=== PATIENT | female | born 1965 | race Caucasian/White ===

== ENCOUNTER → 2016-07-29 | Outpatient (REF) | payer MEDICARE, OTHER ==
[~2016-07-29] MED LIST: ALBU17IN INH; CALC600T68 PO; CETI10CH PO; CYCL10TA PO; DICY10SO PO; DILT240C77 PO; EPIP0.3I2 IJ; GENV1TAB PO; HYDR-4274 PO; HYDR25OIN TOP; MONT10TA2 PO; OXYB5TA PO; PANT40TA2 PO; PHEN-223 PO; SUCR1SUS PO; TOPI50TA4 PO; VALA1TAB PO; VITA100072 PO; [UNRECOGNIZED DRUG - CODE] PO
[2016-07-29 15:56] LABS: CALCIUM OXALATE CRYSTALS LARGE
[2016-07-29 16:29] LABS: ALBUMIN 3.7 GM/DL (3.2-5.2); ALBUMIN/GLOBULIN RATIO 1.16 (1.00-1.93); ALKALINE PHOSPHATASE 135 U/L (45-117); ALT/SGPT 18 U/L (12-78); ANION GAP 8 MEQ/L (8-16); AST/SGOT 10 U/L (15-37); BILIRUBIN,TOTAL 0.2 MG/DL (0.2-1.0); BLOOD UREA NITROGEN 14 MG/DL (7-18); CALCIUM LEVEL 8.5 MG/DL (8.5-10.1); CARBON DIOXIDE LEVEL 22 MEQ/L (21-32); CHLORIDE LEVEL 107 MEQ/L (98-107); CHOLESTEROL LEVEL 240 MG/DL (<200); CREATININE FOR GFR 0.66 MG/DL (0.55-1.02); GLOMERULAR FILTRATION RATE > 60.0 (>51); GLUCOSE, FASTING 81 MG/DL (70-105); POTASSIUM SERUM 4.1 MEQ/L (3.5-5.1); SODIUM LEVEL 137 MEQ/L (136-145); TOTAL PROTEIN 6.9 GM/DL (6.4-8.2); TRIGLYCERIDES LEVEL 114 MG/DL (<150)
[2016-08-05 14:15] LABS: %CD3+CD4+CD8+ 0.9 % (Not Estab.); %CD3+CD4+CD8- 35.5 % (Not Estab.); ABS CD3+CD4+CD8+ 14 /uL (Not Estab.); ABS CD3+CD4+CD8- 533 /uL (Not Estab.); ABS CD3+CD4-CD8+ 690 /uL (Not Estab.); ABS CD3+CD4-CD8- 30 /uL (Not Estab.); CD4/CD8 NYSDOH RATIO 0.77 (Not Estab.); Eosinophils 1 % (.); HCT 45.2 % (34.0-46.6); HGB 14.6 g/dL (11.1-15.9); Monocytes 7 % (.); Neutrophils 61 % (.)
== END ==
LOC: M SFHCPLAZ 11:58
PROVIDERS: ATTEND Internal Medicine Infectious Disease
DX: B20 Human immunodeficiency virus [HIV] disease (principal); E66.9 Obesity, unspecified; Z79.899 Other long term (current) drug therapy
CPT/HCPCS: 36415; 80053; 80061; 81001; 82306; 86360; 86480; 86780; 87491; 87536; 87591; G0463

== ENCOUNTER → 2016-08-05 | Day surgery (SDC) | payer OTHER ==
[~2016-08-05] VITALS: Ht 154.9 cm; Wt 86.2 kg
[~2016-08-05] MED LIST changes: +LIDOCAINE W/EPINEPHRINE 1% 20ML VIAL As Ordered ONE; +LR 1,000 ML IV SCH; +METHYLENE BLUE 0.5% (5MG/ML) 10 ML AMP (PROVAYBLUE)(Q9968 PER 1MG) As Ordered ONE; +MIDAZOLAM INJ 2 MG/2 ML VIAL (J2250) As Ordered ONE; +ONDANSETRON 4MG/2ML VIAL (J2405) As Ordered ONE; +ONDANSETRON 4MG/2ML VIAL (J2405) IV PRN; +OXYMETAZOLINE NASAL SPRAY (AFRIN) As Ordered ONE; +PROPOFOL 200 MG/20 ML VIAL As Ordered ONE; +PROPOFOL 500 MG/50 ML VIAL As Ordered ONE; +REMIFENTANIL 1MG 3ML VIAL As Ordered ONE; +ROCURONIUM BROMIDE 50 MG/5 ML VIAL As Ordered ONE; +SUGAMMADEX SODIUM 500 MG/5 ML VIAL (BRIDION) As Ordered ONE; +dexameTHASONE 4 MG/ML 1ML VIAL (J1100) IV ONE; +fentaNYL 100 MCG/2 ML INJECTION (J3010) As Ordered ONE; +fentaNYL 100 MCG/2 ML INJECTION (J3010) IV PRN
[2016-08-05] MEDS: NORCO, ANEXSIA 5/325MG TABLET (HYDROcodone/ACETAMINOPHEN) PO PRN ×2 (10:40→11:00)
[2016-08-05 11:50] VITALS: BP 126/70
--- NOTE | 2016-08-17 10:01 | RO ---
DATE OF PROCEDURE: 08/05/2016 PREPROCEDURE DIAGNOSIS: Vocal cord polyposis. POSTPROCEDURE DIAGNOSIS: Vocal cord polyposis. PROCEDURE: direct suspension microlaryngoscopy with CO2 laser ablation of the right vocal cord polyposis. SURGEON: Dr. Michael No DIESEL TECHNOLOGY INSTRUCTOR: ANESTHESIA: General. CLINICAL PREAMBLE: This 50-year-old woman presented to the office with history of chronic dysphonia. Physical examination revealed erythematous vocal cords with polypoid degeneration. Biopsy confirmed presence of polypoid degeneration. Management options including surgery have been discussed. Patient understood and consented to the procedure. DESCRIPTION OF OPERATION: Patient was identified in preoperative holding and brought to the operating room in stable condition. In supine position on the operating room table, the patient received general anesthesia followed by attempt to perform mask ventilation. Due to body habitus, there was redundant upper airway mucosa, the jet ventilation proved to be difficult. Decision was made to convert to orotracheal intubation using the laser safe endotracheal tube. This was successfully performed. Patient was then prepped and draped in the usual fashion for the procedure. Bimanual palpation of the oral cavity, oral pharynx and posterior pharyngeal was negative for palpable nodule. The Dedo-Pilling laryngoscope was introduced and suspended on the Shaffer stand for good visualization of the vocal cords. Polypoid degeneration was more prominent on the right side. Decision was made to perform polypectomy on the right vocal cord. Using the Omni CO2 laser set at 6 continuous lyon, the polypoid mucosa was ablated from the right vocal cord. Care was ensured that no injury occurred to the anterior commissure. At this time, a swab was obtained for fungal culture per request of the infectious disease specialist. At the end of the procedure, sponge and instrument counts were correct. No complications were encountered. Estimated blood loss was less than 1 mL. General anesthesia was reversed and the patient was extubated and brought to the recovery room in stable condition. MELISSA
== END | disposition home or self-care (01) ==
LOC: M SDC 06:58
PROVIDERS: ATTEND Otolaryngology
DX: R49.0 Dysphonia (principal); J38.1 Polyp of vocal cord and larynx; B20 Human immunodeficiency virus [HIV] disease; G47.30 Sleep apnea, unspecified; Z88.1 Allergy status to other antibiotic agents; Z79.899 Other long term (current) drug therapy; F17.210 Nicotine dependence, cigarettes, uncomplicated; J45.909 Unspecified asthma, uncomplicated
CPT/HCPCS: 31541; 87102; J1100; J2250; J2405; J3010; Q9968

== ENCOUNTER → 2016-08-19 | Outpatient (REF) | payer MEDICARE, OTHER ==
[~2016-08-19] MED LIST changes: +DEXI60CA PO; -LIDOCAINE W/EPINEPHRINE 1% 20ML VIAL As Ordered ONE; -LR 1,000 ML IV SCH; -METHYLENE BLUE 0.5% (5MG/ML) 10 ML AMP (PROVAYBLUE)(Q9968 PER 1MG) As Ordered ONE; -MIDAZOLAM INJ 2 MG/2 ML VIAL (J2250) As Ordered ONE; -ONDANSETRON 4MG/2ML VIAL (J2405) As Ordered ONE; -ONDANSETRON 4MG/2ML VIAL (J2405) IV PRN; -OXYMETAZOLINE NASAL SPRAY (AFRIN) As Ordered ONE; -PROPOFOL 200 MG/20 ML VIAL As Ordered ONE; -PROPOFOL 500 MG/50 ML VIAL As Ordered ONE; +RANI150T PO; -REMIFENTANIL 1MG 3ML VIAL As Ordered ONE; -ROCURONIUM BROMIDE 50 MG/5 ML VIAL As Ordered ONE; -SUGAMMADEX SODIUM 500 MG/5 ML VIAL (BRIDION) As Ordered ONE; -dexameTHASONE 4 MG/ML 1ML VIAL (J1100) IV ONE; -fentaNYL 100 MCG/2 ML INJECTION (J3010) As Ordered ONE; -fentaNYL 100 MCG/2 ML INJECTION (J3010) IV PRN
== END ==
LOC: M SFHCPLAZ 11:21
PROVIDERS: ATTEND Internal Medicine Infectious Disease
DX: B20 Human immunodeficiency virus [HIV] disease (principal)
CPT/HCPCS: 36415; 87536; G0463

== ENCOUNTER → 2016-09-09 | Outpatient (CLI) | payer MEDICARE, MEDICAID ==
--- NOTE | 2016-09-09 12:19 | REPMRS ---
Patient History The patient states she had a clinical breast exam in 09/2016. Family history of prostate cancer in father at age 50 or over. Reductions of both breasts, January 2014. Digital Woman Screen Mammo: September 09, 2016 - Exam #: [id number] Bilateral CC and MLO view(s) were taken. Technologist: Radha Sorto, Technologist Prior study comparison: March 01, 2013, digital woman screen mammo performed at [facility] to [facility]. February 04, 2010, bilateral bilat screen digital mammo performed at [facility] to [facility]. FINDINGS: There are scattered fibroglandular densities. There has been no change in the appearance of the mammogram from the prior studies. There is a mild amount of residual fibroglandular tissue which is fairly symmetric. There is no interval development of dominant mass, architectural distortion, or clustered microcalcification suggestive of malignancy. ASSESSMENT: BI-RADS/ACR category 1 mammogram. Negative. Recommendation Routine screening mammogram in 1 year (for women over age 40). This mammogram was interpreted with the aid of an FDA-approved computer-aided dectection system. Electronically Signed By: Douglas Palacios MD 09/09/16 [id number]
--- NOTE | 2016-09-11 08:54 | DEXA ---
AP SPINE L1 - L4 0.915 -2.3 -2.6 LT FEMUR TOTAL 0.939 -0.5 -0.6 RT FEMUR TOTAL 0.916 -0.7 -0.8 TOTAL BODY TOTAL OTHER DUAL FEMUR FRAX* ASSESSMENT Risk factors: Possible premature menopause, current tobacco user. 10 year probability of fracture Major osteoporotic fracture 4.2 % Hip fracture 0.5 % COMMENTS: Normal bone densitometry of the left hip. There is low bone density of the spine. There is low bone density of the right hip. The density of the left hip has decreased 9.4% since 05/27/2012. The density of the right hip has decreased 8.9% since 05/27/2012. The decreased density of the left hip does represent a significant change. The decreased density of the right hip does represent a significant change. FOLLOW-UP: Recommendation for the next bone density exam: 2 years. MELISSA
== END ==
LOC: M WHC 10:26
PROVIDERS: ATTEND Nurse Practitioner Family
DX: Z12.31 Encounter for screening mammogram for malignant neoplasm of breast (principal); M85.80 Other specified disorders of bone density and structure, unspecified site; Z78.0 Asymptomatic menopausal state; Z98.890 Other specified postprocedural states
CPT/HCPCS: 77080; G0202

== ENCOUNTER → 2016-09-09 | Outpatient (REF) | payer MEDICARE, MEDICAID | LOC: M SFHCWAGY 11:05 | PROVIDERS: ATTEND Nurse Practitioner Family | DX: Z12.31 Encounter for screening mammogram for malignant neoplasm of breast (principal); Z12.72 Encounter for screening for malignant neoplasm of vagina; R87.622 Low grade squamous intraepithelial lesion on cytologic smear of vagina (LGSIL); M85.80 Other specified disorders of bone density and structure, unspecified site; Z78.0 Asymptomatic menopausal state | CPT/HCPCS: 77080; 87624; G0101; G0123; G0202 ==

== ENCOUNTER → 2016-09-18 | Outpatient (CLI) | payer MEDICARE, MEDICAID ==
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
== END ==
LOC: M PAIN 13:20
PROVIDERS: ATTEND Nurse Practitioner Family
DX: G89.29 Other chronic pain (principal); M53.3 Sacrococcygeal disorders, not elsewhere classified; M43.07 Spondylolysis, lumbosacral region; B20 Human immunodeficiency virus [HIV] disease; J45.909 Unspecified asthma, uncomplicated; I10 Essential (primary) hypertension; F32.9 Major depressive disorder, single episode, unspecified; M85.88 Other specified disorders of bone density and structure, other site; F17.200 Nicotine dependence, unspecified, uncomplicated; Z88.8 Allergy status to other drugs, medicaments and biological substances; Z79.899 Other long term (current) drug therapy

== ENCOUNTER → 2016-09-19 | Outpatient (REF) | payer MEDICARE, MEDICAID | LOC: M SFHCWAGY 14:38 | PROVIDERS: ATTEND Family Medicine | DX: R87.619 Unspecified abnormal cytological findings in specimens from cervix uteri (principal) ==

== ENCOUNTER → 2016-09-29 | Outpatient (CLI) | payer MEDICARE, MEDICAID ==
[~2016-09-29] VITALS: Ht 154.9 cm; Wt 88.4 kg
[~2016-09-29] MED LIST changes: +LIDOCAINE 2% INJ 100 MG/5 ML SDV (FOR ANES.) As Ordered ONE; +NS 1,000 ML IV SCH; +PROPOFOL 200 MG/20 ML VIAL As Ordered ONE
--- NOTE | 2016-09-29 13:50 | ROOR ---
Patient Name: Cinda Turner Procedure Date: 09/29/2016 1:21 PM Date of : 1965 Age: 50 Room: [facility] Gender: Female Note Status: Finalized Procedure: Upper GI endoscopy Indications: Functional Dyspepsia, history of yeast esophagitis Providers: Christiano COOPER MD Referring MD: Karen Marina MD, Zayra YU MD. Requesting Provider: Medicines: Monitored Anesthesia Care Complications: No immediate complications. Procedure: Pre-Anesthesia Assessment: - The heart rate, respiratory rate, oxygen saturations, blood pressure, adequacy of pulmonary ventilation, and response to care were monitored throughout the procedure. The Endoscope was introduced through the mouth, and advanced to the jejunum. The upper GI endoscopy was accomplished without difficulty. The patient tolerated the procedure well. Findings: The examined esophagus was normal. Biopsies were taken with a cold forceps for histology. The examined esophagus was normal. This was biopsied with a cold forceps for Fungal culture and ID. Evidence of a Rehana-en-Y gastrojejunostomy was found. The gastrojejunal anastomosis was characterized by healthy appearing mucosa. The exam of the stomach was otherwise normal. The examined jejunum was normal. Impression: - Normal esophagus. Biopsied for Histology. - Normal esophagus. Biopsied for Fungal culture and ID. - Normal stomach remnant with Rehana-en-Y gastrojejunostomy with gastrojejunal anastomosis widely patent and characterized by healthy appearing mucosa. - Normal examined jejunum. Recommendation: - Telephone endoscopist for pathology results after studies are complete. - Telephone endoscopist for pathology results in 2 weeks. Christiano Cooper MD Christiano COOPER MD 09/29/2016 1:50:06 PM This report has been signed electronically. Number of Addenda: 0 Note Initiated On: 09/29/2016 1:21 PM Estimated Blood Loss: Estimated blood loss: none.
[2016-09-29 13:55] VITALS: BP 136/89
== END | disposition home or self-care (01) ==
LOC: M OPP 11:53
PROVIDERS: ATTEND Internal Medicine Gastroenterology
DX: K30 Functional dyspepsia (principal); Z98.0 Intestinal bypass and anastomosis status; I10 Essential (primary) hypertension; E78.5 Hyperlipidemia, unspecified; B20 Human immunodeficiency virus [HIV] disease; M19.90 Unspecified osteoarthritis, unspecified site; Z78.0 Asymptomatic menopausal state; J45.909 Unspecified asthma, uncomplicated; G47.8 Other sleep disorders; G47.30 Sleep apnea, unspecified; R06.83 Snoring; Z87.19 Personal history of other diseases of the digestive system; Z98.84 Bariatric surgery status; F17.210 Nicotine dependence, cigarettes, uncomplicated; Z88.8 Allergy status to other drugs, medicaments and biological substances; Z88.1 Allergy status to other antibiotic agents; Z79.899 Other long term (current) drug therapy

== ENCOUNTER → 2016-10-16 | Outpatient (CLI) | payer MEDICARE, MEDICAID ==
[~2016-10-16] MED LIST changes: -LIDOCAINE 2% INJ 100 MG/5 ML SDV (FOR ANES.) As Ordered ONE; -NS 1,000 ML IV SCH; -PROPOFOL 200 MG/20 ML VIAL As Ordered ONE
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
== END ==
LOC: M PAIN 14:00
PROVIDERS: ATTEND Anesthesiology
DX: G89.29 Other chronic pain (principal); M46.1 Sacroiliitis, not elsewhere classified; B20 Human immunodeficiency virus [HIV] disease; K21.9 Gastro-esophageal reflux disease without esophagitis; K92.1 Melena; J45.909 Unspecified asthma, uncomplicated; I10 Essential (primary) hypertension; E78.00 Pure hypercholesterolemia, unspecified; G47.36 Sleep related hypoventilation in conditions classified elsewhere; F32.9 Major depressive disorder, single episode, unspecified; M85.80 Other specified disorders of bone density and structure, unspecified site; E66.9 Obesity, unspecified; Z68.38 Body mass index [BMI] 38.0-38.9, adult; F17.210 Nicotine dependence, cigarettes, uncomplicated; Z88.8 Allergy status to other drugs, medicaments and biological substances; Z79.899 Other long term (current) drug therapy; Z86.32 Personal history of gestational diabetes

== ENCOUNTER → 2016-10-24 | Outpatient (CLI) | payer MEDICARE, MEDICAID ==
[~2016-10-24] MED LIST changes: +BUPIVACAINE HCL 0.25% 30 ML VIAL As Ordered ONE; +ISOVUE-M 300 61% 15ML VIAL (Q9967) As Ordered ONE; +LIDOCAINE 1% SDV INJ 30 ML VIAL As Ordered ONE; +TRIAMCINOLONE ACETONIDE SUSP 40 MG/ML VIAL (J3301) As Ordered ONE; +diazePAM 5 MG TAB As Ordered ONE; +oxyCODONE 5MG TAB As Ordered ONE
--- NOTE | 2016-10-24 18:44 | REP ---
Partial SI joint series: Six views. History: Injection procedure for pain. 18 seconds of fluoroscopy time is reported. Findings: A sequence of six fluoroscopically obtained last image hold spot radiographs of the SI joints bilaterally document various needle positions and contrast injections associated with bilateral SI joint injection procedure. Signed by Eduar Ace MD 10/24/2016 07:00 P
--- NOTE | 2016-10-30 23:56 | ECWPNPC ---
PATIENT NAME: DEVAN EDWARDS : 1965 GENDER: FEMALE VISIT DATE: 10/24/2016 DISCHARGE DATE: 10/24/16 1620 VISIT LOCKED DATE TIME: PHYSICIAN: MARITA FOLEY RESOURCE: MARITA FOLEY REASON FOR APPOINTMENT 1. BILATERAL SIJ HISTORY OF PRESENT ILLNESS HISTORY OF PRESENT ILLNESS: PAIN THE PATIENT DESCRIBES THE PAIN... FALL RISK SCREENING: SCREENING :NO FALLS IN THE PAST YEAR CURRENT MEDICATIONS TAKING EPIPEN 0.3 MG/0.3ML DEVICE DIRECTED INJECTION ONCE DAILY NEEDED, NOTES: NEVER TAKING ANUSOL-HC 2.5 % CREAM 1 APPLICATION TO AFFECTED AREA RECTAL TWICE A DAY, NOTES: NONE RECENT TAKING VALTREX 1 GM TABLET 2 TABLET ORALLY BID FOR 2 DAYS PRN, NOTES: NONE RECENT TAKING DILT-XR 240 MG CAPSULE EXTENDED RELEASE 24 HOUR TAKE ONE CAPSULE BY MOUTH ONCE DAILY , NOTES: 10/24/16599 TAKING CYCLOBENZAPRINE HCL 10 MG TABLET 1 TABLET NEEDED ORALLY THREE TIMES A DAY, NOTES: 10/24/16599 TAKING HYDROXYZINE HCL 50 MG TABLET 1 TABLET NEEDED ORALLY 2 TABS AT BEDTIME, NOTES: 10/23/162199 TAKING ZANTAC 150 MAXIMUM STRENGTH 150 MG TABLET 1 TABLET AT BEDTIME ORALLY ONCE A DAY, NOTES: 10/23/161899 TAKING VENTOLIN HFA 108 (90 BASE) MCG/ACT AEROSOL SOLUTION 2 PUFFS MARY ALICE INHALATION EVERY 4 HRS NEEDED, NOTES: 2 DAYS AGO TAKING TOPAMAX 50 MG TABLET 1 TABLET ORALLY TWICE A DAY, NOTES: 10/24/16599 TAKING VITAMIN B-12 1000 MCG TABLET 1 TABLET ORALLY ONCE A DAY, NOTES: 10/24/16599 TAKING MONTELUKAST SODIUM 10 MG TABLET 1 TABLET IN THE EVENING ORALLY ONCE A DAY, NOTES: 10/23/161899 TAKING CALCIUM 600 + D 600-400 MG-UNIT TABLET 1 TABLET ORALLY TWICE A DAY, NOTES: 10/24/16599 TAKING PREZISTA 800 MG TABLET TAKE ONE TABLET BY MOUTH EVERY DAY WITH FOOD ORALLY ONCE A DAY, NOTES: 10/23/161899 TAKING GENVOYA [phone] MG TABLET TAKE ONE TABLET BY MOUTH EVERY DAY DIRECTED ORALLY DAILY, NOTES: 10/23/161899 TAKING VITAMIN D 1000 UNIT TABLET 1 TABLET ORALLY ONCE A DAY, NOTES: 10/24/16599 TAKING PODOFILOX 0.5 % SOLUTION 1 DROP TO AFFECTED AREA TO WARTS EXTERNALLY TWICE A DAY FOR 3 DAYS THEN OFF FOR 4 DAYS, NOTES: NONE RECENT TAKING ESTRADIOL 0.5 MG TABLET 1 TABLET ORALLY ONCE A DAY, NOTES: 10/24/16599 TAKING PHENTERMINE HCL 30 MG CAPSULE 1 CAPSULE ORALLY ONCE A DAY/MDD#1, NOTES: 10/24/16599 TAKING HYDROCODONE-ACETAMINOPHEN 7.5-325 MG TABLET 1 TABLET NEEDED ORALLY EVERY 6 HRS/MMD4, NOTES: 10/24/16599 NOT-TAKING LORATADINE 10 MG CAPSULE 1 CAPSULE ORALLY ONCE A DAY NOT-TAKING PANTOPRAZOLE SODIUM 40 MG TABLET DELAYED RELEASE 1 TABLET ORALLY ONCE A DAY MEDICATION LIST REVIEWED AND RECONCILED WITH THE PATIENT PAST MEDICAL HISTORY AIDS/HIV ASTHMA HYPERTENSION/ ECHOCARDIOGRAM SHOWED LVH TENDONITIS SANGITA WRIST ENVIRONMENTAL ALLERGIES HX OF GESTATIONAL DIABETES PURE 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 TORRES 08/17 IRRITABLE BOWEL SYNDROME GENOTYPE 08/2011 K103 MUTATION TROFILE DUAL MIXED TROPISM POSTMENOPAUSE OSTEOPENIA BMD 2012 DR KHOURY SYMPTOMATIC STATES ASSOCIATED WITH ARTIFICIAL MENOPAUSE SYMPTOMATIC STATES ASSOCIATED WITH ARTIFICIAL MENOPAUSE EXTERNAL HEMORRHOIDS GASTRIC BYPASS STATUS FOR OBESITY SEASONAL AND PERENNIAL ALLERGIC RHINITIS OSTEOPENIA ALLERGIES BIAXIN: RASH: ALLERGY NORVASC: EDEMA: ALLERGY LISINOPRIL: FACIAL SWELLING: ALLERGY ESTRADIOL: REDDNESS AT SITE OF PATCH: SIDE EFFECTS SURGICAL HISTORY PARTIAL HYSTERECTOMY 2004 TUBAL LIGATION 1989 GASTRIC BYPASS 1994 BENIGN POLYP REMOVAL FROM THROAT 2008 TENDONITIS SURGERY X2 (WRIST) RT 07/2008, LT 12/2008 BUNIONECTOMY 2ND TOE ON RIGHT FOOT STRAIGHTENED LAP CHOLECYSTECTOMY ([place]) 02/13/2012 LAP RELEASE OF BOWEL OBSTRUCTION (BOWEL SEWN INTO LUZ [facility]IA INCISION) ([facility]) 02/15/2012 ABDOMINAL SURGERY 06/23 BREAST REDUCTION COMPLICATED BY MSSA ABSCESS ON THE RIGHT SIDE REQUIRING INCISION AND DRAINAGE 01/2014 COLONOSCOPY 4 MM TUBULAR ADENOMA REPEAT IN [address] GAN 10/2015 BIOPSY THROAT 08-05-16 COLPOSCOPY 09/19/16 HOSPITALIZATION/MAJOR DIAGNOSTIC PROCEDURE RELATED TO SURGERY REVIEW OF SYSTEMS REVIEWED BY: PROVIDER: . CONSTITUTIONAL: ANY CHANGE IN YOUR MEDICAL CONDITION? NO . CHILLS NO . FEVER NO . INFECTION: DO YOU HAVE NEW INFECTIONS? NO . DO YOU HAVE HISTORY OF MRSA? NO . MUSCULOSKELETAL: ANY NEW PATTERNS OF PAIN OR NUMBNESS? NO . GASTROENTEROLOGY: ANY NEW CHANGE IN BOWEL CONTROL? NO . GENITOURINARY: ANY NEW CHANGE IN BLADDER CONTROL? NO . IS THERE A CHANCE YOU COULD BE ? NO . HEMATOLOGY/LYMPH: DO YOU TAKE ANY BLOOD THINNERS? (FOR EXAMPLE- COUMADIN, PLAVIX, AGGRENOX, PLATEL, PRADAXA, OR XARELTO) NO . WHEN WAS YOUR LAST DOSE? DATE: TIME: . NEUROLOGY: HAVE YOU FALLEN IN THE PAST 6 MONTHS? NO . ANY NEW EXTREMITY NUMBNESS OR WEAKNESS? NO . CARDIOLOGY: DO YOU HAVE A PACEMAKER OR DEFIBRILLATOR? NO . RESPIRATORY: HAVE YOU BEEN SICK IN THE PAST WEEK? NO . FEVER NO . FLU LIKE SYMPTOMS? NO . COUGH NO . INTEGUMENTARY: DO YOU HAVE ANY RASHES OR OPEN SORES? NO . ALLERGIC/IMMUNO: ARE YOU ALLERGIC TO SHELLFISH OR IV DYE? NO . ANY NEW ALLERGIES? NO . PSYCHIATRIC: DO YOU HAVE THOUGHTS OF HURTING YOURSELF OR SOMEONE ELSE? NO . ARE YOU ABUSED, NEGLECTED, OR IN AN UNSAFE ENVIRONMENT? NO . ENDOCRINOLOGY: ARE YOU DIABETIC? NO . OTHER: DO YOU NEED ANY PRESCRIPTIONS? NO . IF YES, PLEASE LIST: ____ . ANY NEW PROBLEMS WITH YOUR MEDICATIONS? NO . WHEN DID YOU LAST EAT? 10/23/161999 . WHEN DID YOU LAST DRINK? 10/24/16 0930 . WHAT DID YOU LAST DRINK? WATER . NAME OF PERSON DRIVING YOU HOME? MOM--BOOKER . DO YOU HAVE ANY OTHER QUESTIONS OR CONCERNS NO . VITAL SIGNS WT 201.8 LBS, HT 61 IN, BMI 38.13 INDEX, BP 138/88 MM HG, HR 91 /MIN, RR 18 /MIN, TEMP 97.7 F, OXYGEN SAT % 98%, NA INITIALS TL 1153, REVIEWED BY: AD. ASSESSMENTS SACROILIITIS, NOT ELSEWHERE CLASSIFIED - M46.1 (PRIMARY) PROCEDURES PN SI PRE PROCEDURE DIAGNOSIS SACROILIITIS, SACROILIAC JOINT DYSFUNCTION POST PROCEDURE DIAGNOSIS SACROILIITIS, SACROILIAC JOINT DYSFUNCTION PROCEDURE BILATERAL SACROILIAC JOINT BLOCK SURGEON DR. MARITA FOLEY DIRECTOR OF MATH NONE ANESTHESIA LOCAL PRE PROCEDURE NOTE PATIENT WITH HISTORY OF CHRONIC LOW BACK PAIN. I EVALUATED THE PATIENT AND REVIEWED THE CHART. I WENT OVER THE RISKS, ALTERNATIVES, AND BENEFITS ASSOCIATED WITH THIS PROCEDURE. THE PATIENT WOULD LIKE TO PROCEED AND GAVE CONSENT TO PERFORM THE PROCEDURE. THE PATIENT DENIES UNEXPLAINABLE WEIGHT LOSS, FEVER, CHILLS, OR NEW CHANGES IN URINARY OR BOWEL CONTROL DESCRIPTION OF PROCEDURE THE PATIENT WAS BROUGHT TO THE PROCEDURE ROOM AND PLACED IN THE PRONE POSITION. THE LUMBOSACRAL AREA WAS CLEANED WITH CHLORAPREP SOLUTION AND DRAPED ASEPTICALLY. THE PROCEDURE WAS DONE UNDER STERILE CONDITIONS. I CHECKED LATERALITY AND THE LEVEL WHERE THE PROCEDURE WAS GOING TO BE PERFORMED WITH THE PATIENT AND THE SUPPORTING STAFF AT THE MOMENT OF THE TIME OUT IN THE PROCEDURE ROOM. UNDER FLUOROSCOPIC GUIDANCE, TARGET POINT WAS SELECTED AT THE LOWER BORDER OF THE RIGHT AND LEFT SACROILIAC JOINT. TARGET POINT WAS SELECTED AFTER MEDIAL ROTATION AND TILT OF THE MAGNIFIER OF THE C-ARM. LIDOCAINE WAS USED TO NUMB THE SKIN AND SUBCUTANEOUS TISSUE BELOW IT. A SPINAL NEEDLE, 22-GAUGE, WAS ADVANCED UNDER FLUOROSCOPIC GUIDANCE AND FOLLOWING PATIENT FEEDBACK UNTIL THE TARGET AREA WAS TOUCHED. THE POSITION OF THE NEEDLE WAS VERIFIED WITH AP AND LATERAL VIEWS. AFTER PROPER POSITION OF THE NEEDLE WAS ACHIEVED, ISOVUE M DYE 30%, 0.25 ML, WAS INJECTED SHOWING SPREAD OF THE DYE. THEN, A SOLUTION OF 20 MG OF KENALOG WAS INJECTED IN RIGHT JOINT WITH 3 ML OF BUPIVACAINE 0.125%. THERE WAS NO EVIDENCE OF BLOOD, PARESTHESIA OR CEREBROSPINAL FLUID DURING THE PROCEDURE. THE PATIENT WAS SENT TO THE RECOVERY ROOM. THE PATIENT WAS MOVING THE EXTREMITIES AND DOING WELL. THERE WAS NO COMPLICATION DURING THE PROCEDURE. FLUOROSCOPY TIME WAS 18 SECONDS POST PROCEDURE NOTE THE PATIENT WILL BE SEEN IN A FOLLOW UP IN THE NEXT FEW WEEKS. INSTRUCTIONS WERE GIVEN, QUESTIONS WERE ANSWERED, AND THE PATIENT EXPRESSED UNDERSTANDING AND AGREED WITH THE PLAN. I, HAILEE ESPINO, DOCUMENTED THE ABOVE INFORMATION ACTING A SCRIBE FOR DR. FOLEY. I HAVE REVIEWED THE ABOVE DOCUMENT, WRITTEN BY HAILEE ARAGON AND I VERIFY THAT IT IS ACCURATE DIAGNOSTIC IMAGING [facility] FLUORO GUIDANCE (PAIN)[id number] PROCEDURE CODES 68143 INJECT SACROILIAC JOINT 6045F RADXPS IN END [id number] PXD DISPOSITION & COMMUNICATION FOLLOW UP 3 WEEKS ELECTRONICALLY SIGNED BY MARITA FOLEY MD ON 10/30/2016 AT 11:09 AM EDT DISCLAIMER : THIS IS A VISIT SUMMARY EXTRACTED FROM THE [employer] CHART. IT IS NOT A COPY OF THE [employer] PROGRESS NOTE. MELISSA
== END ==
LOC: M PAIN 11:40
PROVIDERS: ATTEND Anesthesiology
DX: G89.29 Other chronic pain (principal); M46.1 Sacroiliitis, not elsewhere classified; M53.88 Other specified dorsopathies, sacral and sacrococcygeal region; B20 Human immunodeficiency virus [HIV] disease; J45.909 Unspecified asthma, uncomplicated; I10 Essential (primary) hypertension; E78.00 Pure hypercholesterolemia, unspecified; M85.80 Other specified disorders of bone density and structure, unspecified site; K21.9 Gastro-esophageal reflux disease without esophagitis; Z79.899 Other long term (current) drug therapy; Z86.32 Personal history of gestational diabetes
CPT/HCPCS: G0260; J3301; Q9967

== ENCOUNTER → 2016-11-07 | Outpatient (CLI) | payer MEDICARE, MEDICAID ==
[~2016-11-07] MED LIST changes: -BUPIVACAINE HCL 0.25% 30 ML VIAL As Ordered ONE; -DEXI60CA PO; +DEXI60CA2 PO; +ESTR1TAB PO; +HORMONE PO; -HYDR-4274 PO; +HYDR50TA70 PO; -ISOVUE-M 300 61% 15ML VIAL (Q9967) As Ordered ONE; -LIDOCAINE 1% SDV INJ 30 ML VIAL As Ordered ONE; -OXYB5TA PO; +OXYB5TAB10 PO; -PHEN-223 PO; +PHEN30CA2 PO; +PREZ600T3 PO; +PREZ800T2 PO; -TOPI50TA4 PO; +TOPI50TA9 PO; -TRIAMCINOLONE ACETONIDE SUSP 40 MG/ML VIAL (J3301) As Ordered ONE; -VALA1TAB PO; +VALA1TAB2 PO; -[UNRECOGNIZED DRUG - CODE] PO; -diazePAM 5 MG TAB As Ordered ONE; -oxyCODONE 5MG TAB As Ordered ONE
--- NOTE | 2016-11-22 00:43 | ECWPNPC ---
PATIENT NAME: DEVAN EDWARDS : 1965 GENDER: FEMALE VISIT DATE: 11/07/2016 DISCHARGE DATE: 11/07/16 1218 VISIT LOCKED DATE TIME: PHYSICIAN: UMESH LONGO RESOURCE: UMESH LONGO REASON FOR APPOINTMENT 1. POST PROCEDURE HISTORY OF PRESENT ILLNESS HISTORY OF PRESENT ILLNESS: HERE FOR POST PROCEDURE F/U.HAD BILATERAL SIJ ON 10-24-16.REPORTS NO IMPROVEMENT POST PROCEDURE.RATING PAIN VAS 6/10.PAIN IS LOCATED ACROSS LOW BACK WITH INTERMITTENT RIGHT LEG PAIN.PAIN IS AGGREVATED WITH HOUSEWORK IE:SWEEPING AND MOPPING. PAIN THE PATIENT DESCRIBES THE PAIN... FALL RISK SCREENING: SCREENING :NO FALLS IN THE PAST YEAR CURRENT MEDICATIONS TAKING EPIPEN 0.3 MG/0.3ML DEVICE DIRECTED INJECTION ONCE DAILY NEEDED TAKING ANUSOL-HC 2.5 % CREAM 1 APPLICATION TO AFFECTED AREA RECTAL TWICE A DAY TAKING VALTREX 1 GM TABLET 2 TABLET ORALLY BID FOR 2 DAYS PRN TAKING DILT-XR 240 MG CAPSULE EXTENDED RELEASE 24 HOUR TAKE ONE CAPSULE BY MOUTH ONCE DAILY TAKING CYCLOBENZAPRINE HCL 10 MG TABLET 1 TABLET NEEDED ORALLY THREE TIMES A DAY TAKING ZANTAC 150 MAXIMUM STRENGTH 150 MG TABLET 1 TABLET AT BEDTIME ORALLY ONCE A DAY TAKING VENTOLIN HFA 108 (90 BASE) MCG/ACT AEROSOL SOLUTION 2 PUFFS MARY ALICE INHALATION EVERY 4 HRS NEEDED TAKING TOPAMAX 50 MG TABLET 1 TABLET ORALLY TWICE A DAY TAKING VITAMIN B-12 1000 MCG TABLET 1 TABLET ORALLY ONCE A DAY TAKING VITAMIN D 1000 UNIT TABLET 1 TABLET ORALLY ONCE A DAY TAKING ESTRADIOL 0.5 MG TABLET 1 TABLET ORALLY ONCE A DAY TAKING MONTELUKAST SODIUM 10 MG TABLET 1 TABLET IN THE EVENING ORALLY ONCE A DAY TAKING HYDROCODONE-ACETAMINOPHEN 7.5-325 MG TABLET 1 TABLET NEEDED ORALLY EVERY 6 HRS/MMD4 TAKING RANITIDINE HCL 300 MG TABLET 1 TABLET AT BEDTIME ORALLY BEFORE BEDTIME TAKING CALCIUM 600 + D 600-400 MG-UNIT TABLET 1 TABLET ORALLY TWICE A DAY TAKING PREZISTA 800 MG TABLET TAKE ONE TABLET BY MOUTH EVERY DAY WITH FOOD ORALLY ONCE A DAY TAKING GENVOYA 107-111-348-10 MG TABLET TAKE ONE TABLET BY MOUTH EVERY DAY DIRECTED ORALLY DAILY TAKING HYDROXYZINE HCL 50 MG TABLET 1 TABLET NEEDED ORALLY 2 TABS AT BEDTIME TAKING DEXILANT 60 MG CAPSULE DELAYED RELEASE 1 CAPSULE ORALLY ONCE A DAY NOT-TAKING PHENTERMINE HCL 30 MG CAPSULE 1 CAPSULE ORALLY ONCE A DAY/MDD#1 NOT-TAKING CETIRIZINE HCL 10 MG TABLET 1 TABLET ORALLY ONCE A DAY NOT-TAKING PANTOPRAZOLE SODIUM 40 MG TABLET DELAYED RELEASE 1 TABLET ORALLY ONCE A DAY NOT-TAKING PODOFILOX 0.5 % SOLUTION 1 DROP TO AFFECTED AREA TO WARTS EXTERNALLY TWICE A DAY FOR 3 DAYS THEN OFF FOR 4 DAYS, NOTES: NONE RECENT NOT-TAKING LORATADINE 10 MG CAPSULE 1 CAPSULE ORALLY ONCE A DAY MEDICATION LIST REVIEWED AND RECONCILED WITH THE PATIENT PAST MEDICAL HISTORY AIDS/HIV ASTHMA HYPERTENSION/ ECHOCARDIOGRAM SHOWED LVH TENDONITIS SANGITA WRIST ENVIRONMENTAL ALLERGIES HX OF GESTATIONAL DIABETES PURE 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 TORRES 08/17 IRRITABLE BOWEL SYNDROME GENOTYPE 08/2011 K103 MUTATION TROFILE DUAL MIXED TROPISM POSTMENOPAUSE OSTEOPENIA BMD [address] KHOURY SYMPTOMATIC STATES ASSOCIATED WITH ARTIFICIAL MENOPAUSE SYMPTOMATIC STATES ASSOCIATED WITH ARTIFICIAL MENOPAUSE EXTERNAL HEMORRHOIDS GASTRIC BYPASS STATUS FOR OBESITY SEASONAL AND PERENNIAL ALLERGIC RHINITIS OSTEOPENIA ALLERGIES BIAXIN: RASH: ALLERGY NORVASC: EDEMA: ALLERGY LISINOPRIL: FACIAL SWELLING: ALLERGY ESTRADIOL: REREDDNESS AT SITE OF PATCH: SIDE EFFECTS SURGICAL HISTORY PARTIAL HYSTERECTOMY 2004 TUBAL LIGATION 1989 GASTRIC BYPASS 1994 BENIGN POLYP REMOVAL FROM THROAT 2009 TENDONITIS SURGERY X2 (WRIST) RT 07/2008, LT 12/2008 BUNIONECTOMY 2ND TOE ON RIGHT FOOT STRAIGHTENED LAP CHOLECYSTECTOMY ([place]) 02/13/2012 LAP RELEASE OF BOWEL OBSTRUCTION (BOWEL SEWN INTO LUZ MARIA INCISION) ([facility]) 02/15/2012 ABDOMINAL SURGERY 06/23 BREAST REDUCTION COMPLICATED BY MSSA ABSCESS ON THE RIGHT SIDE REQUIRING INCISION AND DRAINAGE 01/2014 COLONOSCOPY 4 MM TUBULAR ADENOMA REPEAT IN [address] GAN 10/2015 BIOPSY THROAT 08-05-16 COLPOSCOPY 09/19/16 HOSPITALIZATION/MAJOR DIAGNOSTIC PROCEDURE RELATED TO SURGERY REVIEW OF SYSTEMS REVIEWED BY: PROVIDER: UMESH GORDILLO . CONSTITUTIONAL: ANY CHANGE IN YOUR MEDICAL CONDITION? NO . CHILLS NO . FEVER NO . INFECTION: DO YOU HAVE NEW INFECTIONS? NO . DO YOU HAVE HISTORY OF MRSA? NO . MUSCULOSKELETAL: ANY NEW PATTERNS OF PAIN OR NUMBNESS? NO . GASTROENTEROLOGY: ANY NEW CHANGE IN BOWEL CONTROL? NO . GENITOURINARY: ANY NEW CHANGE IN BLADDER CONTROL? NO . IS THERE A CHANCE YOU COULD BE ? NO . HEMATOLOGY/LYMPH: DO YOU TAKE ANY BLOOD THINNERS? (FOR EXAMPLE- COUMADIN, PLAVIX, AGGRENOX, PLATEL, PRADAXA, OR XARELTO) NO . WHEN WAS YOUR LAST DOSE? DATE: TIME: . NEUROLOGY: HAVE YOU FALLEN IN THE PAST 6 MONTHS? NO . ANY NEW EXTREMITY NUMBNESS OR WEAKNESS? NO . CARDIOLOGY: DO YOU HAVE A PACEMAKER OR DEFIBRILLATOR? NO . RESPIRATORY: HAVE YOU BEEN SICK IN THE PAST WEEK? NO . FEVER NO . FLU LIKE SYMPTOMS? NO . COUGH NO . INTEGUMENTARY: DO YOU HAVE ANY RASHES OR OPEN SORES? NO . ALLERGIC/IMMUNO: ARE YOU ALLERGIC TO SHELLFISH OR IV DYE? NO . ANY NEW ALLERGIES? NO . PSYCHIATRIC: DO YOU HAVE THOUGHTS OF HURTING YOURSELF OR SOMEONE ELSE? NO . ARE YOU ABUSED, NEGLECTED, OR IN AN UNSAFE ENVIRONMENT? NO . ENDOCRINOLOGY: ARE YOU DIABETIC? NO . OTHER: DO YOU NEED ANY PRESCRIPTIONS? NO . IF YES, PLEASE LIST: ____ . ANY NEW PROBLEMS WITH YOUR MEDICATIONS? NO . WHEN DID YOU LAST EAT? ____ . WHEN DID YOU LAST DRINK? ____ . WHAT DID YOU LAST DRINK? ____ . NAME OF PERSON DRIVING YOU HOME? ____ . DO YOU HAVE ANY OTHER QUESTIONS OR CONCERNS NO . VITAL SIGNS WT 203 LBS, HT 61 IN, BMI 38.35 INDEX, BP 139/93 MM HG, HR 87 /MIN, RR 18 /MIN, TEMP 98.3 F, OXYGEN SAT % 95%, SAFE IN ENV? (Y/N) Y, NA INITIALS AW 1134, REVIEWED BY: EM. EXAMINATION GENERAL EXAMINATION: GENERAL APPEARANCE:APPEARS OLDER THAN STATED AGE, OBESE, UNCOMFORTABLE. PSYCHAFFECT NORMAL. LUNGS:LUNG MCADAMS ARE CLEAR TO AUSCULTATION BILATERALLY. GOOD MOVEMENT OF AIR. HEART:S1, S2 IN A REGULAR RATE AND RHYTHM. NO SIGNIFICANT MURMURS, RUBS OR GALLOPS NOTED. ABDOMEN:SOFT, NON-TENDER, NO ORGANOMEGALY, BOWEL SOUNDS ARE NORMAL, OBESE. DIAGNOSTIC DATA-MRI L/S [id number]-REVIEWED. LUMBAR SPINE/LOWER BACK: INSPECTION:NORMAL CURVATURE OF SPINE. PALPATION:VERTEBRAL SPINE TENDERNESS, VERTEBRAL SPINE TENDERNESS, SI JOINT TENDERNESS R>L. MOTOR SYSTEM:5/5 BLE. SENSORY EXAM:NORMAL. REFLEXES:DIMINISHED BILATERALLY. GAIT:ANTALGIC. 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 MATERIAL WAS PRINTED, REVIEWED AND GIVEN TO PT. PROCEDURE CODES FA211 ESTABILISHED PATIENT [facility] FACILITY CHARGE G8730 PAIN ASSESS POS TOOL F/U PLAN DOC G8427 DOC MEDS VERIFIED W/PT OR RE DISPOSITION & COMMUNICATION FOLLOW UP 2WK POST (REASON: L4/5-L5/S1-INTRALAMINAL LESI) ELECTRONICALLY SIGNED BY RAND HIGGINS ON 11/21/2016 AT 01:40 PM EDT DISCLAIMER : THIS IS A VISIT SUMMARY EXTRACTED FROM THE [employer] CHART. IT IS NOT A COPY OF THE [employer] PROGRESS NOTE. MELISSA
== END ==
LOC: M PAIN 10:40
PROVIDERS: ATTEND Nurse Practitioner Family
DX: G89.29 Other chronic pain (principal); M43.07 Spondylolysis, lumbosacral region; M51.26 Other intervertebral disc displacement, lumbar region; M54.16 Radiculopathy, lumbar region; B20 Human immunodeficiency virus [HIV] disease; J45.909 Unspecified asthma, uncomplicated; I10 Essential (primary) hypertension; E78.00 Pure hypercholesterolemia, unspecified; F32.9 Major depressive disorder, single episode, unspecified; M85.80 Other specified disorders of bone density and structure, unspecified site; Z88.8 Allergy status to other drugs, medicaments and biological substances; Z79.899 Other long term (current) drug therapy; Z86.32 Personal history of gestational diabetes

== ENCOUNTER → 2016-11-26 | Outpatient (CLI) | payer MEDICARE, MEDICAID ==
[~2016-11-26] MED LIST changes: +ISOVUE-M 300 61% 15ML VIAL (Q9967) As Ordered ONE; +LIDOCAINE 1% SDV INJ 30 ML VIAL As Ordered ONE; +diazePAM 5 MG TAB As Ordered ONE; +methylPREDNISolone SUSP 40 MG/ML (DEPO-medrol) VIAL (J1030) As Ordered ONE; +oxyCODONE 5MG TAB As Ordered ONE
--- NOTE | 2016-11-26 11:52 | REP ---
Partial lumbar spine series: Three views . History: Injection procedure for pain. 12th seconds of fluoroscopy time is reported. Findings: A sequence of three fluoroscopically obtained last image hold procedural spot radiographs of the lumbar spine document needle position and contrast injection associated with injection procedure. Signed by Eduar Ace MD 11/26/2016 11:43 A
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
== END ==
LOC: M PAIN 08:40
PROVIDERS: ATTEND Anesthesiology
DX: G89.29 Other chronic pain (principal); M51.17 Intervertebral disc disorders with radiculopathy, lumbosacral region; B20 Human immunodeficiency virus [HIV] disease; J30.89 Other allergic rhinitis; I10 Essential (primary) hypertension; K21.9 Gastro-esophageal reflux disease without esophagitis; E66.9 Obesity, unspecified; Z68.45 Body mass index [BMI] 70 or greater, adult; F32.9 Major depressive disorder, single episode, unspecified; M85.80 Other specified disorders of bone density and structure, unspecified site; F17.210 Nicotine dependence, cigarettes, uncomplicated; Z88.8 Allergy status to other drugs, medicaments and biological substances; Z79.899 Other long term (current) drug therapy
CPT/HCPCS: 62323; J1030; Q9967

== ENCOUNTER 2016-12-17 11:35 | Day surgery (SDC) | payer MEDICARE, MEDICAID ==
[~2016-12-17] VITALS: Ht 154.9 cm; Wt 88.0 kg
[~2016-12-17 11:35] MED LIST changes: -ESTR1TAB PO; -ISOVUE-M 300 61% 15ML VIAL (Q9967) As Ordered ONE; -LIDOCAINE 1% SDV INJ 30 ML VIAL As Ordered ONE; -diazePAM 5 MG TAB As Ordered ONE; -methylPREDNISolone SUSP 40 MG/ML (DEPO-medrol) VIAL (J1030) As Ordered ONE; -oxyCODONE 5MG TAB As Ordered ONE
[2016-12-17] MEDS ORDERED: LIDOCAINE 1% MDV 20ML VIAL SQ PRN (11:45)
[2016-12-17] MEDS ORDERED: dexameTHASONE 4 MG/ML 1ML VIAL (J1100) IV ONE (11:45)
[2016-12-17] MEDS ORDERED: LR 1,000 ML IV ONE (11:45)
[2016-12-17] MEDS ORDERED: ESTR1TAB PO (12:12)
[2016-12-17] MEDS ORDERED: LIDOCAINE W/EPINEPHRINE 1% 20ML VIAL As Ordered ONE (14:09)
[2016-12-17] MEDS ORDERED: OXYMETAZOLINE NASAL SPRAY (AFRIN) As Ordered ONE (14:09)
[2016-12-17] MEDS ORDERED: LIDOCAINE 2% INJ 100 MG/5 ML SDV (FOR ANES.) As Ordered ONE (14:22)
[2016-12-17] MEDS ORDERED: dexameTHASONE 4 MG/ML 1ML VIAL (J1100) As Ordered ONE (14:22)
[2016-12-17] MEDS ORDERED: MIDAZOLAM INJ 2 MG/2 ML VIAL (J2250) As Ordered ONE (14:22)
[2016-12-17] MEDS ORDERED: ONDANSETRON 4MG/2ML VIAL (J2405) As Ordered ONE (14:22)
[2016-12-17] MEDS ORDERED: fentaNYL 250 MCG/5 ML INJECTION (J3010) As Ordered ONE (14:22)
[2016-12-17] MEDS ORDERED: ROCURONIUM BROMIDE 50 MG/5 ML VIAL/SYRINGE As Ordered ONE (14:22)
[2016-12-17] MEDS ORDERED: PROPOFOL 200 MG/20 ML VIAL As Ordered ONE (14:22)
[2016-12-17] MEDS ORDERED: SUCCINYLCHOLINE 100 MG/5 ML SYRINGE (J0330) As Ordered ONE (14:22)
[2016-12-17] MEDS ORDERED: METOCLOPRAMIDE INJ 10MG/2ML VIAL (J2765) IV PRN (15:30)
[2016-12-17] MEDS ORDERED: LR 1,000 ML IV SCH ×2 (15:30)
[2016-12-17] MEDS ORDERED: ONDANSETRON 4MG/2ML VIAL (J2405) IV PRN (15:30)
[2016-12-17] MEDS ORDERED: fentaNYL 100 MCG/2 ML INJECTION (J3010) IV PRN (15:30)
[2016-12-17 16:25] VITALS: BP 135/76
--- NOTE | 2017-01-08 08:44 | RO ---
DATE OF PROCEDURE: 12/17/2016 PREPROCEDURE DIAGNOSES: Dysphonia and vocal cord polyp. POSTPROCEDURE DIAGNOSES: Dysphonia and vocal cord polyp. PROCEDURE: Direct suspension microlaryngoscopy with CO2 laser ablation of the left vocal cord polyp. SURGEON: Michael No MD ASSISTANT STORE DIRECTOR: ANESTHESIA: General. CLINICAL PREAMBLE: This 59-year-old woman is noted to have vocal cord polyposis. Management options, including the CO2 laser ablation of the vocal cord polyp have been discussed. She has had right vocal cord polyp resected with good results. The patient understood and consented to the procedure. DESCRIPTION OF PROCEDURE: Patient was identified in preholding and brought to the operating room in stable condition. In the supine position on the operating room table, the patient received general anesthesia followed by orotracheal intubation without incident. The patient was prepped and draped in the usual fashion for the procedure. The head and neck region, down to the clavicular area was draped using wet towel. All personnel in the operating room wore the CO2 laser protective eyeglasses. Appropriate precautions were taken in regard to the availability of the fluid. The Dedo-Piling laryngoscope was introduced and the glottis was successfully visualized. No mucosal lesion was noted in the oral cavity, oropharynx, subglottis and the hypopharynx. Left vocal cord polyposis was noted. The subglottis was then protected using Cottonoid pledgets soaked in Afrin solution to protect the endotracheal cuff of the CO2 laser safe endotracheal tube. At this time, using the Omni laser with a flexible wire system set at 6 lyon continuous mode, the ablation of the left vocal cord polyp was carried out. No complications were encountered. At the end of the case, estimated blood loss was less than 1 mL. General anesthesia was reversed, and patient was awakened and taken to recovery room in stable condition. MELISSA
== END 2016-12-17 16:35 | disposition home or self-care (01) ==
LOC: M SDC 11:35
PROVIDERS: ATTEND Otolaryngology
DX: J38.1 Polyp of vocal cord and larynx (principal); I10 Essential (primary) hypertension; B20 Human immunodeficiency virus [HIV] disease; G47.30 Sleep apnea, unspecified; F17.210 Nicotine dependence, cigarettes, uncomplicated; Z88.8 Allergy status to other drugs, medicaments and biological substances; Z79.899 Other long term (current) drug therapy; J45.909 Unspecified asthma, uncomplicated
CPT/HCPCS: 31572; J0330; J1100; J2250; J2405; J3010

== ENCOUNTER → 2016-12-23 | Outpatient (CLI) | payer MEDICARE, MEDICAID ==
[~2016-12-23] MED LIST changes: +ESTR1TAB PO
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
== END ==
LOC: M PAIN 10:00
PROVIDERS: ATTEND Nurse Practitioner Family
DX: G89.29 Other chronic pain (principal); M43.07 Spondylolysis, lumbosacral region; M51.26 Other intervertebral disc displacement, lumbar region; M54.16 Radiculopathy, lumbar region; B20 Human immunodeficiency virus [HIV] disease; J45.909 Unspecified asthma, uncomplicated; I10 Essential (primary) hypertension; F17.210 Nicotine dependence, cigarettes, uncomplicated; Z88.8 Allergy status to other drugs, medicaments and biological substances; Z79.899 Other long term (current) drug therapy

== ENCOUNTER → 2017-01-22 | Outpatient (CLI) | payer MEDICARE, MEDICAID ==
[~2017-01-22] MED LIST changes: +ISOVUE-M 300 61% 15ML VIAL (Q9967) As Ordered ONE; +LIDOCAINE 1% SDV INJ 30 ML VIAL As Ordered ONE; +diazePAM 5 MG TAB As Ordered ONE; +methylPREDNISolone SUSP 40 MG/ML (DEPO-medrol) VIAL (J1030) As Ordered ONE; +oxyCODONE 5MG TAB As Ordered ONE
--- NOTE | 2017-01-22 15:02 | REP ---
Partial lumbar spine series: Three views . History: Injection procedure for pain. Nine seconds of fluoroscopy time is reported. Findings: A sequence of three fluoroscopically obtained last image hold procedural spot radiographs of the lumbar spine document needle position and contrast injection associated with injection procedure. Signed by Eduar Ace MD 01/22/2017 02:53 P
--- NOTE | 2017-01-23 00:31 | ECWPNPC ---
PATIENT NAME: DEVAN EDWARDS : 1965 GENDER: FEMALE VISIT DATE: 01/22/2017 DISCHARGE DATE: 01/22/17 1505 VISIT LOCKED DATE TIME: PHYSICIAN: MARITA FOLEY RESOURCE: MARITA FOLEY REASON FOR APPOINTMENT 1. L4/5 TRANSFORAMINAL HISTORY OF PRESENT ILLNESS HISTORY OF PRESENT ILLNESS: PAIN THE PATIENT DESCRIBES THE PAIN... FALL RISK SCREENING: SCREENING :NO FALLS IN THE PAST YEAR CURRENT MEDICATIONS TAKING EPIPEN 0.3 MG/0.3ML DEVICE DIRECTED INJECTION ONCE DAILY NEEDED, NOTES: NEVER TAKING ANUSOL-HC 2.5 % CREAM 1 APPLICATION TO AFFECTED AREA RECTAL TWICE A DAY, NOTES: NONE LATELY TAKING VITAMIN B-12 1000 MCG TABLET 1 TABLET ORALLY ONCE A DAY, NOTES: 01/22/17699 TAKING VITAMIN D 1000 UNIT TABLET 1 TABLET ORALLY ONCE A DAY TAKING 2500 UNITS, NOTES: 01/22/17699 TAKING ESTRADIOL 0.5 MG TABLET 1 TABLET ORALLY ONCE A DAY, NOTES: 01/22/17699 TAKING RANITIDINE HCL 300 MG TABLET 1 TABLET AT BEDTIME ORALLY BEFORE BEDTIME, NOTES: 01/21/172099 TAKING CALCIUM 600 + D 600-400 MG-UNIT TABLET 1 TABLET ORALLY TWICE A DAY, NOTES: 01/22/17699 TAKING VALTREX 1 GM TABLET 2 TABLET ORALLY BID FOR 2 DAYS PRN, NOTES: NONE LATELY TAKING MONTELUKAST SODIUM 10 MG TABLET 1 TABLET IN THE EVENING ORALLY ONCE A DAY, NOTES: 01/21/172099 TAKING TOPAMAX 50 MG TABLET 1 TABLET ORALLY TWICE A DAY, NOTES: 01/22/17699 TAKING CYCLOBENZAPRINE HCL 10 MG TABLET 1 TABLET NEEDED ORALLY THREE TIMES A DAY, NOTES: 01/22/17699 TAKING DILT-XR 240 MG CAPSULE EXTENDED RELEASE 24 HOUR TAKE ONE CAPSULE BY MOUTH ONCE DAILY ORALLY DAILY, NOTES: 01/22/17699 TAKING HYDROXYZINE HCL 50 MG TABLET 1 TABLET NEEDED ORALLY 2 TABS AT BEDTIME, NOTES: 01/21/172099 TAKING HYDROCODONE-ACETAMINOPHEN 7.5-325 MG TABLET 1 TABLET NEEDED ORALLY EVERY 6 HRS/MMD4, NOTES: 01/21/172099 TAKING DEXILANT 60 MG CAPSULE DELAYED RELEASE 1 CAPSULE ORALLY ONCE A DAY, NOTES: 9/14/17 0700 TAKING GENVOYA 184-822-350-10 MG TABLET TAKE ONE TABLET BY MOUTH EVERY DAY DIRECTED ORALLY DAILY, NOTES: 01/21/172099 TAKING PREZISTA 800 MG TABLET TAKE ONE TABLET BY MOUTH EVERY DAY WITH FOOD ORALLY ONCE A DAY, NOTES: 01/21/172099 TAKING VENTOLIN HFA 108 (90 BASE) MCG/ACT AEROSOL SOLUTION 2 PUFFS MARY ALICE INHALATION EVERY 4 HRS NEEDED, NOTES: 01/20/17 TAKING AMITRIPTYLINE HCL 10 MG TABLET 1 TABLET ORALLY ONCE A DAY, NOTES: 01/21/172099 NOT-TAKING VALACYCLOVIR HCL 1 GM TABLET 2 TABLET ORALLY BID PRN OUTBREAK FOR 2 DAYS NOT-TAKING ZANTAC 150 MAXIMUM STRENGTH 150 MG TABLET 1 TABLET AT BEDTIME ORALLY ONCE A DAY, NOTES: 7- NOT-TAKING PHENTERMINE HCL 30 MG CAPSULE 1 CAPSULE ORALLY ONCE A DAY/MDD#1 NOT-TAKING CETIRIZINE HCL 10 MG TABLET 1 TABLET ORALLY ONCE A DAY NOT-TAKING PANTOPRAZOLE SODIUM 40 MG TABLET DELAYED RELEASE 1 TABLET ORALLY ONCE A DAY NOT-TAKING PODOFILOX 0.5 % SOLUTION 1 DROP TO AFFECTED AREA TO WARTS EXTERNALLY TWICE A DAY FOR 3 DAYS THEN OFF FOR 4 DAYS, NOTES: NONE RECENT NOT-TAKING LORATADINE 10 MG CAPSULE 1 CAPSULE ORALLY ONCE A DAY MEDICATION LIST REVIEWED AND RECONCILED WITH THE PATIENT PAST MEDICAL HISTORY AIDS/HIV ASTHMA HYPERTENSION/ ECHOCARDIOGRAM SHOWED LVH TENDONITIS SANGITA WRIST ENVIRONMENTAL ALLERGIES HX OF GESTATIONAL DIABETES PURE 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 TORRES 08/17 IRRITABLE BOWEL SYNDROME GENOTYPE 08/2011 K103 MUTATION TROFILE DUAL MIXED TROPISM POSTMENOPAUSE OSTEOPENIA BMD 2012 DR KHOURY SYMPTOMATIC STATES ASSOCIATED WITH ARTIFICIAL MENOPAUSE SYMPTOMATIC STATES ASSOCIATED WITH ARTIFICIAL MENOPAUSE EXTERNAL HEMORRHOIDS GASTRIC BYPASS STATUS FOR OBESITY SEASONAL AND PERENNIAL ALLERGIC RHINITIS OSTEOPENIA ALLERGIES BIAXIN: RASH: ALLERGY NORVASC: EDEMA: ALLERGY LISINOPRIL: FACIAL SWELLING: ALLERGY ESTRADIOL: REREDDNESS AT SITE OF PATCH: SIDE EFFECTS SURGICAL HISTORY PARTIAL HYSTERECTOMY 2004 TUBAL LIGATION 1989 GASTRIC BYPASS 1994 BENIGN POLYP REMOVAL FROM THROAT 2009 TENDONITIS SURGERY X2 (WRIST) RT 07/2008, LT 12/2008 BUNIONECTOMY 2ND TOE ON RIGHT FOOT STRAIGHTENED LAP CHOLECYSTECTOMY ([place]) 02/13/2012 LAP RELEASE OF BOWEL OBSTRUCTION (BOWEL SEWN INTO LUZ MARIA INCISION) ([facility]) 02/15/2012 ABDOMINAL SURGERY 06/23 BREAST REDUCTION COMPLICATED BY MSSA ABSCESS ON THE RIGHT SIDE REQUIRING INCISION AND DRAINAGE 01/2014 COLONOSCOPY 4 MM TUBULAR ADENOMA REPEAT IN [address] GAN 10/2015 BIOPSY THROAT 08-05-16 COLPOSCOPY 09/19/16 POLYPS REMOVED BY LASER FROM VOCAL CORDS 12/2016 HOSPITALIZATION/MAJOR DIAGNOSTIC PROCEDURE RELATED TO SURGERY REVIEW OF SYSTEMS REVIEWED BY: PROVIDER: . CONSTITUTIONAL: ANY CHANGE IN YOUR MEDICAL CONDITION? NO . CHILLS NO . FEVER NO . INFECTION: DO YOU HAVE NEW INFECTIONS? NO . DO YOU HAVE HISTORY OF MRSA? NO . MUSCULOSKELETAL: ANY NEW PATTERNS OF PAIN OR NUMBNESS? NO . GASTROENTEROLOGY: ANY NEW CHANGE IN BOWEL CONTROL? NO . GENITOURINARY: ANY NEW CHANGE IN BLADDER CONTROL? NO . IS THERE A CHANCE YOU COULD BE ? NO . HEMATOLOGY/LYMPH: DO YOU TAKE ANY BLOOD THINNERS? (FOR EXAMPLE- COUMADIN, PLAVIX, AGGRENOX, PLATEL, PRADAXA, OR XARELTO) NO . WHEN WAS YOUR LAST DOSE? DATE: TIME: . NEUROLOGY: HAVE YOU FALLEN IN THE PAST 6 MONTHS? NO . ANY NEW EXTREMITY NUMBNESS OR WEAKNESS? NO . CARDIOLOGY: DO YOU HAVE A PACEMAKER OR DEFIBRILLATOR? NO . RESPIRATORY: HAVE YOU BEEN SICK IN THE PAST WEEK? NO . FEVER NO . FLU LIKE SYMPTOMS? NO . COUGH NO . INTEGUMENTARY: DO YOU HAVE ANY RASHES OR OPEN SORES? NO . ALLERGIC/IMMUNO: ARE YOU ALLERGIC TO SHELLFISH OR IV DYE? NO . ANY NEW ALLERGIES? NO . PSYCHIATRIC: DO YOU HAVE THOUGHTS OF HURTING YOURSELF OR SOMEONE ELSE? NO . ARE YOU ABUSED, NEGLECTED, OR IN AN UNSAFE ENVIRONMENT? NO . ENDOCRINOLOGY: ARE YOU DIABETIC? NO . OTHER: DO YOU NEED ANY PRESCRIPTIONS? NO . IF YES, PLEASE LIST: ____ . ANY NEW PROBLEMS WITH YOUR MEDICATIONS? NO . WHEN DID YOU LAST EAT? 01/21/17 1800 . WHEN DID YOU LAST DRINK? 01/22/17 1030 . WHAT DID YOU LAST DRINK? WATER . NAME OF PERSON DRIVING YOU HOME? BOOKER CABRERAACK-MOTHER . DO YOU HAVE ANY OTHER QUESTIONS OR CONCERNS NO . VITAL SIGNS WT 192 LBS, HT 61 IN, BMI 36.27 INDEX, BP 112/81 MM HG, HR 76 /MIN, RR 18 /MIN, TEMP 98.5 F, OXYGEN SAT % 96%, NA INITIALS SC 13:32. ASSESSMENTS INTERVERTEBRAL DISC DISORDER WITH RADICULOPATHY OF LUMBOSACRAL REGION - M51.17 (PRIMARY) PROCEDURES PRE PROCEDURE DIAGNOSIS LUMBOSACRAL DISC DISORDER WITH RADICULOPATHY POST PROCEDURE DIAGNOSIS LUMBOSACRAL DISC DISORDER WITH RADICULOPATHY PROCEDURE LUMBAR EPIDURAL STEROID INJECTION UNDER FLUOROSCOPIC GUIDANCE SURGEON DR. MARITA FOLEY ADULT DAYCARE COORDINATOR NONE ANESTHESIA LOCAL PRE PROCEDURE NOTE THE PATIENT HAS A HISTORY OF CHRONIC LOW BACK PAIN. I EVALUATE THE PATIENT AND REVIEWED THE CHART. I WENT OVER THE RISKS, ALTERNATIVES, AND BENEFITS ASSOCIATED WITH THIS PROCEDURE. THE PATIENT WOULD LIKE TO PROCEED AND GIVE CONSENT TO PERFORMED THE PROCEDURE. THE PATIENT DENIES UNEXPLAINABLE WEIGHT LOSS, FEVER, CHILLS, OR NEW CHANGES IN URINARY OR BOWEL CONTROL. DESCRIPTION OF PROCEDURE THE PATIENT WAS BROUGHT TO THE PROCEDURE ROOM AND PLACED IN THE PRONE POSITION. THE LUMBOSACRAL AREA WAS CLEANED WITH BETADINE SOLUTION AND DRAPED ASEPTICALLY. THE PROCEDURE WAS DONE UNDER STERILE CONDITIONS. I CHECKED LATERALITY AND THE LEVEL WHERE THE PROCEDURE WAS GOING TO BE PERFORMED WITH THE PATIENT AND THE SUPPORTING STAFF AT THE MOMENT OF THE TIME OUT IN THE PROCEDURE ROOM. UNDER FLUOROSCOPIC GUIDANCE, THE TARGET POINT WAS SELECTED AT THE INTERLAMINAR LEVEL OF L5-S1. LIDOCAINE WAS USED TO NUMB THE SKIN AND THE SUBCUTANEOUS TISSUE BELOW IT. EPIDURAL TUOHY NEEDLE, 17-GAUGE, WAS ADVANCED UNDER FLUOROSCOPIC GUIDANCE AND FOLLOWING PATIENT FEEDBACK UNTIL THE EPIDURAL SPACE WAS REACHED, 7 CM DEEP INTO THE SKIN BY THE LOSS OF RESISTANCE TECHNIQUE. ISOVUE M DYE 30%, 0.25 ML, WAS INJECTED SHOWING ADEQUATE SPREAD OF THE DYE. THEN, A SOLUTION OF 3 ML OF NORMAL SALINE WITH DEPO-MEDROL 60 MG WAS INJECTED SLOWLY FOLLOWING PATIENT FEEDBACK. THERE WAS NO EVIDENCE OF BLOOD, PARESTHESIA OR CEREBROSPINAL FLUID DURING THE PROCEDURE. THE PATIENT WAS SENT TO THE RECOVERY ROOM. THE PATIENT WAS MOVING THE EXTREMITIES AND DOING WELL. THERE WAS NO COMPLICATION DURING THE PROCEDURE. FLUOROSCOPY TIME WAS 9 SECONDS. POST PROCEDURE NOTE THE PATIENT WILL BE SEEN IN A FOLLOW UP IN THE NEXT FEW WEEKS. INSTRUCTIONS WERE GIVEN, QUESTIONS WERE ANSWERED, AND THE PATIENT EXPRESSED UNDERSTANDING AND AGREES WITH THE PLAN. I, HAILEE ESPINO, DOCUMENTED THE ABOVE INFORMATION ACTING A SCRIBE FOR DR. FOLEY. I HAVE REVIEWED THE ABOVE DOCUMENT, WRITTEN BY HAILEE ARAGON AND I VERIFY THAT IT IS ACCURATE PROCEDURE CODES 68152 LUMBAR/SACRAL W/ IMAGING 6045F RADXPS IN END [id number] PXD DISPOSITION & COMMUNICATION FOLLOW UP 3 WEEKS ELECTRONICALLY SIGNED BY MARITA FOLEY MD ON 01/22/2017 AT 03:39 PM EDT DISCLAIMER : THIS IS A VISIT SUMMARY EXTRACTED FROM THE [employer] CHART. IT IS NOT A COPY OF THE [employer] PROGRESS NOTE. MTDD
== END ==
LOC: M PAIN 13:00
PROVIDERS: ATTEND Anesthesiology
DX: G89.29 Other chronic pain (principal); M51.17 Intervertebral disc disorders with radiculopathy, lumbosacral region; B20 Human immunodeficiency virus [HIV] disease; K21.9 Gastro-esophageal reflux disease without esophagitis; K92.1 Melena; E66.9 Obesity, unspecified; J30.89 Other allergic rhinitis; M85.80 Other specified disorders of bone density and structure, unspecified site; Z88.8 Allergy status to other drugs, medicaments and biological substances; Z79.891 Long term (current) use of opiate analgesic; Z79.899 Other long term (current) drug therapy
CPT/HCPCS: 62323; J1030; Q9967

== ENCOUNTER → 2017-02-02 | Outpatient (REF) | payer MEDICARE, MEDICAID ==
[~2017-02-02] MED LIST changes: -ISOVUE-M 300 61% 15ML VIAL (Q9967) As Ordered ONE; -LIDOCAINE 1% SDV INJ 30 ML VIAL As Ordered ONE; -diazePAM 5 MG TAB As Ordered ONE; -methylPREDNISolone SUSP 40 MG/ML (DEPO-medrol) VIAL (J1030) As Ordered ONE; -oxyCODONE 5MG TAB As Ordered ONE
[2017-02-02 16:37] LABS: ALBUMIN 3.5 GM/DL (3.2-5.2); ALBUMIN/GLOBULIN RATIO 1.17 (1.00-1.93); ALKALINE PHOSPHATASE 112 U/L (45-117); ALT/SGPT 20 U/L (12-78); ANION GAP 10 MEQ/L (8-16); AST/SGOT 10 U/L (15-37); BILIRUBIN,TOTAL 0.3 MG/DL (0.2-1.0); BLOOD UREA NITROGEN 12 MG/DL (7-18); CALCIUM LEVEL 8.2 MG/DL (8.5-10.1); CARBON DIOXIDE LEVEL 22 MEQ/L (21-32); CHLORIDE LEVEL 109 MEQ/L (98-107); CREATININE FOR GFR 0.62 MG/DL (0.55-1.02); GLOMERULAR FILTRATION RATE > 60.0 (>51); GLUCOSE, FASTING 92 MG/DL (70-105); SODIUM LEVEL 141 MEQ/L (136-145); TOTAL PROTEIN 6.5 GM/DL (6.4-8.2)
[2017-02-06 00:08] LABS: Eosinophils 1 % (.); HCT 42.7 % (34.0-46.6); HGB 13.9 g/dL (11.1-15.9); Monocytes 5 % (.); Neutrophils 75 % (.); WBC 6.7 x10E3/uL (3.4-10.8)
== END ==
LOC: M SFHCPLAZ 12:49
PROVIDERS: ATTEND Internal Medicine Infectious Disease
DX: B20 Human immunodeficiency virus [HIV] disease (principal); Z23 Encounter for immunization
CPT/HCPCS: 36415; 80053; 86360; 87536; 90686; G0008; G0463

== ENCOUNTER → 2017-02-05 | Outpatient (CLI) | payer MEDICARE, MEDICAID ==
--- NOTE | 2017-02-06 00:51 | ECWPNPC ---
PATIENT NAME: DEVAN EDWARDS : 1965 GENDER: FEMALE VISIT DATE: 02/05/2017 DISCHARGE DATE: 02/05/17 1040 VISIT LOCKED DATE TIME: PHYSICIAN: UMESH LONGO RESOURCE: UMESH LONGO REASON FOR APPOINTMENT 1. POST PROCEDURE HISTORY OF PRESENT ILLNESS HISTORY OF PRESENT ILLNESS: HERE FOR POST PROCEDURE F/U.HAD LESI ON 01-22-17.REPORTS SIGNIFICANT IMPROVEMENT POST PROCEDURE.STATES RIGHT LEG SYMPTOMS HAVE BEEN SIGNIFICANTLY IMPROVED SINCE LESI AND THIS CONTINUES TO BE BETTER TODAY.RATING PAIN VAS 1/10.PAIN IS LOCATED ACROSS LOW BACK WITH INTERMITTENT RIGHT LEG PAIN.PAIN IS AGGREVATED WITH HOUSEWORK IE:SWEEPING AND MOPPING. PAIN THE PATIENT DESCRIBES THE PAIN... THE PATIENT DESCRIBES THE PAIN... THE PATIENT DESCRIBES THE PAIN... FALL RISK SCREENING: SCREENING :NO FALLS IN THE PAST YEAR CURRENT MEDICATIONS TAKING HYDROCODONE-ACETAMINOPHEN 7.5-325 MG TABLET 1 TABLET NEEDED ORALLY EVERY 6 HRS/MMD4 TAKING CALCIUM 600 + D 600-400 MG-UNIT TABLET 1 TABLET ORALLY TWICE A DAY TAKING PREZISTA 800 MG TABLET TAKE ONE TABLET BY MOUTH EVERY DAY WITH FOOD ORALLY ONCE A DAY TAKING GENVOYA [id number] MG TABLET TAKE ONE TABLET BY MOUTH EVERY DAY DIRECTED ORALLY DAILY TAKING PANTOPRAZOLE SODIUM 40 MG TABLET DELAYED RELEASE 1 TABLET ORALLY ONCE A DAY TAKING RANITIDINE HCL 300 MG TABLET 1 TABLET AT BEDTIME ORALLY BEFORE BEDTIME TAKING EPIPEN 0.3 MG/0.3ML DEVICE DIRECTED INJECTION ONCE DAILY NEEDED, NOTES: NEVER TAKING ANUSOL-HC 2.5 % CREAM 1 APPLICATION TO AFFECTED AREA RECTAL TWICE A DAY, NOTES: NONE LATELY TAKING VITAMIN B-12 1000 MCG TABLET 1 TABLET ORALLY ONCE A DAY, NOTES: 01/22/17699 TAKING VITAMIN D 1000 UNIT TABLET 1 TABLET ORALLY ONCE A DAY TAKING 2500 UNITS, NOTES: 01/22/17699 TAKING ESTRADIOL 0.5 MG TABLET 1 TABLET ORALLY ONCE A DAY, NOTES: 01/22/17699 TAKING VALTREX 1 GM TABLET 2 TABLET ORALLY BID FOR 2 DAYS PRN, NOTES: NONE LATELY TAKING TOPAMAX 50 MG TABLET 1 TABLET ORALLY TWICE A DAY, NOTES: 01/22/17699 TAKING CYCLOBENZAPRINE HCL 10 MG TABLET 1 TABLET NEEDED ORALLY THREE TIMES A DAY, NOTES: 01/22/17699 TAKING DILT-XR 240 MG CAPSULE EXTENDED RELEASE 24 HOUR TAKE ONE CAPSULE BY MOUTH ONCE DAILY ORALLY DAILY, NOTES: 01/22/17699 TAKING HYDROXYZINE HCL 50 MG TABLET 1 TABLET NEEDED ORALLY 2 TABS AT BEDTIME, NOTES: 01/21/172099 TAKING DEXILANT 60 MG CAPSULE DELAYED RELEASE 1 CAPSULE ORALLY ONCE A DAY, NOTES: 01/22/17699 TAKING VENTOLIN HFA 108 (90 BASE) MCG/ACT AEROSOL SOLUTION 2 PUFFS MARY ALICE INHALATION EVERY 4 HRS NEEDED, NOTES: 01/20/17 TAKING AMITRIPTYLINE HCL 10 MG TABLET 1 TABLET ORALLY ONCE A DAY, NOTES: 01/21/172099 TAKING MONTELUKAST SODIUM 10 MG TABLET 1 TABLET IN THE EVENING ORALLY ONCE A DAY TAKING PHENTERMINE HCL 37.5 MG TABLET 1 TABLET ORALLY ONCE A DAY TAKING SUCRALFATE 1 GM TABLET 1 TABLET ON AN EMPTY STOMACH ORALLY TWICE A DAY NOT-TAKING VALACYCLOVIR HCL 1 GM TABLET 2 TABLET ORALLY BID PRN OUTBREAK FOR 2 DAYS NOT-TAKING ZANTAC 150 MAXIMUM STRENGTH 150 MG TABLET 1 TABLET AT BEDTIME ORALLY ONCE A DAY, NOTES: 7- NOT-TAKING PHENTERMINE HCL 30 MG CAPSULE 1 CAPSULE ORALLY ONCE A DAY/MDD#1 NOT-TAKING PODOFILOX 0.5 % SOLUTION 1 DROP TO AFFECTED AREA TO WARTS EXTERNALLY TWICE A DAY FOR 3 DAYS THEN OFF FOR 4 DAYS, NOTES: NONE RECENT NOT-TAKING LORATADINE 10 MG CAPSULE 1 CAPSULE ORALLY ONCE A DAY DISCONTINUED CETIRIZINE HCL 10 MG TABLET 1 TABLET ORALLY ONCE A DAY MEDICATION LIST REVIEWED AND RECONCILED WITH THE PATIENT PAST MEDICAL HISTORY AIDS/HIV ASTHMA HYPERTENSION/ ECHOCARDIOGRAM SHOWED LVH TENDONITIS SANGITA WRIST ENVIRONMENTAL ALLERGIES HX OF GESTATIONAL DIABETES PURE 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 TORRES 08/17 IRRITABLE BOWEL SYNDROME GENOTYPE 08/2011 K103 MUTATION TROFILE DUAL MIXED TROPISM POSTMENOPAUSE OSTEOPENIA BMD 2012 DR KHOURY SYMPTOMATIC STATES ASSOCIATED WITH ARTIFICIAL MENOPAUSE SYMPTOMATIC STATES ASSOCIATED WITH ARTIFICIAL MENOPAUSE EXTERNAL HEMORRHOIDS GASTRIC BYPASS STATUS FOR OBESITY SEASONAL AND PERENNIAL ALLERGIC RHINITIS OSTEOPENIA ALLERGIES BIAXIN: RASH: ALLERGY NORVASC: EDEMA: ALLERGY LISINOPRIL: FACIAL SWELLING: ALLERGY ESTRADIOL: REREDDNESS AT SITE OF PATCH: SIDE EFFECTS SOCIAL HISTORY GENERAL: TOBACCO USE ARE YOU A:CURRENT SMOKER ARE YOU INTERESTED IN QUITTING?THINKING ABOUT QUITTING COUNSELED THE PATIENT ON SMOKING CESSATION, EDUCATION [id number]/28/2017 HOW MANY CIGARETTES A DAY DO YOU SMOKE?11-20 HOW SOON AFTER YOU WAKE UP DO YOU SMOKE YOUR FIRST CIGARETTE?WITHIN 5 MIN HOW OFTEN DO YOU SMOKE CIGARETTES?EVERY DAY PATIENT COUNSELED ON THE DANGERS OF TOBACCO USE AND URGED TO QUIT:02/05/2017 SMOKING CESSATION INFORMATION GIVEN11/26/2016 BMI CARE GOAL FOLLOW-UP ABOVE NORMAL BMI FOLLOW-UPDIETARY MANAGEMENT EDUCATION, GUIDANCE, AND COUNSELING ALCOHOL SCREENING POINTS: 1, INTERPRETATION: NEGATIVE. RECREATIONAL DRUG USE DENIES. CAFFEINE 1 CUP COFFE DAILY. SEXUAL HX HAD SEX IN THE LAST 12 MONTHS (VAGINAL, ORAL, OR ANAL)?: NO, HAVE YOU EVER HAD AN STD?: NO, LMP:: HYSTER. HIV / HEP-C SCREENING HIV TEST OFFERED TO PATIENT:YES DATE OFFERED:07/29/2016 TEST ACCEPTED: PREV TESTED HEP-C TEST OFFERED TO PATIENT:YES DATE OFFERED:07/29/2016 TEST ACCEPTED: PREV TESTED OCCUPATION: DISABLED. DIET: NO HX EATING DISORDERS. EXERCISE: NO REGULAR EXERCISE. MARITAL STATUS: . OTHERS AT HOME: LIVES ALONE. PETS: 1 CAT. HARRIET, TOY POODLE SHALONDAZMO. ADVENTIST [id number] NONE LANGUAGE LANGUAGES SPOKEN:GAMBIAN LEARNING BARRIERS / SPECIAL NEEDS CHANGE FROM LAST VISIT?NO BARRIERS TO LEARNING?NO HEARING IMPAIRED?NO VISION IMPAIRED?YES :CORRECTIVE LENSES COGNITIVELY IMPAIRED?NO READINESS TO LEARN?YES LEARNING PREFERENCES?NO LEARNING CAPABILITIES PRESENT?YES EMOTIONAL BARRIERS?NO SPECIAL DEVICES?NO COATING TECHNICIAN NEEDED?NO MISCELLANEOUS: LAST DENTAL APPT 2016, LAST EYE APPT 2013, COLONOSCOPY-[address] GAN,), ([place]) AND DR. YU. FEMALE 6 MONTH RISK ASSESSMENT FOR STD DESCRIBE YOUR SEXUAL PARTNERS:MALE MONOGAMOUS?YES HIV POSITIVE?YES EVER INJECT DRUGS?NO VAGINAL SEX?NO ANAL SEX?NO ORAL SEX?NO ARE YOU TAKING ANY STEPS TO PREVENT ?YES METHODS (CHECK ALL THAT APPLY):MALE CONDOMS WHAT STEPS HAVE YOU TAKEN TO PROTECT YOURSELF FROM STDS, INCLUDING HIV? (CHECK ALL THAT APPLY):MUTUAL MONOGAMY, MALE CONDOMS HAVE YOU OR ANY OF YOUR SEXUAL PARTNERS EVER HAD AN STD? IF YES PLEASE LIST:NO IS THERE ANYTHING ELSE WE SHOULD TALK ABOUT CONCERNING YOUR SEXUAL HISTORY OR PRACTICE?NO PAIN CLINIC PFS, CLERGY, PUBLIC HEALTH REFERRALS PFS REFERRAL NEEDED?NO CLERGY REFERRAL NEEDED?NO PUBLIC HEALTH REFERRAL NEEDED?NO HAS THE PATIENT BEEN EDUCATED REGARDING HIS/HER PLAN OF CARE?YES HAS THE PATIENT BEEN EDUCATED REGARDING PAIN, THE RISK FOR PAIN, THE IMPORTANCE OF EFFECTIVE PAIN MANAGEMENT, AND THE PAIN ASSESSMENT PROCESS?YES ADVANCE DIRECTIVES HEALTH CARE PROXY?NO WOULD YOU LIKE MORE INFORMATION?NO DO YOU HAVE A DNR?NO WOULD YOU LIKE MORE INFORMATION?NO LIVING WILL?NO WOULD YOU LIKE MORE INFORMATION?NO POWER OF SENIOR PROCESS ANALYST?NO WOULD YOU LIKE MORE INFORMATION?NO DOMESTIC VIOLENCE DENIES SEXUAL, PHYSICAL ABUSE. REPORTS VERBAL ABUSE WITH FORMER PARTNER, NO COUNSELING. 03/01/13 HITS=N/A, NO PARTNER. REVIEW OF SYSTEMS REVIEWED BY: PROVIDER: UMESH GORDILLO . CONSTITUTIONAL: ANY CHANGE IN YOUR MEDICAL CONDITION? NO . CHILLS NO . FEVER NO . INFECTION: DO YOU HAVE NEW INFECTIONS? NO . DO YOU HAVE HISTORY OF MRSA? NO . MUSCULOSKELETAL: ANY NEW PATTERNS OF PAIN OR NUMBNESS? NO . GASTROENTEROLOGY: ANY NEW CHANGE IN BOWEL CONTROL? NO . GENITOURINARY: ANY NEW CHANGE IN BLADDER CONTROL? NO . IS THERE A CHANCE YOU COULD BE ? NO . HEMATOLOGY/LYMPH: DO YOU TAKE ANY BLOOD THINNERS? (FOR EXAMPLE- COUMADIN, PLAVIX, AGGRENOX, PLATEL, PRADAXA, OR XARELTO) NO . WHEN WAS YOUR LAST DOSE? DATE: TIME: . NEUROLOGY: HAVE YOU FALLEN IN THE PAST 6 MONTHS? NO . ANY NEW EXTREMITY NUMBNESS OR WEAKNESS? NO . CARDIOLOGY: DO YOU HAVE A PACEMAKER OR DEFIBRILLATOR? NO . RESPIRATORY: HAVE YOU BEEN SICK IN THE PAST WEEK? NO . FEVER NO . FLU LIKE SYMPTOMS? NO . COUGH NO . INTEGUMENTARY: DO YOU HAVE ANY RASHES OR OPEN SORES? NO . ALLERGIC/IMMUNO: ARE YOU ALLERGIC TO SHELLFISH OR IV DYE? NO . ANY NEW ALLERGIES? NO . PSYCHIATRIC: DO YOU HAVE THOUGHTS OF HURTING YOURSELF OR SOMEONE ELSE? NO . ARE YOU ABUSED, NEGLECTED, OR IN AN UNSAFE ENVIRONMENT? NO . ENDOCRINOLOGY: ARE YOU DIABETIC? NO . OTHER: DO YOU NEED ANY PRESCRIPTIONS? NO . IF YES, PLEASE LIST: ____ . ANY NEW PROBLEMS WITH YOUR MEDICATIONS? NO . WHEN DID YOU LAST EAT? ____ . WHEN DID YOU LAST DRINK? ____ . WHAT DID YOU LAST DRINK? ____ . NAME OF PERSON DRIVING YOU HOME? ____ . DO YOU HAVE ANY OTHER QUESTIONS OR CONCERNS NO . VITAL SIGNS WT 205.4 LBS, HT 61 IN, BMI 38.81 INDEX, BP 144/83 MM HG, HR 98 /MIN, RR 18 /MIN, TEMP 97.4 F, OXYGEN SAT % 98, NA INITIALS MP 0958. EXAMINATION GENERAL EXAMINATION: GENERAL APPEARANCE:APPEARS OLDER THAN STATED AGE, OBESE, COMFORTABLE. PSYCHAFFECT NORMAL. LUNGS:LUNG MCADAMS ARE CLEAR TO AUSCULTATION BILATERALLY. GOOD MOVEMENT OF AIR. HEART:S1, S2 IN A REGULAR RATE AND RHYTHM. NO SIGNIFICANT MURMURS, RUBS OR GALLOPS NOTED. DIAGNOSTIC DATA-MRI L/S [id number]-REVIEWED. LUMBAR SPINE/LOWER BACK: INSPECTION:NORMAL CURVATURE OF SPINE. PALPATION:NO VERTEBRAL SPINE TENDERNESS. MOTOR SYSTEM:5/5 BLE. SENSORY EXAM:NORMAL. ASSESSMENTS LUMBOSACRAL SPONDYLOLYSIS - M43.07 (PRIMARY) DISC DISPLACEMENT, LUMBAR - M51.26 LUMBAR RADICULOPATHY - M54.16 TREATMENT LUMBOSACRAL SPONDYLOLYSIS NOTES: PATIENT WAS ADVISED TO START A WALKING PROGRAM TO STRENGTHEN LUMBAR PARASPINAL MUSCLES AND IMPROVE MOBILITY. THEY WERE ADVISED THAT THIS WILL IMPROVE WEIGHT LOSS AND ALSO DEPRESSION/FIBROMYALGIA SYMPTOMS. ADVISED TO WALK 10 MINUTES EVERY OTHER DAY ON A FLAT SURFACE. EMPHASIZED THE IMPORTANCE OF DOING THIS CONSISTANTLY AND NOT SPORATICALLY TO AVOID INJURY. STRONG ADVISED NOT TO DO MORE THAN 10 MINUTES EVERY OTHER DSY FOR THE FIRST 4 WEEKS. PROCEDURE CODES G8730 PAIN ASSESS POS TOOL F/U PLAN DOC G8427 DOC MEDS VERIFIED W/PT OR RE DISPOSITION & COMMUNICATION FOLLOW UP 2 MONTHS ELECTRONICALLY SIGNED BY RAND HIGGINS ON 02/05/2017 AT 01:39 PM EDT DISCLAIMER : THIS IS A VISIT SUMMARY EXTRACTED FROM THE [employer] CHART. IT IS NOT A COPY OF THE [employer] PROGRESS NOTE. MELISSA
== END ==
LOC: M PAIN 09:30
PROVIDERS: ATTEND Nurse Practitioner Family
DX: G89.29 Other chronic pain (principal); M43.07 Spondylolysis, lumbosacral region; M51.26 Other intervertebral disc displacement, lumbar region; M54.16 Radiculopathy, lumbar region; B20 Human immunodeficiency virus [HIV] disease; K21.9 Gastro-esophageal reflux disease without esophagitis; J30.89 Other allergic rhinitis; M85.80 Other specified disorders of bone density and structure, unspecified site; F17.210 Nicotine dependence, cigarettes, uncomplicated; Z88.8 Allergy status to other drugs, medicaments and biological substances; Z79.899 Other long term (current) drug therapy

== ENCOUNTER → 2017-04-10 | Outpatient (CLI) | payer MEDICARE, MEDICAID ==
--- NOTE | 2017-05-01 02:00 | ECWPNPC ---
PATIENT NAME: DEVAN EDWARDS : 1965 GENDER: FEMALE VISIT DATE: 04/10/2017 DISCHARGE DATE: 04/10/17 1208 VISIT LOCKED DATE TIME: PHYSICIAN: UMESH LONGO RESOURCE: UMESH LONGO REASON FOR APPOINTMENT 1. 2 MONTHS HISTORY OF PRESENT ILLNESS HISTORY OF PRESENT ILLNESS: HERE FOR F/U OF CHRONIC LOW BACK PAIN AND RIGHT LEG RADIDCULAR SYMPTOMS.WAS DOING WELL AFTER LESI UNTIL 4 WEEKS AGO.RATES PAIN VAS 9/10.DESCRIBES PAIN CONSTANT THROBBING AND SORE. PAIN THE PATIENT DESCRIBES THE PAIN... THE PATIENT DESCRIBES THE PAIN... THE PATIENT DESCRIBES THE PAIN... THE PATIENT DESCRIBES THE PAIN... FALL RISK SCREENING: SCREENING :NO FALLS IN THE PAST YEAR CURRENT MEDICATIONS TAKING CALCIUM 600 + D 600-400 MG-UNIT TABLET 1 TABLET ORALLY TWICE A DAY TAKING PREZISTA 800 MG TABLET TAKE ONE TABLET BY MOUTH EVERY DAY WITH FOOD ORALLY ONCE A DAY TAKING GENVOYA [id number] MG TABLET TAKE ONE TABLET BY MOUTH EVERY DAY DIRECTED ORALLY DAILY TAKING RANITIDINE HCL 300 MG TABLET 1 TABLET AT BEDTIME ORALLY BEFORE BEDTIME TAKING EPIPEN 0.3 MG/0.3ML DEVICE DIRECTED INJECTION ONCE DAILY NEEDED, NOTES: NEVER TAKING ANUSOL-HC 2.5 % CREAM 1 APPLICATION TO AFFECTED AREA RECTAL TWICE A DAY, NOTES: NONE LATELY TAKING VITAMIN B-12 1000 MCG TABLET 1 TABLET ORALLY ONCE A DAY, NOTES: 01/22/17699 TAKING VITAMIN D 1000 UNIT TABLET 1 TABLET ORALLY ONCE A DAY TAKING 2500 UNITS, NOTES: 01/22/17699 TAKING ESTRADIOL 0.5 MG TABLET 1 TABLET ORALLY ONCE A DAY, NOTES: 01/22/17699 TAKING VALTREX 1 GM TABLET 2 TABLET ORALLY BID FOR 2 DAYS PRN, NOTES: NONE LATELY TAKING DILT-XR 240 MG CAPSULE EXTENDED RELEASE 24 HOUR TAKE ONE CAPSULE BY MOUTH ONCE DAILY ORALLY DAILY, NOTES: 01/22/17699 TAKING HYDROXYZINE HCL 50 MG TABLET 1 TABLET NEEDED ORALLY 2 TABS AT BEDTIME, NOTES: 01/21/172099 TAKING DEXILANT 60 MG CAPSULE DELAYED RELEASE 1 CAPSULE ORALLY ONCE A DAY, NOTES: 01/22/17699 TAKING AMITRIPTYLINE HCL 10 MG TABLET 2 TABLET ORALLY NIGHTLY, NOTES: 9/13/17 2100 TAKING MONTELUKAST SODIUM 10 MG TABLET 1 TABLET IN THE EVENING ORALLY ONCE A DAY TAKING VENTOLIN HFA 108 (90 BASE) MCG/ACT AEROSOL SOLUTION 2 PUFFS MARY ALICE INHALATION EVERY 4 HRS NEEDED, NOTES: 01/20/17 TAKING CYCLOBENZAPRINE HCL 10 MG TABLET 1 TABLET NEEDED ORALLY THREE TIMES A DAY TAKING TOPAMAX 50 MG TABLET 1 TABLET ORALLY TWICE A DAY TAKING HYDROCODONE-ACETAMINOPHEN 7.5-325 MG TABLET 1 TABLET NEEDED ORALLY EVERY 6 HRS/MMD4 NOT-TAKING PANTOPRAZOLE SODIUM 40 MG TABLET DELAYED RELEASE 1 TABLET ORALLY ONCE A DAY NOT-TAKING PHENTERMINE HCL 37.5 MG TABLET 1 TABLET ORALLY ONCE A DAY NOT-TAKING SUCRALFATE 1 GM TABLET 1 TABLET ON AN EMPTY STOMACH ORALLY TWICE A DAY NOT-TAKING PHENTERMINE HCL 30 MG CAPSULE 1 CAPSULE ORALLY ONCE A DAY/MDD#1 NOT-TAKING VALACYCLOVIR HCL 1 GM TABLET 2 TABLET ORALLY BID PRN OUTBREAK FOR 2 DAYS NOT-TAKING ZANTAC 150 MAXIMUM STRENGTH 150 MG TABLET 1 TABLET AT BEDTIME ORALLY ONCE A DAY, NOTES: 7- NOT-TAKING PODOFILOX 0.5 % SOLUTION 1 DROP TO AFFECTED AREA TO WARTS EXTERNALLY TWICE A DAY FOR 3 DAYS THEN OFF FOR 4 DAYS, NOTES: NONE RECENT NOT-TAKING LORATADINE 10 MG CAPSULE 1 CAPSULE ORALLY ONCE A DAY MEDICATION LIST REVIEWED AND RECONCILED WITH THE PATIENT PAST MEDICAL HISTORY AIDS/HIV ASTHMA HYPERTENSION/ ECHOCARDIOGRAM SHOWED LVH TENDONITIS SANGITA WRIST ENVIRONMENTAL ALLERGIES HX OF GESTATIONAL DIABETES PURE 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 TORRES 08/17 IRRITABLE BOWEL SYNDROME GENOTYPE 08/2011 K103 MUTATION TROFILE DUAL MIXED TROPISM POSTMENOPAUSE OSTEOPENIA BMD 2012 DR KHOURY SYMPTOMATIC STATES ASSOCIATED WITH ARTIFICIAL MENOPAUSE SYMPTOMATIC STATES ASSOCIATED WITH ARTIFICIAL MENOPAUSE EXTERNAL HEMORRHOIDS GASTRIC BYPASS STATUS FOR OBESITY SEASONAL AND PERENNIAL ALLERGIC RHINITIS OSTEOPENIA ALLERGIES BIAXIN: RASH: ALLERGY NORVASC: EDEMA: ALLERGY LISINOPRIL: FACIAL SWELLING: ALLERGY ESTRADIOL: REREDDNESS AT SITE OF PATCH: SIDE EFFECTS SURGICAL HISTORY PARTIAL HYSTERECTOMY 2004 TUBAL LIGATION 1989 GASTRIC BYPASS 1994 BENIGN POLYP REMOVAL FROM THROAT 2009 TENDONITIS SURGERY X2 (WRIST) RT 07/2008, LT 12/2008 BUNIONECTOMY 2ND TOE ON RIGHT FOOT STRAIGHTENED LAP CHOLECYSTECTOMY ([place]) 02/13/2012 LAP RELEASE OF BOWEL OBSTRUCTION (BOWEL SEWN INTO LUZ MARIA INCISION) ([facility]) 02/15/2012 ABDOMINAL SURGERY 06/23 BREAST REDUCTION COMPLICATED BY MSSA ABSCESS ON THE RIGHT SIDE REQUIRING INCISION AND DRAINAGE 01/2014 COLONOSCOPY 4 MM TUBULAR ADENOMA REPEAT IN [address] GAN 10/2015 BIOPSY THROAT 08-05-16 COLPOSCOPY 09/19/16 POLYPS REMOVED BY LASER FROM VOCAL CORDS 12/2016 SOCIAL HISTORY GENERAL: TOBACCO USE ARE YOU A:CURRENT SMOKER ARE YOU INTERESTED IN QUITTING?THINKING ABOUT QUITTING COUNSELED THE PATIENT ON SMOKING CESSATION, EDUCATION [id number]/01/2017 HOW MANY CIGARETTES A DAY DO YOU SMOKE?11-20 HOW SOON AFTER YOU WAKE UP DO YOU SMOKE YOUR FIRST CIGARETTE?WITHIN 5 MIN HOW OFTEN DO YOU SMOKE CIGARETTES?EVERY DAY PATIENT COUNSELED ON THE DANGERS OF TOBACCO USE AND URGED TO QUIT:04/10/2017 SMOKING CESSATION INFORMATION GIVEN11/26/2016 BMI CARE GOAL FOLLOW-UP ABOVE NORMAL BMI FOLLOW-UPDIETARY MANAGEMENT EDUCATION, GUIDANCE, AND COUNSELING ALCOHOL SCREENING POINTS: 1, INTERPRETATION: NEGATIVE. RECREATIONAL DRUG USE DENIES. CAFFEINE 1 CUP COFFE DAILY. SEXUAL HX HAD SEX IN THE LAST 12 MONTHS (VAGINAL, ORAL, OR ANAL)?: NO, HAVE YOU EVER HAD AN STD?: NO, LMP:: HYSTER. HIV / HEP-C SCREENING HIV TEST OFFERED TO PATIENT:YES DATE OFFERED:07/29/2016 TEST ACCEPTED: PREV TESTED HEP-C TEST OFFERED TO PATIENT:YES DATE OFFERED:07/29/2016 TEST ACCEPTED: PREV TESTED OCCUPATION: DISABLED. DIET: NO HX EATING DISORDERS. EXERCISE: NO REGULAR EXERCISE. MARITAL STATUS: . OTHERS AT HOME: LIVES ALONE. PETS: 1 CAT. HARRIET, TOY POODLE GIZMO. ORTHODOXY [id number] NONE LANGUAGE LANGUAGES SPOKEN:CHILEAN LEARNING BARRIERS / SPECIAL NEEDS CHANGE FROM LAST VISIT?NO BARRIERS TO LEARNING?NO HEARING IMPAIRED?NO VISION IMPAIRED?YES :CORRECTIVE LENSES COGNITIVELY IMPAIRED?NO READINESS TO LEARN?YES LEARNING PREFERENCES?NO LEARNING CAPABILITIES PRESENT?YES EMOTIONAL BARRIERS?NO SPECIAL DEVICES?NO DRY CELL BATTERY ASSEMBLER NEEDED?NO MISCELLANEOUS: LAST DENTAL APPT 2016, LAST EYE APPT 2013, COLONOSCOPY-[address] GAN,), ([place]) AND DR. YU. FEMALE 6 MONTH RISK ASSESSMENT FOR STD DESCRIBE YOUR SEXUAL PARTNERS:MALE MONOGAMOUS?YES HIV POSITIVE?YES EVER INJECT DRUGS?NO VAGINAL SEX?NO ANAL SEX?NO ORAL SEX?NO ARE YOU TAKING ANY STEPS TO PREVENT ?YES METHODS (CHECK ALL THAT APPLY):MALE CONDOMS WHAT STEPS HAVE YOU TAKEN TO PROTECT YOURSELF FROM STDS, INCLUDING HIV? (CHECK ALL THAT APPLY):MUTUAL MONOGAMY, MALE CONDOMS HAVE YOU OR ANY OF YOUR SEXUAL PARTNERS EVER HAD AN STD? IF YES PLEASE LIST:NO IS THERE ANYTHING ELSE WE SHOULD TALK ABOUT CONCERNING YOUR SEXUAL HISTORY OR PRACTICE?NO PAIN CLINIC PFS, CLERGY, PUBLIC HEALTH REFERRALS PFS REFERRAL NEEDED?NO CLERGY REFERRAL NEEDED?NO PUBLIC HEALTH REFERRAL NEEDED?NO HAS THE PATIENT BEEN EDUCATED REGARDING HIS/HER PLAN OF CARE?YES HAS THE PATIENT BEEN EDUCATED REGARDING PAIN, THE RISK FOR PAIN, THE IMPORTANCE OF EFFECTIVE PAIN MANAGEMENT, AND THE PAIN ASSESSMENT PROCESS?YES ADVANCE DIRECTIVES HEALTH CARE PROXY?NO WOULD YOU LIKE MORE INFORMATION?NO DO YOU HAVE A DNR?NO WOULD YOU LIKE MORE INFORMATION?NO LIVING WILL?NO WOULD YOU LIKE MORE INFORMATION?NO POWER OF OUTBOARD TECHNICIAN?NO WOULD YOU LIKE MORE INFORMATION?NO DOMESTIC VIOLENCE DENIES SEXUAL, PHYSICAL ABUSE. REPORTS VERBAL ABUSE WITH FORMER PARTNER, NO COUNSELING. 03/01/13 HITS=N/A, NO PARTNER. HOSPITALIZATION/MAJOR DIAGNOSTIC PROCEDURE RELATED TO SURGERY REVIEW OF SYSTEMS REVIEWED BY: PROVIDER: UMESH GORDILLO . CONSTITUTIONAL: ANY CHANGE IN YOUR MEDICAL CONDITION? NO . CHILLS NO . FEVER NO . INFECTION: DO YOU HAVE NEW INFECTIONS? NO . DO YOU HAVE HISTORY OF MRSA? NO . MUSCULOSKELETAL: ANY NEW PATTERNS OF PAIN OR NUMBNESS? NO . GASTROENTEROLOGY: ANY NEW CHANGE IN BOWEL CONTROL? NO . GENITOURINARY: ANY NEW CHANGE IN BLADDER CONTROL? NO . IS THERE A CHANCE YOU COULD BE ? NO . HEMATOLOGY/LYMPH: DO YOU TAKE ANY BLOOD THINNERS? (FOR EXAMPLE- COUMADIN, PLAVIX, AGGRENOX, PLATEL, PRADAXA, OR XARELTO) NO . WHEN WAS YOUR LAST DOSE? DATE: TIME: . NEUROLOGY: HAVE YOU FALLEN IN THE PAST 6 MONTHS? NO . ANY NEW EXTREMITY NUMBNESS OR WEAKNESS? NO . CARDIOLOGY: DO YOU HAVE A PACEMAKER OR DEFIBRILLATOR? NO . RESPIRATORY: HAVE YOU BEEN SICK IN THE PAST WEEK? NO . FEVER NO . FLU LIKE SYMPTOMS? NO . COUGH NO . INTEGUMENTARY: DO YOU HAVE ANY RASHES OR OPEN SORES? NO . ALLERGIC/IMMUNO: ARE YOU ALLERGIC TO SHELLFISH OR IV DYE? NO . ANY NEW ALLERGIES? NO . PSYCHIATRIC: DO YOU HAVE THOUGHTS OF HURTING YOURSELF OR SOMEONE ELSE? NO . ARE YOU ABUSED, NEGLECTED, OR IN AN UNSAFE ENVIRONMENT? NO . ENDOCRINOLOGY: ARE YOU DIABETIC? NO . OTHER: DO YOU NEED ANY PRESCRIPTIONS? NO . IF YES, PLEASE LIST: ____ . ANY NEW PROBLEMS WITH YOUR MEDICATIONS? NO . WHEN DID YOU LAST EAT? ____ . WHEN DID YOU LAST DRINK? ____ . WHAT DID YOU LAST DRINK? ____ . NAME OF PERSON DRIVING YOU HOME? ____ . DO YOU HAVE ANY OTHER QUESTIONS OR CONCERNS NO . VITAL SIGNS WT 190.6 LBS, HT 61 IN, BMI 36.01 INDEX, BP 137/90 MM HG, HR 79 /MIN, RR 18 /MIN, TEMP 98.1 F, OXYGEN SAT % 99%, NA INITIALS SC 10:53, REVIEWED BY: NAYELI. EXAMINATION GENERAL EXAMINATION: GENERAL APPEARANCE:APPEARS OLDER THAN STATED AGE, OBESE, COMFORTABLE. PSYCHAFFECT NORMAL. LUNGS:LUNG MCADAMS ARE CLEAR TO AUSCULTATION BILATERALLY. GOOD MOVEMENT OF AIR. HEART:S1, S2 IN A REGULAR RATE AND RHYTHM. NO SIGNIFICANT MURMURS, RUBS OR GALLOPS NOTED. DIAGNOSTIC DATA-MRI L/S [id number]-REVIEWED. LUMBAR SPINE/LOWER BACK: INSPECTION:NORMAL CURVATURE OF SPINE. PALPATION:POSITIVE FOR VERTEBRAL SPINE TENDERNESS.POSITIVE FOR PARASPINAL TENDERNESS R>L. MOTOR SYSTEM:5/5 BLE. SENSORY EXAM:NORMAL. ASSESSMENTS LUMBOSACRAL SPONDYLOLYSIS - M43.07 (PRIMARY) DISC DISPLACEMENT, LUMBAR - M51.26 LUMBAR RADICULOPATHY - M54.16 TREATMENT LUMBOSACRAL SPONDYLOLYSIS NOTES: L4/5 INTRALAMINAR LESI. PROCEDURE CODES FA211 ESTABILISHED PATIENT [facility] FACILITY CHARGE G8730 PAIN ASSESS POS TOOL F/U PLAN DOC G8427 DOC MEDS VERIFIED W/PT OR RE DISPOSITION & COMMUNICATION FOLLOW UP 2WK POST (REASON: L4/5 INTRALAMINAR LESI) ELECTRONICALLY SIGNED BY RAND HIGGINS ON 04/30/2017 AT 04:21 PM EST DISCLAIMER : THIS IS A VISIT SUMMARY EXTRACTED FROM THE [employer] CHART. IT IS NOT A COPY OF THE [employer] PROGRESS NOTE. MTDD
== END ==
LOC: M PAIN 10:45
PROVIDERS: ATTEND Nurse Practitioner Family
DX: M43.07 Spondylolysis, lumbosacral region (principal); M51.26 Other intervertebral disc displacement, lumbar region; M54.16 Radiculopathy, lumbar region; G89.29 Other chronic pain; F17.210 Nicotine dependence, cigarettes, uncomplicated; Z79.891 Long term (current) use of opiate analgesic; Z79.899 Other long term (current) drug therapy; Z21 Asymptomatic human immunodeficiency virus [HIV] infection status; Z88.8 Allergy status to other drugs, medicaments and biological substances

== ENCOUNTER → 2017-05-12 | Outpatient (CLI) | payer MEDICARE, MEDICAID ==
[~2017-05-12] MED LIST changes: -ALBU17IN INH; -CALC600T68 PO; -CETI10CH PO; -CYCL10TA PO; -DEXI60CA2 PO; -DICY10SO PO; -DILT240C77 PO; -EPIP0.3I2 IJ; -ESTR1TAB PO; -GENV1TAB PO; -HORMONE PO; -HYDR25OIN TOP; -HYDR50TA70 PO; +ISOVUE-M 300 61% 15ML VIAL (Q9967) As Ordered; +LIDOCAINE 1% SDV INJ 30 ML VIAL As Ordered; -MONT10TA2 PO; -OXYB5TAB10 PO; -PANT40TA2 PO; -PHEN30CA2 PO; -PREZ600T3 PO; -PREZ800T2 PO; -RANI150T PO; -SUCR1SUS PO; -TOPI50TA9 PO; -VALA1TAB2 PO; -VITA100072 PO; +diazePAM 5 MG TAB As Ordered; +methylPREDNISolone SUSP 40 MG/ML (DEPO-medrol) VIAL (J1030) As Ordered; +oxyCODONE 5MG TAB As Ordered
== END ==
LOC: M PAIN 10:45
DX: G89.29 Other chronic pain (principal); M51.16 Intervertebral disc disorders with radiculopathy, lumbar region; M51.17 Intervertebral disc disorders with radiculopathy, lumbosacral region; B20 Human immunodeficiency virus [HIV] disease; J45.909 Unspecified asthma, uncomplicated; I10 Essential (primary) hypertension; E78.00 Pure hypercholesterolemia, unspecified; R09.02 Hypoxemia; F32.9 Major depressive disorder, single episode, unspecified; F17.210 Nicotine dependence, cigarettes, uncomplicated; Z88.1 Allergy status to other antibiotic agents; Z88.8 Allergy status to other drugs, medicaments and biological substances; Z79.899 Other long term (current) drug therapy; Z86.32 Personal history of gestational diabetes
CPT/HCPCS: J1030

== ENCOUNTER → 2017-05-21 | Outpatient (REF) | payer MEDICARE, MEDICAID ==
[2017-05-21 16:04] LABS: ALBUMIN 3.8 GM/DL (3.2-5.2); ALBUMIN/GLOBULIN RATIO 1.31 (1.00-1.93); ALKALINE PHOSPHATASE 143 U/L (45-117); ALT/SGPT 20 U/L (12-78); ANION GAP 8 MEQ/L (8-16); AST/SGOT 11 U/L (7-37); BILIRUBIN,TOTAL 0.3 MG/DL (0.2-1.0); BLOOD UREA NITROGEN 13 MG/DL (7-18); CALCIUM LEVEL 8.6 MG/DL (8.5-10.1); CARBON DIOXIDE LEVEL 27 MEQ/L (21-32); CHLORIDE LEVEL 105 MEQ/L (98-107); GLOMERULAR FILTRATION RATE > 60.0 (>51); GLUCOSE, FASTING 88 MG/DL (70-105); POTASSIUM SERUM 4.5 MEQ/L (3.5-5.1); SODIUM LEVEL 140 MEQ/L (136-145); TOTAL PROTEIN 6.7 GM/DL (6.4-8.2)
[2017-05-21 16:13] LABS: FOLATE 5.5 NG/ML; VITAMIN B12 LEVEL 1459 PG/ML
[2017-05-21 17:07] LABS: CHLAMYDIA DNA AMPLIFICATION NEGATIVE (NEGATIVE); GC DNA AMPLIFICATION NEGATIVE (NEGATIVE)
[2017-05-26 00:08] LABS: % CD8 Pos Lymph 43.2 % (12.0-35.5); %CD4 Pos Lymphs 37.6 % (30.8-58.5); ABS Eosinophils 0.1 x10E3/uL (0.0-0.4); ABS Lymphs 1.2 x10E3/uL (0.7-3.1); ABS Monocytes 0.4 x10E3/uL (0.1-0.9); ABS Neutophils 4.5 x10E3/uL (1.4-7.0); Abs CD4 Helper 451 /uL (359-1519); Abs CD8 Suppres 518 /uL (109-897); CD4/CD8 Ratio 0.87 (0.92-3.72); Eosinophils 1 % (Not Estab.); HCT 41.5 % (34.0-46.6); HGB 13.4 g/dL (11.1-15.9); Immature Grans 0 % (Not Estab.); Lymphocytes 20 % (Not Estab.); MCH 29.5 pg (26.6-33.0); MCHC 32.3 g/dL (31.5-35.7); MCV 91 fL (79-97); Monocytes 7 % (Not Estab.); Neutrophils 72 % (Not Estab.); Platelets 245 x10E3/uL (150-379); QUANTIFERON GOLD TB Negative (Negative); RBC 4.54 x10E6/uL (3.77-5.28); RDW 14.7 % (12.3-15.4); TB Test (QFT) Antigen 0.04 IU/mL (.); TB Test (QFT) Mitogen 5.28 IU/mL (.); TB Test (QFT) Nil 0.04 IU/mL (.); WBC 6.2 x10E3/uL (3.4-10.8)
== END ==
LOC: M SFHCPLAZ 11:42
DX: B20 Human immunodeficiency virus [HIV] disease (principal); E53.8 Deficiency of other specified B group vitamins; M46.1 Sacroiliitis, not elsewhere classified; J30.89 Other allergic rhinitis; K21.9 Gastro-esophageal reflux disease without esophagitis; M51.37 Other intervertebral disc degeneration, lumbosacral region; E66.9 Obesity, unspecified; Z23 Encounter for immunization; Z79.899 Other long term (current) drug therapy
CPT/HCPCS: 82746

== ENCOUNTER → 2017-05-21 | Outpatient (REF) | payer MEDICARE, MEDICAID ==
[2017-05-21 14:56] LABS: HEMOGLOBIN 13.8 g/dl (12.0-16.0); MEAN CORPUSCULAR HGB CONC 32.1 g/dl (32.0-36.5); MEAN CORPUSCULAR VOLUME 93.5 fl (80.0-96.0); PLATELET COUNT, AUTOMATED 232 10^3/uL (150-450); RED CELL DISTRIBUTION WIDTH 14.6 % (11.5-14.5); WHITE BLOOD COUNT 6.2 10^3/uL (4.0-10.0)
[2017-05-21 15:05] LABS: APPEARANCE, URINE CLEAR (CLEAR); BACTERIA, URINE AUTO 1+ (NEGATIVE); BILIRUBIN, URINE AUTO NEGATIVE (NEGATIVE); BLOOD, URINE BLOOD NEGATIVE (NEGATIVE); COLOR, URINE YELLOW (YELLOW); GLUCOSE, URINE (UA) AUTO NEGATIVE (NEGATIVE); KETONE, URINE AUTO NEGATIVE (NEGATIVE); LEUKOCYTE ESTERASE, URINE AUTO NEGATIVE (NEGATIVE); NITRITE, URINE AUTO NEGATIVE (NEGATIVE); PROTEIN, URINE AUTO NEGATIVE (NEGATIVE); RBC, URINE AUTO 0 /HPF (0-3); SQUAMOUS EPITHELIAL CELL UR AU 3 /HPF (0-6); UROBILINOGEN, URINE AUTO 0.2 mg/dL (0.0-2.0); WBC, URINE AUTO 0 /HPF (0-3)
[2017-05-21 15:29] LABS: TOTAL 25(OH) VITAMIN D 28.1 NG/ML (30.0-100.0)
[2017-05-21 15:36] LABS: ALBUMIN 3.5 GM/DL (3.2-5.2); ALBUMIN/GLOBULIN RATIO 1.09 (1.00-1.93); ALKALINE PHOSPHATASE 130 U/L (45-117); ALT/SGPT 19 U/L (12-78); ANION GAP 9 MEQ/L (8-16); AST/SGOT 9 U/L (7-37); BILIRUBIN,TOTAL 0.3 MG/DL (0.2-1.0); BLOOD UREA NITROGEN 13 MG/DL (7-18); CALCIUM LEVEL 8.5 MG/DL (8.5-10.1); CARBON DIOXIDE LEVEL 26 MEQ/L (21-32); CHLORIDE LEVEL 106 MEQ/L (98-107); CHOLESTEROL LEVEL 201 MG/DL (<200); CHOLESTEROL RISK RATIO 1.914 (<5); CREATININE FOR GFR 0.56 MG/DL (0.55-1.02); GLOMERULAR FILTRATION RATE > 60.0 (>51); GLUCOSE, FASTING 86 MG/DL (70-105); HDL CHOLESTEROL 105 MG/DL (>40); LDL CHOLESTEROL 82.2 MG/DL (<100); NON-HDL-C 96 MG/DL; POTASSIUM SERUM 4.2 MEQ/L (3.5-5.1); SODIUM LEVEL 141 MEQ/L (136-145); TOTAL PROTEIN 6.7 GM/DL (6.4-8.2); TRIGLYCERIDES LEVEL 69 MG/DL (<150)
[2017-05-21 16:24] LABS: ESTIMATED AVERAGE GLUCOSE 126 MG/DL (60-110)
== END ==
LOC: M LABDRAWP 14:50
DX: E53.8 Deficiency of other specified B group vitamins (principal); M46.1 Sacroiliitis, not elsewhere classified; J30.89 Other allergic rhinitis; K21.9 Gastro-esophageal reflux disease without esophagitis; M51.37 Other intervertebral disc degeneration, lumbosacral region; E66.9 Obesity, unspecified; Z23 Encounter for immunization; Z79.899 Other long term (current) drug therapy
CPT/HCPCS: 83036

== ENCOUNTER → 2017-05-27 | Outpatient (CLI) | payer MEDICARE, MEDICAID | LOC: M PAIN 10:45 | DX: M43.07 Spondylolysis, lumbosacral region (principal); M51.26 Other intervertebral disc displacement, lumbar region; M54.16 Radiculopathy, lumbar region; F17.210 Nicotine dependence, cigarettes, uncomplicated; B20 Human immunodeficiency virus [HIV] disease; E78.00 Pure hypercholesterolemia, unspecified; M85.80 Other specified disorders of bone density and structure, unspecified site; I10 Essential (primary) hypertension; J45.909 Unspecified asthma, uncomplicated; Z79.891 Long term (current) use of opiate analgesic; Z79.899 Other long term (current) drug therapy | CPT/HCPCS: 36415 ==

== ENCOUNTER → 2017-05-27 | Outpatient (REF) | payer MEDICARE, MEDICAID ==
[2017-06-01 13:17] LABS: HIV-1 RNAby PCR <20
[2017-06-01 13:18] LABS: Genotype Assay SEE SEPARATE REPORT
== END ==
LOC: M SFHCPLAZ 10:14
DX: B20 Human immunodeficiency virus [HIV] disease (principal)
CPT/HCPCS: 36415

== ENCOUNTER → 2017-06-30 | Outpatient (CLI) | payer MEDICARE, MEDICAID ==
[~2017-06-30] MED LIST changes: +BUPIVACAINE HCL 0.25% 30 ML VIAL As Ordered; +TRIAMCINOLONE ACETONIDE SUSP 40 MG/ML VIAL (J3301) As Ordered; -methylPREDNISolone SUSP 40 MG/ML (DEPO-medrol) VIAL (J1030) As Ordered
== END ==
LOC: M PAIN 08:45
DX: G89.29 Other chronic pain (principal); M47.816 Spondylosis without myelopathy or radiculopathy, lumbar region; M47.817 Spondylosis without myelopathy or radiculopathy, lumbosacral region; B20 Human immunodeficiency virus [HIV] disease; J45.909 Unspecified asthma, uncomplicated; I10 Essential (primary) hypertension; E78.00 Pure hypercholesterolemia, unspecified; R09.02 Hypoxemia; F32.9 Major depressive disorder, single episode, unspecified; F17.210 Nicotine dependence, cigarettes, uncomplicated; Z79.899 Other long term (current) drug therapy; Z88.8 Allergy status to other drugs, medicaments and biological substances; Z86.32 Personal history of gestational diabetes; Z98.84 Bariatric surgery status
CPT/HCPCS: J3301

== ENCOUNTER → 2017-08-05 | Outpatient (CLI) | payer MEDICARE, MEDICAID | LOC: M PAIN 10:15 | DX: M43.07 Spondylolysis, lumbosacral region (principal); M51.26 Other intervertebral disc displacement, lumbar region; M54.16 Radiculopathy, lumbar region; Z21 Asymptomatic human immunodeficiency virus [HIV] infection status; J45.909 Unspecified asthma, uncomplicated; I10 Essential (primary) hypertension; E78.00 Pure hypercholesterolemia, unspecified; G47.36 Sleep related hypoventilation in conditions classified elsewhere; F32.9 Major depressive disorder, single episode, unspecified; F17.210 Nicotine dependence, cigarettes, uncomplicated; M85.80 Other specified disorders of bone density and structure, unspecified site; Z79.899 Other long term (current) drug therapy; Z88.8 Allergy status to other drugs, medicaments and biological substances; Z86.32 Personal history of gestational diabetes; Z98.84 Bariatric surgery status | CPT/HCPCS: G0463 ==

== ENCOUNTER → 2017-08-11 | Outpatient (CLI) | payer MEDICARE, MEDICAID ==
[2017-08-11 10:53] LABS: BASO % 0.6 % (0.0-1.0); EOS % 0.6 % (0.0-3.0); HEMATOCRIT 43.3 % (36.0-47.0); HEMOGLOBIN 13.6 g/dl (12.0-15.5); IMMATURE GRANULOCYTE % 0.4 % (0-3.0); LYMPH # 1.5 10^3/uL (1.5-4.5); MEAN CORPUSCULAR HEMOGLOBIN 29.2 pg (27.0-33.0); MEAN CORPUSCULAR HGB CONC 31.4 g/dl (32.0-36.5); MEAN CORPUSCULAR VOLUME 92.9 fl (80.0-96.0); MONO # 0.4 10^3/uL (0.0-0.8); MONO % 7.2 % (0.0-5.0); NEUTROPHILS # 3.5 10^3/uL (1.8-7.7); NEUTROPHILS % 64.2 % (36.0-66.0); PLATELET COUNT, AUTOMATED 214 10^3/uL (150-450); RED BLOOD COUNT 4.66 10^6/uL (4.00-5.40); RED CELL DISTRIBUTION WIDTH 14.7 % (11.5-14.5); WHITE BLOOD COUNT 5.5 10^3/uL (4.0-10.0)
[2017-08-11 11:12] LABS: ERYTHROCYTE SEDIMENTATION RATE 4 mm/hr (0-30)
[2017-08-11 11:27] LABS: ANION GAP 5 MEQ/L (8-16); BLOOD UREA NITROGEN 14 MG/DL (7-18); CALCIUM LEVEL 8.2 MG/DL (8.5-10.1); CARBON DIOXIDE LEVEL 25 MEQ/L (21-32); CHLORIDE LEVEL 112 MEQ/L (98-107); CREATININE FOR GFR 0.57 MG/DL (0.55-1.30); FREE T4 0.89 NG/DL (0.76-1.46); GLOMERULAR FILTRATION RATE > 60.0 (>51); GLUCOSE, FASTING 80 MG/DL (70-100); POTASSIUM SERUM 4.2 MEQ/L (3.5-5.1); SODIUM LEVEL 142 MEQ/L (136-145)
== END ==
LOC: M LAB 10:18
DX: B20 Human immunodeficiency virus [HIV] disease (principal); Z79.899 Other long term (current) drug therapy
CPT/HCPCS: 84443

== ENCOUNTER → 2017-09-28 | Outpatient (CLI) | payer MEDICARE, MEDICAID | LOC: M PAIN 11:00 | DX: M43.07 Spondylolysis, lumbosacral region (principal); M51.26 Other intervertebral disc displacement, lumbar region; M54.16 Radiculopathy, lumbar region; G89.29 Other chronic pain; Z21 Asymptomatic human immunodeficiency virus [HIV] infection status; J45.909 Unspecified asthma, uncomplicated; I10 Essential (primary) hypertension; E78.00 Pure hypercholesterolemia, unspecified; R09.02 Hypoxemia; M85.80 Other specified disorders of bone density and structure, unspecified site; F17.210 Nicotine dependence, cigarettes, uncomplicated; Z79.899 Other long term (current) drug therapy; Z88.8 Allergy status to other drugs, medicaments and biological substances; Z91.013 Allergy to seafood; Z86.32 Personal history of gestational diabetes; Z98.84 Bariatric surgery status | CPT/HCPCS: G0463 ==

== ENCOUNTER → 2017-12-22 | Outpatient (REF) | payer MEDICARE, MEDICAID ==
[2017-12-22 16:38] LABS: ALBUMIN 3.4 GM/DL (3.2-5.2); ALKALINE PHOSPHATASE 128 U/L (45-117); ALT/SGPT 21 U/L (12-78); ANION GAP 10 MEQ/L (8-16); AST/SGOT 12 U/L (7-37); BILIRUBIN,TOTAL 0.2 MG/DL (0.2-1.0); BLOOD UREA NITROGEN 13 MG/DL (7-18); CARBON DIOXIDE LEVEL 24 MEQ/L (21-32); CHLORIDE LEVEL 107 MEQ/L (98-107); CREATININE FOR GFR 0.66 MG/DL (0.55-1.30); GLOMERULAR FILTRATION RATE > 60.0 (>51); GLUCOSE, FASTING 101 MG/DL (70-100); POTASSIUM SERUM 3.3 MEQ/L (3.5-5.1); SODIUM LEVEL 141 MEQ/L (136-145); TOTAL PROTEIN 6.8 GM/DL (6.4-8.2)
[2017-12-26 00:07] LABS: % CD8 Pos Lymph 41.9 % (12.0-35.5); %CD4 Pos Lymphs 43.3 % (30.8-58.5); ABS Eosinophils 0.1 x10E3/uL (0.0-0.4); ABS Lymphs 1.2 x10E3/uL (0.7-3.1); ABS Monocytes 0.3 x10E3/uL (0.1-0.9); ABS Neutophils 5.4 x10E3/uL (1.4-7.0); Abs CD4 Helper 520 /uL (359-1519); Abs CD8 Suppres 503 /uL (109-897); CD4/CD8 Ratio 1.03 (0.92-3.72); Eosinophils 1 % (Not Estab.); HCT 44.7 % (34.0-46.6); HGB 13.9 g/dL (11.1-15.9); HIV-1 RNA PCR QUANT 2 LC550285 <20 copies/mL (.); Immature Grans 0 % (Not Estab.); Lymphocytes 17 % (Not Estab.); MCH 28.1 pg (26.6-33.0); MCHC 31.1 g/dL (31.5-35.7); MCV 90 fL (79-97); Monocytes 5 % (Not Estab.); Neutrophils 77 % (Not Estab.); Platelets 321 x10E3/uL (150-379); RBC 4.95 x10E6/uL (3.77-5.28); WBC 7.1 x10E3/uL (3.4-10.8)
== END ==
LOC: M SFHCPLAZ 14:20
DX: B20 Human immunodeficiency virus [HIV] disease (principal)
CPT/HCPCS: 80053

== ENCOUNTER → 2018-02-10 | Outpatient (CLI) | payer MEDICARE, MEDICAID ==
[~2018-02-10] MED LIST changes: +diphenhydrAMINE 25 MG CAP As Ordered
== END ==
LOC: M PAIN 09:30
DX: M47.816 Spondylosis without myelopathy or radiculopathy, lumbar region (principal); M47.817 Spondylosis without myelopathy or radiculopathy, lumbosacral region; J45.909 Unspecified asthma, uncomplicated; B20 Human immunodeficiency virus [HIV] disease; I10 Essential (primary) hypertension; E78.00 Pure hypercholesterolemia, unspecified; F32.9 Major depressive disorder, single episode, unspecified; K58.9 Irritable bowel syndrome, unspecified; B00.9 Herpesviral infection, unspecified; R49.0 Dysphonia; K64.4 Residual hemorrhoidal skin tags; M85.80 Other specified disorders of bone density and structure, unspecified site; Z98.84 Bariatric surgery status; G47.34 Idiopathic sleep related nonobstructive alveolar hypoventilation; F17.210 Nicotine dependence, cigarettes, uncomplicated; Z79.899 Other long term (current) drug therapy; Z88.8 Allergy status to other drugs, medicaments and biological substances; Z91.013 Allergy to seafood
CPT/HCPCS: J3301

== ENCOUNTER → 2018-03-01 | Outpatient (CLI) | payer MEDICARE, MEDICAID | LOC: M PAIN 09:45 | DX: M43.07 Spondylolysis, lumbosacral region (principal); M51.26 Other intervertebral disc displacement, lumbar region; M54.16 Radiculopathy, lumbar region; J45.909 Unspecified asthma, uncomplicated; I10 Essential (primary) hypertension; E78.00 Pure hypercholesterolemia, unspecified; F17.210 Nicotine dependence, cigarettes, uncomplicated; F32.9 Major depressive disorder, single episode, unspecified; K58.9 Irritable bowel syndrome, unspecified; M85.88 Other specified disorders of bone density and structure, other site; R49.0 Dysphonia; B20 Human immunodeficiency virus [HIV] disease; K64.4 Residual hemorrhoidal skin tags; B00.9 Herpesviral infection, unspecified; N95.1 Menopausal and female climacteric states; Z98.84 Bariatric surgery status; Z91.013 Allergy to seafood; Z88.8 Allergy status to other drugs, medicaments and biological substances; Z79.899 Other long term (current) drug therapy | CPT/HCPCS: G0463 ==

== ENCOUNTER → 2018-03-10 | Outpatient (REF) | payer MEDICARE, MEDICAID ==
[2018-03-12 14:28] LABS: HPV HYBRID CAPTURE II Negative (Negative)
== END ==
LOC: M SFHCWAGY 11:32
DX: Z01.419 Encounter for gynecological examination (general) (routine) without abnormal findings (principal); Z11.51 Encounter for screening for human papillomavirus (HPV)
CPT/HCPCS: G0123

== ENCOUNTER → 2018-03-10 | Outpatient (CLI) | payer MEDICARE, MEDICAID | LOC: M WHC 10:42 | DX: Z01.419 Encounter for gynecological examination (general) (routine) without abnormal findings (principal); Z12.31 Encounter for screening mammogram for malignant neoplasm of breast (principal); E65 Localized adiposity; Z98.890 Other specified postprocedural states; Z79.890 Hormone replacement therapy; Z12.12 Encounter for screening for malignant neoplasm of rectum | CPT/HCPCS: 77067; G0123 ==

== ENCOUNTER 2018-03-12 12:15 | Outpatient (RCR) | payer MEDICARE, MEDICAID | END 2018-04-09 | LOC: M ST 12:15 | DX: R49.0 Dysphonia (principal) | CPT/HCPCS: 92524 ==

== ENCOUNTER → 2018-05-17 | Outpatient (CLI) | payer MEDICARE, MEDICAID ==
[~2018-05-17] MED LIST changes: +ALBU17IN INH; -BUPIVACAINE HCL 0.25% 30 ML VIAL As Ordered; +BUPIVACAINE HCL 0.25% 30 ML VIAL As Ordered ONE; +CALC600T68 PO; +CETI10CH PO; +CYCL10TA PO; +DEXI60CA2 PO; +DICY10SO PO; +DILT240C77 PO; +EPIP0.3I2 IJ; +ESTR1TAB PO; +GENV1TAB PO; +HORMONE PO; +HYDR25OIN TOP; +HYDR50TA70 PO; -ISOVUE-M 300 61% 15ML VIAL (Q9967) As Ordered; +ISOVUE-M 300 61% 15ML VIAL (Q9967) As Ordered ONE; -LIDOCAINE 1% SDV INJ 30 ML VIAL As Ordered; +LIDOCAINE 1% SDV INJ 30 ML VIAL As Ordered ONE; +MONT10TA2 PO; +OXYB5TAB10 PO; +PANT40TA3 PO; +PHEN30CA2 PO; +PREZ600T3 PO; +PREZ800T2 PO; +RANI150T PO; +SUCR1SUS PO; +TOPI50TA9 PO; -TRIAMCINOLONE ACETONIDE SUSP 40 MG/ML VIAL (J3301) As Ordered; +TRIAMCINOLONE ACETONIDE SUSP 40 MG/ML VIAL (J3301) As Ordered ONE; +VALA1TAB2 PO; +VITA100072 PO; -diazePAM 5 MG TAB As Ordered; +diazePAM 5 MG TAB As Ordered ONE; -diphenhydrAMINE 25 MG CAP As Ordered; +diphenhydrAMINE 25 MG CAP As Ordered ONE; -oxyCODONE 5MG TAB As Ordered; +oxyCODONE 5MG TAB As Ordered ONE
--- NOTE | 2018-05-17 11:38 | REP ---
Partial lumbar spine series: Four views . History: Injection procedure for pain. 29 seconds of fluoroscopy time is reported. Findings: A sequence of four fluoroscopically obtained last image hold procedural spot radiographs of the lumbar spine document needle position and contrast injection associated with injection procedure. Electronically Signed by Eduar Ace MD 05/17/2018 11:30 A
--- NOTE | 2018-06-02 00:53 | ECWPNPC ---
PATIENT NAME: DEVAN EDWARDS : 1965 GENDER: FEMALE VISIT DATE: 05/17/2018 DISCHARGE DATE: 05/17/18 1146 VISIT LOCKED DATE TIME: PHYSICIAN: MARITA FOLEY MD RESOURCE: MARITA FOLEY MD REASON FOR APPOINTMENT 1. BILAT. L4/5-L5/S1 THERAPEUTIC BLOCK HISTORY OF PRESENT ILLNESS HISTORY OF PRESENT ILLNESS: PAIN THE PATIENT DESCRIBES THE PAIN... FALL RISK SCREENING: SCREENING :NO FALLS IN THE PAST YEAR CURRENT MEDICATIONS TAKING CHLORTHALIDONE 25 MG TABLET 1 TABLET ORALLY DAILY NEEDED, NOTES: NONE RECENT TAKING CALCIUM 600 + D 600-400 MG-UNIT TABLET 1 TABLET ORALLY TWICE A DAY, NOTES: 05/17 629 TAKING VITAMIN B-12 1000 MCG TABLET 1 TABLET ORALLY ONCE A DAY, NOTES: 05/17 629 TAKING VITAMIN D 1000 UNIT TABLET 1 TABLET ORALLY ONCE A DAY TAKING 2500 UNITS, NOTES: 05/17 629 TAKING VALTREX 1 GM TABLET 2 TABLET ORALLY BID FOR 2 DAYS PRN, NOTES: > 4 MONTHS TAKING EPIPEN 0.3 MG/0.3ML DEVICE DIRECTED INJECTION ONCE DAILY NEEDED, NOTES: NEVER USED TAKING CARTIA XT 120 MG CAPSULE EXTENDED RELEASE 24 HOUR 1 CAPSULE ORALLY DAILY, NOTES: 05/17 629 TAKING VENTOLIN HFA 108 (90 BASE) MCG/ACT AEROSOL SOLUTION 2 PUFFS MARY ALICE INHALATION EVERY 4 HRS NEEDED, NOTES: NONE RECENT TAKING MONTELUKAST SODIUM 10 MG TABLET 1 TABLET IN THE EVENING ORALLY ONCE A DAY, NOTES: 05/16/181999 TAKING ESTRADIOL 1 MG TABLET 1 TABLET ORALLY DAILY FOR THREE WEEKS, 1 WEEK OFF, NOTES: 05/17 629 TAKING CYCLOBENZAPRINE HCL 10 MG TABLET 1 TABLET NEEDED ORALLY THREE TIMES A DAY, NOTES: 05/17/18629 TAKING FLUCONAZOLE 150 MG TABLET 1 TABLET ORALLY WEEKLY, NOTES: 05/13 TAKING CHANTIX CONTINUING MONTH EMEKA 1 MG TABLET 1 TABLET ORALLY TWICE A DAY, NOTES: 05/17 629 TAKING NYSTATIN 322839 UNIT/GM POWDER 1 APPLICATION TO AFFECTED AREA EXTERNALLY TWICE A DAY, NOTES: NEVER USED TAKING GENVOYA [phone] MG TABLET 1 TAB ORALLY DAILY, NOTES: 05/16/171999 TAKING PREZISTA 800 MG TABLET 1 TAB ORALLY DAILY, NOTES: 05/16/171999 TAKING RANITIDINE HCL 300 MG TABLET 1 TABLET AT BEDTIME ORALLY BEFORE BEDTIME, NOTES: 05/16/171999 TAKING DEXILANT 60 MG CAPSULE DELAYED RELEASE 1 CAPSULE ORALLY ONCE A DAY, NOTES: 05/17/17 0630 TAKING AMITRIPTYLINE HCL 50 MG TABLET 1 TABLET ORALLY ONCE A DAY, NOTES: 05/16/171999 TAKING HYDROCODONE-ACETAMINOPHEN 7.5-325 MG TABLET 1 TABLET NEEDED ORALLY EVERY 6 HRS/MMD4, NOTES: 05/16/171999 NOT-TAKING ESTRADIOL 0.1 MG/GM CREAM 1/ VAGINAL TWICE AWEEK AT HS MEDICATION LIST REVIEWED AND RECONCILED WITH THE PATIENT PAST MEDICAL HISTORY AIDS/HIV 1995 INFECTED BY MALE ASTHMA HYPERTENSION/ ECHOCARDIOGRAM SHOWED LVH TENDONITIS SANGITA WRIST ENVIRONMENTAL ALLERGIES HX OF GESTATIONAL DIABETES PURE HYPERCHOLESTEREMIA 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 TORRES 08/17 IRRITABLE BOWEL SYNDROME GENOTYPE 08/2011 K103 MUTATION TROFILE DUAL MIXED TROPISM POSTMENOPAUSE OSTEOPENIA BMD 2012 DR KHOURY SYMPTOMATIC STATES ASSOCIATED WITH ARTIFICIAL MENOPAUSE EXTERNAL HEMORRHOIDS GASTRIC BYPASS STATUS FOR OBESITY SEASONAL AND PERENNIAL ALLERGIC RHINITIS OSTEOPENIA SLEEP APNEA NOT USING CPAP COULD NOT TOLERATE ALLERGIES BIAXIN: RASH: ALLERGY NORVASC: EDEMA: ALLERGY LISINOPRIL: FACIAL SWELLING: ALLERGY ESTRADIOL: REREDDNESS AT SITE OF PATCH: SIDE EFFECTS SHELLFISH: ANAPHYLAXIS: ALLERGY SURGICAL HISTORY PARTIAL HYSTERECTOMY 2004 TUBAL LIGATION 1989 GASTRIC BYPASS 1994 BENIGN POLYP REMOVAL FROM THROAT 2008 TENDONITIS SURGERY X2 (WRIST) RT 07/2008, LT 12/2008 BUNIONECTOMY 2ND TOE ON RIGHT FOOT STRAIGHTENED LAP CHOLECYSTECTOMY ([place]) 02/13/2012 LAP RELEASE OF BOWEL OBSTRUCTION (BOWEL SEWN INTO LUZ MARIA INCISION) ([facility]) 02/15/2012 ABDOMINAL SURGERY 06/23 BREAST REDUCTION COMPLICATED BY MSSA ABSCESS ON THE RIGHT SIDE REQUIRING INCISION AND DRAINAGE 01/2014 COLONOSCOPY 4 MM TUBULAR ADENOMA REPEAT IN [address] GAN 10/2015 BIOPSY THROAT 08-05-16 COLPOSCOPY 09/19/16 POLYPS REMOVED BY LASER FROM VOCAL CORDS 12/2016 FAMILY HISTORY FATHER: ALIVE 72 YRS, TRIPLE BYPASS, HTN, OBESITY, DIAGNOSED WITH DIABETES MOTHER: ALIVE 69 YRS, DIABETES, HTN, OBESITY SIBLINGS: ALIVE 49 YRS, SISTER SON(S): ALIVE 28 YRS, NO KNOWN MEDICAL PROBLEMS DAUGHTER(S): 19 YRS, MVA (2006) SOCIAL HISTORY GENERAL: TOBACCO USE ARE YOU A:FORMER SMOKER HOW LONG HAS IT BEEN SINCE YOU LAST SMOKED?1-3 MONTHS SMOKING CESSATION INFORMATION GIVEN02/10/201802/10 DECLINED BMI CARE GOAL FOLLOW-UP ABOVE NORMAL BMI FOLLOW-UPDIETARY MANAGEMENT EDUCATION, GUIDANCE, AND COUNSELING ALCOHOL SCREENING POINTS: 1, INTERPRETATION: NEGATIVE. RECREATIONAL DRUG USE DENIES. CAFFEINE 1 CUP COFFE DAILY. SEXUAL HX HAD SEX IN THE LAST 12 MONTHS (VAGINAL, ORAL, OR ANAL)?: NO, HAVE YOU EVER HAD AN STD?: NO, LMP:: HYSTER. HIV / HEP-C SCREENING HIV TEST OFFERED TO PATIENT:YES DATE OFFERED:03/10/2018 TEST ACCEPTED:NO PREV TESTED REASON:OTHER (DOCUMENT IN NOTE) BROCHURE PROVIDED TO PATIENTNO HEP-C TEST OFFERED TO PATIENT:YES DATE OFFERED:03/10/2018 TEST ACCEPTED:NO PREV TESTED REASON:OTHER (DOCUMENT IN NOTE) ORIENTAL ORTHODOX [id number] NONE LANGUAGE LANGUAGES SPOKEN:NIGERIAN EDUCATION LEVEL OF EDUCATION:HIGH SCHOOL GRADUATE LEARNING BARRIERS / SPECIAL NEEDS CHANGE FROM LAST VISIT?NO BARRIERS TO LEARNING?NO HEARING IMPAIRED?NO VISION IMPAIRED?YES :CORRECTIVE LENSES COGNITIVELY IMPAIRED?NO READINESS TO LEARN?YES LEARNING PREFERENCES?YES :DEMONSTRATION/VERBAL INSTRUCTION LEARNING CAPABILITIES PRESENT?YES EMOTIONAL BARRIERS?NO SPECIAL DEVICES?NO KRAFT DIGESTER OPERATOR NEEDED?NO DOMESTIC VIOLENCE DO YOU FEEL SAFE IN YOUR ENVIRONMENT?YES OCCUPATION: DISABLED. DIET: NO HX EATING DISORDERS. EXERCISE: NO REGULAR EXERCISE. MARITAL STATUS: . OTHERS AT HOME: LIVES ALONE. FEMALE 6 MONTH RISK ASSESSMENT FOR STD DESCRIBE YOUR SEXUAL PARTNERS:MALE MONOGAMOUS?YES HIV POSITIVE?YES EVER INJECT DRUGS?NO VAGINAL SEX?NO ANAL SEX?NO ORAL SEX?NO ARE YOU TAKING ANY STEPS TO PREVENT ?YES METHODS (CHECK ALL THAT APPLY):MALE CONDOMS WHAT STEPS HAVE YOU TAKEN TO PROTECT YOURSELF FROM STDS, INCLUDING HIV? (CHECK ALL THAT APPLY):MUTUAL MONOGAMY, MALE CONDOMS HAVE YOU OR ANY OF YOUR SEXUAL PARTNERS EVER HAD AN STD? IF YES PLEASE LIST:NO IS THERE ANYTHING ELSE WE SHOULD TALK ABOUT CONCERNING YOUR SEXUAL HISTORY OR PRACTICE?NO PAIN CLINIC PFS, CLERGY, PUBLIC HEALTH REFERRALS PFS REFERRAL NEEDED?NO CLERGY REFERRAL NEEDED?NO PUBLIC HEALTH REFERRAL NEEDED?NO WAS THE PROVIDER NOTIFIED OF ANY PERTINENT INFO? N/A HAS THE PATIENT BEEN EDUCATED REGARDING HIS/HER PLAN OF CARE?YES HAS THE PATIENT BEEN EDUCATED REGARDING PAIN, THE RISK FOR PAIN, THE IMPORTANCE OF EFFECTIVE PAIN MANAGEMENT, AND THE PAIN ASSESSMENT PROCESS?YES ADVANCE DIRECTIVE ADVANCE DIRECTIVE DISCUSSED WITH PATIENT:YES 05/17/18 PT STATES SHE DOES NOT HAVE ANY ADVANCED DIRECTIVES AND SHE DECLINES INFORMATION AT THIS TIME. ASSISTANCE WITH FORM OFFERED, BUT PT DECLINES LAS 02/10/18 1000 REVIEWED WITH PT. ADREVIEWED WITH PT 03/01/18 1013 BVREVIEWED [facility] PT 04/28/18 1100 BVREVIEWED WITH PT 05/17/18 1038 LAS. HOSPITALIZATION/MAJOR DIAGNOSTIC PROCEDURE RELATED TO SURGERY CHILD ALLERGIC REACITON TO MEDS PNEUMONIA 06/2015 REVIEW OF SYSTEMS REVIEWED BY: PROVIDER: . CONSTITUTIONAL: ANY CHANGE IN YOUR MEDICAL CONDITION? NO . CHILLS NO . FEVER NO . INFECTION: DO YOU HAVE NEW INFECTIONS? NO . DO YOU HAVE HISTORY OF MRSA? NO . MUSCULOSKELETAL: ANY NEW PATTERNS OF PAIN OR NUMBNESS? NO . GASTROENTEROLOGY: ANY NEW CHANGE IN BOWEL CONTROL? NO . GENITOURINARY: ANY NEW CHANGE IN BLADDER CONTROL? NO . IS THERE A CHANCE YOU COULD BE ? NO . HEMATOLOGY/LYMPH: DO YOU TAKE ANY BLOOD THINNERS? (FOR EXAMPLE- COUMADIN, PLAVIX, AGGRENOX, PLATEL, PRADAXA, OR XARELTO) NO . WHEN WAS YOUR LAST DOSE? DATE: TIME: . NEUROLOGY: HAVE YOU FALLEN IN THE PAST 6 MONTHS? NO . ANY NEW EXTREMITY NUMBNESS OR WEAKNESS? NO . CARDIOLOGY: DO YOU HAVE A PACEMAKER OR DEFIBRILLATOR? NO . RESPIRATORY: HAVE YOU BEEN SICK IN THE PAST WEEK? NO . FEVER NO . FLU LIKE SYMPTOMS? NO . COUGH NO . INTEGUMENTARY: DO YOU HAVE ANY RASHES OR OPEN SORES? NO . ALLERGIC/IMMUNO: ARE YOU ALLERGIC TO SHELLFISH OR IV DYE? NO . ANY NEW ALLERGIES? NO . PSYCHIATRIC: DO YOU HAVE THOUGHTS OF HURTING YOURSELF OR SOMEONE ELSE? NO . ARE YOU ABUSED, NEGLECTED, OR IN AN UNSAFE ENVIRONMENT? NO . ENDOCRINOLOGY: ARE YOU DIABETIC? NO . OTHER: DO YOU NEED ANY PRESCRIPTIONS? NO . IF YES, PLEASE LIST: ____ . ANY NEW PROBLEMS WITH YOUR MEDICATIONS? NO . WHEN DID YOU LAST EAT? ____05/16/18 . WHEN DID YOU LAST DRINK? ____05/17/18 0830 . WHAT DID YOU LAST DRINK? ____WATER . NAME OF PERSON DRIVING YOU HOME? ____BOOKER EDWARDS . DO YOU HAVE ANY OTHER QUESTIONS OR CONCERNS NO . VITAL SIGNS WT 239.6 LBS, HT 61 IN, BMI 45.27 INDEX, BP 138/82 MM HG, HR 84 /MIN, RR 18 /MIN, TEMP 97.8 F, OXYGEN SAT % 96%, NA INITIALS AW 1008. ASSESSMENTS SPONDYLOSIS OF LUMBAR REGION WITHOUT MYELOPATHY OR RADICULOPATHY - M47.816 (PRIMARY) SPONDYLOSIS OF LUMBOSACRAL REGION WITHOUT MYELOPATHY OR RADICULOPATHY - M47.817 PROCEDURES PN LUMBAR FACET BLOCK THERAPEUTIC PRE PROCEDURE DIAGNOSIS LUMBAR SPONDYLOSIS, LUMBOSACRAL SPONDYLOSIS POST PROCEDURE DIAGNOSIS LUMBAR SPONDYLOSIS, LUMBOSACRAL SPONDYLOSIS PROCEDURE BILATERAL L4-L5 AND BILATERAL L5-S1 LUMBAR FACET THERAPEUTIC BLOCK SURGEON DR. MARITA FOLEY ELECTRONIC SECURITY SPECIALIST NONE ANESTHESIA LOCAL PRE PROCEDURE NOTE THE PATIENT HAS A HISTORY OF CHRONIC LOW BACK PAIN. I EVALUATE THE PATIENT AND REVIEWED THE CHART. I WENT OVER THE RISKS, ALTERNATIVES, AND BENEFITS ASSOCIATED WITH THIS PROCEDURE. THE PATIENT WOULD LIKE TO PROCEED AND GIVE CONSENT TO PERFORMED THE PROCEDURE. THE PATIENT DENIES UNEXPLAINABLE WEIGHT LOSS, FEVER, CHILLS, OR NEW CHANGES IN URINARY OR BOWEL CONTROL DESCRIPTION OF PROCEDURE THE PATIENT WAS BROUGHT TO THE PROCEDURE ROOM AND PLACED IN THE PRONE POSITION. THE LUMBOSACRAL AREA WAS CLEANED WITH CHLORAPREP SOLUTION AND DRAPED ASEPTICALLY. THE PROCEDURE WAS DONE UNDER STERILE CONDITIONS. I CHECKED LATERALITY AND THE LEVEL WHERE THE PROCEDURE WAS GOING TO BE PERFORMED WITH THE PATIENT AND THE SUPPORTING STAFF AT THE MOMENT OF THE TIME OUT IN THE PROCEDURE ROOM. UNDER FLUOROSCOPIC GUIDANCE, THE TARGET POINT WAS SELECTED AT THE RIGHT AND LEFT L4-L5 AND RIGHT AND LEFT L5-S1 FACET JOINT. TARGET POINT WAS SELECTED AFTER LATERAL ROTATION AND TILT OF THE MAGNIFIER OF THE C-ARM. LIDOCAINE 0.5% WAS USED TO NUMB THE SKIN AND THE SUBCUTANEOUS TISSUE BELOW IT. SPINAL NEEDLES, 22-GAUGE, WERE ADVANCED UNDER FLUOROSCOPIC GUIDANCE AND FOLLOWING PATIENT FEEDBACK UNTIL THE TARGETS WERE TOUCHED. THE POSITION OF THE NEEDLES WAS VERIFIED WITH AP AND LATERAL VIEWS. AFTER PROPER POSITION OF THE NEEDLES WAS ACHIEVED, ISOVUE-M DYE 30% 0.1 ML WAS INJECTED SHOWING ADEQUATE SPREAD OF THE DYE. THEN A SOLUTION OF 1.9 ML OF BUPIVACAINE 0.125% OF KENALOG 10 MG WAS INJECTED AT EACH SITE. THERE WAS NO EVIDENCE OF BLOOD, PARESTHESIA OR CEREBROSPINAL FLUID DURING THE PROCEDURE. THE PATIENT WAS SENT TO THE RECOVERY ROOM. THE PATIENT WAS MOVING THE EXTREMITIES AND DOING WELL. THERE WAS NO COMPLICATION DURING THE PROCEDURE. FLUOROSCOPY TIME WAS 29 SECONDS POST PROCEDURE NOTE THE PATIENT WILL BE SEEN IN A FOLLOW UP IN THE NEXT FEW WEEKS. INSTRUCTIONS WERE GIVEN, QUESTIONS WERE ANSWERED, AND THE PATIENT EXPRESSED UNDERSTANDING AND AGREES WITH THE PLAN. I, LEE PELAYO, DOCUMENTED THE ABOVE INFORMATION ACTING A SCRIBE FOR DR. FOLEY. I HAVE REVIEWED THE ABOVE DOCUMENT, WRITTEN BY LEE PELAYO SCRIBE AND I VERIFY THAT IT IS ACCURATE. DIAGNOSTIC IMAGING [facility] FACET BLOCK (PAIN)[id number] PROCEDURE CODES 6045F RADXPS IN END [id number] PXD [id number] INJ PARAVERT F JNT L/S 1 LEV, MODIFIERS: 50 [id number] INJ PARAVERT F JNT L/S 2 LEV, MODIFIERS: 50 DISPOSITION & COMMUNICATION FOLLOW UP 3 WEEKS ELECTRONICALLY SIGNED BY MARITA FOLEY MD, MD ON 06/01/2018 AT 01:02 PM EST DISCLAIMER : THIS IS A VISIT SUMMARY EXTRACTED FROM THE [employer] CHART. IT IS NOT A COPY OF THE [employer] PROGRESS NOTE. MTDD
== END ==
LOC: M PAIN 10:30
PROVIDERS: ATTEND Anesthesiology
DX: G89.29 Other chronic pain (principal); M47.816 Spondylosis without myelopathy or radiculopathy, lumbar region; M47.817 Spondylosis without myelopathy or radiculopathy, lumbosacral region; Z21 Asymptomatic human immunodeficiency virus [HIV] infection status; J45.909 Unspecified asthma, uncomplicated; I10 Essential (primary) hypertension; E78.00 Pure hypercholesterolemia, unspecified; F32.9 Major depressive disorder, single episode, unspecified; M85.80 Other specified disorders of bone density and structure, unspecified site; G47.30 Sleep apnea, unspecified; E66.01 Morbid (severe) obesity due to excess calories; Z68.42 Body mass index [BMI] 45.0-49.9, adult; Z79.899 Other long term (current) drug therapy; Z88.8 Allergy status to other drugs, medicaments and biological substances; Z91.013 Allergy to seafood; Z87.891 Personal history of nicotine dependence; Z86.32 Personal history of gestational diabetes; Z98.84 Bariatric surgery status
CPT/HCPCS: 64493; 64494; J3301; Q9967

== ENCOUNTER → 2018-06-29 | Outpatient (CLI) | payer MEDICARE, MEDICAID ==
[~2018-06-29] MED LIST changes: -BUPIVACAINE HCL 0.25% 30 ML VIAL As Ordered ONE; -ISOVUE-M 300 61% 15ML VIAL (Q9967) As Ordered ONE; -LIDOCAINE 1% SDV INJ 30 ML VIAL As Ordered ONE; -TRIAMCINOLONE ACETONIDE SUSP 40 MG/ML VIAL (J3301) As Ordered ONE; -diazePAM 5 MG TAB As Ordered ONE; -diphenhydrAMINE 25 MG CAP As Ordered ONE; -oxyCODONE 5MG TAB As Ordered ONE
--- NOTE | 2018-07-12 00:35 | ECWPNPC ---
PATIENT NAME: DEVAN EDWARDS : 1965 GENDER: FEMALE VISIT DATE: 06/29/2018 DISCHARGE DATE: 06/29/18 1212 VISIT LOCKED DATE TIME: PHYSICIAN: UMESH LONGO RESOURCE: UMESH LONGO REASON FOR APPOINTMENT 1. POST PROCEDURE HISTORY OF PRESENT ILLNESS HISTORY OF PRESENT ILLNESS: HERE FOR POST PROCEDURE F/U .HAD BILATERAL L4/5-L5/S1 THERAPEUTIC FACET BLOCK ON 05-17-18.REPORTS >50% IMPROVEMENT THAT CONTINUES TODAY.CHIEF AREA OF PAIN IS LOW BACK.RATING PAIN VAS 2/10.PAIN IS LOCATED IN LOW BACK WITH RADIATION INTO RIGHT BUTTOCK. PAIN THE PATIENT DESCRIBES THE PAIN... THE PATIENT DESCRIBES THE PAIN... THE PATIENT DESCRIBES THE PAIN... THE PATIENT DESCRIBES THE PAIN... FALL RISK SCREENING: SCREENING : NO FALLS IN THE PAST YEAR. CURRENT MEDICATIONS TAKING CALCIUM 600 + D 600-400 MG-UNIT TABLET 1 TABLET ORALLY TWICE A DAY TAKING VITAMIN B-12 1000 MCG TABLET 1 TABLET ORALLY ONCE A DAY TAKING VITAMIN D 1000 UNIT TABLET 1 TABLET ORALLY ONCE A DAY TAKING 2500 UNITS TAKING VALTREX 1 GM TABLET 2 TABLET ORALLY BID FOR 2 DAYS PRN, NOTES: > 4 MONTHS TAKING EPIPEN 0.3 MG/0.3ML DEVICE DIRECTED INJECTION ONCE DAILY NEEDED, NOTES: NEVER USED TAKING CARTIA XT 120 MG CAPSULE EXTENDED RELEASE 24 HOUR 1 CAPSULE ORALLY DAILY TAKING VENTOLIN HFA 108 (90 BASE) MCG/ACT AEROSOL SOLUTION 2 PUFFS MARY ALICE INHALATION EVERY 4 HRS NEEDED TAKING MONTELUKAST SODIUM 10 MG TABLET 1 TABLET IN THE EVENING ORALLY ONCE A DAY TAKING ESTRADIOL 1 MG TABLET 1 TABLET ORALLY DAILY FOR THREE WEEKS, 1 WEEK OFF TAKING CYCLOBENZAPRINE HCL 10 MG TABLET 1 TABLET NEEDED ORALLY THREE TIMES A DAY TAKING FLUCONAZOLE 150 MG TABLET 1 TABLET ORALLY WEEKLY TAKING CHANTIX CONTINUING MONTH EMEKA 1 MG TABLET 1 TABLET ORALLY TWICE A DAY TAKING NYSTATIN [id number] UNIT/GM POWDER 1 APPLICATION TO AFFECTED AREA EXTERNALLY TWICE A DAY, NOTES: NEVER USED TAKING GENVOYA [id number] MG TABLET 1 TAB ORALLY DAILY TAKING PREZISTA 800 MG TABLET 1 TAB ORALLY DAILY TAKING RANITIDINE HCL 300 MG TABLET 1 TABLET AT BEDTIME ORALLY BEFORE BEDTIME TAKING DEXILANT 60 MG CAPSULE DELAYED RELEASE 1 CAPSULE ORALLY ONCE A DAY TAKING AMITRIPTYLINE HCL 50 MG TABLET 1 TABLET ORALLY ONCE A DAY TAKING TRAZODONE HCL 50 MG TABLET 1-2 TABLET AT BEDTIME NEEDED ORALLY ONCE A DAY TAKING HYDROCODONE-ACETAMINOPHEN 7.5-325 MG TABLET 1 TABLET NEEDED ORALLY EVERY 6 HRS/MMD4 TAKING XARELTO 10 MG TABLET 1 CAP ORALLY DAILY, NOTES: UNTIL 07/13/18 NOT-TAKING CHLORTHALIDONE 25 MG TABLET 1 TABLET ORALLY DAILY NEEDED NOT-TAKING HYDROXYZINE HCL 50 MG TABLET 1 TABLET NEEDED ORALLY 2 TABS AT BEDTIME NOT-TAKING ESTRADIOL 0.1 MG/GM CREAM 1/2 VAGINAL TWICE AWEEK AT HS PAST MEDICAL HISTORY AIDS/HIV 1995 INFECTED BY MALE ASTHMA HYPERTENSION/ ECHOCARDIOGRAM SHOWED LVH TENDONITIS SANGITA WRIST ENVIRONMENTAL ALLERGIES HX OF GESTATIONAL DIABETES PURE HYPERCHOLESTEREMIA 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 TORRES 08/17 IRRITABLE BOWEL SYNDROME GENOTYPE 08/2011 K103 MUTATION TROFILE DUAL MIXED TROPISM POSTMENOPAUSE OSTEOPENIA BMD 2012 DR KHOURY SYMPTOMATIC STATES ASSOCIATED WITH ARTIFICIAL MENOPAUSE EXTERNAL HEMORRHOIDS GASTRIC BYPASS STATUS FOR OBESITY SEASONAL AND PERENNIAL ALLERGIC RHINITIS OSTEOPENIA SLEEP APNEA NOT USING CPAP COULD NOT TOLERATE ALLERGIES BIAXIN: RASH: ALLERGY NORVASC: EDEMA: ALLERGY LISINOPRIL: FACIAL SWELLING: ALLERGY ESTRADIOL: REREDDNESS AT SITE OF PATCH: SIDE EFFECTS SHELLFISH: ANAPHYLAXIS: ALLERGY SURGICAL HISTORY PARTIAL HYSTERECTOMY 2004 TUBAL LIGATION 1989 GASTRIC BYPASS 1994 BENIGN POLYP REMOVAL FROM THROAT 2009 TENDONITIS SURGERY X2 (WRIST) RT 07/2008, LT 12/2008 BUNIONECTOMY 2ND TOE ON RIGHT FOOT STRAIGHTENED LAP CHOLECYSTECTOMY ([place]) 02/13/2012 LAP RELEASE OF BOWEL OBSTRUCTION (BOWEL SEWN INTO LUZ MARIA INCISION) ([facility]) 02/15/2012 ABDOMINAL SURGERY 06/23 BREAST REDUCTION COMPLICATED BY MSSA ABSCESS ON THE RIGHT SIDE REQUIRING INCISION AND DRAINAGE 01/2014 COLONOSCOPY 4 MM TUBULAR ADENOMA REPEAT IN [address] GAN 10/2015 BIOPSY THROAT 08-05-16 COLPOSCOPY 09/19/16 POLYPS REMOVED BY LASER FROM VOCAL CORDS 12/2016 LEFT FOOT BUNIONECTOMY 05/28/18 FAMILY HISTORY FATHER: ALIVE 72 YRS, TRIPLE BYPASS, HTN, OBESITY, DIAGNOSED WITH DIABETES MOTHER: ALIVE 69 YRS, DIABETES, HTN, OBESITY SIBLINGS: ALIVE 49 YRS, SISTER SON(S): ALIVE 28 YRS, NO KNOWN MEDICAL PROBLEMS DAUGHTER(S): 19 YRS, MVA (2006) SOCIAL HISTORY GENERAL: TOBACCO USE ARE YOU A:FORMER SMOKER HOW LONG HAS IT BEEN SINCE YOU LAST SMOKED?3-6 MONTHS SMOKING CESSATION INFORMATION GIVEN02/10/201802/10 DECLINED BMI CARE GOAL FOLLOW-UP ABOVE NORMAL BMI FOLLOW-UPDIETARY MANAGEMENT EDUCATION, GUIDANCE, AND COUNSELING ALCOHOL SCREENING POINTS: 1, INTERPRETATION: NEGATIVE. RECREATIONAL DRUG USE DENIES. CAFFEINE 1 CUP COFFE DAILY. SEXUAL HX HAD SEX IN THE LAST 12 MONTHS (VAGINAL, ORAL, OR ANAL)?: NO, HAVE YOU EVER HAD AN STD?: NO, LMP:: HYSTER. HIV / HEP-C SCREENING HIV TEST OFFERED TO PATIENT:YES DATE OFFERED:03/10/2018 TEST ACCEPTED:NO PREV TESTED HEP-C TEST OFFERED TO PATIENT:YES DATE OFFERED:03/10/2018 REASON:OTHER (DOCUMENT IN NOTE) TEST ACCEPTED:NO PREV TESTED REASON:OTHER (DOCUMENT IN NOTE) BROCHURE PROVIDED TO PATIENTNO ZOROASTRIAN [id number] NONE LANGUAGE LANGUAGES SPOKEN:MALAY EDUCATION LEVEL OF EDUCATION:HIGH SCHOOL GRADUATE LEARNING BARRIERS / SPECIAL NEEDS CHANGE FROM LAST VISIT?NO BARRIERS TO LEARNING?NO HEARING IMPAIRED?NO VISION IMPAIRED?YES COGNITIVELY IMPAIRED?NO :CORRECTIVE LENSES READINESS TO LEARN?YES LEARNING PREFERENCES?YES :DEMONSTRATION/VERBAL INSTRUCTION LEARNING CAPABILITIES PRESENT?YES EMOTIONAL BARRIERS?NO SPECIAL DEVICES?NO HOT MOLDER NEEDED?NO DOMESTIC VIOLENCE DO YOU FEEL SAFE IN YOUR ENVIRONMENT?YES OCCUPATION: DISABLED. DIET: NO HX EATING DISORDERS. EXERCISE: NO REGULAR EXERCISE. MARITAL STATUS: . OTHERS AT HOME: LIVES ALONE. FEMALE 6 MONTH RISK ASSESSMENT FOR STD DESCRIBE YOUR SEXUAL PARTNERS:MALE MONOGAMOUS?YES HIV POSITIVE?YES EVER INJECT DRUGS?NO VAGINAL SEX?NO ANAL SEX?NO ORAL SEX?NO ARE YOU TAKING ANY STEPS TO PREVENT ?YES METHODS (CHECK ALL THAT APPLY):MALE CONDOMS WHAT STEPS HAVE YOU TAKEN TO PROTECT YOURSELF FROM STDS, INCLUDING HIV? (CHECK ALL THAT APPLY):MUTUAL MONOGAMY, MALE CONDOMS HAVE YOU OR ANY OF YOUR SEXUAL PARTNERS EVER HAD AN STD? IF YES PLEASE LIST:NO IS THERE ANYTHING ELSE WE SHOULD TALK ABOUT CONCERNING YOUR SEXUAL HISTORY OR PRACTICE?NO PAIN CLINIC PFS, CLERGY, PUBLIC HEALTH REFERRALS PFS REFERRAL NEEDED?NO CLERGY REFERRAL NEEDED?NO PUBLIC HEALTH REFERRAL NEEDED?NO WAS THE PROVIDER NOTIFIED OF ANY PERTINENT INFO? N/A HAS THE PATIENT BEEN EDUCATED REGARDING HIS/HER PLAN OF CARE?YES HAS THE PATIENT BEEN EDUCATED REGARDING PAIN, THE RISK FOR PAIN, THE IMPORTANCE OF EFFECTIVE PAIN MANAGEMENT, AND THE PAIN ASSESSMENT PROCESS?YES 02/10/18 1000 REVIEWED WITH PT. ADREVIEWED WITH PT 03/01/18 1013 BVREVIEWED [facility] PT 04/28/18 1100 BVREVIEWED WITH PT 05/17/18 1038 LAS. HOSPITALIZATION/MAJOR DIAGNOSTIC PROCEDURE RELATED TO SURGERY CHILD ALLERGIC REACITON TO MEDS PNEUMONIA 06/2015 REVIEW OF SYSTEMS REVIEWED BY: PROVIDER: UMESH GORDILLO . CONSTITUTIONAL: ANY CHANGE IN YOUR MEDICAL CONDITION? NO . CHILLS NO . FEVER NO . INFECTION: DO YOU HAVE NEW INFECTIONS? NO . DO YOU HAVE HISTORY OF MRSA? NO . MUSCULOSKELETAL: ANY NEW PATTERNS OF PAIN OR NUMBNESS? NO . GASTROENTEROLOGY: ANY NEW CHANGE IN BOWEL CONTROL? NO . GENITOURINARY: ANY NEW CHANGE IN BLADDER CONTROL? YES, PT C/O FREQUENCY X 1 MONTH . IS THERE A CHANCE YOU COULD BE ? NO . HEMATOLOGY/LYMPH: DO YOU TAKE ANY BLOOD THINNERS? (FOR EXAMPLE- COUMADIN, PLAVIX, AGGRENOX, PLATEL, PRADAXA, OR XARELTO) YES, XARELTO UNTIL 07/13/18 S/P BUNIONECTOMY . WHEN WAS YOUR LAST DOSE? DATE: TIME: . NEUROLOGY: HAVE YOU FALLEN IN THE PAST 12 MONTHS? NO . ANY NEW EXTREMITY NUMBNESS OR WEAKNESS? NO . CARDIOLOGY: DO YOU HAVE A PACEMAKER OR DEFIBRILLATOR? NO . RESPIRATORY: HAVE YOU BEEN SICK IN THE PAST WEEK? NO . FEVER NO . FLU LIKE SYMPTOMS? NO . COUGH NO . INTEGUMENTARY: DO YOU HAVE ANY RASHES OR OPEN SORES? NO . ALLERGIC/IMMUNO: ARE YOU ALLERGIC TO IV DYE? NO . ANY NEW ALLERGIES? NO . PSYCHIATRIC: DO YOU HAVE THOUGHTS OF HURTING YOURSELF OR SOMEONE ELSE? NO . ARE YOU ABUSED, NEGLECTED, OR IN AN UNSAFE ENVIRONMENT? NO . ENDOCRINOLOGY: ARE YOU DIABETIC? NO . OTHER: DO YOU NEED ANY PRESCRIPTIONS? NO . IF YES, PLEASE LIST: ____ . ANY NEW PROBLEMS WITH YOUR MEDICATIONS? NO . WHEN DID YOU LAST EAT? ____ . WHEN DID YOU LAST DRINK? ____ . WHAT DID YOU LAST DRINK? ____ . NAME OF PERSON DRIVING YOU HOME? ____ . DO YOU HAVE ANY OTHER QUESTIONS OR CONCERNS NO . VITAL SIGNS WT 249 LBS, HT 61 IN, BMI 47.04 INDEX, BP 155/87 MM HG, HR 80 /MIN, RR 16 /MIN, TEMP 97.9 F, OXYGEN SAT % 95, REVIEWED BY: NAYELI. EXAMINATION GENERAL EXAMINATION: GENERAL APPEARANCE:AWAKE,ALERT ,PLEAASANT . PSYCHAFFECT NORMAL . LUNGS:LUNG MCADAMS ARE CLEAR TO AUSCULTATION BILATERALLY. GOOD MOVEMENT OF AIR . HEART:S1, S2 IN A REGULAR RATE AND RHYTHM. NO SIGNIFICANT MURMURS, RUBS OR GALLOPS NOTED . ASSESSMENTS LUMBOSACRAL SPONDYLOLYSIS - M43.07 (PRIMARY) DISC DISPLACEMENT, LUMBAR - M51.26 LUMBAR RADICULOPATHY - M54.16 TREATMENT LUMBOSACRAL SPONDYLOLYSIS NOTES: PATIENT WAS ADVISED TO START A WALKING PROGRAM TO STRENGTHEN LUMBAR PARASPINAL MUSCLES AND IMPROVE MOBILITY. THEY WERE ADVISED THAT THIS WILL IMPROVE WEIGHT LOSS AND ALSO DEPRESSION/FIBROMYALGIA SYMPTOMS. ADVISED TO WALK 10 MINUTES EVERY OTHER DAY ON A FLAT SURFACE. EMPHASIZED THE IMPORTANCE OF DOING THIS CONSISTANTLY AND NOT SPORATICALLY TO AVOID INJURY. STRONG ADVISED NOT TO DO MORE THAN 10 MINUTES EVERY OTHER DAY FOR THE FIRST 4 WEEKS. PROCEDURE CODES FA211 ESTABILISHED PATIENT [facility] CHARGE DISPOSITION & COMMUNICATION FOLLOW UP 3 MONTHS ELECTRONICALLY SIGNED BY RAND HINOJOSA ON 07/11/2018 AT 04:21 PM EST DISCLAIMER : THIS IS A VISIT SUMMARY EXTRACTED FROM THE [employer] CHART. IT IS NOT A COPY OF THE [employer] PROGRESS NOTE. MELISSA
== END ==
LOC: M PAIN 11:15
PROVIDERS: ATTEND Nurse Practitioner Family
DX: M43.07 Spondylolysis, lumbosacral region (principal); M51.26 Other intervertebral disc displacement, lumbar region; M54.16 Radiculopathy, lumbar region; B20 Human immunodeficiency virus [HIV] disease; J45.909 Unspecified asthma, uncomplicated; I10 Essential (primary) hypertension; E78.00 Pure hypercholesterolemia, unspecified; K58.9 Irritable bowel syndrome, unspecified; M85.80 Other specified disorders of bone density and structure, unspecified site; K64.4 Residual hemorrhoidal skin tags; Z98.84 Bariatric surgery status; G47.30 Sleep apnea, unspecified; B00.9 Herpesviral infection, unspecified; R49.0 Dysphonia; Z90.49 Acquired absence of other specified parts of digestive tract; Z87.891 Personal history of nicotine dependence; Z91.013 Allergy to seafood; Z88.8 Allergy status to other drugs, medicaments and biological substances; Z79.891 Long term (current) use of opiate analgesic; Z79.899 Other long term (current) drug therapy

== ENCOUNTER → 2018-08-02 | Outpatient (REF) | payer MEDICARE, MEDICAID ==
[~2018-08-02] MED LIST changes: +CALC1TAB8 PO; -CALC600T68 PO; +DILT1CAP6 PO; -DILT240C77 PO; +VITA100018 PO; -VITA100072 PO
[2018-08-02 15:04] LABS: APPEARANCE, URINE CLEAR (CLEAR); BACTERIA, URINE AUTO NEGATIVE (NEGATIVE); BILIRUBIN, URINE AUTO NEGATIVE (NEGATIVE); BLOOD, URINE BLOOD NEGATIVE (NEGATIVE); COLOR, URINE YELLOW (YELLOW); GLUCOSE, URINE (UA) AUTO NEGATIVE (NEGATIVE); KETONE, URINE AUTO NEGATIVE (NEGATIVE); LEUKOCYTE ESTERASE, URINE AUTO NEGATIVE (NEGATIVE); NITRITE, URINE AUTO NEGATIVE (NEGATIVE); PROTEIN, URINE AUTO NEGATIVE (NEGATIVE); RBC, URINE AUTO 1 /HPF (0-3); SPECIFIC GRAVITY URINE AUTO 1.009 (1.002-1.035); SQUAMOUS EPITHELIAL CELL UR AU 3 /HPF (0-6); UROBILINOGEN, URINE AUTO 0.2 mg/dL (0.0-2.0); WBC, URINE AUTO 0 /HPF (0-3)
[2018-08-02 15:21] LABS: HEMOGLOBIN A1c 6.3 %
[2018-08-02 15:29] LABS: ALBUMIN 3.1 GM/DL (3.2-5.2); ALT/SGPT 18 U/L (12-78); BILIRUBIN,TOTAL 0.2 MG/DL (0.2-1.0); BLOOD UREA NITROGEN 10 MG/DL (7-18); CALCIUM LEVEL 8.5 MG/DL (8.5-10.1); CARBON DIOXIDE LEVEL 28 MEQ/L (21-32); CHLORIDE LEVEL 106 MEQ/L (98-107); CHOLESTEROL LEVEL 216 MG/DL (<200); CREATININE FOR GFR 0.51 MG/DL (0.55-1.30); GLOMERULAR FILTRATION RATE > 60.0 (>51); GLUCOSE, FASTING 85 MG/DL (70-100); HDL CHOLESTEROL 90 MG/DL (>40); LDL CHOLESTEROL 110 MG/DL (<100); NON-HDL-C 126 MG/DL; POTASSIUM SERUM 4.4 MEQ/L (3.5-5.1); SODIUM LEVEL 139 MEQ/L (136-145); TOTAL PROTEIN 6.2 GM/DL (6.4-8.2); TRIGLYCERIDES LEVEL 81 MG/DL (<150)
[2018-08-05 00:10] LABS: %CD4 Pos Lymphs 40.8 % (30.8-58.5); ABS Lymphs 1.1 x10E3/uL (0.7-3.1); ABS Monocytes 0.3 x10E3/uL (0.1-0.9); ABS Neutophils 4.4 x10E3/uL (1.4-7.0); Abs CD4 Helper 449 /uL (359-1519); Abs CD8 Suppres 484 /uL (109-897); CD4/CD8 Ratio 0.93 (0.92-3.72); Eosinophils 0 % (Not Estab.); HCT 39.7 % (34.0-46.6); HGB 12.8 g/dL (11.1-15.9); HIV-1 RNA PCR QUANT 2 LC550285 <20 copies/mL (.); Immature Grans 0 % (Not Estab.); Lymphocytes 19 % (Not Estab.); MCHC 32.2 g/dL (31.5-35.7); MCV 87 fL (79-97); Monocytes 6 % (Not Estab.); Neutrophils 75 % (Not Estab.); Platelets 275 x10E3/uL (150-379); RBC 4.57 x10E6/uL (3.77-5.28); RDW 15.7 % (12.3-15.4); WBC 5.9 x10E3/uL (3.4-10.8)
== END ==
LOC: M SFHCPLAZ 11:28
PROVIDERS: ATTEND Internal Medicine Infectious Disease
DX: B20 Human immunodeficiency virus [HIV] disease (principal); E66.9 Obesity, unspecified
CPT/HCPCS: 36415; 80053; 80061; 81001; 83036; 86360; 86480; 87536; G0463

== ENCOUNTER → 2018-10-12 | Outpatient (CLI) | payer MEDICARE, MEDICAID ==
--- NOTE | 2018-10-28 02:22 | ECWPNPC ---
PATIENT NAME: DEVAN EDWARDS : 1965 GENDER: FEMALE VISIT DATE: 10/12/2018 DISCHARGE DATE: 10/12/18 1138 VISIT LOCKED DATE TIME: PHYSICIAN: UMESH LONGO RESOURCE: UMESH LONGO REASON FOR APPOINTMENT 1. LOW BACK HISTORY OF PRESENT ILLNESS HISTORY OF PRESENT ILLNESS: HERE FOR F/U OF CHRONIC LOW BACK PAIN.HAS HAD A SEVERE INCREASE IN LEFT LOW BACK PAIN.HAS BEEN LIMPING ALOT SHE IS LIMPING AFTER COMPLICATIONS OF LEFT FOOT SURGERY OVER THE PAST 3 MONTHS.RATING PAIN VAS 10/10. PAIN THE PATIENT DESCRIBES THE PAIN... FALL RISK SCREENING: SCREENING :NO FALLS REPORTED IN THE LAST YEAR CURRENT MEDICATIONS TAKING CELECOXIB 200 MG CAPSULE 1 CAPSULE WITH FOOD ORALLY ONCE A DAY TAKING CALCIUM 600 + D 600-400 MG-UNIT TABLET 1 TABLET ORALLY TWICE A DAY TAKING VITAMIN B-12 1000 MCG TABLET 1 TABLET ORALLY ONCE A DAY TAKING VALTREX 1 GM TABLET 2 TABLET ORALLY BID FOR 2 DAYS PRN, NOTES: > 4 MONTHS TAKING MONTELUKAST SODIUM 10 MG TABLET 1 TABLET IN THE EVENING ORALLY ONCE A DAY TAKING ESTRADIOL 1 MG TABLET 1 TABLET ORALLY DAILY FOR THREE WEEKS, 1 WEEK OFF TAKING CYCLOBENZAPRINE HCL 10 MG TABLET 1 TABLET NEEDED ORALLY THREE TIMES A DAY TAKING NYSTATIN [id number] UNIT/GM POWDER 1 APPLICATION TO AFFECTED AREA EXTERNALLY TWICE A DAY, NOTES: NEVER USED TAKING EPIPEN 0.3 MG/0.3ML DEVICE DIRECTED INJECTION ONCE DAILY NEEDED, NOTES: NEVER USED TAKING VENTOLIN HFA 108 (90 BASE) MCG/ACT AEROSOL SOLUTION 2 PUFFS MARY ALICE INHALATION EVERY 4 HRS NEEDED TAKING GENVOYA [phone] MG TABLET TAKE ONE TABLET BY MOUTH EVERY DAY DIRECTED ORALLY DAILY TAKING PREZISTA 800 MG TABLET TAKE ONE TABLET BY MOUTH EVERY DAY WITH FOOD ORALLY ONCE A DAY TAKING DEXILANT 30 MG CAPSULE DELAYED RELEASE 1 CAPSULE ORALLY ONCE A DAY TAKING XYZAL 5 MG TABLET 1 TABLET IN THE EVENING ORALLY ONCE A DAY TAKING CARTIA XT 120 MG CAPSULE EXTENDED RELEASE 24 HOUR 1 CAPSULE ORALLY DAILY TAKING TRAZODONE HCL 50 MG TABLET 1-2 TABLET AT BEDTIME NEEDED ORALLY ONCE A DAY TAKING FLUCONAZOLE 150 MG TABLET 1 TABLET ORALLY WEEKLY TAKING CHANTIX CONTINUING MONTH EMEKA 1 MG TABLET 1 TABLET ORALLY TWICE A DAY TAKING HYDROCODONE-ACETAMINOPHEN 7.5-325 MG TABLET 1 TABLET NEEDED ORALLY EVERY 6 HRS/MMD4 TAKING METFORMIN HCL 500 MG TABLET 1 TABLET WITH A MEAL ORALLY ONCE A DAY NOT-TAKING PREDNISONE 20 MG TABLET 1 TABLET ORALLY ONCE A DAY NOT-TAKING VITAMIN D 1000 UNIT TABLET 1 TABLET ORALLY ONCE A DAY TAKING 2500 UNITS NOT-TAKING AMITRIPTYLINE HCL 50 MG TABLET 1 TABLET ORALLY ONCE A DAY MEDICATION LIST REVIEWED AND RECONCILED WITH THE PATIENT PAST MEDICAL HISTORY AIDS/HIV 1995 INFECTED BY MALE ASTHMA HYPERTENSION/ ECHOCARDIOGRAM SHOWED LVH TENDONITIS SANGITA WRIST ENVIRONMENTAL ALLERGIES HX OF GESTATIONAL DIABETES PURE HYPERCHOLESTEREMIA 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 TORRES 08/17 IRRITABLE BOWEL SYNDROME GENOTYPE 08/2011 K103 MUTATION TROFILE DUAL MIXED TROPISM POSTMENOPAUSE OSTEOPENIA BMD 2012 DR KHOURY SYMPTOMATIC STATES ASSOCIATED WITH ARTIFICIAL MENOPAUSE EXTERNAL HEMORRHOIDS GASTRIC BYPASS STATUS FOR OBESITY SEASONAL AND PERENNIAL ALLERGIC RHINITIS OSTEOPENIA SLEEP APNEA NOT USING CPAP COULD NOT TOLERATE DIABETES ALLERGIES BIAXIN: RASH - ALLERGY NORVASC: EDEMA - ALLERGY LISINOPRIL: FACIAL SWELLING - ALLERGY ESTRADIOL: REREDDNESS AT SITE OF PATCH - SIDE EFFECTS SHELLFISH: ANAPHYLAXIS - ALLERGY SURGICAL HISTORY PARTIAL HYSTERECTOMY 2004 TUBAL LIGATION 1989 GASTRIC BYPASS 1994 BENIGN POLYP REMOVAL FROM THROAT 2008 TENDONITIS SURGERY X2 (WRIST) RT 07/2008, LT 12/2008 BUNIONECTOMY 2ND TOE ON RIGHT FOOT STRAIGHTENED LAP CHOLECYSTECTOMY ([place]) 02/13/2012 LAP RELEASE OF BOWEL OBSTRUCTION (BOWEL SEWN INTO LUZ MARIA INCISION) ([facility]) 02/15/2012 ABDOMINAL SURGERY 06/23 BREAST REDUCTION COMPLICATED BY MSSA ABSCESS ON THE RIGHT SIDE REQUIRING INCISION AND DRAINAGE 01/2014 COLONOSCOPY 4 MM TUBULAR ADENOMA REPEAT IN [address] GAN 10/2015 BIOPSY THROAT 08-05-16 COLPOSCOPY 09/19/16 POLYPS REMOVED BY LASER FROM VOCAL CORDS 12/2016 LEFT FOOT BUNIONECTOMY 05/28/18 FAMILY HISTORY FATHER: ALIVE 72 YRS, TRIPLE BYPASS, HTN, OBESITY, DIAGNOSED WITH DIABETES MOTHER: ALIVE 69 YRS, DIABETES, HTN, OBESITY SIBLINGS: ALIVE 49 YRS, SISTER SON(S): ALIVE 28 YRS, NO KNOWN MEDICAL PROBLEMS DAUGHTER(S): 19 YRS, MVA (2006) SOCIAL HISTORY GENERAL: TOBACCO USE ARE YOU A:FORMER SMOKER HOW LONG HAS IT BEEN SINCE YOU LAST SMOKED?3-6 MONTHS SMOKING CESSATION INFORMATION GIVEN02/10/201802/10 DECLINED HIV / HEP-C SCREENING HIV TEST OFFERED TO PATIENT:YES DATE OFFERED:03/10/2018 TEST ACCEPTED:NO PREV TESTED HEP-C TEST OFFERED TO PATIENT:YES DATE OFFERED:03/10/2018 REASON:OTHER (DOCUMENT IN NOTE) TEST ACCEPTED:NO PREV TESTED REASON:OTHER (DOCUMENT IN NOTE) BROCHURE PROVIDED TO PATIENTNO OTHERS AT HOME: LIVES ALONE. EDUCATION LEVEL OF EDUCATION:HIGH SCHOOL GRADUATE DIET: NO HX EATING DISORDERS. LANGUAGE LANGUAGES SPOKEN:SAMMARINESE DOMESTIC VIOLENCE DO YOU FEEL SAFE IN YOUR ENVIRONMENT?YES BMI CARE GOAL FOLLOW-UP ABOVE NORMAL BMI FOLLOW-UPDIETARY MANAGEMENT EDUCATION, GUIDANCE, AND COUNSELING RECREATIONAL DRUG USE DENIES. EXERCISE: NO REGULAR EXERCISE. LEARNING BARRIERS / SPECIAL NEEDS CHANGE FROM LAST VISIT?NO BARRIERS TO LEARNING?NO HEARING IMPAIRED?NO VISION IMPAIRED?YES COGNITIVELY IMPAIRED?NO :CORRECTIVE LENSES READINESS TO LEARN?YES LEARNING PREFERENCES?YES :DEMONSTRATION/VERBAL INSTRUCTION LEARNING CAPABILITIES PRESENT?YES EMOTIONAL BARRIERS?NO SPECIAL DEVICES?NO ACCESS DIRECTOR NEEDED?NO PAIN CLINIC PFS, CLERGY, PUBLIC HEALTH REFERRALS PFS REFERRAL NEEDED?NO CLERGY REFERRAL NEEDED?NO PUBLIC HEALTH REFERRAL NEEDED?NO WAS THE PROVIDER NOTIFIED OF ANY PERTINENT INFO? N/A HAS THE PATIENT BEEN EDUCATED REGARDING HIS/HER PLAN OF CARE?YES HAS THE PATIENT BEEN EDUCATED REGARDING PAIN, THE RISK FOR PAIN, THE IMPORTANCE OF EFFECTIVE PAIN MANAGEMENT, AND THE PAIN ASSESSMENT PROCESS?YES LATEX QUESTIONNAIRE LATEX ALLERGY : HAVE YOU EVER DEVELOPED ANY TYPE OF REACTION AFTER HANDLING LATEX PRODUCTS SUCH RUBBER GLOVES, CONDOMS, DIAPHRAGMS, BALLOONS, SOCKS, OR UNDERWEAR?NO LATEX ALLERGY : HAVE YOU EVER DEVELOPED ANY TYPE OF REACTION DURING OR AFTER DENTAL APPOINTMENT, VAGINAL/RECTAL EXAMINATION, SURGICAL PROCEDURE, OR ANY OTHER EXPOSURE?NO DATE ASKED : 08/02/2018 LATEX RISK : HAVE YOU EVER HAD ANY DIFFICULTY BREATHING OR HIVES AFTER EATING OR HANDLING ANY FRUITS, OR VEGETABLES; SUCH KIWI, BANANAS, STONE FRUITS, OR CHESTNUTSNO LATEX RISK : DO YOU HAVE A PREVIOUS PERSONAL HISTORY OF MORE THAN NINE SURGERIES, SPINA BIFIDA, OR REPEATED CATHERTIZATIONS? NO LATEX RISK : ARE YOU FREQUENTLY EXPOSED TO LATEX PRODUCTS IN YOUR OCCUPATION?NO CAFFEINE 1 CUP COFFE DAILY. RESTORATIONISM [id number] NONE MARITAL STATUS: . FEMALE 6 MONTH RISK ASSESSMENT FOR STD DESCRIBE YOUR SEXUAL PARTNERS:MALE MONOGAMOUS?YES HIV POSITIVE?YES EVER INJECT DRUGS?NO VAGINAL SEX?NO ANAL SEX?NO ORAL SEX?NO ARE YOU TAKING ANY STEPS TO PREVENT ?YES METHODS (CHECK ALL THAT APPLY):MALE CONDOMS WHAT STEPS HAVE YOU TAKEN TO PROTECT YOURSELF FROM STDS, INCLUDING HIV? (CHECK ALL THAT APPLY):MUTUAL MONOGAMY, MALE CONDOMS HAVE YOU OR ANY OF YOUR SEXUAL PARTNERS EVER HAD AN STD? IF YES PLEASE LIST:NO IS THERE ANYTHING ELSE WE SHOULD TALK ABOUT CONCERNING YOUR SEXUAL HISTORY OR PRACTICE?NO ALCOHOL SCREENING POINTS: 1, INTERPRETATION: NEGATIVE. OCCUPATION: DISABLED. SEXUAL HX HAD SEX IN THE LAST 12 MONTHS (VAGINAL, ORAL, OR ANAL)?: NO, HAVE YOU EVER HAD AN STD?: NO, LMP:: HYSTER. 02/10/18 1000 REVIEWED WITH PT. ADREVIEWED WITH PT 03/01/18 1013 BVREVIEWED WTIH PT 04/28/18 1100 BVREVIEWED WITH PT 05/17/18 1038 LAS. HOSPITALIZATION/MAJOR DIAGNOSTIC PROCEDURE RELATED TO SURGERY CHILD ALLERGIC REACITON TO MEDS PNEUMONIA 06/2015 REVIEW OF SYSTEMS REVIEWED BY: PROVIDER: UMESH GORDILLO . CONSTITUTIONAL: ANY CHANGE IN YOUR MEDICAL CONDITION? NO . CHILLS NO . FEVER NO . INFECTION: DO YOU HAVE NEW INFECTIONS? NO . DO YOU HAVE HISTORY OF MRSA? NO . MUSCULOSKELETAL: ANY NEW PATTERNS OF PAIN OR NUMBNESS? NO . GASTROENTEROLOGY: ANY NEW CHANGE IN BOWEL CONTROL? NO . GENITOURINARY: ANY NEW CHANGE IN BLADDER CONTROL? NO . IS THERE A CHANCE YOU COULD BE ? NO . HEMATOLOGY/LYMPH: DO YOU TAKE ANY BLOOD THINNERS? (FOR EXAMPLE- COUMADIN, PLAVIX, AGGRENOX, PLATEL, PRADAXA, OR XARELTO) NO . WHEN WAS YOUR LAST DOSE? DATE: TIME: . NEUROLOGY: HAVE YOU FALLEN IN THE PAST 12 MONTHS? NO . ANY NEW EXTREMITY NUMBNESS OR WEAKNESS? NO . CARDIOLOGY: DO YOU HAVE A PACEMAKER OR DEFIBRILLATOR? NO . RESPIRATORY: HAVE YOU BEEN SICK IN THE PAST WEEK? NO . FEVER NO . FLU LIKE SYMPTOMS? NO . COUGH NO . INTEGUMENTARY: DO YOU HAVE ANY RASHES OR OPEN SORES? NO . ALLERGIC/IMMUNO: ARE YOU ALLERGIC TO IV DYE? NO . ANY NEW ALLERGIES? NO . PSYCHIATRIC: DO YOU HAVE THOUGHTS OF HURTING YOURSELF OR SOMEONE ELSE? NO . ARE YOU ABUSED, NEGLECTED, OR IN AN UNSAFE ENVIRONMENT? NO . ENDOCRINOLOGY: ARE YOU DIABETIC? NO . OTHER: DO YOU NEED ANY PRESCRIPTIONS? NO . IF YES, PLEASE LIST: ____ . ANY NEW PROBLEMS WITH YOUR MEDICATIONS? NO . WHEN DID YOU LAST EAT? ____ . WHEN DID YOU LAST DRINK? ____ . WHAT DID YOU LAST DRINK? ____ . NAME OF PERSON DRIVING YOU HOME? ____ . DO YOU HAVE ANY OTHER QUESTIONS OR CONCERNS NO . VITAL SIGNS WT 249 LBS, HT 61 IN, BMI 47.04 INDEX, BP 140/71 MM HG, HR 88 /MIN, RR 20 /MIN, TEMP 98.2 F, OXYGEN SAT % 94%, SAFE IN ENV? (Y/N) YES, NA INITIALS SC 10:47, REVIEWED BY: KG. EXAMINATION GENERAL EXAMINATION: GENERAL APPEARANCE: ALERT,NO DISTRESS . PSYCH AFFECT NORMAL . LUNGS: LUNG SOUNDS ARE CLEAR . HEART: HEART RATE REGULAR . MUSCULOSKELETAL: MST 5/5 BILAT. LOWER EXTREMITIES . LUMBAR SACRAL SPINE TENDERNESS LEFT SIJ . DIAGNOSTIC TESTS REVIEWEDMRI L/S SPINE 2017. ASSESSMENTS SACROILIAC JOINT PAIN - M53.3 (PRIMARY) TREATMENT SACROILIAC JOINT PAIN STOP CYCLOBENZAPRINE HCL TABLET, 10 MG, 1 TABLET NEEDED, ORALLY, THREE TIMES A DAY START TIZANIDINE HCL TABLET, 4 MG, 1 TABLET NEEDED, ORALLY, Q8H PRN, 30 DAY(S), 45, REFILLS 1 NOTES: LEFT SIJ. PROCEDURE CODES FA211 ESTABILISHED PATIENT [facility] CHARGE DISPOSITION & COMMUNICATION FOLLOW UP POST (REASON: LEFT SIJ) ELECTRONICALLY SIGNED BY RAND HINOJOSA ON 10/26/2018 AT 12:57 PM EDT DISCLAIMER : THIS IS A VISIT SUMMARY EXTRACTED FROM THE [employer] CHART. IT IS NOT A COPY OF THE [employer] PROGRESS NOTE. MELISSA
== END ==
LOC: M PAIN 10:45
PROVIDERS: ATTEND Nurse Practitioner Family
DX: M53.3 Sacrococcygeal disorders, not elsewhere classified (principal); G89.29 Other chronic pain; E11.9 Type 2 diabetes mellitus without complications; G47.30 Sleep apnea, unspecified; Z79.84 Long term (current) use of oral hypoglycemic drugs; Z79.891 Long term (current) use of opiate analgesic; Z79.899 Other long term (current) drug therapy; Z98.84 Bariatric surgery status; Z87.891 Personal history of nicotine dependence; Z88.8 Allergy status to other drugs, medicaments and biological substances; Z91.013 Allergy to seafood

== ENCOUNTER → 2019-01-05 | Outpatient (CLI) | payer MEDICARE, MEDICAID ==
[~2019-01-05] MED LIST changes: +BUPIVACAINE HCL 0.25% 30 ML VIAL As Ordered ONE; +ISOVUE-M 200 41% 20ML VIAL (Q9966) As Ordered ONE; +LIDOCAINE 1% SDV INJ 30 ML VIAL As Ordered ONE; +SUCR1ORA PO; -SUCR1SUS PO; +TRIAMCINOLONE ACETONIDE SUSP 40 MG/ML VIAL (J3301) As Ordered ONE; -VALA1TAB2 PO; +VALA1TAB64 PO; +diazePAM 5 MG TAB As Ordered ONE; +oxyCODONE 5MG TAB As Ordered ONE
--- NOTE | 2019-01-05 12:40 | REP ---
SI JOINT: Four views bilateral. HISTORY: Bilateral SI joint injection. Procedure for pain. 13 seconds of fluoroscopy time is reported. FINDINGS: A sequence of four last image hold fluoroscopically obtained spot radiographs of the SI joints document various needle positions and contrast injections. Electronically Signed by Eduar Ace MD 01/05/2019 04:40 P
--- NOTE | 2019-01-13 02:23 | ECWPNPC ---
PATIENT NAME: DEVAN EDWARDS : 1965 GENDER: FEMALE VISIT DATE: 01/05/2019 DISCHARGE DATE: 01/05/19 1021 VISIT LOCKED DATE TIME: PHYSICIAN: MARITA FOLEY MD RESOURCE: MARITA FOLEY MD REASON FOR APPOINTMENT 1. BILATERAL SIJ HISTORY OF PRESENT ILLNESS HISTORY OF PRESENT ILLNESS: PAIN THE PATIENT DESCRIBES THE PAIN... FALL RISK SCREENING: SCREENING :NO FALLS REPORTED IN THE LAST YEAR CURRENT MEDICATIONS TAKING CALCIUM 600 + D 600-400 MG-UNIT TABLET 1 TABLET ORALLY TWICE A DAY TAKING VITAMIN B-12 1000 MCG TABLET 1 TABLET ORALLY ONCE A DAY TAKING VALTREX 1 GM TABLET 2 TABLET ORALLY BID FOR 2 DAYS PRN, NOTES: > 4 MONTHS TAKING MONTELUKAST SODIUM 10 MG TABLET 1 TABLET IN THE EVENING ORALLY ONCE A DAY TAKING ESTRADIOL 1 MG TABLET 1 TABLET ORALLY DAILY FOR THREE WEEKS, 1 WEEK OFF TAKING NYSTATIN [id number] UNIT/GM POWDER 1 APPLICATION TO AFFECTED AREA EXTERNALLY TWICE A DAY, NOTES: NEVER USED TAKING EPIPEN 0.3 MG/0.3ML DEVICE DIRECTED INJECTION ONCE DAILY NEEDED, NOTES: NEVER USED TAKING VENTOLIN HFA 108 (90 BASE) MCG/ACT AEROSOL SOLUTION 2 PUFFS MARY ALICE INHALATION EVERY 4 HRS NEEDED TAKING CARTIA XT 120 MG CAPSULE EXTENDED RELEASE 24 HOUR 1 CAPSULE ORALLY DAILY TAKING TRAZODONE HCL 50 MG TABLET 1-2 TABLET ORALLY BEFORE BEDTIME TAKING FLUCONAZOLE 150 MG TABLET 1 TABLET ORALLY WEEKLY TAKING PREZISTA 800 MG TABLET TAKE ONE TABLET BY MOUTH EVERY DAY WITH FOOD ORALLY ONCE A DAY, NOTES: 01/04/19@193 TAKING GENVOYA [phone] MG TABLET TAKE ONE TABLET BY MOUTH EVERY DAY DIRECTED ORALLY DAILY, NOTES: 01/04/19@193 TAKING TIZANIDINE HCL 4 MG TABLET 1 TABLET NEEDED ORALLY Q8H PRN TAKING PREDNISONE 20 MG TABLET 2 TABLETS ORALLY DAILY, NOTES: NONE RECENTLY TAKING ALBUTEROL SULFATE (2.5 MG/3ML) 0.083% NEBULIZATION SOLUTION 3 ML NEEDED INHALATION EVERY 8 HRS TAKING XYZAL 5 MG TABLET 1 TABLET IN THE EVENING ORALLY ONCE A DAY TAKING TESSALON PERLES 100 MG CAPSULE 1 CAPSULE NEEDED ORALLY THREE TIMES A DAY TAKING BUDESONIDE-FORMOTEROL FUMARATE 160-4.5 MCG/ACT AEROSOL 2 PUFFS INHALATION TWICE A DAY TAKING CHANTIX CONTINUING MONTH EMEKA 1 MG TABLET 1 TABLET ORALLY TWICE A DAY TAKING HYDROCODONE-ACETAMINOPHEN 7.5-325 MG TABLET 1 TABLET NEEDED ORALLY EVERY 6 HRS/MMD4, NOTES: 01/04/19@1930 DISCONTINUED CELECOXIB 200 MG CAPSULE 1 CAPSULE WITH FOOD ORALLY ONCE A DAY DISCONTINUED CEFDINIR 300 MG CAPSULE 1 TAB ORALLY BID DISCONTINUED PREDNISONE 10 MG TABLET 4 TABS FOR 4 DAYS 3 TABS FOR 4D , 2 TAB FOR 4 DA THEN 1 TAB FOR 4 DAYS ORALLY ONCE A DAY MEDICATION LIST REVIEWED AND RECONCILED WITH THE PATIENT PAST MEDICAL HISTORY AIDS/HIV 1995 INFECTED BY MALE ASTHMA HYPERTENSION/ ECHOCARDIOGRAM SHOWED LVH TENDONITIS SANGITA WRIST ENVIRONMENTAL ALLERGIES HX OF GESTATIONAL DIABETES PURE HYPERCHOLESTEREMIA 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 TORRES 08/17 IRRITABLE BOWEL SYNDROME GENOTYPE 08/2011 K103 MUTATION TROFILE DUAL MIXED TROPISM POSTMENOPAUSE OSTEOPENIA BMD 2012 DR KHOURY SYMPTOMATIC STATES ASSOCIATED WITH ARTIFICIAL MENOPAUSE EXTERNAL HEMORRHOIDS GASTRIC BYPASS STATUS FOR OBESITY SEASONAL AND PERENNIAL ALLERGIC RHINITIS OSTEOPENIA SLEEP APNEA NOT USING CPAP COULD NOT TOLERATE DIABETES ALLERGIES BIAXIN: RASH - ALLERGY NORVASC: EDEMA - ALLERGY LISINOPRIL: FACIAL SWELLING - ALLERGY ESTRADIOL: REREDDNESS AT SITE OF PATCH - SIDE EFFECTS SHELLFISH: ANAPHYLAXIS - ALLERGY SURGICAL HISTORY PARTIAL HYSTERECTOMY 2004 TUBAL LIGATION 1989 GASTRIC BYPASS 1994 BENIGN POLYP REMOVAL FROM THROAT 2009 TENDONITIS SURGERY X2 (WRIST) RT 07/2008, LT 12/2008 BUNIONECTOMY 2ND TOE ON RIGHT FOOT STRAIGHTENED LAP CHOLECYSTECTOMY ([place]) 02/13/2012 LAP RELEASE OF BOWEL OBSTRUCTION (BOWEL SEWN INTO LUZ [facility]IA INCISION) ([facility]) 02/15/2012 ABDOMINAL SURGERY 06/23 BREAST REDUCTION COMPLICATED BY MSSA ABSCESS ON THE RIGHT SIDE REQUIRING INCISION AND DRAINAGE 01/2014 COLONOSCOPY 4 MM TUBULAR ADENOMA REPEAT IN [address] GAN 10/2015 BIOPSY THROAT 08-05-16 COLPOSCOPY 09/19/16 POLYPS REMOVED BY LASER FROM VOCAL CORDS 12/2016 LEFT FOOT BUNIONECTOMY 05/28/18 FAMILY HISTORY FATHER: ALIVE 72 YRS, TRIPLE BYPASS, HTN, OBESITY, DIAGNOSED WITH DIABETES MOTHER: ALIVE 69 YRS, DIABETES, HTN, OBESITY SIBLINGS: ALIVE 49 YRS, SISTER SON(S): ALIVE 28 YRS, NO KNOWN MEDICAL PROBLEMS DAUGHTER(S): 19 YRS, MVA (2006) SOCIAL HISTORY GENERAL: TOBACCO USE ARE YOU A:FORMER SMOKER HOW LONG HAS IT BEEN SINCE YOU LAST SMOKED?3-6 MONTHS SMOKING CESSATION INFORMATION GIVEN02/10/201802/10 DECLINED HIV / HEP-C SCREENING HIV TEST OFFERED TO PATIENT:YES DATE OFFERED:03/10/2018 TEST ACCEPTED:NO PREV TESTED HEP-C TEST OFFERED TO PATIENT:YES DATE OFFERED:03/10/2018 REASON:OTHER (DOCUMENT IN NOTE) TEST ACCEPTED:NO PREV TESTED REASON:OTHER (DOCUMENT IN NOTE) BROCHURE PROVIDED TO PATIENTNO OTHERS AT HOME: LIVES ALONE. EDUCATION LEVEL OF EDUCATION:HIGH SCHOOL GRADUATE DIET: NO HX EATING DISORDERS. LANGUAGE LANGUAGES SPOKEN:AUSTRIAN DOMESTIC VIOLENCE DO YOU FEEL SAFE IN YOUR ENVIRONMENT?YES BMI CARE GOAL FOLLOW-UP ABOVE NORMAL BMI FOLLOW-UPDIETARY MANAGEMENT EDUCATION, GUIDANCE, AND COUNSELING RECREATIONAL DRUG USE DENIES. EXERCISE: NO REGULAR EXERCISE. LEARNING BARRIERS / SPECIAL NEEDS CHANGE FROM LAST VISIT?NO BARRIERS TO LEARNING?NO HEARING IMPAIRED?NO VISION IMPAIRED?YES COGNITIVELY IMPAIRED?NO :CORRECTIVE LENSES READINESS TO LEARN?YES LEARNING PREFERENCES?YES :DEMONSTRATION/VERBAL INSTRUCTION LEARNING CAPABILITIES PRESENT?YES EMOTIONAL BARRIERS?NO SPECIAL DEVICES?NO TIP INSERTER NEEDED?NO PAIN CLINIC PFS, CLERGY, PUBLIC HEALTH REFERRALS PFS REFERRAL NEEDED?NO CLERGY REFERRAL NEEDED?NO PUBLIC HEALTH REFERRAL NEEDED?NO WAS THE PROVIDER NOTIFIED OF ANY PERTINENT INFO? N/A HAS THE PATIENT BEEN EDUCATED REGARDING HIS/HER PLAN OF CARE?YES HAS THE PATIENT BEEN EDUCATED REGARDING PAIN, THE RISK FOR PAIN, THE IMPORTANCE OF EFFECTIVE PAIN MANAGEMENT, AND THE PAIN ASSESSMENT PROCESS?YES LATEX QUESTIONNAIRE LATEX ALLERGY : HAVE YOU EVER DEVELOPED ANY TYPE OF REACTION AFTER HANDLING LATEX PRODUCTS SUCH RUBBER GLOVES, CONDOMS, DIAPHRAGMS, BALLOONS, SOCKS, OR UNDERWEAR?NO LATEX ALLERGY : HAVE YOU EVER DEVELOPED ANY TYPE OF REACTION DURING OR AFTER DENTAL APPOINTMENT, VAGINAL/RECTAL EXAMINATION, SURGICAL PROCEDURE, OR ANY OTHER EXPOSURE?NO LATEX RISK : HAVE YOU EVER HAD ANY DIFFICULTY BREATHING OR HIVES AFTER EATING OR HANDLING ANY FRUITS, OR VEGETABLES; SUCH KIWI, BANANAS, STONE FRUITS, OR CHESTNUTSYES - PLEASE INDICATE : KIWI, BANANAS, STONE FRUITS, CHESTNUTS LATEX RISK : DO YOU HAVE A PREVIOUS PERSONAL HISTORY OF MORE THAN NINE SURGERIES, SPINA BIFIDA, OR REPEATED CATHERIZATIONS? YES - PLEASE INDICATE : > 9 SURGERIES LATEX RISK : ARE YOU FREQUENTLY EXPOSED TO LATEX PRODUCTS IN YOUR OCCUPATION?NO DATE ASKED : 08/02/2018 CAFFEINE 1 CUP COFFE DAILY. ADVANCE DIRECTIVE ADVANCE DIRECTIVE DISCUSSED WITH PATIENT:YES 05/17/18 PT STATES SHE DOES NOT HAVE ANY ADVANCED DIRECTIVES AND SHE DECLINES INFORMATION AT THIS TIME. ASSISTANCE WITH FORM OFFERED, BUT PT DECLINES LAS01/05/19 PT. DECLINES INFORMATION AT THIS TIME CHEONDOISM [id number] NONE MARITAL STATUS: . FEMALE 6 MONTH RISK ASSESSMENT FOR STD DESCRIBE YOUR SEXUAL PARTNERS:MALE MONOGAMOUS?YES HIV POSITIVE?YES EVER INJECT DRUGS?NO VAGINAL SEX?NO ANAL SEX?NO ORAL SEX?NO ARE YOU TAKING ANY STEPS TO PREVENT ?YES METHODS (CHECK ALL THAT APPLY):MALE CONDOMS WHAT STEPS HAVE YOU TAKEN TO PROTECT YOURSELF FROM STDS, INCLUDING HIV? (CHECK ALL THAT APPLY):MUTUAL MONOGAMY, MALE CONDOMS HAVE YOU OR ANY OF YOUR SEXUAL PARTNERS EVER HAD AN STD? IF YES PLEASE LIST:NO IS THERE ANYTHING ELSE WE SHOULD TALK ABOUT CONCERNING YOUR SEXUAL HISTORY OR PRACTICE?NO ALCOHOL SCREENING POINTS: 1, INTERPRETATION: NEGATIVE. OCCUPATION: DISABLED. SEXUAL HX HAD SEX IN THE LAST 12 MONTHS (VAGINAL, ORAL, OR ANAL)?: NO, HAVE YOU EVER HAD AN STD?: NO, LMP:: HYSTER. 02/10/18 1000 REVIEWED WITH PT. ADREVIEWED WITH PT 03/01/18 1013 BVREVIEWED WTIH PT 04/28/18 1100 BVREVIEWED WITH PT 05/17/18 1038 LAS. HOSPITALIZATION/MAJOR DIAGNOSTIC PROCEDURE RELATED TO SURGERY CHILD ALLERGIC REACITON TO MEDS PNEUMONIA 06/2015 REVIEW OF SYSTEMS REVIEWED BY: PROVIDER: . CONSTITUTIONAL: ANY CHANGE IN YOUR MEDICAL CONDITION? NO . CHILLS NO . FEVER NO . INFECTION: DO YOU HAVE NEW INFECTIONS? NO . DO YOU HAVE HISTORY OF MRSA? NO . MUSCULOSKELETAL: ANY NEW PATTERNS OF PAIN OR NUMBNESS? NO . GASTROENTEROLOGY: ANY NEW CHANGE IN BOWEL CONTROL? NO . GENITOURINARY: ANY NEW CHANGE IN BLADDER CONTROL? YES . IS THERE A CHANCE YOU COULD BE ? NO . HEMATOLOGY/LYMPH: DO YOU TAKE ANY BLOOD THINNERS? (FOR EXAMPLE- COUMADIN, PLAVIX, AGGRENOX, PLATEL, PRADAXA, OR XARELTO) NO . WHEN WAS YOUR LAST DOSE? DATE: TIME: . NEUROLOGY: HAVE YOU FALLEN IN THE PAST 12 MONTHS? NO . ANY NEW EXTREMITY NUMBNESS OR WEAKNESS? NO . CARDIOLOGY: DO YOU HAVE A PACEMAKER OR DEFIBRILLATOR? NO . RESPIRATORY: HAVE YOU BEEN SICK IN THE PAST WEEK? NO . FEVER NO . FLU LIKE SYMPTOMS? NO . COUGH NO . INTEGUMENTARY: DO YOU HAVE ANY RASHES OR OPEN SORES? NO . ALLERGIC/IMMUNO: ARE YOU ALLERGIC TO IV DYE? NO . ANY NEW ALLERGIES? NO . PSYCHIATRIC: DO YOU HAVE THOUGHTS OF HURTING YOURSELF OR SOMEONE ELSE? NO . ARE YOU ABUSED, NEGLECTED, OR IN AN UNSAFE ENVIRONMENT? NO . ENDOCRINOLOGY: ARE YOU DIABETIC? NO . OTHER: DO YOU NEED ANY PRESCRIPTIONS? NO . IF YES, PLEASE LIST: ____ . ANY NEW PROBLEMS WITH YOUR MEDICATIONS? NO . WHEN DID YOU LAST EAT? ____01/04/19 . WHEN DID YOU LAST DRINK? ____529 . WHAT DID YOU LAST DRINK? ____WATER . NAME OF PERSON DRIVING YOU HOME? ____MOTHER . DO YOU HAVE ANY OTHER QUESTIONS OR CONCERNS NO . VITAL SIGNS WT 245 LBS, HT 61 IN, BMI 46.29 INDEX, BP 128/64 MM HG, HR 94 /MIN, RR 18 /MIN, TEMP 98.2 F, OXYGEN SAT % 98, SAFE IN ENV? (Y/N) YES, REVIEWED BY: PAULINA. ASSESSMENTS SACROILIITIS, NOT ELSEWHERE CLASSIFIED - M46.1 (PRIMARY) PROCEDURES PN SI PRE PROCEDURE DIAGNOSIS SACROILIITIS, SACROILIAC JOINT DYSFUNCTION POST PROCEDURE DIAGNOSIS SACROILIITIS, SACROILIAC JOINT DYSFUNCTION PROCEDURE BILATERAL SACROILIAC JOINT BLOCK SURGEON DR. MARITA FOLEY CON[facility] PROFESSIONAL NONE ANESTHESIA LOCAL PRE PROCEDURE NOTE PATIENT WITH HISTORY OF CHRONIC LOW BACK PAIN. I EVALUATED THE PATIENT AND REVIEWED THE CHART. I WENT OVER THE RISKS, ALTERNATIVES, AND BENEFITS ASSOCIATED WITH THIS PROCEDURE. THE PATIENT WOULD LIKE TO PROCEED AND GAVE CONSENT TO PERFORM THE PROCEDURE. THE PATIENT DENIES UNEXPLAINABLE WEIGHT LOSS, FEVER, CHILLS, OR NEW CHANGES IN URINARY OR BOWEL CONTROL DESCRIPTION OF PROCEDURE THE PATIENT WAS BROUGHT TO THE PROCEDURE ROOM AND PLACED IN THE PRONE POSITION. THE LUMBOSACRAL AREA WAS CLEANED WITH CHLORAPREP SOLUTION AND DRAPED ASEPTICALLY. THE PROCEDURE WAS DONE UNDER STERILE CONDITIONS. I CHECKED LATERALITY AND THE LEVEL WHERE THE PROCEDURE WAS GOING TO BE PERFORMED WITH THE PATIENT AND THE SUPPORTING STAFF AT THE MOMENT OF THE TIME OUT IN THE PROCEDURE ROOM. UNDER FLUOROSCOPIC GUIDANCE, TARGET POINT WAS SELECTED AT THE LOWER BORDER OF THE RIGHT AND LEFT SACROILIAC JOINT. TARGET POINT WAS SELECTED AFTER MEDIAL ROTATION AND TILT OF THE MAGNIFIER OF THE C-ARM. LIDOCAINE WAS USED TO NUMB THE SKIN AND SUBCUTANEOUS TISSUE BELOW IT. A SPINAL NEEDLE, 22-GAUGE, WAS ADVANCED UNDER FLUOROSCOPIC GUIDANCE AND FOLLOWING PATIENT FEEDBACK UNTIL THE TARGET AREA WAS TOUCHED. THE POSITION OF THE NEEDLE WAS VERIFIED WITH AP AND LATERAL VIEWS. AFTER PROPER POSITION OF THE NEEDLE WAS ACHIEVED, ISOVUE M DYE 30%, 0.25 ML, WAS INJECTED SHOWING SPREAD OF THE DYE. THEN, A SOLUTION OF 30 MG OF KENALOG WAS INJECTED IN RIGHT JOINT WITH 3 ML OF BUPIVACAINE 0.125%. THERE WAS NO EVIDENCE OF BLOOD, PARESTHESIA OR CEREBROSPINAL FLUID DURING THE PROCEDURE. THE PATIENT WAS SENT TO THE RECOVERY ROOM. THE PATIENT WAS MOVING THE EXTREMITIES AND DOING WELL. THERE WAS NO COMPLICATION DURING THE PROCEDURE. FLUOROSCOPY TIME WAS 13 SECONDS POST PROCEDURE NOTE THE PATIENT WILL BE SEEN IN A FOLLOW UP IN THE NEXT FEW WEEKS. INSTRUCTIONS WERE GIVEN, QUESTIONS WERE ANSWERED, AND THE PATIENT EXPRESSED UNDERSTANDING AND AGREED WITH THE PLAN. I, ASHLEY SANDERS, DOCUMENTED THE ABOVE INFORMATION ACTING A SCRIBE FOR DR. FOLEY. I HAVE REVIEWED THE ABOVE DOCUMENT, WRITTEN BY ASHLEY ARAGON AND I VERIFY THAT IT IS ACCURATE. [facility] FLUORO GUIDANCE (PAIN)[id number] PROCEDURE CODES 20539 INJECT SACROILIAC JOINT, MODIFIERS: [id number] RADXPS IN END [id number] DISPOSITION & COMMUNICATION FOLLOW UP 3 WEEKS ELECTRONICALLY SIGNED BY MARITA FOLEY MD, MD ON 01/12/2019 AT 04:18 PM EDT DISCLAIMER : THIS IS A VISIT SUMMARY EXTRACTED FROM THE [facility] CHART. IT IS NOT A COPY OF THE [facility] PROGRESS NOTE. MISTID
== END ==
LOC: M PAIN 08:45
PROVIDERS: ATTEND Anesthesiology
DX: M46.1 Sacroiliitis, not elsewhere classified (principal); M54.5 Low back pain; I10 Essential (primary) hypertension; E11.9 Type 2 diabetes mellitus without complications; Z79.891 Long term (current) use of opiate analgesic; Z79.899 Other long term (current) drug therapy; Z98.84 Bariatric surgery status; Z87.891 Personal history of nicotine dependence; Z88.8 Allergy status to other drugs, medicaments and biological substances; Z91.013 Allergy to seafood
CPT/HCPCS: G0260; J3301; Q9966

== ENCOUNTER → 2019-01-24 | Outpatient (CLI) | payer MEDICARE, MEDICAID ==
[~2019-01-24] MED LIST changes: -BUPIVACAINE HCL 0.25% 30 ML VIAL As Ordered ONE; -ISOVUE-M 200 41% 20ML VIAL (Q9966) As Ordered ONE; -LIDOCAINE 1% SDV INJ 30 ML VIAL As Ordered ONE; -SUCR1ORA PO; +SUCR1SUS PO; -TRIAMCINOLONE ACETONIDE SUSP 40 MG/ML VIAL (J3301) As Ordered ONE; +VALA1TAB2 PO; -VALA1TAB64 PO; -diazePAM 5 MG TAB As Ordered ONE; -oxyCODONE 5MG TAB As Ordered ONE
--- NOTE | 2019-01-26 01:47 | ECWPNPC ---
PATIENT NAME: DEVAN EDWARDS : 1965 GENDER: FEMALE VISIT DATE: 01/24/2019 DISCHARGE DATE: 01/24/19911 VISIT LOCKED DATE TIME: PHYSICIAN: UMESH LONGO RESOURCE: UMESH LONGO REASON FOR APPOINTMENT 1. POST LEFT SIJ HISTORY OF PRESENT ILLNESS HISTORY OF PRESENT ILLNESS: HERE FOR POST PROCEDURE F/U .HAD BILATERAL SIJ ON 12-27-18.REPORTS 100% IMPROVEMENT THAT CONTINUES TODAY.CHIEF AREA OF PAIN IS LOW BACK.RATING PAIN VAS O/10.PAIN IS LOCATED IN LOW BACK WITH RADIATION INTO RIGHT BUTTOCK.USING TIZANIDINE 4MG DAILY IN AM THAT WAS STARTED A FEW MONTHS AGO WHICH IS HELPFUL. PAIN THE PATIENT DESCRIBES THE PAIN... THE PATIENT DESCRIBES THE PAIN... THE PATIENT DESCRIBES THE PAIN... THE PATIENT DESCRIBES THE PAIN... THE PATIENT DESCRIBES THE PAIN... FALL RISK SCREENING: SCREENING :NO FALLS REPORTED IN THE LAST YEAR CURRENT MEDICATIONS TAKING CALCIUM 600 + D 600-400 MG-UNIT TABLET 1 TABLET ORALLY TWICE A DAY TAKING VITAMIN B-12 1000 MCG TABLET 1 TABLET ORALLY ONCE A DAY TAKING VALTREX 1 GM TABLET 2 TABLET ORALLY BID FOR 2 DAYS PRN, NOTES: > 4 MONTHS TAKING MONTELUKAST SODIUM 10 MG TABLET 1 TABLET IN THE EVENING ORALLY ONCE A DAY TAKING ESTRADIOL 1 MG TABLET 1 TABLET ORALLY DAILY FOR THREE WEEKS, 1 WEEK OFF TAKING NYSTATIN [id number] UNIT/GM POWDER 1 APPLICATION TO AFFECTED AREA EXTERNALLY TWICE A DAY, NOTES: NEVER USED TAKING EPIPEN 0.3 MG/0.3ML DEVICE DIRECTED INJECTION ONCE DAILY NEEDED, NOTES: NEVER USED TAKING FLUCONAZOLE 150 MG TABLET 1 TABLET ORALLY WEEKLY TAKING TIZANIDINE HCL 4 MG TABLET 1 TABLET NEEDED ORALLY Q8H PRN TAKING ALBUTEROL SULFATE (2.5 MG/3ML) 0.083% NEBULIZATION SOLUTION 3 ML NEEDED INHALATION EVERY 8 HRS TAKING XYZAL 5 MG TABLET 1 TABLET IN THE EVENING ORALLY ONCE A DAY TAKING BUDESONIDE-FORMOTEROL FUMARATE 160-4.5 MCG/ACT AEROSOL 2 PUFFS INHALATION TWICE A DAY TAKING CHANTIX CONTINUING MONTH EMEKA 1 MG TABLET 1 TABLET ORALLY TWICE A DAY TAKING HYDROCODONE-ACETAMINOPHEN 7.5-325 MG TABLET 1 TABLET NEEDED ORALLY EVERY 6 HRS/MMD4, NOTES: 01/04/19@1930 TAKING TRAZODONE HCL 50 MG TABLET 1-2 TABLET AT BEDTIME NEEDED ORALLY ONCE A DAY TAKING CARTIA XT 180 MG CAPSULE EXTENDED RELEASE 24 HOUR 1 CAPSULE ORALLY DAILY TAKING PREZISTA 800 MG TABLET TAKE ONE TABLET BY MOUTH EVERY DAY WITH FOOD ORALLY ONCE A DAY TAKING GENVOYA [phone] MG TABLET TAKE ONE TABLET BY MOUTH EVERY DAY DIRECTED ORALLY DAILY TAKING VENTOLIN HFA 108 (90 BASE) MCG/ACT AEROSOL SOLUTION 2 PUFFS MARY ALICE INHALATION EVERY 4 HRS NEEDED NOT-TAKING PREDNISONE 20 MG TABLET 2 TABLETS ORALLY DAILY, NOTES: NONE RECENTLY NOT-TAKING TESSALON PERLES 100 MG CAPSULE 1 CAPSULE NEEDED ORALLY THREE TIMES A DAY MEDICATION LIST REVIEWED AND RECONCILED WITH THE PATIENT PAST MEDICAL HISTORY AIDS/HIV 1995 INFECTED BY MALE ASTHMA HYPERTENSION/ ECHOCARDIOGRAM SHOWED LVH TENDONITIS SANGITA WRIST ENVIRONMENTAL ALLERGIES HX OF GESTATIONAL DIABETES PURE HYPERCHOLESTEREMIA 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 TORRES 08/17 IRRITABLE BOWEL SYNDROME GENOTYPE 08/2011 K103 MUTATION TROFILE DUAL MIXED TROPISM POSTMENOPAUSE OSTEOPENIA BMD 2012 DR KHOURY SYMPTOMATIC STATES ASSOCIATED WITH ARTIFICIAL MENOPAUSE EXTERNAL HEMORRHOIDS GASTRIC BYPASS STATUS FOR OBESITY SEASONAL AND PERENNIAL ALLERGIC RHINITIS OSTEOPENIA SLEEP APNEA NOT USING CPAP COULD NOT TOLERATE DIABETES ALLERGIES BIAXIN: RASH - ALLERGY NORVASC: EDEMA - ALLERGY LISINOPRIL: FACIAL SWELLING - ALLERGY ESTRADIOL: REREDDNESS AT SITE OF PATCH - SIDE EFFECTS SHELLFISH: ANAPHYLAXIS - ALLERGY SURGICAL HISTORY PARTIAL HYSTERECTOMY 2004 TUBAL LIGATION 1989 GASTRIC BYPASS 1994 BENIGN POLYP REMOVAL FROM THROAT 2008 TENDONITIS SURGERY X2 (WRIST) RT 07/2008, LT 12/2008 BUNIONECTOMY 2ND TOE ON RIGHT FOOT STRAIGHTENED LAP CHOLECYSTECTOMY (IROQUOIS) 02/13/2012 LAP RELEASE OF BOWEL OBSTRUCTION (BOWEL SEWN INTO LUZ MARIA INCISION) ([facility]) 02/15/2012 ABDOMINAL SURGERY 06/23 BREAST REDUCTION COMPLICATED BY MSSA ABSCESS ON THE RIGHT SIDE REQUIRING INCISION AND DRAINAGE 01/2014 COLONOSCOPY 4 MM TUBULAR ADENOMA REPEAT IN [address] GAN 10/2015 BIOPSY THROAT 08-05-16 COLPOSCOPY 09/19/16 POLYPS REMOVED BY LASER FROM VOCAL CORDS 12/2016 LEFT FOOT BUNIONECTOMY 05/28/18 FAMILY HISTORY FATHER: ALIVE 72 YRS, TRIPLE BYPASS, HTN, OBESITY, DIAGNOSED WITH DIABETES MOTHER: ALIVE 69 YRS, DIABETES, HTN, OBESITY SIBLINGS: ALIVE 49 YRS, SISTER SON(S): ALIVE 28 YRS, NO KNOWN MEDICAL PROBLEMS DAUGHTER(S): 19 YRS, MVA (2006) SOCIAL HISTORY GENERAL: TOBACCO USE ARE YOU A:FORMER SMOKER HOW LONG HAS IT BEEN SINCE YOU LAST SMOKED?3-6 MONTHS SMOKING CESSATION INFORMATION GIVEN02/10/201802/10 DECLINED HIV / HEP-C SCREENING HIV TEST OFFERED TO PATIENT:YES DATE OFFERED:03/10/2018 TEST ACCEPTED:NO PREV TESTED HEP-C TEST OFFERED TO PATIENT:YES DATE OFFERED:03/10/2018 REASON:OTHER (DOCUMENT IN NOTE) TEST ACCEPTED:NO PREV TESTED REASON:OTHER (DOCUMENT IN NOTE) BROCHURE PROVIDED TO PATIENTNO OTHERS AT HOME: LIVES ALONE. EDUCATION LEVEL OF EDUCATION:HIGH SCHOOL GRADUATE DIET: NO HX EATING DISORDERS. LANGUAGE LANGUAGES SPOKEN:OCCITAN DOMESTIC VIOLENCE DO YOU FEEL SAFE IN YOUR ENVIRONMENT?YES BMI CARE GOAL FOLLOW-UP ABOVE NORMAL BMI FOLLOW-UPDIETARY MANAGEMENT EDUCATION, GUIDANCE, AND COUNSELING RECREATIONAL DRUG USE DENIES. EXERCISE: NO REGULAR EXERCISE. LEARNING BARRIERS / SPECIAL NEEDS CHANGE FROM LAST VISIT?NO BARRIERS TO LEARNING?NO HEARING IMPAIRED?NO VISION IMPAIRED?YES COGNITIVELY IMPAIRED?NO :CORRECTIVE LENSES READINESS TO LEARN?YES LEARNING PREFERENCES?YES :DEMONSTRATION/VERBAL INSTRUCTION LEARNING CAPABILITIES PRESENT?YES EMOTIONAL BARRIERS?NO SPECIAL DEVICES?NO GOLF CLUB MAKER NEEDED?NO PAIN CLINIC PFS, CLERGY, PUBLIC HEALTH REFERRALS PFS REFERRAL NEEDED?NO CLERGY REFERRAL NEEDED?NO PUBLIC HEALTH REFERRAL NEEDED?NO WAS THE PROVIDER NOTIFIED OF ANY PERTINENT INFO? N/A HAS THE PATIENT BEEN EDUCATED REGARDING HIS/HER PLAN OF CARE?YES HAS THE PATIENT BEEN EDUCATED REGARDING PAIN, THE RISK FOR PAIN, THE IMPORTANCE OF EFFECTIVE PAIN MANAGEMENT, AND THE PAIN ASSESSMENT PROCESS?YES LATEX QUESTIONNAIRE LATEX ALLERGY : HAVE YOU EVER DEVELOPED ANY TYPE OF REACTION AFTER HANDLING LATEX PRODUCTS SUCH RUBBER GLOVES, CONDOMS, DIAPHRAGMS, BALLOONS, SOCKS, OR UNDERWEAR?NO LATEX ALLERGY : HAVE YOU EVER DEVELOPED ANY TYPE OF REACTION DURING OR AFTER DENTAL APPOINTMENT, VAGINAL/RECTAL EXAMINATION, SURGICAL PROCEDURE, OR ANY OTHER EXPOSURE?NO DATE ASKED : 08/02/2018 LATEX RISK : HAVE YOU EVER HAD ANY DIFFICULTY BREATHING OR HIVES AFTER EATING OR HANDLING ANY FRUITS, OR VEGETABLES; SUCH KIWI, BANANAS, STONE FRUITS, OR CHESTNUTSYES - PLEASE INDICATE : KIWI, BANANAS, STONE FRUITS, CHESTNUTS LATEX RISK : DO YOU HAVE A PREVIOUS PERSONAL HISTORY OF MORE THAN NINE SURGERIES, SPINA BIFIDA, OR REPEATED CATHERIZATIONS? YES - PLEASE INDICATE : > 9 SURGERIES LATEX RISK : ARE YOU FREQUENTLY EXPOSED TO LATEX PRODUCTS IN YOUR OCCUPATION?NO CAFFEINE 1 CUP COFFE DAILY. ADVANCE DIRECTIVE ADVANCE DIRECTIVE DISCUSSED WITH PATIENT:YES 05/17/18 PT STATES SHE DOES NOT HAVE ANY ADVANCED DIRECTIVES AND SHE DECLINES INFORMATION AT THIS TIME. ASSISTANCE WITH FORM OFFERED, BUT PT DECLINES LAS01/05/19 PT. DECLINES INFORMATION AT THIS TIME SYNAGOGUE [id number] NONE MARITAL STATUS: . FEMALE 6 MONTH RISK ASSESSMENT FOR STD DESCRIBE YOUR SEXUAL PARTNERS:MALE MONOGAMOUS?YES HIV POSITIVE?YES EVER INJECT DRUGS?NO VAGINAL SEX?NO ANAL SEX?NO ORAL SEX?NO ARE YOU TAKING ANY STEPS TO PREVENT ?YES METHODS (CHECK ALL THAT APPLY):MALE CONDOMS WHAT STEPS HAVE YOU TAKEN TO PROTECT YOURSELF FROM STDS, INCLUDING HIV? (CHECK ALL THAT APPLY):MUTUAL MONOGAMY, MALE CONDOMS HAVE YOU OR ANY OF YOUR SEXUAL PARTNERS EVER HAD AN STD? IF YES PLEASE LIST:NO IS THERE ANYTHING ELSE WE SHOULD TALK ABOUT CONCERNING YOUR SEXUAL HISTORY OR PRACTICE?NO ALCOHOL SCREENING POINTS: 1, INTERPRETATION: NEGATIVE. OCCUPATION: DISABLED. SEXUAL HX HAD SEX IN THE LAST 12 MONTHS (VAGINAL, ORAL, OR ANAL)?: NO, HAVE YOU EVER HAD AN STD?: NO, LMP:: HYSTER. 02/10/18 1000 REVIEWED WITH PT. ADREVIEWED WITH PT 03/01/18 1013 BVREVIEWED WTIH PT 04/28/18 1100 BVREVIEWED WITH PT 05/17/18 1038 LAS. HOSPITALIZATION/MAJOR DIAGNOSTIC PROCEDURE RELATED TO SURGERY CHILD ALLERGIC REACITON TO MEDS PNEUMONIA 06/2015 REVIEW OF SYSTEMS REVIEWED BY: PROVIDER: UMESH GORDILLO . CONSTITUTIONAL: ANY CHANGE IN YOUR MEDICAL CONDITION? NO . CHILLS NO . FEVER NO . INFECTION: DO YOU HAVE NEW INFECTIONS? NO . DO YOU HAVE HISTORY OF MRSA? NO . MUSCULOSKELETAL: ANY NEW PATTERNS OF PAIN OR NUMBNESS? NO . GASTROENTEROLOGY: ANY NEW CHANGE IN BOWEL CONTROL? NO . GENITOURINARY: ANY NEW CHANGE IN BLADDER CONTROL? YES . IS THERE A CHANCE YOU COULD BE ? NO . HEMATOLOGY/LYMPH: DO YOU TAKE ANY BLOOD THINNERS? (FOR EXAMPLE- COUMADIN, PLAVIX, AGGRENOX, PLATEL, PRADAXA, OR XARELTO) NO . WHEN WAS YOUR LAST DOSE? DATE: TIME: . NEUROLOGY: HAVE YOU FALLEN IN THE PAST 12 MONTHS? NO . ANY NEW EXTREMITY NUMBNESS OR WEAKNESS? NO . CARDIOLOGY: DO YOU HAVE A PACEMAKER OR DEFIBRILLATOR? NO . RESPIRATORY: HAVE YOU BEEN SICK IN THE PAST WEEK? NO . FEVER NO . FLU LIKE SYMPTOMS? NO . COUGH NO . INTEGUMENTARY: DO YOU HAVE ANY RASHES OR OPEN SORES? NO . ALLERGIC/IMMUNO: ARE YOU ALLERGIC TO IV DYE? NO . ANY NEW ALLERGIES? NO . PSYCHIATRIC: DO YOU HAVE THOUGHTS OF HURTING YOURSELF OR SOMEONE ELSE? NO . ARE YOU ABUSED, NEGLECTED, OR IN AN UNSAFE ENVIRONMENT? NO . ENDOCRINOLOGY: ARE YOU DIABETIC? NO . OTHER: DO YOU NEED ANY PRESCRIPTIONS? NO . IF YES, PLEASE LIST: ____ . ANY NEW PROBLEMS WITH YOUR MEDICATIONS? NO . WHEN DID YOU LAST EAT? ____ . WHEN DID YOU LAST DRINK? ____ . WHAT DID YOU LAST DRINK? ____ . NAME OF PERSON DRIVING YOU HOME? ____ . DO YOU HAVE ANY OTHER QUESTIONS OR CONCERNS NO . VITAL SIGNS WT 246.2 LBS, HT 61 IN, BMI 46.51 INDEX, BP 127/78 MM HG, HR 61 /MIN, RR 18 /MIN, TEMP 97.3 F, OXYGEN SAT % 94%, NA INITIALS AW 0848. EXAMINATION GENERAL EXAMINATION: GENERALAWAKE,ALERT ,PLEAASANT . PSYCHAFFECT NORMAL . LUNGS:LUNG MCADAMS ARE CLEAR TO AUSCULTATION BILATERALLY. GOOD MOVEMENT OF AIR . HEART:S1, S2 IN A REGULAR RATE AND RHYTHM. NO SIGNIFICANT MURMURS, RUBS OR GALLOPS NOTED . ASSESSMENTS SACROILIITIS, NOT ELSEWHERE CLASSIFIED - M46.1 (PRIMARY) TREATMENT SACROILIITIS, NOT ELSEWHERE CLASSIFIED CONTINUE TIZANIDINE HCL TABLET, 4 MG, 1 TABLET NEEDED, ORALLY, Q8H PRN PROCEDURE CODES FA211 ESTABILISHED PATIENT [facility] CHARGE DISPOSITION & COMMUNICATION FOLLOW UP 2 MONTHS ELECTRONICALLY SIGNED BY RAND HINOJOSA ON 01/24/2019 AT 09:11 AM EDT DISCLAIMER : THIS IS A VISIT SUMMARY EXTRACTED FROM THE [employer] CHART. IT IS NOT A COPY OF THE [employer] PROGRESS NOTE. MTDD
== END ==
LOC: M PAIN 08:45
PROVIDERS: ATTEND Nurse Practitioner Family
DX: M46.1 Sacroiliitis, not elsewhere classified (principal); J45.909 Unspecified asthma, uncomplicated; I10 Essential (primary) hypertension; E78.00 Pure hypercholesterolemia, unspecified; Z86.59 Personal history of other mental and behavioral disorders; Z98.84 Bariatric surgery status; M85.88 Other specified disorders of bone density and structure, other site; G47.30 Sleep apnea, unspecified; Z86.19 Personal history of other infectious and parasitic diseases; Z87.891 Personal history of nicotine dependence; Z88.1 Allergy status to other antibiotic agents; Z88.8 Allergy status to other drugs, medicaments and biological substances; Z91.013 Allergy to seafood; E66.01 Morbid (severe) obesity due to excess calories; Z68.42 Body mass index [BMI] 45.0-49.9, adult; Z79.899 Other long term (current) drug therapy

== ENCOUNTER → 2019-02-03 | Outpatient (REF) | payer MEDICARE, MEDICAID ==
[2019-02-03 13:52] LABS: ALBUMIN 3.5 GM/DL (3.2-5.2); ALT/SGPT 20 U/L (12-78); BILIRUBIN,TOTAL 0.5 MG/DL (0.2-1.0); BLOOD UREA NITROGEN 12 MG/DL (7-18); CALCIUM LEVEL 8.7 MG/DL (8.5-10.1); CARBON DIOXIDE LEVEL 27 MEQ/L (21-32); CHLORIDE LEVEL 104 MEQ/L (98-107); CREATININE FOR GFR 0.63 MG/DL (0.55-1.30); GLOMERULAR FILTRATION RATE > 60.0 (>51); GLUCOSE, FASTING 96 MG/DL (70-100); SODIUM LEVEL 139 MEQ/L (136-145); TOTAL PROTEIN 6.3 GM/DL (6.4-8.2)
[2019-02-03 14:18] LABS: APPEARANCE, URINE HAZY (CLEAR); BACTERIA, URINE AUTO NEGATIVE (NEGATIVE); BILIRUBIN, URINE AUTO NEGATIVE (NEGATIVE); BLOOD, URINE BLOOD NEGATIVE (NEGATIVE); COLOR, URINE YELLOW (YELLOW); GLUCOSE, URINE (UA) AUTO NEGATIVE (NEGATIVE); KETONE, URINE AUTO NEGATIVE (NEGATIVE); LEUKOCYTE ESTERASE, URINE AUTO NEGATIVE (NEGATIVE); MUCUS, URINE SMALL (NEGATIVE); NITRITE, URINE AUTO NEGATIVE (NEGATIVE); PROTEIN, URINE AUTO NEGATIVE (NEGATIVE); RBC, URINE AUTO 3 /HPF (0-3); SPECIFIC GRAVITY URINE AUTO 1.015 (1.002-1.035); SQUAMOUS EPITHELIAL CELL UR AU 3 /HPF (0-6); WBC, URINE AUTO 1 /HPF (0-3)
[2019-02-03 15:01] LABS: CREATININE, URINE 93.8 MG/DL; MALB URINE SIEMENS 6.2 MG/L; MAU/CREAT RATIO 6.6 MCG/MG (0.0-30.0)
[2019-02-07 14:07] LABS: % CD8 Pos Lymph 40.8 % (12.0-35.5); ABS Lymphs 0.8 x10E3/uL (0.7-3.1); ABS Monocytes 0.4 x10E3/uL (0.1-0.9); Abs CD4 Helper 328 /uL (359-1519); Abs CD8 Suppres 326 /uL (109-897); Eosinophils 0 % (Not Estab.); HCT 39.6 % (34.0-46.6); HGB 12.5 g/dL (11.1-15.9); HIV-1 RNA PCR QUANT 2 LC550285 <20 copies/mL (.); Immature Grans 0 % (Not Estab.); Lymphocytes 11 % (Not Estab.); MCH 25.8 pg (26.6-33.0); MCHC 31.6 g/dL (31.5-35.7); MCV 82 fL (79-97); Monocytes 5 % (Not Estab.); Neutrophils 84 % (Not Estab.); Platelets 276 x10E3/uL (150-450); RBC 4.85 x10E6/uL (3.77-5.28); RDW 16.9 % (12.3-15.4); WBC 7.2 x10E3/uL (3.4-10.8)
== END ==
LOC: M SFHCPLAZ 11:11
PROVIDERS: ATTEND Internal Medicine Infectious Disease
DX: B20 Human immunodeficiency virus [HIV] disease (principal); E74.39 Other disorders of intestinal carbohydrate absorption
CPT/HCPCS: 36415; 80053; 81001; 81002; 82043; 86360; 87536; 90682; G0008; G0463

== ENCOUNTER → 2019-04-21 | Outpatient (CLI) | payer MEDICARE, MEDICAID ==
[~2019-04-21] MED LIST changes: -VALA1TAB2 PO; +VALA1TAB64 PO
--- NOTE | 2019-05-06 02:46 | ECWPNPC ---
PATIENT NAME: DEVAN EDWARDS : 1965 GENDER: FEMALE VISIT DATE: 04/21/2019 DISCHARGE DATE: 04/21/19 1230 VISIT LOCKED DATE TIME: PHYSICIAN: UMESH LONGO RESOURCE: UMESH LONGO REASON FOR APPOINTMENT 1. MEDICARE AB-LOW BACK HISTORY OF PRESENT ILLNESS HISTORY OF PRESENT ILLNESS: HERE FOR F/U OF CHRONIC LBP.HAD LEFT BUNIONECTOMY Feb THEN HAD COMPLICATIONS OF PULMONARY EMBOLI AND DVT ONE MONTH LATTER.HAS COUMADIN 3.5 MG DAILY.HAS BEEN HAVING AN INCREASE IN LBP SINCE LIMPING.HAD TO STOP TIZANIDINE DUE TO COUMADIN THERAPY.DISCUSSED MEDICATION AND TREATMENT OPTIONS. PAIN THE PATIENT DESCRIBES THE PAIN... FALL RISK SCREENING: SCREENING :NO FALLS REPORTED IN THE LAST YEAR CURRENT MEDICATIONS TAKING GENVOYA [phone] MG TABLET 1 TAB ORALLY DAILY TAKING PREZISTA 800 MG TABLET TAKE ONE TABLET BY MOUTH EVERY DAY WITH FOOD ORALLY ONCE A DAY TAKING VITAMIN B-12 1000 MCG TABLET 1 TABLET ORALLY ONCE A DAY TAKING MONTELUKAST SODIUM 10 MG TABLET 1 TABLET IN THE EVENING ORALLY ONCE A DAY TAKING FLUCONAZOLE 150 MG TABLET 1 TABLET ORALLY WEEKLY TAKING CALCIUM 600 + D 600-400 MG-UNIT TABLET 1 TABLET ORALLY TWICE A DAY TAKING VALTREX 1 GM TABLET 2 TABLET ORALLY BID FOR 2 DAYS PRN TAKING EPIPEN 0.3 MG/0.3ML DEVICE DIRECTED INJECTION ONCE DAILY NEEDED TAKING BUDESONIDE-FORMOTEROL FUMARATE 160-4.5 MCG/ACT AEROSOL 2 PUFFS INHALATION TWICE A DAY TAKING VENTOLIN HFA 108 (90 BASE) MCG/ACT AEROSOL SOLUTION 2 PUFFS MARY ALICE INHALATION EVERY 4 HRS NEEDED TAKING ONE TOUCH DELICA 33 GAUGE 1 LANCET SUBCUTANEOUSLY DAILY TAKING ONE TOUCH ULTRA TEST STRIPS 1 STRIP DAILY TAKING XYZAL 5 MG TABLET 1 TABLET IN THE EVENING ORALLY ONCE A DAY TAKING OXYBUTYNIN CHLORIDE 5 MG TABLET 1 TABLET ORALLY BEFORE BEDTIME TAKING HYDROCODONE-ACETAMINOPHEN 7.5-325 MG TABLET 1 TABLET NEEDED ORALLY EVERY 6 HRS/MMD4 TAKING TRAZODONE HCL 100 MG TABLET 2 TABLETS ORALLY BEFORE BEDTIME MDD 2 TAKING SPIRIVA RESPIMAT 2.5 MCG/ACT AEROSOL SOLUTION 2 PUFFS INHALATION ONCE A DAY TAKING DILTIAZEM HCL ER 120 MG CAPSULE EXTENDED RELEASE 24 HOUR 1 CAPSULE ORALLY ONCE A DAY TAKING DEXILANT 30 MG CAPSULE DELAYED RELEASE 1 CAPSULE ORALLY ONCE A DAY TAKING WARFARIN SODIUM 2.5 MG TABLET 1 TABLET ORALLY ONCE A DAY, NOTES: TOTAL 3.5 MG TAKING WARFARIN SODIUM 1 MG TABLET 1 TABLET ORALLY ONCE A DAY, NOTES: TOTAL 3.5 MG NOT-TAKING TIZANIDINE HCL 4 MG TABLET 1 TABLET NEEDED ORALLY BID NOT-TAKING ESTRADIOL 1 MG TABLET 1 TABLET ORALLY DAILY FOR THREE WEEKS, 1 WEEK OFF NOT-TAKING NYSTATIN [id number] UNIT/GM POWDER 1 APPLICATION TO AFFECTED AREA EXTERNALLY TWICE A DAY NOT-TAKING ALBUTEROL SULFATE (2.5 MG/3ML) 0.083% NEBULIZATION SOLUTION 3 ML NEEDED INHALATION EVERY 8 HRS NOT-TAKING CELECOXIB 200 MG CAPSULE 1 CAPSULE WITH FOOD ORALLY ONCE A DAY NOT-TAKING CHANTIX CONTINUING MONTH EMEKA 1 MG TABLET 1 TABLET ORALLY TWICE A DAY MEDICATION LIST REVIEWED AND RECONCILED WITH THE PATIENT PAST MEDICAL HISTORY AIDS/HIV 1995 INFECTED BY MALE HETEROSEXUAL ON COMBIVIR/ VIRAMUNE FOR 12 YEARS 10/[id number] VL 26K STARTED TRUVADA/ REYATAZ/ NORVIR 07/18/2008 [id number] K103 MUTATION CD4 87 FROM [id number] VL NOT DETECTED, 07/24/2011 VL 51, 370 GENOSURE K103/ Y181 RESISTANT TO VIRAMUNE/ EFAVIRENZ/ RILPIVIRINE SWITCHED TO PREZISTA / GENVOYA ASTHMA HYPERTENSION/ ECHOCARDIOGRAM SHOWED LVH TENDONITIS SANGITA WRIST ENVIRONMENTAL ALLERGIES HX OF GESTATIONAL DIABETES PURE HYPERCHOLESTEREMIA 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 TORRES 08/17 IRRITABLE BOWEL SYNDROME GENOTYPE 08/2011 K103 MUTATION TROFILE DUAL MIXED TROPISM POSTMENOPAUSE OSTEOPENIA BMD 2012 DR KHOURY SYMPTOMATIC STATES ASSOCIATED WITH ARTIFICIAL MENOPAUSE EXTERNAL HEMORRHOIDS GASTRIC BYPASS STATUS FOR OBESITY SEASONAL AND PERENNIAL ALLERGIC RHINITIS OSTEOPENIA SLEEP APNEA NOT USING CPAP COULD NOT TOLERATE DIABETES DVT LEFT LEG & PE - BILATERAL ALLERGIES BIAXIN: RASH - ALLERGY NORVASC: EDEMA - ALLERGY LISINOPRIL: FACIAL SWELLING - ALLERGY ESTRADIOL: REREDDNESS AT SITE OF PATCH - SIDE EFFECTS SHELLFISH: ANAPHYLAXIS - ALLERGY SURGICAL HISTORY PARTIAL HYSTERECTOMY 2004 TUBAL LIGATION 1989 GASTRIC BYPASS 1994 BENIGN POLYP REMOVAL FROM THROAT 2009 TENDONITIS SURGERY X2 (WRIST) RT 07/2008, LT 12/2008 BUNIONECTOMY 2ND TOE ON RIGHT FOOT STRAIGHTENED LAP CHOLECYSTECTOMY (BESSEMER) 02/13/2012 LAP RELEASE OF BOWEL OBSTRUCTION (BOWEL SEWN INTO LUZ MARIA INCISION) ([facility]) 02/15/2012 ABDOMINAL SURGERY 06/23 BREAST REDUCTION COMPLICATED BY MSSA ABSCESS ON THE RIGHT SIDE REQUIRING INCISION AND DRAINAGE 01/2014 COLONOSCOPY 4 MM TUBULAR ADENOMA REPEAT IN [address] GAN 10/2015 BIOPSY THROAT 08-05-16 COLPOSCOPY 09/19/16 POLYPS REMOVED BY LASER FROM VOCAL CORDS 12/2016 LEFT FOOT BUNIONECTOMY 05/28/18 LEFT FOOT BUNIONECTOMY 02/15/19 FAMILY HISTORY FATHER: ALIVE 72 YRS, TRIPLE BYPASS, HTN, OBESITY, DIAGNOSED WITH DIABETES MOTHER: ALIVE 69 YRS, DIABETES, HTN, OBESITY SIBLINGS: ALIVE 49 YRS, SISTER SON(S): ALIVE 28 YRS, NO KNOWN MEDICAL PROBLEMS DAUGHTER(S): 19 YRS, MVA (2006) SOCIAL HISTORY GENERAL: TOBACCO USE ARE YOU A:FORMER SMOKER HOW LONG HAS IT BEEN SINCE YOU LAST SMOKED?3-6 MONTHS SMOKING CESSATION INFORMATION GIVEN02/10/201802/10 DECLINED HIV / HEP-C SCREENING HIV TEST OFFERED TO PATIENT:YES DATE OFFERED:03/10/2018 TEST ACCEPTED:NO PREV TESTED HEP-C TEST OFFERED TO PATIENT:YES DATE OFFERED:03/10/2018 REASON:OTHER (DOCUMENT IN NOTE) TEST ACCEPTED:NO PREV TESTED REASON:OTHER (DOCUMENT IN NOTE) BROCHURE PROVIDED TO PATIENTNO OTHERS AT HOME: LIVES ALONE. EDUCATION LEVEL OF EDUCATION:HIGH SCHOOL GRADUATE DIET: NO HX EATING DISORDERS. LANGUAGE LANGUAGES SPOKEN:GEORGIAN DOMESTIC VIOLENCE DO YOU FEEL SAFE IN YOUR ENVIRONMENT?YES BMI CARE GOAL FOLLOW-UP ABOVE NORMAL BMI FOLLOW-UPDIETARY MANAGEMENT EDUCATION, GUIDANCE, AND COUNSELING RECREATIONAL DRUG USE DENIES. EXERCISE: NO REGULAR EXERCISE. LEARNING BARRIERS / SPECIAL NEEDS CHANGE FROM LAST VISIT?NO BARRIERS TO LEARNING?NO HEARING IMPAIRED?NO VISION IMPAIRED?YES COGNITIVELY IMPAIRED?NO :CORRECTIVE LENSES READINESS TO LEARN?YES LEARNING PREFERENCES?YES :DEMONSTRATION/VERBAL INSTRUCTION LEARNING CAPABILITIES PRESENT?YES EMOTIONAL BARRIERS?NO SPECIAL DEVICES?NO INTEGRITY MANAGER NEEDED?NO PAIN CLINIC PFS, CLERGY, PUBLIC HEALTH REFERRALS PFS REFERRAL NEEDED?NO CLERGY REFERRAL NEEDED?NO PUBLIC HEALTH REFERRAL NEEDED?NO WAS THE PROVIDER NOTIFIED OF ANY PERTINENT INFO? N/A HAS THE PATIENT BEEN EDUCATED REGARDING HIS/HER PLAN OF CARE?YES HAS THE PATIENT BEEN EDUCATED REGARDING PAIN, THE RISK FOR PAIN, THE IMPORTANCE OF EFFECTIVE PAIN MANAGEMENT, AND THE PAIN ASSESSMENT PROCESS?YES LATEX QUESTIONNAIRE LATEX ALLERGY : HAVE YOU EVER DEVELOPED ANY TYPE OF REACTION AFTER HANDLING LATEX PRODUCTS SUCH RUBBER GLOVES, CONDOMS, DIAPHRAGMS, BALLOONS, SOCKS, OR UNDERWEAR?NO LATEX ALLERGY : HAVE YOU EVER DEVELOPED ANY TYPE OF REACTION DURING OR AFTER DENTAL APPOINTMENT, VAGINAL/RECTAL EXAMINATION, SURGICAL PROCEDURE, OR ANY OTHER EXPOSURE?NO LATEX RISK : HAVE YOU EVER HAD ANY DIFFICULTY BREATHING OR HIVES AFTER EATING OR HANDLING ANY FRUITS, OR VEGETABLES; SUCH KIWI, BANANAS, STONE FRUITS, OR CHESTNUTSYES - PLEASE INDICATE : KIWI, BANANAS, STONE FRUITS, CHESTNUTS LATEX RISK : DO YOU HAVE A PREVIOUS PERSONAL HISTORY OF MORE THAN NINE SURGERIES, SPINA BIFIDA, OR REPEATED CATHERIZATIONS? YES - PLEASE INDICATE : > 9 SURGERIES LATEX RISK : ARE YOU FREQUENTLY EXPOSED TO LATEX PRODUCTS IN YOUR OCCUPATION?NO DATE ASKED : 08/02/2018 CAFFEINE 1 CUP COFFE DAILY. ADVANCE DIRECTIVE ADVANCE DIRECTIVE DISCUSSED WITH PATIENT:YES 04/21/19 PT STATES SHE DOES NOT HAVE ANY ADVANCED DIRECTIVES AND SHE DECLINES INFORMATION AT THIS TIME. ASSISTANCE WITH FORM OFFERED, BUT PT DECLINES. JS SIKH [id number] NONE MARITAL STATUS: . FEMALE 6 MONTH RISK ASSESSMENT FOR STD DESCRIBE YOUR SEXUAL PARTNERS:MALE MONOGAMOUS?YES HIV POSITIVE?YES EVER INJECT DRUGS?NO VAGINAL SEX?NO ANAL SEX?NO ORAL SEX?NO ARE YOU TAKING ANY STEPS TO PREVENT ?YES METHODS (CHECK ALL THAT APPLY):MALE CONDOMS WHAT STEPS HAVE YOU TAKEN TO PROTECT YOURSELF FROM STDS, INCLUDING HIV? (CHECK ALL THAT APPLY):MUTUAL MONOGAMY, MALE CONDOMS HAVE YOU OR ANY OF YOUR SEXUAL PARTNERS EVER HAD AN STD? IF YES PLEASE LIST:NO IS THERE ANYTHING ELSE WE SHOULD TALK ABOUT CONCERNING YOUR SEXUAL HISTORY OR PRACTICE?NO ALCOHOL SCREENING POINTS: 1, INTERPRETATION: NEGATIVE. OCCUPATION: DISABLED. SEXUAL HX HAD SEX IN THE LAST 12 MONTHS (VAGINAL, ORAL, OR ANAL)?: NO, HAVE YOU EVER HAD AN STD?: NO, LMP:: HYSTER. 02/10/18 1000 REVIEWED WITH PT. ADREVIEWED WITH PT 03/01/18 1013 BVREVIEWED WTIH PT 04/28/18 1100 BVREVIEWED WITH PT 05/17/18 1038 LASREVIEWED WITH PATIENT 04/21/19 1144 JS. HOSPITALIZATION/MAJOR DIAGNOSTIC PROCEDURE RELATED TO SURGERY CHILD ALLERGIC REACITON TO MEDS PNEUMONIA 06/2015 DVT & PE 03/21/19 REVIEW OF SYSTEMS REVIEWED BY: PROVIDER: UMESH GORDILLO . CONSTITUTIONAL: ANY CHANGE IN YOUR MEDICAL CONDITION? YES, LEFT FOOT BUNIONECTOMY AND DEVELOPED PE'S AND DVT'S AFTER . CHILLS NO . FEVER NO . INFECTION: DO YOU HAVE NEW INFECTIONS? NO . DO YOU HAVE HISTORY OF MRSA? NO . MUSCULOSKELETAL: ANY NEW PATTERNS OF PAIN OR NUMBNESS? NO . GASTROENTEROLOGY: ANY NEW CHANGE IN BOWEL CONTROL? NO . GENITOURINARY: ANY NEW CHANGE IN BLADDER CONTROL? NO . IS THERE A CHANCE YOU COULD BE ? NO . HEMATOLOGY/LYMPH: DO YOU TAKE ANY BLOOD THINNERS? (FOR EXAMPLE- COUMADIN, PLAVIX, AGGRENOX, PLATEL, PRADAXA, OR XARELTO) YES, COUMADIN . WHEN WAS YOUR LAST DOSE? DATE: 04/20/19TIME: 2230 . NEUROLOGY: HAVE YOU FALLEN IN THE PAST 12 MONTHS? NO . ANY NEW EXTREMITY NUMBNESS OR WEAKNESS? NO . CARDIOLOGY: DO YOU HAVE A PACEMAKER OR DEFIBRILLATOR? NO . RESPIRATORY: HAVE YOU BEEN SICK IN THE PAST WEEK? NO . FEVER NO . FLU LIKE SYMPTOMS? NO . COUGH NO . INTEGUMENTARY: DO YOU HAVE ANY RASHES OR OPEN SORES? NO . ALLERGIC/IMMUNO: ARE YOU ALLERGIC TO IV DYE? NO . ANY NEW ALLERGIES? NO . PSYCHIATRIC: DO YOU HAVE THOUGHTS OF HURTING YOURSELF OR SOMEONE ELSE? NO . ARE YOU ABUSED, NEGLECTED, OR IN AN UNSAFE ENVIRONMENT? NO . ENDOCRINOLOGY: ARE YOU DIABETIC? NO . OTHER: DO YOU NEED ANY PRESCRIPTIONS? NO . IF YES, PLEASE LIST: ____ . ANY NEW PROBLEMS WITH YOUR MEDICATIONS? NO . WHEN DID YOU LAST EAT? ____ . WHEN DID YOU LAST DRINK? ____ . WHAT DID YOU LAST DRINK? ____ . NAME OF PERSON DRIVING YOU HOME? ____ . DO YOU HAVE ANY OTHER QUESTIONS OR CONCERNS ALLERGY SHOTS 04/14/19 . VITAL SIGNS WT 245.4 LBS, HT 61 IN, BMI 46.36 INDEX, BP 148/70 MM HG, HR 78 /MIN, RR 16 /MIN, TEMP 96.0 F, OXYGEN SAT % 94%, SAFE IN ENV? (Y/N) YES, NA INITIALS AW 1126, REVIEWED BY: SHUBHAM. EXAMINATION GENERAL EXAMINATION: GENERALAWAKE,ALERT ,PLEAASANT . PSYCHAFFECT NORMAL . LUNGS:LUNG MCADAMS ARE CLEAR TO AUSCULTATION BILATERALLY. GOOD MOVEMENT OF AIR . HEART:S1, S2 IN A REGULAR RATE AND RHYTHM. NO SIGNIFICANT MURMURS, RUBS OR GALLOPS NOTED . MUSCULOSKELETAL:MUSCLE STRENGTH TESTING 4/5 BILATERAL LOWER EXTREMITIES. FOR BILAT. SIJ TRIGGER POINTS:, ELICITED WITH PALPATION OVER LUMBAR PARAVERTEBRAL MUSCLES AND RESTRICTION OF ROM IN THIS AREA. ASSESSMENTS MYALGIA, OTHER SITE - M79.18 (PRIMARY) TREATMENT MYALGIA, OTHER SITE START TRAMADOL HCL TABLET, 50 MG, 1 TABLET NEEDED, ORALLY, Q8H PRN PAIN MDD3, 30 DAYS, 45, REFILLS 2 NOTES: ISTOP REGISTRY REVIEWED AND DEMONSTRATES COMPLLIANCE. , RISKS OF NARCOTIC/OPIOD MEDICATIONS INCLUDES BUT IS NOT LIMITED TO RISK OF DEPENDANCE/DEVELOPMENT OF ADDICTION, MOOD DISTURBANCE AND DEPRESSION, OSTEOPOROSIS, HORMONAL AND LABIDAL CHANGES, RESPIRATORY DEPRESSION AND . PATIENT IS ADVISED NOT TO DRIVE OR DRINK ALCOHOL WHILE ON THESE MEDICATIONS, [facility] NARCOTIC AGREEMENT WAS REVIEWED AND SIGNED TODAY BY THE PATIENT. SEE ATTACHED DOCUMENT FOR FULL DETAILS; SPECIFIC ISSUES WERE REVIEWED: 1) KEEP PAIN MEDS IN THEIR ORIGINAL BOTTLES AND ANY WEEKLY PLANNERS ARE TO BE BROUGHT TO THE PAIN CENTER AT EVERY VISIT. 2) THE PATIENT IS NOT TO INCREASE DOSING OR TIMING OF THEIR PAIN MEDICATION WITHOUT SPECIFIC DIRECTION OF THEIR PAIN CENTERPROVIDER (NOT ER OR OTHER PROVIDERS). 3) ALL PAIN MEDS ARE TO BE KEPT SECURED, IN A LOCKED BOX. 4) NO PAIN MEDS ARE TO BE SHARED WITH ANY OTHER PERSON FOR ANY REASON. 5) NO PAIN MEDS MAY BE TAKEN FROM ANY FRIENDS OR RELATIVES FOR ANY REASON 6) NO MEDS OR SUBSTANCES WHICH ARE NOT LEGAL ARE TO BE USED- NO MARIJUANA, NO COCAINE, AMPHETAMINES, HEROIN, OR OTHERS ARE EVER TO BE USED. 7)URINE TESTING IS DONE TO ACCOUNT FOR MEDS AND SUBSTANCES BEING TAKEN AND WILL BE DONE RANDOMLY.TPI BILAT LOW BACK. PREVENTIVE MEDICINE PAIN CLINIC TEACHING: MEDICATIONS PRINTED AND REVIEWED INFORMATION ON NEW MEDICATION, TRAMADOL, WITH PATIENT. ALSO REVIEWED NARCOTIC AGREEMENT. PATIENT VERBALIZED AN UNDERSTANDING. SEUN GILLESPIE 04/21/2019 12:28:18 PM > . PROCEDURE TEACHING PRINTED AND REVIEWED INFORMATION ON TRIGGER POINT INJECTION PROCEDURE WITH PATIENT. ALSO REVIEWED PRE-PROCEDURE INSTRUCTIONS. PATIENT VERBALIZED AN UNDERSTANDING. SEUN GILLESPIE 04/21/2019 12:27:40 PM > . PROCEDURE CODES FA211 ESTABILISHED PATIENT [facility] CHARGE DISPOSITION & COMMUNICATION FOLLOW UP POST (REASON: TPI BILAT LOW BACK) ELECTRONICALLY SIGNED BY RAND HINOJOSA ON 05/05/2019 AT 01:50 PM EST DISCLAIMER : THIS IS A VISIT SUMMARY EXTRACTED FROM THE [employer] CHART. IT IS NOT A COPY OF THE [employer] PROGRESS NOTE. MELISSA
== END ==
LOC: M PAIN 11:15
PROVIDERS: ATTEND Nurse Practitioner Family
DX: M79.18 Myalgia, other site (principal); J45.909 Unspecified asthma, uncomplicated; I10 Essential (primary) hypertension; E78.00 Pure hypercholesterolemia, unspecified; Z86.59 Personal history of other mental and behavioral disorders; Z98.84 Bariatric surgery status; G47.30 Sleep apnea, unspecified; E11.9 Type 2 diabetes mellitus without complications; Z86.718 Personal history of other venous thrombosis and embolism; Z86.711 Personal history of pulmonary embolism; Z87.891 Personal history of nicotine dependence; Z88.1 Allergy status to other antibiotic agents; Z88.8 Allergy status to other drugs, medicaments and biological substances; Z91.013 Allergy to seafood; Z79.01 Long term (current) use of anticoagulants; E66.01 Morbid (severe) obesity due to excess calories; Z68.42 Body mass index [BMI] 45.0-49.9, adult; Z79.899 Other long term (current) drug therapy

== ENCOUNTER → 2019-05-23 | Outpatient (CLI) | payer MEDICARE, MEDICAID ==
[~2019-05-23] MED LIST changes: +BUPIVACAINE HCL 0.25% 30 ML VIAL As Ordered ONE; +SUCR1ORA PO; -SUCR1SUS PO; +TRIAMCINOLONE ACETONIDE SUSP 40 MG/ML VIAL (J3301) As Ordered ONE; +diazePAM 5 MG TAB As Ordered ONE; +oxyCODONE 5MG TAB As Ordered ONE
--- NOTE | 2019-06-03 03:11 | ECWPNPC ---
PATIENT NAME: DEVAN EDWARDS : 1965 GENDER: FEMALE VISIT DATE: 05/23/2019 DISCHARGE DATE: 05/23/191333 VISIT LOCKED DATE TIME: PHYSICIAN: MARITA FOLEY MD RESOURCE: MARITA FOLEY MD REASON FOR APPOINTMENT 1. TPI BILAT LOW BACK HISTORY OF PRESENT ILLNESS HISTORY OF PRESENT ILLNESS: PAIN THE PATIENT DESCRIBES THE PAIN... FALL RISK SCREENING: SCREENING :NO FALLS REPORTED IN THE LAST YEAR CURRENT MEDICATIONS TAKING VITAMIN B-12 1000 MCG TABLET 1 TABLET ORALLY ONCE A DAY, NOTES: 05/23/19629 TAKING MONTELUKAST SODIUM 10 MG TABLET 1 TABLET IN THE EVENING ORALLY ONCE A DAY, NOTES: 05/22/191899 TAKING FLUCONAZOLE 150 MG TABLET 1 TABLET ORALLY WEEKLY, NOTES: Thursday05/19/19 TAKING CALCIUM 600 + D 600-400 MG-UNIT TABLET 1 TABLET ORALLY TWICE A DAY, NOTES: 05/23/19629 TAKING VALTREX 1 GM TABLET 2 TABLET ORALLY BID FOR 2 DAYS PRN, NOTES: HAS NOT TAKEN LATELY TAKING EPIPEN 0.3 MG/0.3ML DEVICE DIRECTED INJECTION ONCE DAILY NEEDED, NOTES: PRN TAKING VENTOLIN HFA 108 (90 BASE) MCG/ACT AEROSOL SOLUTION 2 PUFFS MARY ALICE INHALATION EVERY 4 HRS NEEDED, NOTES: HAS NOT USED LATELY TAKING ONE TOUCH DELICA 33 GAUGE 1 LANCET SUBCUTANEOUSLY DAILY TAKING ONE TOUCH ULTRA TEST STRIPS 1 STRIP DAILY TAKING OXYBUTYNIN CHLORIDE 5 MG TABLET 1 TABLET ORALLY BEFORE BEDTIME, NOTES: 05/22/191899 TAKING TRAZODONE HCL 100 MG TABLET 2 TABLETS ORALLY BEFORE BEDTIME MDD 2, NOTES: 05/22/192129 TAKING SPIRIVA RESPIMAT 2.5 MCG/ACT AEROSOL SOLUTION 2 PUFFS INHALATION ONCE A DAY, NOTES: 05/23/19629 TAKING DILTIAZEM HCL ER 120 MG CAPSULE EXTENDED RELEASE 24 HOUR 1 CAPSULE ORALLY ONCE A DAY, NOTES: 05/23/19629 TAKING WARFARIN SODIUM 6 MG TABLET 1 TABLET ORALLY ONCE A DAY, NOTES: 05/22/192029 TAKING GENVOYA 428-000-989-10 MG TABLET 1 TAB ORALLY DAILY, NOTES: 05/22/192029 TAKING PREZISTA 800 MG TABLET TAKE ONE TABLET BY MOUTH EVERY DAY WITH FOOD ORALLY ONCE A DAY, NOTES: 05/22/192029 TAKING HYDROCODONE-ACETAMINOPHEN 7.5-325 MG TABLET 1 TABLET NEEDED ORALLY EVERY 6 HRS/MMD4, NOTES: 05/22/192029 TAKING DEXILANT 30 MG CAPSULE DELAYED RELEASE 1 CAPSULE ORALLY ONCE A DAY, NOTES: 05/23/19629 TAKING BUDESONIDE-FORMOTEROL FUMARATE 160-4.5 MCG/ACT AEROSOL 2 PUFFS INHALATION TWICE A DAY, NOTES: 05/23/19629 TAKING PERCOCET 7.5-325 MG TABLET 1 TABLET NEEDED ORALLY EVERY 6 HRS, NOTES: HAS NOT TAKEN YET MEDICATION LIST REVIEWED AND RECONCILED WITH THE PATIENT PAST MEDICAL HISTORY AIDS/HIV 1995 INFECTED BY MALE HETEROSEXUAL ON COMBIVIR/ VIRAMUNE FOR 12 YEARS 10/[id number] VL 26K STARTED TRUVADA/ REYATAZ/ NORVIR 07/18/2008 [id number] K103 MUTATION CD4 87 FROM [id number] VL NOT DETECTED, 07/24/2011 VL 51, 370 GENOSURE K103/ Y181 RESISTANT TO VIRAMUNE/ EFAVIRENZ/ RILPIVIRINE SWITCHED TO PREZISTA / GENVOYA ASTHMA HYPERTENSION/ ECHOCARDIOGRAM SHOWED LVH TENDONITIS SANGITA WRIST ENVIRONMENTAL ALLERGIES HX OF GESTATIONAL DIABETES PURE HYPERCHOLESTEREMIA 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 TORRES 08/17 IRRITABLE BOWEL SYNDROME GENOTYPE 08/2011 K103 MUTATION TROFILE DUAL MIXED TROPISM POSTMENOPAUSE OSTEOPENIA BMD 2012 DR KHOURY SYMPTOMATIC STATES ASSOCIATED WITH ARTIFICIAL MENOPAUSE EXTERNAL HEMORRHOIDS GASTRIC BYPASS STATUS FOR OBESITY SEASONAL AND PERENNIAL ALLERGIC RHINITIS OSTEOPENIA SLEEP APNEA NOT USING CPAP COULD NOT TOLERATE DIABETES HISTORY OF TOBACCO ABUSE QUIT SMOKING 03/2018 DVT LEFT LEG POSTOPERATIVE BUNION SURGERY 03/2019 AND BILATERAL PULMONARY EMBOLISM ON COUMADIN ALLERGIES BIAXIN: RASH - ALLERGY NORVASC: EDEMA - ALLERGY LISINOPRIL: FACIAL SWELLING - ALLERGY ESTRADIOL: REREDDNESS AT SITE OF PATCH - SIDE EFFECTS SHELLFISH: ANAPHYLAXIS - ALLERGY SURGICAL HISTORY PARTIAL HYSTERECTOMY 2004 TUBAL LIGATION 1989 GASTRIC BYPASS 1994 BENIGN POLYP REMOVAL FROM THROAT 2009 TENDONITIS SURGERY X2 (WRIST) RT 07/2008, LT 12/2008 BUNIONECTOMY 2ND TOE ON RIGHT FOOT STRAIGHTENED LAP CHOLECYSTECTOMY ([place]) 02/13/2012 LAP RELEASE OF BOWEL OBSTRUCTION (BOWEL SEWN INTO LUZ MARIA INCISION) ([facility]) 02/15/2012 ABDOMINAL SURGERY 06/23 BREAST REDUCTION COMPLICATED BY MSSA ABSCESS ON THE RIGHT SIDE REQUIRING INCISION AND DRAINAGE 01/2014 COLONOSCOPY 4 MM TUBULAR ADENOMA REPEAT IN [address] GAN 10/2015 BIOPSY THROAT 08-05-16 COLPOSCOPY 09/19/16 POLYPS REMOVED BY LASER FROM VOCAL CORDS 12/2016 LEFT FOOT BUNIONECTOMY 05/28/18 LEFT FOOT BUNIONECTOMY 02/15/19 FAMILY HISTORY FATHER: ALIVE 72 YRS, TRIPLE BYPASS, HTN, OBESITY, DIAGNOSED WITH DIABETES MOTHER: ALIVE 69 YRS, DIABETES, HTN, OBESITY SIBLINGS: ALIVE 49 YRS, SISTER SON(S): ALIVE 28 YRS, NO KNOWN MEDICAL PROBLEMS DAUGHTER(S): 19 YRS, MVA (2006) SOCIAL HISTORY GENERAL: TOBACCO USE ARE YOU A:FORMER SMOKER HOW LONG HAS IT BEEN SINCE YOU LAST SMOKED?3-6 MONTHS SMOKING CESSATION INFORMATION GIVEN02/10/201802/10 DECLINED HIV / HEP-C SCREENING HIV TEST OFFERED TO PATIENT:YES DATE OFFERED:03/10/2018 TEST ACCEPTED:NO PREV TESTED HEP-C TEST OFFERED TO PATIENT:YES DATE OFFERED:03/10/2018 REASON:OTHER (DOCUMENT IN NOTE) TEST ACCEPTED:NO PREV TESTED REASON:OTHER (DOCUMENT IN NOTE) BROCHURE PROVIDED TO PATIENTNO OTHERS AT HOME: LIVES ALONE. EDUCATION LEVEL OF EDUCATION:HIGH SCHOOL GRADUATE DIET: NO HX EATING DISORDERS. LANGUAGE LANGUAGES SPOKEN:YEMENI DOMESTIC VIOLENCE DO YOU FEEL SAFE IN YOUR ENVIRONMENT?YES BMI CARE GOAL FOLLOW-UP ABOVE NORMAL BMI FOLLOW-UPDIETARY MANAGEMENT EDUCATION, GUIDANCE, AND COUNSELING RECREATIONAL DRUG USE DENIES. EXERCISE: NO REGULAR EXERCISE. LEARNING BARRIERS / SPECIAL NEEDS CHANGE FROM LAST VISIT?NO BARRIERS TO LEARNING?NO HEARING IMPAIRED?NO VISION IMPAIRED?YES COGNITIVELY IMPAIRED?NO :CORRECTIVE LENSES READINESS TO LEARN?YES LEARNING PREFERENCES?YES :DEMONSTRATION/VERBAL INSTRUCTION LEARNING CAPABILITIES PRESENT?YES EMOTIONAL BARRIERS?NO SPECIAL DEVICES?NO SAMPLE SAWYER NEEDED?NO PAIN CLINIC PFS, CLERGY, PUBLIC HEALTH REFERRALS PFS REFERRAL NEEDED?NO CLERGY REFERRAL NEEDED?NO PUBLIC HEALTH REFERRAL NEEDED?NO WAS THE PROVIDER NOTIFIED OF ANY PERTINENT INFO? N/A HAS THE PATIENT BEEN EDUCATED REGARDING HIS/HER PLAN OF CARE?YES HAS THE PATIENT BEEN EDUCATED REGARDING PAIN, THE RISK FOR PAIN, THE IMPORTANCE OF EFFECTIVE PAIN MANAGEMENT, AND THE PAIN ASSESSMENT PROCESS?YES LATEX QUESTIONNAIRE LATEX ALLERGY : HAVE YOU EVER DEVELOPED ANY TYPE OF REACTION AFTER HANDLING LATEX PRODUCTS SUCH RUBBER GLOVES, CONDOMS, DIAPHRAGMS, BALLOONS, SOCKS, OR UNDERWEAR?NO LATEX ALLERGY : HAVE YOU EVER DEVELOPED ANY TYPE OF REACTION DURING OR AFTER DENTAL APPOINTMENT, VAGINAL/RECTAL EXAMINATION, SURGICAL PROCEDURE, OR ANY OTHER EXPOSURE?NO DATE ASKED : 08/02/2018 LATEX RISK : HAVE YOU EVER HAD ANY DIFFICULTY BREATHING OR HIVES AFTER EATING OR HANDLING ANY FRUITS, OR VEGETABLES; SUCH KIWI, BANANAS, STONE FRUITS, OR CHESTNUTSYES - PLEASE INDICATE : KIWI, BANANAS, STONE FRUITS, CHESTNUTS LATEX RISK : DO YOU HAVE A PREVIOUS PERSONAL HISTORY OF MORE THAN NINE SURGERIES, SPINA BIFIDA, OR REPEATED CATHERIZATIONS? YES - PLEASE INDICATE : > 9 SURGERIES LATEX RISK : ARE YOU FREQUENTLY EXPOSED TO LATEX PRODUCTS IN YOUR OCCUPATION?NO CAFFEINE 1 CUP COFFE DAILY. ADVANCE DIRECTIVE ADVANCE DIRECTIVE DISCUSSED WITH PATIENT:YES 04/21/19 PT STATES SHE DOES NOT HAVE ANY ADVANCED DIRECTIVES AND SHE DECLINES INFORMATION AT THIS TIME. ASSISTANCE WITH FORM OFFERED, BUT PT DECLINES. JS WE DISCUSSED HCP AND PT WILL ASK FOR PRINTED MATERIAL AT NEXT VISIT SIKH [id number] NONE MARITAL STATUS: . FEMALE 6 MONTH RISK ASSESSMENT FOR STD DESCRIBE YOUR SEXUAL PARTNERS:MALE MONOGAMOUS?YES HIV POSITIVE?YES EVER INJECT DRUGS?NO VAGINAL SEX?NO ANAL SEX?NO ORAL SEX?NO ARE YOU TAKING ANY STEPS TO PREVENT ?YES METHODS (CHECK ALL THAT APPLY):MALE CONDOMS WHAT STEPS HAVE YOU TAKEN TO PROTECT YOURSELF FROM STDS, INCLUDING HIV? (CHECK ALL THAT APPLY):MUTUAL MONOGAMY, MALE CONDOMS HAVE YOU OR ANY OF YOUR SEXUAL PARTNERS EVER HAD AN STD? IF YES PLEASE LIST:NO IS THERE ANYTHING ELSE WE SHOULD TALK ABOUT CONCERNING YOUR SEXUAL HISTORY OR PRACTICE?NO ALCOHOL SCREENING POINTS: 1, INTERPRETATION: NEGATIVE. OCCUPATION: DISABLED. SEXUAL HX HAD SEX IN THE LAST 12 MONTHS (VAGINAL, ORAL, OR ANAL)?: NO, HAVE YOU EVER HAD AN STD?: NO, LMP:: HYSTER. 02/10/18 1000 REVIEWED WITH PT. ADREVIEWED WITH PT 03/01/18 1013 BVREVIEWED WTIH PT 04/28/18 1100 BVREVIEWED WITH PT 05/17/18 1038 LASREVIEWED WITH PATIENT 04/21/19 1144 JSPRE ADMISSION COMPLETED 05/20/2019 KG. HOSPITALIZATION/MAJOR DIAGNOSTIC PROCEDURE RELATED TO SURGERY CHILD ALLERGIC REACITON TO MEDS PNEUMONIA 06/2015 DVT & PE 03/21/19 REVIEW OF SYSTEMS REVIEWED BY: PROVIDER: . CONSTITUTIONAL: ANY CHANGE IN YOUR MEDICAL CONDITION? NO . CHILLS NO . FEVER NO . INFECTION: DO YOU HAVE NEW INFECTIONS? NO . DO YOU HAVE HISTORY OF MRSA? NO . MUSCULOSKELETAL: ANY NEW PATTERNS OF PAIN OR NUMBNESS? NO . GASTROENTEROLOGY: ANY NEW CHANGE IN BOWEL CONTROL? NO . GENITOURINARY: ANY NEW CHANGE IN BLADDER CONTROL? NO . IS THERE A CHANCE YOU COULD BE ? NO . HEMATOLOGY/LYMPH: DO YOU TAKE ANY BLOOD THINNERS? (FOR EXAMPLE- COUMADIN, PLAVIX, AGGRENOX, PLATEL, PRADAXA, OR XARELTO) YES- COUMADIN . WHEN WAS YOUR LAST DOSE? DATE:05/22/19TIME: 2029 . NEUROLOGY: HAVE YOU FALLEN IN THE PAST 12 MONTHS? NO . ANY NEW EXTREMITY NUMBNESS OR WEAKNESS? NO . CARDIOLOGY: DO YOU HAVE A PACEMAKER OR DEFIBRILLATOR? NO . RESPIRATORY: HAVE YOU BEEN SICK IN THE PAST WEEK? NO . FEVER NO . FLU LIKE SYMPTOMS? NO . COUGH NO . INTEGUMENTARY: DO YOU HAVE ANY RASHES OR OPEN SORES? NO . ALLERGIC/IMMUNO: ARE YOU ALLERGIC TO IV DYE? NO . ANY NEW ALLERGIES? NO . PSYCHIATRIC: DO YOU HAVE THOUGHTS OF HURTING YOURSELF OR SOMEONE ELSE? NO . ARE YOU ABUSED, NEGLECTED, OR IN AN UNSAFE ENVIRONMENT? NO . ENDOCRINOLOGY: ARE YOU DIABETIC? NO . OTHER: DO YOU NEED ANY PRESCRIPTIONS? NO . IF YES, PLEASE LIST: ____ . ANY NEW PROBLEMS WITH YOUR MEDICATIONS? NO . WHEN DID YOU LAST EAT? 05/22/19 1900 . WHEN DID YOU LAST DRINK? 05/23/19 0900 . WHAT DID YOU LAST DRINK? WATER . NAME OF PERSON DRIVING YOU HOME? BOOKER- MOTHER . DO YOU HAVE ANY OTHER QUESTIONS OR CONCERNS NO . VITAL SIGNS WT 240.8 LBS, HT 61 IN, BMI 45.49 INDEX, BP 140/77 MM HG, HR 95 /MIN, RR 20 /MIN, TEMP 97.3 F, OXYGEN SAT % 95%, SAFE IN ENV? (Y/N) YES, NA INITIALS MS 11:21, REVIEWED BY: YUDY. ASSESSMENTS MYALGIA, OTHER SITE - M79.18 (PRIMARY) PROCEDURES PN TRIGGER POINT INJECTION WITH STEROIDS PRE PROCEDURE DIAGNOSIS 1. MYALGIA 2. PAIN AT BILATERAL LOW BACK AREA POST PROCEDURE DIAGNOSIS 1. MYALGIA 2. PAIN AT BILATERAL LOW BACK AREA PROCEDURE TRIGGER POINT INJECTION AT RIGHT AND LEFT LOW BACK AREA SURGEON DR. MARITA FOLEY RESEARCH LABORATORY MANAGER NONE ANESTHESIA LOCAL PRE PROCEDURE NOTE THE PATIENT HAS A HISTORY OF CHRONIC PAIN AT THE RIGHT AND LEFT LOW BACK AREA. I EVALUATED THE PATIENT AND REVIEWED THE CHART. THERE IS EVIDENCE OF BANDS OF TISSUE WITH RESTRICTION OF MOVEMENT AND PRESENCE OF TRIGGER POINT AT THE AFFECTED AREA. I WENT OVER THE RISKS, ALTERNATIVES, AND BENEFITS ASSOCIATED WITH THIS PROCEDURE. THE PATIENT WOULD LIKE TO PROCEED AND GIVES CONSENT TO PERFORM THE PROCEDURE. THE PATIENT DENIES UNEXPLAINABLE WEIGHT LOSS, FEVER, CHILLS, OR NEW CHANGES IN URINARY OR BOWEL CONTROL DESCRIPTION OF PROCEDURE THE PATIENT WAS BROUGHT TO THE PROCEDURE ROOM AND PLACED IN THE SITTING POSITION. THE AREA WAS CLEANED WITH ALCOHOL. THE PROCEDURE WAS DONE USING ASEPTIC STERILE TECHNIQUE. I CHECKED LATERALITY AND THE LEVEL WHERE THE PROCEDURE WAS GOING TO BE PERFORMED WITH THE PATIENT AND THE SUPPORTING STAFF AT THE MOMENT OF THE TIME OUT IN THE PROCEDURE ROOM. USING A 25-GAUGE NEEDLE, TRIGGER POINTS WERE INJECTED AT THE RIGHT AND LEFT LOW BACK AREA WITH A TOTAL OF 40 ML OF BUPIVACAINE 0.25% AND KENALOG 40 MG. THERE WAS NO EVIDENCE OF BLOOD, PARESTHESIA OR CEREBROSPINAL FLUID DURING THE PROCEDURE. THE PATIENT WAS SENT TO THE RECOVERY ROOM. THE PATIENT WAS MOVING THE EXTREMITIES AND DOING WELL. THERE WAS NO COMPLICATION DURING THE PROCEDURE POST PROCEDURE NOTE THE PATIENT WILL BE SEEN IN A FOLLOW UP IN THE NEXT FEW WEEKS. I AM LOOKING FOR LONG-LASTING PAIN RELIEF WITH THIS INTERVENTION. INSTRUCTIONS WERE GIVEN, QUESTIONS WERE ANSWERED, AND THE PATIENT EXPRESSED UNDERSTANDING AND AGREES WITH THE PLAN. I, KITTY BROOKS, DOCUMENTED THE ABOVE INFORMATION ACTING A SCRIBE FOR DR. FOLEY. I HAVE REVIEWED THE ABOVE DOCUMENT, WRITTEN BY MAHESH CANSECO, AND I VERIFY THAT IT IS ACCURATE PROCEDURE CODES 78933 INJECT TRIGGER POINT, 1 OR 2 DISPOSITION & COMMUNICATION FOLLOW UP 3 WEEKS ELECTRONICALLY SIGNED BY MARITA FOLEY MD, MD ON 06/02/2019 AT 10:24 AM EST DISCLAIMER : THIS IS A VISIT SUMMARY EXTRACTED FROM THE [employer] CHART. IT IS NOT A COPY OF THE [employer] PROGRESS NOTE. MELISSA
== END ==
LOC: M PAIN 11:30
PROVIDERS: ATTEND Anesthesiology
DX: M79.18 Myalgia, other site (principal); Z86.19 Personal history of other infectious and parasitic diseases; J45.909 Unspecified asthma, uncomplicated; I10 Essential (primary) hypertension; E78.00 Pure hypercholesterolemia, unspecified; Z86.59 Personal history of other mental and behavioral disorders; Z98.84 Bariatric surgery status; G47.30 Sleep apnea, unspecified; E11.9 Type 2 diabetes mellitus without complications; Z86.718 Personal history of other venous thrombosis and embolism; Z86.711 Personal history of pulmonary embolism; Z87.891 Personal history of nicotine dependence; Z88.1 Allergy status to other antibiotic agents; Z88.8 Allergy status to other drugs, medicaments and biological substances; Z91.013 Allergy to seafood; Z79.01 Long term (current) use of anticoagulants; E66.01 Morbid (severe) obesity due to excess calories; Z68.42 Body mass index [BMI] 45.0-49.9, adult; Z79.899 Other long term (current) drug therapy
CPT/HCPCS: 20552; J3301

== ENCOUNTER → 2019-06-08 | Outpatient (CLI) | payer MEDICARE, MEDICAID ==
[~2019-06-08] MED LIST changes: -BUPIVACAINE HCL 0.25% 30 ML VIAL As Ordered ONE; -TRIAMCINOLONE ACETONIDE SUSP 40 MG/ML VIAL (J3301) As Ordered ONE; -diazePAM 5 MG TAB As Ordered ONE; -oxyCODONE 5MG TAB As Ordered ONE
--- NOTE | 2019-06-09 05:21 | ECWPNPC ---
PATIENT NAME: DEVAN EDWARDS : 1965 GENDER: FEMALE VISIT DATE: 06/08/2019 DISCHARGE DATE: 06/08/19 1155 VISIT LOCKED DATE TIME: PHYSICIAN: UMESH LONGO RESOURCE: UMESH LONGO REASON FOR APPOINTMENT 1. MEDICARE AB POST TPI HISTORY OF PRESENT ILLNESS HISTORY OF PRESENT ILLNESS: HERE FOR POST PROCEDURE FOLLOW-UP. HAD TRIGGER POINT INJECTIONS, BILATERAL LOW BACK ON 05/23/2019. LOW BACK PAIN HAS SUBSIDED. RATING PAIN LEVEL 0-4/10 VAS. CHIEF AREA OF PAIN IS BILATERAL KNEES AND LEFT FOOT. FOLLOWING WITH ORTHOPEDICS AFTER BUNION SURGERY AND HARDWARE PROBLEMS. LAST SURGERY ON HER FOOT WAS THEN FEBRUARY. REPORTS NUMBNESS AND TINGLING IN HER LEFT TOE. CURRENTLY USING PERCOCET OR TRAMADOL FOR SEVERE PAIN EPISODES. DISCUSSED TRIAL OF CYMBALTA FOR GENERALIZED JOINT PAIN AND NEUROPATHY. PAIN THE PATIENT DESCRIBES THE PAIN... FALL RISK SCREENING: SCREENING :NO FALLS REPORTED IN THE LAST YEAR CURRENT MEDICATIONS TAKING VITAMIN B-12 1000 MCG TABLET 1 TABLET ORALLY ONCE A DAY TAKING MONTELUKAST SODIUM 10 MG TABLET 1 TABLET IN THE EVENING ORALLY ONCE A DAY TAKING FLUCONAZOLE 150 MG TABLET 1 TABLET ORALLY WEEKLY TAKING CALCIUM 600 + D 600-400 MG-UNIT TABLET 1 TABLET ORALLY TWICE A DAY TAKING VALTREX 1 GM TABLET 2 TABLET ORALLY BID FOR 2 DAYS PRN TAKING EPIPEN 0.3 MG/0.3ML DEVICE DIRECTED INJECTION ONCE DAILY NEEDED, NOTES: PRN TAKING VENTOLIN HFA 108 (90 BASE) MCG/ACT AEROSOL SOLUTION 2 PUFFS MARY ALICE INHALATION EVERY 4 HRS NEEDED TAKING ONE TOUCH DELICA 33 GAUGE 1 LANCET SUBCUTANEOUSLY DAILY TAKING ONE TOUCH ULTRA TEST STRIPS 1 STRIP DAILY TAKING OXYBUTYNIN CHLORIDE 5 MG TABLET 1 TABLET ORALLY BEFORE BEDTIME TAKING TRAZODONE HCL 100 MG TABLET 2 TABLETS ORALLY BEFORE BEDTIME MDD 2 TAKING SPIRIVA RESPIMAT 2.5 MCG/ACT AEROSOL SOLUTION 2 PUFFS INHALATION ONCE A DAY TAKING DILTIAZEM HCL ER 120 MG CAPSULE EXTENDED RELEASE 24 HOUR 1 CAPSULE ORALLY ONCE A DAY TAKING WARFARIN SODIUM 6 MG TABLET 1 TABLET ORALLY ONCE A DAY TAKING GENVOYA [phone] MG TABLET 1 TAB ORALLY DAILY TAKING PREZISTA 800 MG TABLET TAKE ONE TABLET BY MOUTH EVERY DAY WITH FOOD ORALLY ONCE A DAY TAKING DEXILANT 30 MG CAPSULE DELAYED RELEASE 1 CAPSULE ORALLY ONCE A DAY TAKING BUDESONIDE-FORMOTEROL FUMARATE 160-4.5 MCG/ACT AEROSOL 2 PUFFS INHALATION TWICE A DAY TAKING PERCOCET 7.5-325 MG TABLET 1 TABLET NEEDED ORALLY EVERY 6 HRS TAKING TRAMADOL HCL 50 MG TABLET 1 TABLET NEEDED ORALLY EVERY 8 HOURS NEEDED NOT-TAKING HYDROCODONE-ACETAMINOPHEN 7.5-325 MG TABLET 1 TABLET NEEDED ORALLY EVERY 6 HRS/MMD4 MEDICATION LIST REVIEWED AND RECONCILED WITH THE PATIENT PAST MEDICAL HISTORY AIDS/HIV 1995 INFECTED BY MALE HETEROSEXUAL ON COMBIVIR/ VIRAMUNE FOR 12 YEARS [id number] VL 26K STARTED TRUVADA/ REYATAZ/ NORVIR 07/18/2008 [id number] K103 MUTATION CD4 87 FROM [id number] VL NOT DETECTED, 07/24/2011 VL 51, 370 GENOSURE K103/ Y181 RESISTANT TO VIRAMUNE/ EFAVIRENZ/ RILPIVIRINE SWITCHED TO PREZISTA / GENVOYA ASTHMA HYPERTENSION/ ECHOCARDIOGRAM SHOWED LVH TENDONITIS SANGITA WRIST ENVIRONMENTAL ALLERGIES HX OF GESTATIONAL DIABETES PURE HYPERCHOLESTEREMIA 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 TORRES 08/17 IRRITABLE BOWEL SYNDROME GENOTYPE 08/2011 K103 MUTATION TROFILE DUAL MIXED TROPISM POSTMENOPAUSE OSTEOPENIA BMD 2012 DR KHOURY SYMPTOMATIC STATES ASSOCIATED WITH ARTIFICIAL MENOPAUSE EXTERNAL HEMORRHOIDS GASTRIC BYPASS STATUS FOR OBESITY SEASONAL AND PERENNIAL ALLERGIC RHINITIS OSTEOPENIA SLEEP APNEA NOT USING CPAP COULD NOT TOLERATE DIABETES HISTORY OF TOBACCO ABUSE QUIT SMOKING 03/2018 DVT LEFT LEG POSTOPERATIVE BUNION SURGERY 03/2019 AND BILATERAL PULMONARY EMBOLISM ON COUMADIN ALLERGIES BIAXIN: RASH - ALLERGY NORVASC: EDEMA - ALLERGY LISINOPRIL: FACIAL SWELLING - ALLERGY ESTRADIOL: REREDDNESS AT SITE OF PATCH - SIDE EFFECTS SURGICAL HISTORY PARTIAL HYSTERECTOMY 2004 TUBAL LIGATION 1989 GASTRIC BYPASS 1994 BENIGN POLYP REMOVAL FROM THROAT 2009 TENDONITIS SURGERY X2 (WRIST) RT 07/2008, LT 12/2008 BUNIONECTOMY 2ND TOE ON RIGHT FOOT STRAIGHTENED LAP CHOLECYSTECTOMY ([place]) 02/13/2012 LAP RELEASE OF BOWEL OBSTRUCTION (BOWEL SEWN INTO LUZ MARIA INCISION) ([facility]) 02/15/2012 ABDOMINAL SURGERY 06/23 BREAST REDUCTION COMPLICATED BY MSSA ABSCESS ON THE RIGHT SIDE REQUIRING INCISION AND DRAINAGE 01/2014 COLONOSCOPY 4 MM TUBULAR ADENOMA REPEAT IN [address] GAN 10/2015 BIOPSY THROAT 08-05-16 COLPOSCOPY 09/19/16 POLYPS REMOVED BY LASER FROM VOCAL CORDS 12/2016 LEFT FOOT BUNIONECTOMY 05/28/18 LEFT FOOT BUNIONECTOMY 02/15/19 FAMILY HISTORY FATHER: ALIVE 72 YRS, TRIPLE BYPASS, HTN, OBESITY, DIAGNOSED WITH DIABETES MOTHER: ALIVE 69 YRS, DIABETES, HTN, OBESITY SIBLINGS: ALIVE 49 YRS, SISTER SON(S): ALIVE 28 YRS, NO KNOWN MEDICAL PROBLEMS DAUGHTER(S): 19 YRS, MVA (2006) SOCIAL HISTORY GENERAL: TOBACCO USE ARE YOU A:FORMER SMOKER HOW LONG HAS IT BEEN SINCE YOU LAST SMOKED?1-5 YEARS SMOKING CESSATION INFORMATION GIVEN02/10/201802/10 DECLINED HIV / HEP-C SCREENING HIV TEST OFFERED TO PATIENT:YES DATE OFFERED:03/10/2018 TEST ACCEPTED:NO PREV TESTED HEP-C TEST OFFERED TO PATIENT:YES DATE OFFERED:03/10/2018 REASON:OTHER (DOCUMENT IN NOTE) TEST ACCEPTED:NO PREV TESTED REASON:OTHER (DOCUMENT IN NOTE) BROCHURE PROVIDED TO PATIENTNO OTHERS AT HOME: LIVES ALONE. EDUCATION LEVEL OF EDUCATION:HIGH SCHOOL GRADUATE DIET: NO HX EATING DISORDERS. LANGUAGE LANGUAGES SPOKEN:FRENCH DOMESTIC VIOLENCE DO YOU FEEL SAFE IN YOUR ENVIRONMENT?YES BMI CARE GOAL FOLLOW-UP ABOVE NORMAL BMI FOLLOW-UPDIETARY MANAGEMENT EDUCATION, GUIDANCE, AND COUNSELING RECREATIONAL DRUG USE DRUG USE?NO EXERCISE: NO REGULAR EXERCISE. LEARNING BARRIERS / SPECIAL NEEDS CHANGE FROM LAST VISIT?NO BARRIERS TO LEARNING?NO HEARING IMPAIRED?NO VISION IMPAIRED?YES COGNITIVELY IMPAIRED?NO :CORRECTIVE LENSES READINESS TO LEARN?YES LEARNING PREFERENCES?YES :DEMONSTRATION/VERBAL INSTRUCTION LEARNING CAPABILITIES PRESENT?YES EMOTIONAL BARRIERS?NO SPECIAL DEVICES?NO DIRECTOR OF ANNUAL GIVING NEEDED?NO PAIN CLINIC PFS, CLERGY, PUBLIC HEALTH REFERRALS PFS REFERRAL NEEDED?NO CLERGY REFERRAL NEEDED?NO PUBLIC HEALTH REFERRAL NEEDED?NO WAS THE PROVIDER NOTIFIED OF ANY PERTINENT INFO? N/A HAS THE PATIENT BEEN EDUCATED REGARDING HIS/HER PLAN OF CARE?YES HAS THE PATIENT BEEN EDUCATED REGARDING PAIN, THE RISK FOR PAIN, THE IMPORTANCE OF EFFECTIVE PAIN MANAGEMENT, AND THE PAIN ASSESSMENT PROCESS?YES LATEX QUESTIONNAIRE LATEX ALLERGY : HAVE YOU EVER DEVELOPED ANY TYPE OF REACTION AFTER HANDLING LATEX PRODUCTS SUCH RUBBER GLOVES, CONDOMS, DIAPHRAGMS, BALLOONS, SOCKS, OR UNDERWEAR?NO LATEX ALLERGY : HAVE YOU EVER DEVELOPED ANY TYPE OF REACTION DURING OR AFTER DENTAL APPOINTMENT, VAGINAL/RECTAL EXAMINATION, SURGICAL PROCEDURE, OR ANY OTHER EXPOSURE?NO LATEX RISK : HAVE YOU EVER HAD ANY DIFFICULTY BREATHING OR HIVES AFTER EATING OR HANDLING ANY FRUITS, OR VEGETABLES; SUCH KIWI, BANANAS, STONE FRUITS, OR CHESTNUTSYES - PLEASE INDICATE : KIWI, BANANAS, STONE FRUITS, CHESTNUTS LATEX RISK : DO YOU HAVE A PREVIOUS PERSONAL HISTORY OF MORE THAN NINE SURGERIES, SPINA BIFIDA, OR REPEATED CATHERIZATIONS? YES - PLEASE INDICATE : > 9 SURGERIES LATEX RISK : ARE YOU FREQUENTLY EXPOSED TO LATEX PRODUCTS IN YOUR OCCUPATION?NO DATE ASKED : 08/02/2018 CAFFEINE 1 CUP COFFE DAILY. ADVANCE DIRECTIVE ADVANCE DIRECTIVE DISCUSSED WITH PATIENT:YES 06/08/2019 PT STATES SHE DOES NOT HAVE ANY ADVANCED DIRECTIVES AND SHE DECLINES INFORMATION AT THIS TIME. ASSISTANCE WITH FORM OFFERED, BUT PT DECLINES. JS YARSANISM [id number] NONE MARITAL STATUS: . FEMALE 6 MONTH RISK ASSESSMENT FOR STD DESCRIBE YOUR SEXUAL PARTNERS:MALE MONOGAMOUS?YES HIV POSITIVE?YES EVER INJECT DRUGS?NO VAGINAL SEX?NO ANAL SEX?NO ORAL SEX?NO ARE YOU TAKING ANY STEPS TO PREVENT ?YES METHODS (CHECK ALL THAT APPLY):MALE CONDOMS WHAT STEPS HAVE YOU TAKEN TO PROTECT YOURSELF FROM STDS, INCLUDING HIV? (CHECK ALL THAT APPLY):MUTUAL MONOGAMY, MALE CONDOMS HAVE YOU OR ANY OF YOUR SEXUAL PARTNERS EVER HAD AN STD? IF YES PLEASE LIST:NO IS THERE ANYTHING ELSE WE SHOULD TALK ABOUT CONCERNING YOUR SEXUAL HISTORY OR PRACTICE?NO ALCOHOL SCREENING POINTS: 1, INTERPRETATION: NEGATIVE. OCCUPATION: DISABLED. SEXUAL HX HAD SEX IN THE LAST 12 MONTHS (VAGINAL, ORAL, OR ANAL)?: NO, HAVE YOU EVER HAD AN STD?: NO, LMP:: HYSTER. 02/10/18 1000 REVIEWED WITH PT. ADREVIEWED WITH PT 03/01/18 1013 BVREVIEWED WTIH PT 04/28/18 1100 BVREVIEWED WITH PT 05/17/18 1038 LASREVIEWED WITH PATIENT 04/21/19 1144 JSPRE ADMISSION COMPLETED 05/20/2019 KGREVIEWED WITH PATIENT 06/08/2019 1122 JS. HOSPITALIZATION/MAJOR DIAGNOSTIC PROCEDURE RELATED TO SURGERY CHILD ALLERGIC REACITON TO MEDS PNEUMONIA 06/2015 DVT & PE 03/21/19 REVIEW OF SYSTEMS REVIEWED BY: PROVIDER: UMESH GORDILLO . CONSTITUTIONAL: ANY CHANGE IN YOUR MEDICAL CONDITION? NO . CHILLS NO . FEVER NO . INFECTION: DO YOU HAVE NEW INFECTIONS? NO . DO YOU HAVE HISTORY OF MRSA? NO . MUSCULOSKELETAL: ANY NEW PATTERNS OF PAIN OR NUMBNESS? NO . GASTROENTEROLOGY: ANY NEW CHANGE IN BOWEL CONTROL? NO . GENITOURINARY: ANY NEW CHANGE IN BLADDER CONTROL? NO . IS THERE A CHANCE YOU COULD BE ? NO . HEMATOLOGY/LYMPH: DO YOU TAKE ANY BLOOD THINNERS? (FOR EXAMPLE- COUMADIN, PLAVIX, AGGRENOX, PLATEL, PRADAXA, OR XARELTO) YES, COUMADIN . WHEN WAS YOUR LAST DOSE? DATE: 06/07/2019TIME: 2230 . NEUROLOGY: HAVE YOU FALLEN IN THE PAST 12 MONTHS? NO . ANY NEW EXTREMITY NUMBNESS OR WEAKNESS? NO . CARDIOLOGY: DO YOU HAVE A PACEMAKER OR DEFIBRILLATOR? NO . RESPIRATORY: HAVE YOU BEEN SICK IN THE PAST WEEK? NO . FEVER NO . FLU LIKE SYMPTOMS? NO . COUGH NO . INTEGUMENTARY: DO YOU HAVE ANY RASHES OR OPEN SORES? NO . ALLERGIC/IMMUNO: ARE YOU ALLERGIC TO IV DYE? NO . ANY NEW ALLERGIES? NO . PSYCHIATRIC: DO YOU HAVE THOUGHTS OF HURTING YOURSELF OR SOMEONE ELSE? NO . ARE YOU ABUSED, NEGLECTED, OR IN AN UNSAFE ENVIRONMENT? NO . ENDOCRINOLOGY: ARE YOU DIABETIC? NO . OTHER: DO YOU NEED ANY PRESCRIPTIONS? NO . IF YES, PLEASE LIST: ____ . ANY NEW PROBLEMS WITH YOUR MEDICATIONS? NO . WHEN DID YOU LAST EAT? ____ . WHEN DID YOU LAST DRINK? ____ . WHAT DID YOU LAST DRINK? ____ . NAME OF PERSON DRIVING YOU HOME? ____ . DO YOU HAVE ANY OTHER QUESTIONS OR CONCERNS YES, ALLERGY SHOTS LAST WEEK . VITAL SIGNS WT 236.8 LBS, HT 61 IN, BMI 44.74 INDEX, BP 137/82 MM HG, HR 58 /MIN, RR 18 /MIN, TEMP 97.5 F, OXYGEN SAT % 95%, SAFE IN ENV? (Y/N) YES, REVIEWED BY: SHUBHAM. EXAMINATION GENERAL EXAMINATION: GENERALAWAKE,ALERT ,PLEAASANT . PSYCHAFFECT NORMAL . LUNGS:LUNG MCADAMS ARE CLEAR TO AUSCULTATION BILATERALLY. GOOD MOVEMENT OF AIR . HEART:S1, S2 IN A REGULAR RATE AND RHYTHM. NO SIGNIFICANT MURMURS, RUBS OR GALLOPS NOTED . ASSESSMENTS ARTHROPATHY - M12.9 (PRIMARY) MYALGIA, OTHER SITE - M79.18 NEUROPATHY - G62.9 TREATMENT ARTHROPATHY CONTINUE PERCOCET TABLET, 7.5-325 MG, 1 TABLET NEEDED, ORALLY, EVERY 6 HRS START CYMBALTA CAPSULE DELAYED RELEASE PARTICLES, 30 MG, 1 CAPSULE, ORALLY, ONCE A DAY, 30 DAY(S), 30, REFILLS 1 NOTES: INSTRUCTED TO USE TRAMADOL OR PERCOCET ONLY FOR SEVERE EPISODES OF PAIN AND NOT ON A DAILY BASIS. SHE IS AWARE OF THIS AND THIS HAS BEEN TAKING THESE MEDICATIONS. IF CYMBALTA IS HELPFUL, WE WILL BE DISCONTINUING PERCOCET AND POSSIBLY TRAMADOL., ISTOP REGISTRY REVIEWED AND DEMONSTRATES COMPLLIANCE. BRINGS IN MEDICATIONS WHICH IS APPROPRIATE FOR WHAT WAS DISPENSED. RECENT URINE TOXICOLOGY REVIEWED. NO UNAUTHORIZED MEDICATIONS. NO ILLICIT SUBSTANCES AND PRESCRIBED MEDICATIONS WERE PRESENT. PROCEDURE CODES FA211 ESTABILISHED PATIENT [facility] CHARGE DISPOSITION & COMMUNICATION FOLLOW UP 2 MONTHS (REASON: MED MGMNT) ELECTRONICALLY SIGNED BY RAND HINOJOSA ON 06/08/2019 AT 12:18 PM EST DISCLAIMER : THIS IS A VISIT SUMMARY EXTRACTED FROM THE [facility] CHART. IT IS NOT A COPY OF THE [facility] PROGRESS NOTE. MELISSA
== END ==
LOC: M PAIN 10:30
PROVIDERS: ATTEND Nurse Practitioner Family
DX: M12.9 Arthropathy, unspecified (principal); M79.18 Myalgia, other site; G62.9 Polyneuropathy, unspecified; Z86.19 Personal history of other infectious and parasitic diseases; J45.909 Unspecified asthma, uncomplicated; I10 Essential (primary) hypertension; E78.00 Pure hypercholesterolemia, unspecified; Z86.59 Personal history of other mental and behavioral disorders; Z98.84 Bariatric surgery status; G47.30 Sleep apnea, unspecified; E11.9 Type 2 diabetes mellitus without complications; Z86.718 Personal history of other venous thrombosis and embolism; Z87.891 Personal history of nicotine dependence; Z88.1 Allergy status to other antibiotic agents; Z88.8 Allergy status to other drugs, medicaments and biological substances; E66.01 Morbid (severe) obesity due to excess calories; Z68.41 Body mass index [BMI] 40.0-44.9, adult; Z79.01 Long term (current) use of anticoagulants; Z79.899 Other long term (current) drug therapy

== ENCOUNTER → 2019-09-05 | Outpatient (CLI) | payer MEDICARE, MEDICAID ==
[~2019-09-05] MED LIST changes: +CYCL-707 PO; -CYCL10TA PO; -MONT10TA2 PO; +MONT10TA4 PO; +VALA1TAB5 PO; -VALA1TAB64 PO
--- NOTE | 2019-09-08 02:55 | ECWPNPC ---
PATIENT NAME: DEVAN EDWARDS : 1965 GENDER: FEMALE VISIT DATE: 09/05/2019 DISCHARGE DATE: 09/05/19 06 VISIT LOCKED DATE TIME: PHYSICIAN: UMESH LONGO RESOURCE: UMESH LONGO REASON FOR APPOINTMENT 1. 2 MONTH HISTORY OF PRESENT ILLNESS HISTORY OF PRESENT ILLNESS: PATIENT HAS AGREED TO A TELEPHONE VISIT TODAY. THIS IS A ROUTINE FOLLOW-UP AND MEDICINE MANAGEMENT FOR CHRONIC LOW BACK PAIN AND GENERALIZED JOINT PAIN. CYMBALTA 30 MG STARTED AT LAST VISIT IS HELPFUL. NOTICING IMPROVEMENT IN JOINT PAIN OF HER HANDS. STATES SHE'S BEEN USING TRAMADOL AND PERCOCET MORE THAN USUAL SHE IS DOING HOME RENOVATION PROJECTS AND HAS HAD MORE EPISODES OF PAIN. TODAY I ADVISED HER NOT TO USE PERCOCET OR TRAMADOL ON A DAILY BASIS. WE DISCUSSED ISSUES OF TOLERANCE. RATING PAIN VAS 7/10. PAIN THE PATIENT DESCRIBES THE PAIN... FALL RISK SCREENING: SCREENING :NO FALLS REPORTED IN THE LAST YEAR CURRENT MEDICATIONS TAKING GENVOYA [phone] MG TABLET 1 TAB ORALLY DAILY TAKING PREZISTA 800 MG TABLET TAKE ONE TABLET BY MOUTH EVERY DAY WITH FOOD ORALLY ONCE A DAY TAKING DEXILANT 30 MG CAPSULE DELAYED RELEASE 1 CAPSULE ORALLY ONCE A DAY TAKING WARFARIN SODIUM 7.5 MG TABLET 1 TABLET ORALLY ONCE A DAY TAKING CYMBALTA 30 MG CAPSULE DELAYED RELEASE PARTICLES 1 CAPSULE ORALLY ONCE A DAY TAKING TRAMADOL HCL 50 MG TABLET 1 TABLET NEEDED ORALLY EVERY 8 HOURS NEEDED TAKING PERCOCET 7.5-325 MG TABLET 1 TABLET NEEDED ORALLY EVERY 6 HRS MDD4 TAKING OXYBUTYNIN CHLORIDE 5 MG TABLET 1 TABLET ORALLY BEFORE BEDTIME TAKING CETIRIZINE HCL 5 MG TABLET 1 TABLET ORALLY ONCE A DAY TAKING VITAMIN B-12 2500 MCG TABLET SUBLINGUAL 1 TABLET SUBLINGUAL ONCE A DAY TAKING MONTELUKAST SODIUM 10 MG TABLET 1 TABLET IN THE EVENING ORALLY ONCE A DAY TAKING CALCIUM 600 + D 600-400 MG-UNIT TABLET 1 TABLET ORALLY TWICE A DAY TAKING EPIPEN 0.3 MG/0.3ML DEVICE DIRECTED INJECTION ONCE DAILY NEEDED, NOTES: PRN TAKING VENTOLIN HFA 108 (90 BASE) MCG/ACT AEROSOL SOLUTION 2 PUFFS MARY ALICE INHALATION EVERY 4 HRS NEEDED TAKING TRAZODONE HCL 100 MG TABLET 2 TABLETS ORALLY BEFORE BEDTIME MDD 2 TAKING SPIRIVA RESPIMAT 2.5 MCG/ACT AEROSOL SOLUTION 2 PUFFS INHALATION ONCE A DAY TAKING FLUCONAZOLE 150 MG TABLET 1 TABLET ORALLY WEEKLY NOT-TAKING HYDROCODONE-ACETAMINOPHEN 7.5-325 MG TABLET 1 TABLET NEEDED ORALLY EVERY 6 HRS/MMD4 NOT-TAKING VALTREX 1 GM TABLET 2 TABLET ORALLY BID FOR 2 DAYS PRN NOT-TAKING ONE TOUCH DELICA 33 GAUGE 1 LANCET SUBCUTANEOUSLY DAILY NOT-TAKING ONE TOUCH ULTRA TEST STRIPS 1 STRIP DAILY NOT-TAKING DILTIAZEM HCL ER 120 MG CAPSULE EXTENDED RELEASE 24 HOUR 1 CAPSULE ORALLY ONCE A DAY NOT-TAKING BUDESONIDE-FORMOTEROL FUMARATE 160-4.5 MCG/ACT AEROSOL 2 PUFFS INHALATION TWICE A DAY NOT-TAKING PREZISTA 800 MG TABLET TAKE ONE TABLET BY MOUTH EVERY DAY WITH FOOD ORALLY ONCE A DAY NOT-TAKING GENVOYA [phone] MG TABLET TAKE ONE TABLET BY MOUTH EVERY DAY DIRECTED ORALLY DAILY MEDICATION LIST REVIEWED AND RECONCILED WITH THE PATIENT PAST MEDICAL HISTORY AIDS/HIV 1995 INFECTED BY MALE HETEROSEXUAL ON COMBIVIR/ VIRAMUNE FOR 12 YEARS 10/[id number]=31 VL 26K STARTED TRUVADA/ REYATAZ/ NORVIR 07/18/2008 [id number] K103 MUTATION CD4 87 FROM 4850-4954 VL NOT DETECTED, 07/24/2011 VL 51, 370 GENOSURE K103/ Y181 RESISTANT TO VIRAMUNE/ EFAVIRENZ/ RILPIVIRINE SWITCHED TO PREZISTA / GENVOYA ASTHMA HYPERTENSION/ ECHOCARDIOGRAM SHOWED LVH TENDONITIS SANGITA WRIST ENVIRONMENTAL ALLERGIES HX OF GESTATIONAL DIABETES PURE HYPERCHOLESTEREMIA 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 TORRES 08/17 IRRITABLE BOWEL SYNDROME GENOTYPE 08/2011 K103 MUTATION TROFILE DUAL MIXED TROPISM POSTMENOPAUSE OSTEOPENIA BMD 2012 DR KHOURY SYMPTOMATIC STATES ASSOCIATED WITH ARTIFICIAL MENOPAUSE EXTERNAL HEMORRHOIDS GASTRIC BYPASS STATUS FOR OBESITY SEASONAL AND PERENNIAL ALLERGIC RHINITIS OSTEOPENIA SLEEP APNEA NOT USING CPAP COULD NOT TOLERATE DIABETES HISTORY OF TOBACCO ABUSE QUIT SMOKING 03/2018 DVT LEFT LEG POSTOPERATIVE BUNION SURGERY 03/2019 AND BILATERAL PULMONARY EMBOLISM ON COUMADIN CHRONIC BACK PAIN ALLERGIES BIAXIN: RASH - ALLERGY NORVASC: EDEMA - ALLERGY LISINOPRIL: FACIAL SWELLING - ALLERGY ESTRADIOL: REREDDNESS AT SITE OF PATCH - SIDE EFFECTS SURGICAL HISTORY PARTIAL HYSTERECTOMY 2004 TUBAL LIGATION 1989 GASTRIC BYPASS 1994 BENIGN POLYP REMOVAL FROM THROAT 2009 TENDONITIS SURGERY X2 (WRIST) RT 07/2008, LT 12/2008 BUNIONECTOMY 2ND TOE ON RIGHT FOOT STRAIGHTENED LAP CHOLECYSTECTOMY ([place]) 02/13/2012 LAP RELEASE OF BOWEL OBSTRUCTION (BOWEL SEWN INTO LUZ [facility]IA INCISION) ([facility]) 02/15/2012 ABDOMINAL SURGERY 06/23 BREAST REDUCTION COMPLICATED BY MSSA ABSCESS ON THE RIGHT SIDE REQUIRING INCISION AND DRAINAGE 01/2014 COLONOSCOPY 4 MM TUBULAR ADENOMA REPEAT IN [address] GAN 10/2015 BIOPSY THROAT 08-05-16 COLPOSCOPY 09/19/16 POLYPS REMOVED BY LASER FROM VOCAL CORDS 12/2016 LEFT FOOT BUNIONECTOMY 05/28/18 LEFT FOOT BUNIONECTOMY 02/15/19 FAMILY HISTORY FATHER: ALIVE 72 YRS, TRIPLE BYPASS, HTN, OBESITY, DIAGNOSED WITH DIABETES MOTHER: ALIVE 69 YRS, DIABETES, HTN, OBESITY SIBLINGS: ALIVE 49 YRS, SISTER SON(S): ALIVE 28 YRS, NO KNOWN MEDICAL PROBLEMS DAUGHTER(S): 19 YRS, MVA (2006) SOCIAL HISTORY GENERAL: TOBACCO USE ARE YOU A:FORMER SMOKER HOW LONG HAS IT BEEN SINCE YOU LAST SMOKED?1-5 YEARS SMOKING CESSATION INFORMATION GIVEN02/10/201802/10 DECLINED LATEX QUESTIONNAIRE LATEX ALLERGY : HAVE YOU EVER DEVELOPED ANY TYPE OF REACTION AFTER HANDLING LATEX PRODUCTS SUCH RUBBER GLOVES, CONDOMS, DIAPHRAGMS, BALLOONS, SOCKS, OR UNDERWEAR?NO LATEX ALLERGY : HAVE YOU EVER DEVELOPED ANY TYPE OF REACTION DURING OR AFTER DENTAL APPOINTMENT, VAGINAL/RECTAL EXAMINATION, SURGICAL PROCEDURE, OR ANY OTHER EXPOSURE?NO LATEX RISK : HAVE YOU EVER HAD ANY DIFFICULTY BREATHING OR HIVES AFTER EATING OR HANDLING ANY FRUITS, OR VEGETABLES; SUCH KIWI, BANANAS, STONE FRUITS, OR CHESTNUTSYES - PLEASE INDICATE : KIWI, BANANAS, STONE FRUITS, CHESTNUTS LATEX RISK : DO YOU HAVE A PREVIOUS PERSONAL HISTORY OF MORE THAN NINE SURGERIES, SPINA BIFIDA, OR REPEATED CATHERIZATIONS? YES - PLEASE INDICATE : > 9 SURGERIES LATEX RISK : ARE YOU FREQUENTLY EXPOSED TO LATEX PRODUCTS IN YOUR OCCUPATION?NO DATE ASKED : 09/05/2019 BMI CARE GOAL FOLLOW-UP ABOVE NORMAL BMI FOLLOW-UPDIETARY MANAGEMENT EDUCATION, GUIDANCE, AND COUNSELING ALCOHOL SCREENING POINTS: 1, INTERPRETATION: NEGATIVE. RECREATIONAL DRUG USE DRUG USE?NO CAFFEINE 1 CUP COFFE DAILY. SEXUAL HX HAD SEX IN THE LAST 12 MONTHS (VAGINAL, ORAL, OR ANAL)?: NO, HAVE YOU EVER HAD AN STD?: NO, LMP:: HYSTER. HIV / HEP-C SCREENING HIV TEST OFFERED TO PATIENT:YES DATE OFFERED:03/10/2018 TEST ACCEPTED:NO PREV TESTED HEP-C TEST OFFERED TO PATIENT:YES DATE OFFERED:03/10/2018 REASON:OTHER (DOCUMENT IN NOTE) TEST ACCEPTED:NO PREV TESTED REASON:OTHER (DOCUMENT IN NOTE) BROCHURE PROVIDED TO PATIENTNO SHINTO [id number] NONE LANGUAGE LANGUAGES SPOKEN:LIBY[place] EDUCATION LEVEL OF EDUCATION:HIGH SCHOOL GRADUATE LEARNING BARRIERS / SPECIAL NEEDS CHANGE FROM LAST VISIT?NO BARRIERS TO LEARNING?NO HEARING IMPAIRED?NO VISION IMPAIRED?YES COGNITIVELY IMPAIRED?NO :CORRECTIVE LENSES READINESS TO LEARN?YES LEARNING PREFERENCES?YES :DEMONSTRATION/VERBAL INSTRUCTION LEARNING CAPABILITIES PRESENT?YES EMOTIONAL BARRIERS?NO SPECIAL DEVICES?NO DEPARTMENT HEAD NEEDED?NO DOMESTIC VIOLENCE DO YOU FEEL SAFE IN YOUR ENVIRONMENT?YES OCCUPATION: DISABLED. DIET: NO HX EATING DISORDERS. EXERCISE: NO REGULAR EXERCISE. MARITAL STATUS: . OTHERS AT HOME: LIVES ALONE. FEMALE 6 MONTH RISK ASSESSMENT FOR STD DESCRIBE YOUR SEXUAL PARTNERS:MALE MONOGAMOUS?YES HIV POSITIVE?YES EVER INJECT DRUGS?NO VAGINAL SEX?NO ANAL SEX?NO ORAL SEX?NO ARE YOU TAKING ANY STEPS TO PREVENT ?YES METHODS (CHECK ALL THAT APPLY):MALE CONDOMS WHAT STEPS HAVE YOU TAKEN TO PROTECT YOURSELF FROM STDS, INCLUDING HIV? (CHECK ALL THAT APPLY):MUTUAL MONOGAMY, MALE CONDOMS HAVE YOU OR ANY OF YOUR SEXUAL PARTNERS EVER HAD AN STD? IF YES PLEASE LIST:NO IS THERE ANYTHING ELSE WE SHOULD TALK ABOUT CONCERNING YOUR SEXUAL HISTORY OR PRACTICE?NO NEW PATIENT PAIN DIARY TODAY'S VISITNOTES 09/05/2019 PATIENT DESCRIBES PAIN :ACHING, HAVE IT ALL THE TIME, THROBBING FROM 0-10, WHAT LEVEL IS YOUR PAIN TODAY?7 PAIN CLINIC PFS, CLERGY, PUBLIC HEALTH REFERRALS PFS REFERRAL NEEDED?NO CLERGY REFERRAL NEEDED?NO PUBLIC HEALTH REFERRAL NEEDED?NO WAS THE PROVIDER NOTIFIED OF ANY PERTINENT INFO? N/A HAS THE PATIENT BEEN EDUCATED REGARDING HIS/HER PLAN OF CARE?YES HAS THE PATIENT BEEN EDUCATED REGARDING PAIN, THE RISK FOR PAIN, THE IMPORTANCE OF EFFECTIVE PAIN MANAGEMENT, AND THE PAIN ASSESSMENT PROCESS?YES ADVANCE DIRECTIVE ADVANCE DIRECTIVE DISCUSSED WITH PATIENT:YES HCP - RONALDO TERRI (SON) & BOOKER EDWARDS (MOTHER) - WILL BRING IN COPY NEXT VISIT. HOSPITALIZATION/MAJOR DIAGNOSTIC PROCEDURE RELATED TO SURGERY CHILD ALLERGIC REACITON TO MEDS PNEUMONIA 06/2015 DVT & PE 03/21/19 REVIEW OF SYSTEMS REVIEWED BY: PROVIDER: UMESH GORDILLO . CONSTITUTIONAL: ANY CHANGE IN YOUR MEDICAL CONDITION? NO . CHILLS NO . FEVER NO . INFECTION: DO YOU HAVE NEW INFECTIONS? NO . DO YOU HAVE HISTORY OF MRSA? NO . MUSCULOSKELETAL: ANY NEW PATTERNS OF PAIN OR NUMBNESS? NO . GASTROENTEROLOGY: ANY NEW CHANGE IN BOWEL CONTROL? NO . GENITOURINARY: ANY NEW CHANGE IN BLADDER CONTROL? NO . IS THERE A CHANCE YOU COULD BE ? NO . HEMATOLOGY/LYMPH: DO YOU TAKE ANY BLOOD THINNERS? (FOR EXAMPLE- COUMADIN, PLAVIX, AGGRENOX, PLATEL, PRADAXA, OR XARELTO) YES, WARFARIN . WHEN WAS YOUR LAST DOSE? DATE: 09/04/2019TIME: 1830 . NEUROLOGY: HAVE YOU FALLEN IN THE PAST 12 MONTHS? YES, STATES FALL A COUPLE OF WEEKS AGO, SLIPPED ON WET FLOOR. STATES NO MAJOR INJURIES, NO ED VISIT . ANY NEW EXTREMITY NUMBNESS OR WEAKNESS? NO . CARDIOLOGY: DO YOU HAVE A PACEMAKER OR DEFIBRILLATOR? NO . RESPIRATORY: HAVE YOU BEEN SICK IN THE PAST WEEK? NO . FEVER NO . FLU LIKE SYMPTOMS? NO . COUGH NO . INTEGUMENTARY: DO YOU HAVE ANY RASHES OR OPEN SORES? NO . ALLERGIC/IMMUNO: ARE YOU ALLERGIC TO IV DYE? NO . ANY NEW ALLERGIES? NO . PSYCHIATRIC: DO YOU HAVE THOUGHTS OF HURTING YOURSELF OR SOMEONE ELSE? NO . ARE YOU ABUSED, NEGLECTED, OR IN AN UNSAFE ENVIRONMENT? NO . ENDOCRINOLOGY: ARE YOU DIABETIC? NO . OTHER: DO YOU NEED ANY PRESCRIPTIONS? YES . IF YES, PLEASE LIST: CYMBALTA - WOULD LIKE 90 DAY SUPPLY . ANY NEW PROBLEMS WITH YOUR MEDICATIONS? NO . WHEN DID YOU LAST EAT? ____ . WHEN DID YOU LAST DRINK? ____ . WHAT DID YOU LAST DRINK? ____ . NAME OF PERSON DRIVING YOU HOME? ____ . DO YOU HAVE ANY OTHER QUESTIONS OR CONCERNS NO . ASSESSMENTS ARTHROPATHY - M12.9 (PRIMARY) TREATMENT ARTHROPATHY REFILL CYMBALTA CAPSULE DELAYED RELEASE PARTICLES, 30 MG, 1 CAPSULE, ORALLY, ONCE A DAY, 90 DAY(S), 90 CAPSULE, REFILLS 1 CONTINUE TRAMADOL HCL TABLET, 50 MG, 1 TABLET NEEDED, ORALLY, EVERY 8 HOURS NEEDED CONTINUE PERCOCET TABLET, 7.5-325 MG, 1 TABLET NEEDED, ORALLY, EVERY 6 HRS MDD4 NOTES: ISTOP REGISTRY REVIEWED AND DEMONSTRATES COMPLLIANCE. RECENT URINE TOXICOLOGY REVIEWED. NO UNAUTHORIZED MEDICATIONS. NO ILLICIT SUBSTANCES AND PRESCRIBED MEDICATIONS WERE PRESENT. TOTAL TIME SPENT DURING TELEPHONE VISIT WAS APPROXIMATELY 12 MINUTES. OTHERS NOTES: NO VITALS OBTAINED DUE TO PHONE VISIT. DISPOSITION & COMMUNICATION FOLLOW UP 3 MONTHS (REASON: MED MGMNT/LBP/ARTHROPATHY) ELECTRONICALLY SIGNED BY RAND HINOJOSA ON 09/07/2019 AT 02:47 PM EDT DISCLAIMER : THIS IS A VISIT SUMMARY EXTRACTED FROM THE [employer] CHART. IT IS NOT A COPY OF THE [employer] PROGRESS NOTE. MELISSA
== END ==
LOC: M PAIN 11:30
PROVIDERS: ATTEND Nurse Practitioner Family
DX: M12.9 Arthropathy, unspecified (principal); E11.9 Type 2 diabetes mellitus without complications; Z79.01 Long term (current) use of anticoagulants; Z79.891 Long term (current) use of opiate analgesic; Z79.899 Other long term (current) drug therapy; Z98.84 Bariatric surgery status; Z87.891 Personal history of nicotine dependence; Z88.8 Allergy status to other drugs, medicaments and biological substances

== ENCOUNTER → 2019-10-18 | Outpatient (CLI) | payer MEDICARE, MEDICAID ==
[2019-10-18 15:39] LABS: ALBUMIN 3.5 GM/DL (3.2-5.2); ALT/SGPT 29 U/L (12-78); BILIRUBIN,TOTAL 0.2 MG/DL (0.2-1.0); BLOOD UREA NITROGEN 11 MG/DL (7-18); CALCIUM LEVEL 8.7 MG/DL (8.5-10.1); CARBON DIOXIDE LEVEL 28 MEQ/L (21-32); CHLORIDE LEVEL 106 MEQ/L (98-107); CREATININE FOR GFR 0.66 MG/DL (0.55-1.30); GLOMERULAR FILTRATION RATE > 60.0 (>51); GLUCOSE, FASTING 71 MG/DL (70-100); POTASSIUM SERUM 4.1 MEQ/L (3.5-5.1); SODIUM LEVEL 140 MEQ/L (136-145); TOTAL PROTEIN 6.6 GM/DL (6.4-8.2)
[2019-10-21 11:08] LABS: % CD8 Pos Lymph 43.8 % (12.0-35.5); %CD4 Pos Lymphs 40.7 % (30.8-58.5); ABS Lymphs 1.4 x10E3/uL (0.7-3.1); ABS Monocytes 0.5 x10E3/uL (0.1-0.9); ABS Neutophils 5.8 x10E3/uL (1.4-7.0); Abs CD4 Helper 570 /uL (359-1519); Abs CD8 Suppres 613 /uL (109-897); CD4/CD8 Ratio 0.93 (0.92-3.72); Eosinophils 1 % (Not Estab.); HCT 42.7 % (34.0-46.6); HGB 12.7 g/dL (11.1-15.9); HIV-1 RNA PCR QUANT 2 LC550285 <20 copies/mL (.); Immature Grans 0 % (Not Estab.); Lymphocytes 17 % (Not Estab.); MCH 26.7 pg (26.6-33.0); MCHC 29.7 g/dL (31.5-35.7); MCV 90 fL (79-97); Monocytes 7 % (Not Estab.); Neutrophils 74 % (Not Estab.); Platelets 271 x10E3/uL (150-450); RBC 4.76 x10E6/uL (3.77-5.28); RDW 14.4 % (11.7-15.4); WBC 7.8 x10E3/uL (3.4-10.8)
== END ==
LOC: M PLALAB 13:40
PROVIDERS: ATTEND Internal Medicine Infectious Disease
DX: B20 Human immunodeficiency virus [HIV] disease (principal)
CPT/HCPCS: 36415; 80053; 86360; 87536; G0463

== ENCOUNTER → 2019-11-23 | Outpatient (CLI) | payer MEDICARE, MEDICAID ==
[~2019-11-23] MED LIST changes: +PANT40TA29 PO; -PANT40TA3 PO
--- NOTE | 2019-11-24 23:35 | ECWPNPC ---
PATIENT NAME: DEVAN EDWARDS : 1965 GENDER: FEMALE VISIT DATE: 11/23/2019 DISCHARGE DATE: 11/23/19 1410 VISIT LOCKED DATE TIME: PHYSICIAN: UMESH LONGO RESOURCE: UMESH LONGO REASON FOR APPOINTMENT 1. INCREASED PAIN HISTORY OF PRESENT ILLNESS GENERAL: BEING SEEN ON AN URGENT BASIS TODAY FOR SEVERE INCREASE IN LOW BACK PAIN OVER THE PAST MONTH. DENIES PRECIPITATING EVENT. RATING PAIN LEVEL AN 8/10 VAS. HAS RESPONDED WELL TO TRIGGER POINT INJECTIONS IN THE PAST. CAN'T BE OFF OF BLOOD THINNER TO CONSIDER OTHER INTERVENTIONAL TREATMENT. FINDS CURRENT MEDICINE SOMEWHAT EFFECTIVE AT REDUCING PAIN AND KEEPING HER FUNCTIONAL. DENIES ONSET OF BOWEL OR BLADDER CHANGES. DENIES ILLNESS, OR SUDDEN WEIGHT LOSS. DISCUSSED TREATMENT PLAN. -. FALL RISK SCREENING: SCREENING :NO FALLS REPORTED IN THE LAST YEAR PAIN SCREENING: PATIENT HAS A COMPLAINT OF ACUTE OR CHRONIC PAIN :YES LOCATION OF PAIN:LOW BACK RIGHT SIDE GREATER THAN LEFT INTENSITY OF PAIN (SCALE OF 1 TO 10):8 AVERAGE 7-9 WHAT DOES YOUR PAIN FEEL LIKE:ACHING, CONTINOUS, SHARP, STABBING, THROBBING, SORE, SHOOTING DURATION:CONTINOUS, CONSTANT, STEADY, ALL DAY, AWAKENS FROM SLEEP PAIN IS INCREASED BY: EVERYTHING PAIN IS DECREASED BY: NOTHING NURSING NOTE: -. PAIN CENTER INTAKE QUESTIONS: DO YOU HAVE A HISTORY OF MRSA? :YES WITH BREAST REDUCTION DO YOU TAKE A BLOOD THINNERS? :YES COOUMADIN DO YOU HAVE ANY BLEEDING DISORDERS? :NO ANY NEW NUMBNESS OR WEAKNESS IN YOUR LEGS OR ARMS? :NO ANY PACEMAKER,DEFIBRILLATOR, OR DORSAL COLUMN STIMULATOR? :NO DO YOU HAVE ANY RASHES OR OPEN SORES? :NO ARE YOU ALLERGIC TO IV DYE? :NO ARE YOU DIABETIC? :YES BORDERLINE ANY NEW PROBLEMS WITH YOUR MEDICATIONS? :NO HAVE YOU RECEIVED A VACCINE IN THE PAST 30 DAYS? :YES ALLERGY SHOTS DO YOU PLAN TO RECEIVE A VACCINE IN THE NEXT 21 DAYS? :YES IF SO WHAT VACCINE AND WHEN? ALLERGY SHOT DUE NEXT WEEK DO YOU NEED ANY PRESCRIPTION? :NO DO YOU TAKE ANY IMMUNOSUPPRESSIVE MEDICATIONS? :NO IS THERE A CHANCE YOU COULD BE ? :NO ARE YOU BREAST FEEDING? :NO CURRENT MEDICATIONS TAKING DEXILANT 60 MG CAPSULE DELAYED RELEASE 1 CAPSULE ORALLY ONCE A DAY TAKING OXYBUTYNIN CHLORIDE 5 MG TABLET 1 TABLET ORALLY BEFORE BEDTIME TAKING CETIRIZINE HCL 5 MG TABLET 1 TABLET ORALLY ONCE A DAY TAKING VITAMIN B-12 2500 MCG TABLET SUBLINGUAL 1 TABLET SUBLINGUAL ONCE A DAY TAKING MONTELUKAST SODIUM 10 MG TABLET 1 TABLET IN THE EVENING ORALLY ONCE A DAY TAKING CALCIUM 600 + D 600-400 MG-UNIT TABLET 1 TABLET ORALLY DAILY TAKING EPIPEN 0.3 MG/0.3ML DEVICE DIRECTED INJECTION ONCE DAILY NEEDED, NOTES: PRN TAKING VENTOLIN HFA 108 (90 BASE) MCG/ACT AEROSOL SOLUTION 2 PUFFS MARY ALICE INHALATION EVERY 4 HRS NEEDED TAKING SPIRIVA RESPIMAT 2.5 MCG/ACT AEROSOL SOLUTION 2 PUFFS INHALATION ONCE A DAY TAKING FLUCONAZOLE 150 MG TABLET 1 TABLET ORALLY WEEKLY TAKING CHANTIX CONTINUING MONTH EMEKA 1 MG TABLET 1 TABLET ORALLY TWICE A DAY TAKING VALACYCLOVIR HCL 1 GM TABLET 2 TABLET ORALLY BID PRN OUTBREAK FOR 2 DAYS TAKING WARFARIN SODIUM _ TABLET 7 MGS 1 TABLET ORALLY ONCE A DAY TAKING GENVOYA 145-454-185-10 MG TABLET 1 TAB ORALLY DAILY TAKING PREZISTA 800 MG TABLET TAKE ONE TABLET BY MOUTH EVERY DAY WITH FOOD ORALLY ONCE A DAY TAKING ONETOUCH VERIO - STRIP DIRECTED IN VITRO 1-2 TIMESDAILY TAKING TRAMADOL HCL 50 MG TABLET 1 TABLET NEEDED ORALLY EVERY 8 HOURS NEEDED TAKING PERCOCET 7.5-325 MG TABLET 1 TABLET NEEDED ORALLY EVERY 6 HRS MDD4 TAKING MAY USE ALLERGY INJECTIONS EVERY 2 WEEKS TAKING TRAZODONE HCL 100 MG TABLET 1-2 TABLET ORALLY BEFORE BEDTIME MDD 2 NOT-TAKING HYDROCODONE-ACETAMINOPHEN 7.5-325 MG TABLET 1 TABLET NEEDED ORALLY EVERY 6 HRS/MMD4 NOT-TAKING CYMBALTA 30 MG CAPSULE DELAYED RELEASE PARTICLES 1 CAPSULE ORALLY DAILY MEDICATION LIST REVIEWED AND RECONCILED WITH THE PATIENT PAST MEDICAL HISTORY AIDS/HIV 1995 INFECTED BY MALE HETEROSEXUAL ON COMBIVIR/ VIRAMUNE FOR 12 YEARS [id number] VL 26K STARTED TRUVADA/ REYATAZ/ NORVIR 07/18/2008 [id number] K103 MUTATION CD4 87 FROM [id number] VL NOT DETECTED, 07/24/2011 VL 51, 370 GENOSURE K103/ Y181 RESISTANT TO VIRAMUNE/ EFAVIRENZ/ RILPIVIRINE SWITCHED TO PREZISTA / GENVOYA ASTHMA HYPERTENSION/ ECHOCARDIOGRAM SHOWED LVH TENDONITIS SANGITA WRIST ENVIRONMENTAL ALLERGIES HX OF GESTATIONAL DIABETES PURE HYPERCHOLESTEREMIA 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 TORRES 08/17 IRRITABLE BOWEL SYNDROME GENOTYPE 08/2011 K103 MUTATION TROFILE DUAL MIXED TROPISM POSTMENOPAUSE OSTEOPENIA BMD 2012 DR KHOURY SYMPTOMATIC STATES ASSOCIATED WITH ARTIFICIAL MENOPAUSE EXTERNAL HEMORRHOIDS GASTRIC BYPASS STATUS FOR OBESITY SEASONAL AND PERENNIAL ALLERGIC RHINITIS OSTEOPENIA SLEEP APNEA NOT USING CPAP COULD NOT TOLERATE DIABETES HISTORY OF TOBACCO ABUSE QUIT SMOKING 03/2018 DVT LEFT LEG POSTOPERATIVE BUNION SURGERY 03/2019 AND BILATERAL PULMONARY EMBOLISM ON COUMADIN CHRONIC BACK PAIN ARTHRITIS AND PAIN LEFT KNEE ALLERGIES BIAXIN: RASH - ALLERGY NORVASC: EDEMA - ALLERGY LISINOPRIL: FACIAL SWELLING - ALLERGY ESTRADIOL: REREDDNESS AT SITE OF PATCH - SIDE EFFECTS SURGICAL HISTORY PARTIAL HYSTERECTOMY 2004 TUBAL LIGATION 1989 GASTRIC BYPASS 1994 BENIGN POLYP REMOVAL FROM THROAT 2008 TENDONITIS SURGERY X2 (WRIST) RT 07/2008, LT 12/2008 BUNIONECTOMY 2ND TOE ON RIGHT FOOT STRAIGHTENED LAP CHOLECYSTECTOMY (MOBILE) 02/13/2012 LAP RELEASE OF BOWEL OBSTRUCTION (BOWEL SEWN INTO LUZ MARIA INCISION) ([facility]) 02/15/2012 ABDOMINAL SURGERY 06/23 BREAST REDUCTION COMPLICATED BY MSSA ABSCESS ON THE RIGHT SIDE REQUIRING INCISION AND DRAINAGE 01/2014 COLONOSCOPY 4 MM TUBULAR ADENOMA REPEAT IN [address] GAN 10/2015 BIOPSY THROAT 08-05-16 COLPOSCOPY 09/19/16 POLYPS REMOVED BY LASER FROM VOCAL CORDS 12/2016 LEFT FOOT BUNIONECTOMY 05/28/18 LEFT FOOT BUNIONECTOMY 02/15/19 FAMILY HISTORY FATHER: ALIVE 72 YRS, TRIPLE BYPASS, HTN, OBESITY, DIAGNOSED WITH DIABETES MOTHER: ALIVE 69 YRS, DIABETES, HTN, OBESITY SIBLINGS: ALIVE 49 YRS, SISTER SON(S): ALIVE 28 YRS, NO KNOWN MEDICAL PROBLEMS DAUGHTER(S): 19 YRS, MVA (2006) SOCIAL HISTORY GENERAL: TOBACCO USE ARE YOU A:FORMER SMOKER HOW LONG HAS IT BEEN SINCE YOU LAST SMOKED?1-5 YEARS SMOKING CESSATION INFORMATION GIVEN02/10/201802/10 DECLINED LATEX QUESTIONNAIRE LATEX ALLERGY : HAVE YOU EVER DEVELOPED ANY TYPE OF REACTION AFTER HANDLING LATEX PRODUCTS SUCH RUBBER GLOVES, CONDOMS, DIAPHRAGMS, BALLOONS, SOCKS, OR UNDERWEAR?NO LATEX ALLERGY : HAVE YOU EVER DEVELOPED ANY TYPE OF REACTION DURING OR AFTER DENTAL APPOINTMENT, VAGINAL/RECTAL EXAMINATION, SURGICAL PROCEDURE, OR ANY OTHER EXPOSURE?NO LATEX RISK : HAVE YOU EVER HAD ANY DIFFICULTY BREATHING OR HIVES AFTER EATING OR HANDLING ANY FRUITS, OR VEGETABLES; SUCH KIWI, BANANAS, STONE FRUITS, OR CHESTNUTSYES - PLEASE INDICATE : KIWI, BANANAS, STONE FRUITS, CHESTNUTS LATEX RISK : DO YOU HAVE A PREVIOUS PERSONAL HISTORY OF MORE THAN NINE SURGERIES, SPINA BIFIDA, OR REPEATED CATHERIZATIONS? YES - PLEASE INDICATE : > 9 SURGERIES LATEX RISK : ARE YOU FREQUENTLY EXPOSED TO LATEX PRODUCTS IN YOUR OCCUPATION?NO DATE ASKED : 11/23/2019 BMI CARE GOAL FOLLOW-UP ABOVE NORMAL BMI FOLLOW-UPDIETARY MANAGEMENT EDUCATION, GUIDANCE, AND COUNSELING ALCOHOL SCREENING POINTS: 1, INTERPRETATION: NEGATIVE. RECREATIONAL DRUG USE DRUG USE?NO CAFFEINE 1 CUP COFFE DAILY. SEXUAL HX HAD SEX IN THE LAST 12 MONTHS (VAGINAL, ORAL, OR ANAL)?: NO, HAVE YOU EVER HAD AN STD?: NO, LMP:: HYSTER. HIV / HEP-C SCREENING HIV TEST OFFERED TO PATIENT:YES DATE OFFERED:03/10/2018 TEST ACCEPTED:NO PREV TESTED REASON:OTHER (DOCUMENT IN NOTE) BROCHURE PROVIDED TO PATIENTNO HEP-C TEST OFFERED TO PATIENT:YES DATE OFFERED:03/10/2018 TEST ACCEPTED:NO PREV TESTED REASON:OTHER (DOCUMENT IN NOTE) DRUZE [id number] NONE LANGUAGE LANGUAGES SPOKEN:POLISH EDUCATION LEVEL OF EDUCATION:HIGH SCHOOL GRADUATE LEARNING BARRIERS / SPECIAL NEEDS CHANGE FROM LAST VISIT?NO BARRIERS TO LEARNING?NO HEARING IMPAIRED?NO VISION IMPAIRED?YES :CORRECTIVE LENSES COGNITIVELY IMPAIRED?NO READINESS TO LEARN?YES LEARNING PREFERENCES?YES :DEMONSTRATION/VERBAL INSTRUCTION LEARNING CAPABILITIES PRESENT?YES EMOTIONAL BARRIERS?NO SPECIAL DEVICES?NO BEE FARMER NEEDED?NO DOMESTIC VIOLENCE DO YOU FEEL SAFE IN YOUR ENVIRONMENT?YES OCCUPATION: DISABLED. DIET: NO HX EATING DISORDERS. EXERCISE: NO REGULAR EXERCISE. MARITAL STATUS: . OTHERS AT HOME: LIVES ALONE. FEMALE 6 MONTH RISK ASSESSMENT FOR STD DESCRIBE YOUR SEXUAL PARTNERS:MALE MONOGAMOUS?YES HIV POSITIVE?YES EVER INJECT DRUGS?NO VAGINAL SEX?NO ANAL SEX?NO ORAL SEX?NO ARE YOU TAKING ANY STEPS TO PREVENT ?YES METHODS (CHECK ALL THAT APPLY):MALE CONDOMS WHAT STEPS HAVE YOU TAKEN TO PROTECT YOURSELF FROM STDS, INCLUDING HIV? (CHECK ALL THAT APPLY):MUTUAL MONOGAMY, MALE CONDOMS HAVE YOU OR ANY OF YOUR SEXUAL PARTNERS EVER HAD AN STD? IF YES PLEASE LIST:NO IS THERE ANYTHING ELSE WE SHOULD TALK ABOUT CONCERNING YOUR SEXUAL HISTORY OR PRACTICE?NO NEW PATIENT PAIN DIARY TODAY'S VISIT NOTES 09/05/2019, PATIENT DESCRIBES PAIN : ACHING, HAVE IT ALL THE TIME, THROBBING, FROM 0-10, WHAT LEVEL IS YOUR PAIN TODAY? 7. PAIN CLINIC PFS, CLERGY, PUBLIC HEALTH REFERRALS PFS REFERRAL NEEDED?NO CLERGY REFERRAL NEEDED?NO PUBLIC HEALTH REFERRAL NEEDED?NO WAS THE PROVIDER NOTIFIED OF ANY PERTINENT INFO? N/A HAS THE PATIENT BEEN EDUCATED REGARDING HIS/HER PLAN OF CARE?YES HAS THE PATIENT BEEN EDUCATED REGARDING PAIN, THE RISK FOR PAIN, THE IMPORTANCE OF EFFECTIVE PAIN MANAGEMENT, AND THE PAIN ASSESSMENT PROCESS?YES ADVANCE DIRECTIVE ADVANCE DIRECTIVE DISCUSSED WITH PATIENT:YES HCP - RONALDO MURRAY (SON) & BOOKER EDWARDS (MOTHER) - WILL BRING IN COPY NEXT VISIT. HOSPITALIZATION/MAJOR DIAGNOSTIC PROCEDURE RELATED TO SURGERY CHILD ALLERGIC REACITON TO MEDS PNEUMONIA 06/2015 DVT & PE 03/21/19 REVIEW OF SYSTEMS CONSTITUTIONAL: ANY RECENT FEVER NO . CHILLS NO . WEIGHT CHANGE OF UNKNOWN REASONS NO . GASTROENTEROLOGY: NEW UNEXPLAINABLE CHANGES IN BOWEL CONTROL NO . CONSTIPATION NO . GENITOURINARY: ANY NEW CHANGE IN BLADDER CONTROL? NO . NEUROLOGY: NEW ONSET DIZZINESS OR NEUROLOGICAL CHANGES NOT MENTIONED NO . NEW NUMBNESS OR PAIN PATTERNS NOT MENTIONED AND PERTINENT TO TODAY'S VISIT NO . CARDIOLOGY: NEW CHEST PRESSURE NO . NEW CHEST PAIN NO . RESPIRATORY: UNEXPLAINABLE COUGH NO . NEW SHORTNESS OF BREATH NO . VITAL SIGNS WT 230 LBS, HT 61 IN, BMI 43.45 INDEX, BP 138/69 MM HG, HR 68 /MIN, RR 16 /MIN, TEMP 97.8 F, OXYGEN SAT % 93%, REVIEWED BY: AD. EXAMINATION GENERAL EXAMINATION: GENERALAWAKE,ALERT ,PLEAASANT . PSYCHAFFECT NORMAL . LUNGS:LUNG MCADAMS ARE CLEAR TO AUSCULTATION BILATERALLY. GOOD MOVEMENT OF AIR . HEART:S1, S2 IN A REGULAR RATE AND RHYTHM. NO SIGNIFICANT MURMURS, RUBS OR GALLOPS NOTED . MUSCULOSKELETAL:MUSCLE STRENGTH TESTING 4/5 BILATERAL LOWER EXTREMITIES. LUMBAR:TRIGGER POINTS:, ELICITED WITH PALPATION OVER LUMBAR PARAVERTEBRAL MUSCLES AND RESTRICTION OF ROM IN THIS AREA. ASSESSMENTS MYALGIA, OTHER SITE - M79.18 (PRIMARY) CHRONIC PRESCRIPTION OPIATE USE - Z79.891 TREATMENT MYALGIA, OTHER SITE CONTINUE TRAMADOL HCL TABLET, 50 MG, 1 TABLET NEEDED, ORALLY, EVERY 8 HOURS NEEDED CONTINUE PERCOCET TABLET, 7.5-325 MG, 1 TABLET NEEDED, ORALLY, EVERY 6 HRS MDD4 NOTES: BILATERAL LUMBAR TRIGGER POINT INJECTION WITH STEROID. DISCUSSED POTENTIAL RISK FOR DECREASED IMMUNE STATUS WITH USE OF STEROID INJECTION FOR TRIGGER POINTS. SHE IS AWARE OF THE RISK AND WOULD LIKE TO PROCEED WITH USE OF STEROID MEDICATION. , ISTOP REGISTRY REVIEWED AND DEMONSTRATES COMPLLIANCE. BRINGS IN MEDICATIONS WHICH IS APPROPRIATE FOR WHAT WAS DISPENSED. RECENT URINE TOXICOLOGY REVIEWED. NO UNAUTHORIZED MEDICATIONS. NO ILLICIT SUBSTANCES AND PRESCRIBED MEDICATIONS WERE PRESENT. URINE TOX TODAY , RISKS OF NARCOTIC/OPIOD MEDICATIONS INCLUDES BUT IS NOT LIMITED TO RISK OF DEPENDANCE/DEVELOPMENT OF ADDICTION, MOOD DISTURBANCE AND DEPRESSION, OSTEOPOROSIS, HORMONAL AND LABIDAL CHANGES, RESPIRATORY DEPRESSION AND . PATIENT IS ADVISED NOT TO DRIVE OR DRINK ALCOHOL WHILE ON THESE MEDICATIONS. PROCEDURE CODES FA211 ESTABILISHED PATIENT [facility] CHARGE DISPOSITION & COMMUNICATION FOLLOW UP POST PROCEDURE (REASON: BILATERAL LUMBAR TRIGGER POINT INJECTION WITH STEROID) ELECTRONICALLY SIGNED BY RAND HINOJOSA ON 11/24/2019 AT 08:40 AM EDT DISCLAIMER : THIS IS A VISIT SUMMARY EXTRACTED FROM THE [employer] CHART. IT IS NOT A COPY OF THE [employer] PROGRESS NOTE. MELISSA
== END ==
LOC: M PAIN 13:15
PROVIDERS: ATTEND Nurse Practitioner Family
DX: M79.18 Myalgia, other site (principal); Z79.891 Long term (current) use of opiate analgesic

== ENCOUNTER → 2019-12-16 | Outpatient (POV) | payer MEDICARE, MEDICAID ==
[~2019-12-16] MED LIST changes: +BUPIVACAINE HCL 0.25% 10ML VIAL As Ordered ONE; +BUPIVACAINE HCL 0.25% 10ML VIAL ONE; +BUPIVACAINE HCL 0.25% 30ML VIAL As Ordered ONE; +BUPIVACAINE HCL 0.25% 30ML VIAL ONE; +TRIAMCINOLONE ACETONIDE SUSP 40 MG/ML VIAL (J3301) As Ordered ONE; +TRIAMCINOLONE ACETONIDE SUSP 40 MG/ML VIAL (J3301) ONE; +diazePAM 5 MG TAB As Ordered ONE; +diazePAM 5 MG TAB ONE; +oxyCODONE 5MG TAB As Ordered ONE; +oxyCODONE 5MG TAB ONE
== END ==
LOC: M PAIN 09:15
PROVIDERS: ATTEND Anesthesiology
DX: M79.18 Myalgia, other site (principal)

== ENCOUNTER 2019-12-23 12:40 | Day surgery (SDC) | payer MEDICARE, MEDICAID ==
[~2019-12-23 12:40] MED LIST changes: -BUPIVACAINE HCL 0.25% 10ML VIAL As Ordered ONE; -BUPIVACAINE HCL 0.25% 10ML VIAL ONE; -BUPIVACAINE HCL 0.25% 30ML VIAL As Ordered ONE; -BUPIVACAINE HCL 0.25% 30ML VIAL ONE; -TRIAMCINOLONE ACETONIDE SUSP 40 MG/ML VIAL (J3301) As Ordered ONE; -TRIAMCINOLONE ACETONIDE SUSP 40 MG/ML VIAL (J3301) ONE; -diazePAM 5 MG TAB As Ordered ONE; -diazePAM 5 MG TAB ONE; -oxyCODONE 5MG TAB As Ordered ONE; -oxyCODONE 5MG TAB ONE; +propofoL 200 MG/20 ML VIAL ONE
[2019-12-23] MEDS ORDERED: fentaNYL 100 MCG/2 ML INJECTION (J3010) ONE (14:54)
[2019-12-23] MEDS ORDERED: propofoL 200 MG/20 ML VIAL ONE (15:08)
--- NOTE | 2020-01-18 11:34 | ROOR ---
Patient Name: Cinda Turner Procedure Date: 12/23/2019 2:41 PM Date of : 1965 Age: 54 Room: [facility] Gender: Female Note Status: Finalized Procedure: Colonoscopy Indications: Hematochezia Providers: Christiano COOPER MD Referring MD: Karen Marina MD Requesting Provider: Medicines: Monitored Anesthesia Care Complications: No immediate complications. Procedure: Pre-Anesthesia Assessment: - The heart rate, respiratory rate, oxygen saturations, blood pressure, adequacy of pulmonary ventilation, and response to care were monitored throughout the procedure. The Colonoscope was introduced through the anus and advanced to the terminal ileum, with identification of the appendiceal orifice and IC valve. The colonoscopy was performed without difficulty. The patient tolerated the procedure well. The quality of the bowel preparation was fair. Findings: The perianal and digital rectal examinations were normal. Four sessile polyps were found in the splenic flexure and cecum. The polyps were diminutive in size. These polyps were removed with a cold snare. Resection and retrieval were complete. To prevent bleeding after the polypectomy, two hemostatic clips were successfully placed. There was no bleeding at the end of the procedure. Mild sigmoid diverticulosis and small internal hemorrhoids. The exam was otherwise without abnormality on direct and retroflexion views. Impression: - Preparation of the colon was fair. - Four diminutive polyps at the splenic flexure and in the cecum, removed with a cold snare. Resected and retrieved. Clips were placed. - Mild sigmoid diverticulosis and small internal hemorrhoids. - The examination was otherwise normal on direct and retroflexion views. Recommendation: - Repeat colonoscopy in 3 years for surveillance. - Repeat colonoscopy in 3 years because the bowel preparation was suboptimal. Christiano Cooper MD Christiano COOPER MD 12/23/2019 3:19:52 PM Number of Addenda: 0 Note Initiated On: 12/23/2019 2:41 PM Estimated Blood Loss: Estimated blood loss: none.
--- NOTE | 2020-01-18 11:34 | ROOR ---
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 Procedure: Pre-Anesthesia Assessment: - The heart rate, respiratory rate, oxygen saturations, blood pressure, adequacy of pulmonary ventilation, and response to care were monitored throughout the procedure. The Endoscope was introduced through the mouth, and advanced to the jejunum. The upper GI endoscopy was accomplished without difficulty. The patient tolerated the procedure well. Findings: The examined esophagus was normal. Evidence of a Rehana-en-Y gastrojejunostomy was found. The gastrojejunal anastomosis was characterized by healthy appearing mucosa. The exam of the stomach was otherwise normal. The examined jejunum was normal. Impression: - Normal esophagus. - Rehana-en-Y gastrojejunostomy with gastrojejunal anastomosis characterized by healthy appearing mucosa. - Normal examined jejunum. - No specimens collected. Recommendation: - Observe patient's clinical course. - Follow an antireflux regimen. Christiano Cooper MD Christiano COOPER MD 12/23/2019 2:53:37 PM Number of Addenda: 0 Note Initiated On: 12/23/2019 2:39 PM Estimated Blood Loss: Estimated blood loss: none.
[2020-02-09 15:39] LABS: ALBUMIN 3.8 GM/DL (3.2-5.2); ALT/SGPT 34 U/L (12-78); BILIRUBIN,TOTAL 0.4 MG/DL (0.2-1.0); BLOOD UREA NITROGEN 13 MG/DL (7-18); CALCIUM LEVEL 8.8 MG/DL (8.5-10.1); CARBON DIOXIDE LEVEL 28 MEQ/L (21-32); CHLORIDE LEVEL 104 MEQ/L (98-107); CREATININE FOR GFR 0.69 MG/DL (0.55-1.30); GLOMERULAR FILTRATION RATE > 60.0 (>51); GLUCOSE, FASTING 97 MG/DL (70-100); HEP C VIRUS AB INDEX SOURCE PT 0.1 INDEX (0.0-0.8); HEPATITIS B SURFACE ANTIBODY NEGATIVE (POSITIVE); HEPATITIS B SURFACE ANTIGEN NEGATIVE (NEGATIVE); SODIUM LEVEL 138 MEQ/L (136-145); TOTAL PROTEIN 7.1 GM/DL (6.4-8.2)
[2020-02-09 15:40] LABS: HIV SCREEN CENTAUR SOURCE REACTIVE (NEGATIVE)
== END 2019-12-23 15:45 | disposition home or self-care (01) ==
LOC: M SDC 12:40
PROVIDERS: ATTEND Internal Medicine Gastroenterology
DX: D12.3 Benign neoplasm of transverse colon (principal); D12.0 Benign neoplasm of cecum; K92.1 Melena; R12 Heartburn; Z98.0 Intestinal bypass and anastomosis status; R19.4 Change in bowel habit; B20 Human immunodeficiency virus [HIV] disease; Z79.01 Long term (current) use of anticoagulants; Z79.891 Long term (current) use of opiate analgesic; Z79.899 Other long term (current) drug therapy; Z88.8 Allergy status to other drugs, medicaments and biological substances; Z91.018 Allergy to other foods; Z11.59 Encounter for screening for other viral diseases
CPT/HCPCS: 43235; 45385; 80053; 86702; 86706; 86803; 87340; 87389; 88305; J3010

== ENCOUNTER → 2020-02-03 | Outpatient (CLI) | payer MEDICARE, MEDICAID ==
[~2020-02-03] MED LIST changes: -propofoL 200 MG/20 ML VIAL ONE
[2020-02-03 14:21] LABS: BASO % 0.6 % (0.0-1.0); EOS % 0.4 % (0.0-3.0); HEMATOCRIT 43.5 % (36.0-47.0); HEMOGLOBIN 13.6 g/dl (12.0-15.5); LYMPH # 1.2 10^3/uL (1.5-5.0); LYMPH % 17.3 % (24.0-44.0); MEAN CORPUSCULAR HEMOGLOBIN 27.9 pg (27.0-33.0); MEAN CORPUSCULAR HGB CONC 31.3 g/dl (32.0-36.5); MEAN CORPUSCULAR VOLUME 89.3 fl (80.0-96.0); MONO # 0.4 10^3/uL (0.0-0.8); MONO % 4.9 % (0.0-5.0); NEUTROPHILS # 5.4 10^3/uL (1.5-8.5); NEUTROPHILS % 76.5 % (36.0-66.0); PLATELET COUNT, AUTOMATED 256 10^3/uL (150-450); RED BLOOD COUNT 4.87 10^6/uL (4.00-5.40); WHITE BLOOD COUNT 7.1 10^3/uL (4.0-10.0)
--- NOTE | 2020-02-03 14:37 | REPVR ---
PROCEDURE INFORMATION: Exam: XR Complete Acute Abdomen Series Exam date and time: 02/03/2020 2:28 PM Age: 54 years old Clinical indication: Abdominal pain; Additional info: Diarrhea, unspecified TECHNIQUE: Imaging protocol: XR complete acute abdomen series, including 2 or more views of the abdomen and a single view chest. COMPARISON: CT ANGIO CHEST 01/22/2015 3:22 PM FINDINGS: Tubes, catheters and devices: Surgical clips overlie the right upper quadrant. Lungs: There is minor bibasilar atelectasis. The lungs are otherwise clear. Pleural space: Normal. No pneumothorax. Heart/Mediastinum: Normal. No cardiomegaly. Gastrointestinal tract: There is mild gaseous distention of some scattered small bowel loops, without significant air-fluid levels. Air and stool are present within large bowel. Intraperitoneal space: No free air is evident. Vasculature: The aorta is mildly tortuous. Bones/joints: Normal. No acute fracture. Soft tissues: Phleboliths overlie the pelvis. IMPRESSION: 1. No evidence for acute pulmonary disease. 2. Mild gaseous distention of some scattered small bowel loops, could reflect some component of ileus or obstruction. Electronically signed by: Dionicio Spencer On 02/03/2020 14:37:08 PM
[2020-02-03 14:56] LABS: ALBUMIN 3.4 GM/DL (3.2-5.2); ALT/SGPT 29 U/L (12-78); AMYLASE 24 U/L (25-115); BILIRUBIN,TOTAL 0.2 MG/DL (0.2-1.0); BLOOD UREA NITROGEN 15 MG/DL (7-18); CALCIUM LEVEL 8.7 MG/DL (8.5-10.1); CARBON DIOXIDE LEVEL 26 MEQ/L (21-32); CHLORIDE LEVEL 105 MEQ/L (98-107); CREATININE FOR GFR 0.78 MG/DL (0.55-1.30); FREE T4 0.96 NG/DL (0.76-1.46); GLOMERULAR FILTRATION RATE > 60.0 (>51); GLUCOSE, FASTING 192 MG/DL (70-100); LIPASE 92 U/L (73-393); POTASSIUM SERUM 4.1 MEQ/L (3.5-5.1); SODIUM LEVEL 139 MEQ/L (136-145); THYROID STIMULATING HORMONE 0.711 uIU/ML (0.358-3.740); TOTAL PROTEIN 6.4 GM/DL (6.4-8.2)
== END ==
LOC: M LAB 13:55
PROVIDERS: ATTEND Physician Assistant Medical
DX: R19.7 Diarrhea, unspecified (principal)

== ENCOUNTER → 2020-02-29 | Outpatient (REF) | payer MEDICARE, MEDICAID | LOC: M LAB REF 12:26 | PROVIDERS: ATTEND Physician Assistant Medical | DX: R19.7 Diarrhea, unspecified (principal) ==

== ENCOUNTER → 2020-03-30 | Outpatient (CLI) | payer MEDICARE, MEDICAID ==
--- NOTE | 2020-04-04 06:08 | ECWPNPC ---
PATIENT NAME: DEVAN EDWARDS : 1965 GENDER: FEMALE VISIT DATE: 03/30/2020 DISCHARGE DATE: 03/30/20 1226 VISIT LOCKED DATE TIME: PHYSICIAN: UMESH LONGO RESOURCE: UMESH LONGO REASON FOR APPOINTMENT 1. MED MANAGEMENT HISTORY OF PRESENT ILLNESS DEPRESSION SCREENING: PHQ-2 (2015 EDITION) LITTLE INTEREST OR PLEASURE IN DOING THINGS?NOT AT ALL FEELING DOWN, DEPRESSED, OR HOPELESS?NOT AT ALL TOTAL SCORE0 GENERAL: HERE FOR FOLLOW-UP AND MEDICATION MANAGEMENT OF CHRONIC LOW BACK PAIN. PAIN HAS INCREASED OVER THE PAST FEW MONTHS. SHE WOULD LIKE TO HAVE A PROCEDURE DONE. SHE IS ON COUMADIN WITH A HISTORY OF PE AND DVT 1 YEAR AGO. STATES THAT SHE THINKS THEY WILL BE DISCONTINUING THIS VERY SOON. FINDS CURRENT CHRONIC PAIN MEDICATION HELPFUL AT REDUCING PAIN AND KEEPING HER COMFORTABLE. DENIES ADVERSE SIDE EFFECTS OF MEDICATION. -. FALL RISK SCREENING: SCREENING :NO FALLS REPORTED IN THE LAST YEAR PAIN SCREENING: PATIENT HAS A COMPLAINT OF ACUTE OR CHRONIC PAIN :YES LOCATION OF PAIN:BOTH SHOULDERS, UPPER BACK, MID BACK, LOW BACK INTENSITY OF PAIN (SCALE OF 1 TO 10):7 WHAT DOES YOUR PAIN FEEL LIKE:ACHING, CONTINOUS, TENDER, SORE DURATION:CONTINOUS, CONSTANT PAIN IS INCREASED BY:ACTIVITIES, PROLONGED STANDING PAIN IS DECREASED BY:USE OF PAIN MEDICATIONS, OTHERS HEAT NURSING NOTE: -. PAIN CENTER INTAKE QUESTIONS: DO YOU HAVE A HISTORY OF MRSA? :NO DO YOU TAKE A BLOOD THINNERS? :YES COUMADIN FOR HX OF PE/DVT DO YOU HAVE ANY BLEEDING DISORDERS? :NO ANY NEW NUMBNESS OR WEAKNESS IN YOUR LEGS OR ARMS? :NO ANY PACEMAKER,DEFIBRILLATOR, OR DORSAL COLUMN STIMULATOR? :NO DO YOU HAVE ANY RASHES OR OPEN SORES? :NO ARE YOU ALLERGIC TO IV DYE? :NO ARE YOU DIABETIC? :NO ANY NEW PROBLEMS WITH YOUR MEDICATIONS? :NO HAVE YOU RECEIVED A VACCINE IN THE PAST 30 DAYS? :NO DO YOU PLAN TO RECEIVE A VACCINE IN THE NEXT 21 DAYS? :YES ALLERGY SHOTS DO YOU NEED ANY PRESCRIPTION? :NO DO YOU TAKE ANY IMMUNOSUPPRESSIVE MEDICATIONS? :NO IS THERE A CHANCE YOU COULD BE ? :NO ARE YOU BREAST FEEDING? :NO CURRENT MEDICATIONS TAKING EPIPEN 0.3 MG/0.3ML DEVICE DIRECTED INJECTION ONCE DAILY NEEDED, NOTES: PRN TAKING MAY USE ALLERGY INJECTIONS EVERY 2 WEEKS TAKING CHANTIX CONTINUING MONTH EMEKA 1 MG TABLET 1 TABLET ORALLY TWICE A DAY, NOTES: WAITING ON PRIOR AUTH TAKING TRAZODONE HCL 100 MG TABLET 2 TABLET ORALLY BEFORE BEDTIME TAKING PREZISTA 800 MG TABLET TAKE ONE TABLET BY MOUTH EVERY DAY WITH FOOD ORALLY ONCE A DAY TAKING GENVOYA [id number] MG TABLET 1 TAB ORALLY DAILY TAKING WARFARIN SODIUM _ TABLET 9 MGS 1 TABLET ORALLY ONCE A DAY TAKING VALACYCLOVIR HCL 1 GM TABLET 2 TABLET ORALLY BID PRN OUTBREAK FOR 2 DAYS TAKING SPIRIVA RESPIMAT 2.5 MCG/ACT AEROSOL SOLUTION 2 PUFFS INHALATION ONCE A DAY TAKING VENTOLIN HFA 108 (90 BASE) MCG/ACT AEROSOL SOLUTION 2 PUFFS MARY ALICE INHALATION EVERY 4 HRS NEEDED TAKING CALCIUM 600 + D 600-400 MG-UNIT TABLET 1 TABLET ORALLY DAILY TAKING MONTELUKAST SODIUM 10 MG TABLET 1 TABLET IN THE EVENING ORALLY ONCE A DAY TAKING VITAMIN B-12 2500 MCG TABLET SUBLINGUAL 1 TABLET SUBLINGUAL ONCE A DAY TAKING CETIRIZINE HCL 5 MG TABLET 1 TABLET ORALLY ONCE A DAY TAKING TRAMADOL HCL 50 MG TABLET 1 TABLET NEEDED ORALLY EVERY 8 HOURS NEEDED TAKING 1ST CHOICE LANCETS THIN - MISCELLANEOUS DX E11.8 SUBCUTANEOUSLY 1-2 TIMES QD TAKING ONETOUCH VERIO - STRIP E11.8 --DX IN VITRO 1-2 TIMESDAILY TAKING OXYBUTYNIN CHLORIDE 5 MG TABLET 1 TABLET ORALLY BEFORE BEDTIME TAKING XYZAL 5 MG TABLET 1 TABLET IN THE EVENING ORALLY ONCE A DAY TAKING DEXILANT 60 MG CAPSULE DELAYED RELEASE 1 CAPSULE ORALLY ONCE A DAY TAKING PERCOCET 7.5-325 MG TABLET 1 TABLET NEEDED ORALLY EVERY 6 HRS MDD4 TAKING DILTIAZEM HCL ER 120 MG CAPSULE EXTENDED RELEASE 12 HOUR 1 CAPSULE ORALLY ONCE A DAY NOT-TAKING HYDROCODONE-ACETAMINOPHEN 7.5-325 MG TABLET 1 TABLET NEEDED ORALLY EVERY 6 HRS/MMD4 NOT-TAKING CYMBALTA 30 MG CAPSULE DELAYED RELEASE PARTICLES 1 CAPSULE ORALLY DAILY MEDICATION LIST REVIEWED AND RECONCILED WITH THE PATIENT PAST MEDICAL HISTORY AIDS/HIV 1995 INFECTED BY MALE HETEROSEXUAL ON COMBIVIR/ VIRAMUNE FOR 12 YEARS 10/[id number]=49 VL 26K STARTED TRUVADA/ REYATAZ/ NORVIR 07/18/2008 [id number] K103 MUTATION CD4 87 FROM [id number] VL NOT DETECTED, 07/24/2011 VL 51, 370 GENOSURE K103/ Y181 RESISTANT TO VIRAMUNE/ EFAVIRENZ/ RILPIVIRINE SWITCHED TO PREZISTA / GENVOYA ASTHMA HYPERTENSION/ ECHOCARDIOGRAM SHOWED LVH TENDONITIS SANGITA WRIST ENVIRONMENTAL ALLERGIES HX OF GESTATIONAL DIABETES PURE HYPERCHOLESTEREMIA 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 TORRES 08/17 IRRITABLE BOWEL SYNDROME GENOTYPE 08/2011 K103 MUTATION TROFILE DUAL MIXED TROPISM POSTMENOPAUSE OSTEOPENIA BMD 2012 DR KHOURY SYMPTOMATIC STATES ASSOCIATED WITH ARTIFICIAL MENOPAUSE EXTERNAL HEMORRHOIDS GASTRIC BYPASS STATUS FOR OBESITY SEASONAL AND PERENNIAL ALLERGIC RHINITIS OSTEOPENIA SLEEP APNEA NOT USING CPAP COULD NOT TOLERATE DIABETES HISTORY OF TOBACCO ABUSE QUIT SMOKING 03/2018 DVT LEFT LEG POSTOPERATIVE BUNION SURGERY 03/2019 AND BILATERAL PULMONARY EMBOLISM ON COUMADIN CHRONIC BACK PAIN ARTHRITIS AND PAIN LEFT KNEE ALLERGIES BIAXIN: RASH - ALLERGY NORVASC: EDEMA - ALLERGY LISINOPRIL: FACIAL SWELLING - ALLERGY ESTRADIOL: REREDDNESS AT SITE OF PATCH - SIDE EFFECTS SURGICAL HISTORY PARTIAL HYSTERECTOMY 2004 TUBAL LIGATION 1989 GASTRIC BYPASS 1994 BENIGN POLYP REMOVAL FROM THROAT 2009 TENDONITIS SURGERY X2 (WRIST) RT 07/2008, LT 12/2008 BUNIONECTOMY 2ND TOE ON RIGHT FOOT STRAIGHTENED LAP CHOLECYSTECTOMY ([facility]) 02/13/2012 LAP RELEASE OF BOWEL OBSTRUCTION (BOWEL SEWN INTO LUZ MARIA INCISION) ([facility]) 02/15/2012 ABDOMINAL SURGERY 06/23 BREAST REDUCTION COMPLICATED BY MSSA ABSCESS ON THE RIGHT SIDE REQUIRING INCISION AND DRAINAGE 01/2014 COLONOSCOPY 4 MM TUBULAR ADENOMA REPEAT IN [address] GAN 10/2015 BIOPSY THROAT 08-05-16 COLPOSCOPY 09/19/16 POLYPS REMOVED BY LASER FROM VOCAL CORDS 12/2016 LEFT FOOT BUNIONECTOMY 05/28/18 LEFT FOOT BUNIONECTOMY 02/15/19 FAMILY HISTORY FATHER: ALIVE 72 YRS, TRIPLE BYPASS, HTN, OBESITY, DIAGNOSED WITH DIABETES MOTHER: ALIVE 69 YRS, DIABETES, HTN, OBESITY SIBLINGS: ALIVE 49 YRS, SISTER SON(S): ALIVE 28 YRS, NO KNOWN MEDICAL PROBLEMS DAUGHTER(S): 19 YRS, MVA (2006) SOCIAL HISTORY GENERAL: TOBACCO USE ARE YOU A:CURRENT SMOKER HOW MANY CIGARETTES A DAY DO YOU SMOKE?11-20 AWAITING PRIOR AUTH FOR CHANTIX SMOKING CESSATION INFORMATION GIVEN02/10/201802/10 DECLINED LATEX QUESTIONNAIRE LATEX ALLERGY : HAVE YOU EVER DEVELOPED ANY TYPE OF REACTION AFTER HANDLING LATEX PRODUCTS SUCH RUBBER GLOVES, CONDOMS, DIAPHRAGMS, BALLOONS, SOCKS, OR UNDERWEAR?NO LATEX ALLERGY : HAVE YOU EVER DEVELOPED ANY TYPE OF REACTION DURING OR AFTER DENTAL APPOINTMENT, VAGINAL/RECTAL EXAMINATION, SURGICAL PROCEDURE, OR ANY OTHER EXPOSURE?NO LATEX RISK : HAVE YOU EVER HAD ANY DIFFICULTY BREATHING OR HIVES AFTER EATING OR HANDLING ANY FRUITS, OR VEGETABLES; SUCH KIWI, BANANAS, STONE FRUITS, OR CHESTNUTSYES - PLEASE INDICATE : KIWI, BANANAS, STONE FRUITS, CHESTNUTS LATEX RISK : DO YOU HAVE A PREVIOUS PERSONAL HISTORY OF MORE THAN NINE SURGERIES, SPINA BIFIDA, OR REPEATED CATHERIZATIONS? YES - PLEASE INDICATE : > 9 SURGERIES LATEX RISK : ARE YOU FREQUENTLY EXPOSED TO LATEX PRODUCTS IN YOUR OCCUPATION?NO DATE ASKED : 03/30/2020 BMI CARE GOAL FOLLOW-UP ABOVE NORMAL BMI FOLLOW-UPDIETARY MANAGEMENT EDUCATION, GUIDANCE, AND COUNSELING ALCOHOL SCREENING POINTS: 1, INTERPRETATION: NEGATIVE. RECREATIONAL DRUG USE DRUG USE?NO CAFFEINE 1 CUP COFFE DAILY. SEXUAL HX HAD SEX IN THE LAST 12 MONTHS (VAGINAL, ORAL, OR ANAL)?: NO, HAVE YOU EVER HAD AN STD?: NO, LMP:: HYSTER. HIV / HEP-C SCREENING HIV TEST OFFERED TO PATIENT:YES DATE OFFERED:03/10/2018 TEST ACCEPTED:NO PREV TESTED HEP-C TEST OFFERED TO PATIENT:YES DATE OFFERED:03/10/2018 REASON:OTHER (DOCUMENT IN NOTE) TEST ACCEPTED:NO PREV TESTED REASON:OTHER (DOCUMENT IN NOTE) BROCHURE PROVIDED TO PATIENTNO PENTECOSTALISM [id number] NONE LANGUAGE LANGUAGES SPOKEN:[place] EDUCATION LEVEL OF EDUCATION:HIGH SCHOOL GRADUATE LEARNING BARRIERS / SPECIAL NEEDS CHANGE FROM LAST VISIT?NO BARRIERS TO LEARNING?NO HEARING IMPAIRED?NO VISION IMPAIRED?YES :CORRECTIVE LENSES COGNITIVELY IMPAIRED?NO READINESS TO LEARN?YES LEARNING PREFERENCES?YES :DEMONSTRATION/VERBAL INSTRUCTION LEARNING CAPABILITIES PRESENT?YES EMOTIONAL BARRIERS?NO SPECIAL DEVICES?NO SENIOR GROUP MANAGER NEEDED?NO DOMESTIC VIOLENCE DO YOU FEEL SAFE IN YOUR ENVIRONMENT?YES OCCUPATION: DISABLED. DIET: NO HX EATING DISORDERS. EXERCISE: NO REGULAR EXERCISE. MARITAL STATUS: . OTHERS AT HOME: LIVES ALONE. FEMALE 6 MONTH RISK ASSESSMENT FOR STD DESCRIBE YOUR SEXUAL PARTNERS:MALE MONOGAMOUS?YES HIV POSITIVE?YES EVER INJECT DRUGS?NO VAGINAL SEX?NO ANAL SEX?NO ORAL SEX?NO ARE YOU TAKING ANY STEPS TO PREVENT ?YES METHODS (CHECK ALL THAT APPLY):MALE CONDOMS WHAT STEPS HAVE YOU TAKEN TO PROTECT YOURSELF FROM STDS, INCLUDING HIV? (CHECK ALL THAT APPLY):MUTUAL MONOGAMY, MALE CONDOMS HAVE YOU OR ANY OF YOUR SEXUAL PARTNERS EVER HAD AN STD? IF YES PLEASE LIST:NO IS THERE ANYTHING ELSE WE SHOULD TALK ABOUT CONCERNING YOUR SEXUAL HISTORY OR PRACTICE?NO TODAY'S VISIT NOTES 09/05/2019, PATIENT DESCRIBES PAIN : ACHING, HAVE IT ALL THE TIME, THROBBING, FROM 0-10, WHAT LEVEL IS YOUR PAIN TODAY? 7. PAIN CLINIC PFS, CLERGY, PUBLIC HEALTH REFERRALS PFS REFERRAL NEEDED?NO CLERGY REFERRAL NEEDED?NO PUBLIC HEALTH REFERRAL NEEDED?NO WAS THE PROVIDER NOTIFIED OF ANY PERTINENT INFO? N/A HAS THE PATIENT BEEN EDUCATED REGARDING HIS/HER PLAN OF CARE?YES HAS THE PATIENT BEEN EDUCATED REGARDING PAIN, THE RISK FOR PAIN, THE IMPORTANCE OF EFFECTIVE PAIN MANAGEMENT, AND THE PAIN ASSESSMENT PROCESS?YES ADVANCE DIRECTIVE ADVANCE DIRECTIVE DISCUSSED WITH PATIENT:YES HCP - RONALDO MURRAY (SON) & BOOKER EDWARDS (MOTHER) - WILL BRING IN COPY NEXT VISIT. HOSPITALIZATION/MAJOR DIAGNOSTIC PROCEDURE RELATED TO SURGERY CHILD ALLERGIC REACITON TO MEDS PNEUMONIA 06/2015 DVT & PE 03/21/19 REVIEW OF SYSTEMS CONSTITUTIONAL: ANY RECENT FEVER NO . CHILLS NO . WEIGHT CHANGE OF UNKNOWN REASONS NO . GASTROENTEROLOGY: NEW UNEXPLAINABLE CHANGES IN BOWEL CONTROL NO . CONSTIPATION NO . GENITOURINARY: ANY NEW CHANGE IN BLADDER CONTROL? NO . NEUROLOGY: NEW ONSET DIZZINESS OR NEUROLOGICAL CHANGES NOT MENTIONED NO . NEW NUMBNESS OR PAIN PATTERNS NOT MENTIONED AND PERTINENT TO TODAY'S VISIT NO . CARDIOLOGY: NEW CHEST PRESSURE NO . NEW CHEST PAIN NO . RESPIRATORY: UNEXPLAINABLE COUGH NO . NEW SHORTNESS OF BREATH NO . VITAL SIGNS WT 218.8 LBS, HT 61 IN, BMI 41.34 INDEX, BP 149/73 MM HG, HR 74 /MIN, RR 18 /MIN, TEMP 97.1 F, OXYGEN SAT % 93%, SAFE IN ENV? (Y/N) YES, NA INITIALS AW 1154, REVIEWED BY: KELVIN RN @ 1214. EXAMINATION GENERAL EXAMINATION: GENERALAWAKE,ALERT ,PLEAASANT . PSYCHAFFECT NORMAL . LUNGS:LUNG MCADAMS ARE CLEAR TO AUSCULTATION BILATERALLY. GOOD MOVEMENT OF AIR . HEART:S1, S2 IN A REGULAR RATE AND RHYTHM. NO SIGNIFICANT MURMURS, RUBS OR GALLOPS NOTED . ASSESSMENTS MYALGIA, OTHER SITE - M79.18 (PRIMARY) CHRONIC PRESCRIPTION OPIATE USE - Z79.891 TREATMENT MYALGIA, OTHER SITE REFILL PERCOCET TABLET, 7.5-325 MG, 1 TABLET NEEDED, ORALLY, EVERY 6 HRS MDD4, 30 DAYS, 120, REFILLS 0 REFILL TRAMADOL HCL TABLET, 50 MG, 1 TABLET NEEDED, ORALLY, EVERY 8 HOURS NEEDED, 30 DAYS, 90, REFILLS 2 NOTES: ISTOP REGISTRY REVIEWED AND DEMONSTRATES COMPLLIANCE. BRINGS IN MEDICATIONS WHICH IS APPROPRIATE FOR WHAT WAS DISPENSED. RECENT URINE TOXICOLOGY REVIEWED. NO UNAUTHORIZED MEDICATIONS. NO ILLICIT SUBSTANCES AND PRESCRIBED MEDICATIONS WERE PRESENT. , RISKS OF NARCOTIC/OPIOD MEDICATIONS INCLUDES BUT IS NOT LIMITED TO RISK OF DEPENDANCE/DEVELOPMENT OF ADDICTION, MOOD DISTURBANCE AND DEPRESSION, OSTEOPOROSIS, HORMONAL AND LABIDAL CHANGES, RESPIRATORY DEPRESSION AND . PATIENT IS ADVISED NOT TO DRIVE OR DRINK ALCOHOL WHILE ON THESE MEDICATIONS. DISPOSITION & COMMUNICATION FOLLOW UP 3 MONTHS (REASON: MED MGMNT/UTOX) ELECTRONICALLY SIGNED BY RAND HINOJOSA ON 04/03/2020 AT 11:06 AM EST DISCLAIMER : THIS IS A VISIT SUMMARY EXTRACTED FROM THE [employer] CHART. IT IS NOT A COPY OF THE [employer] PROGRESS NOTE. MELISSA
== END ==
LOC: M PAIN 11:30
PROVIDERS: ATTEND Nurse Practitioner Family
DX: M79.18 Myalgia, other site (principal); J45.909 Unspecified asthma, uncomplicated; I10 Essential (primary) hypertension; G47.30 Sleep apnea, unspecified; F17.210 Nicotine dependence, cigarettes, uncomplicated; Z86.59 Personal history of other mental and behavioral disorders; Z98.84 Bariatric surgery status; Z88.1 Allergy status to other antibiotic agents; Z88.8 Allergy status to other drugs, medicaments and biological substances; E66.01 Morbid (severe) obesity due to excess calories; Z68.41 Body mass index [BMI] 40.0-44.9, adult; Z79.01 Long term (current) use of anticoagulants; Z79.899 Other long term (current) drug therapy

== ENCOUNTER → 2020-04-24 | Outpatient (REF) | payer MEDICARE, MEDICAID ==
[~2020-04-24] MED LIST changes: -MONT10TA4 PO; +MONT5TAB2 PO
[2020-04-24 14:31] LABS: ALBUMIN 3.4 GM/DL (3.2-5.2); ALT/SGPT 22 U/L (12-78); BILIRUBIN,TOTAL 0.4 MG/DL (0.2-1.0); BLOOD UREA NITROGEN 16 MG/DL (7-18); CALCIUM LEVEL 8.7 MG/DL (8.5-10.1); CARBON DIOXIDE LEVEL 28 MEQ/L (21-32); CHLORIDE LEVEL 108 MEQ/L (98-107); CHOLESTEROL LEVEL 225 MG/DL (<200); CHOLESTEROL RISK RATIO 2.528 (<5); CREATININE FOR GFR 0.63 MG/DL (0.55-1.30); FOLATE 9.1 NG/ML; GLOMERULAR FILTRATION RATE > 60.0 (>51); GLUCOSE, FASTING 108 MG/DL (70-100); HDL CHOLESTEROL 89 MG/DL (>40); LDL CHOLESTEROL 122 MG/DL (<100); NON-HDL-C 136 MG/DL; POTASSIUM SERUM 4.1 MEQ/L (3.5-5.1); SODIUM LEVEL 141 MEQ/L (136-145); TOTAL 25(OH) VITAMIN D 29.7 NG/ML (30.0-100.0); TOTAL PROTEIN 6.2 GM/DL (6.4-8.2); TRIGLYCERIDES LEVEL 72 MG/DL (<150); VITAMIN B12 LEVEL > 2000 PG/ML
[2020-04-27 02:08] LABS: % CD8 Pos Lymph 44.1 % (12.0-35.5); %CD4 Pos Lymphs 43.3 % (30.8-58.5); ABS Lymphs 0.9 x10E3/uL (0.7-3.1); ABS Monocytes 0.4 x10E3/uL (0.1-0.9); ABS Neutophils 5.8 x10E3/uL (1.4-7.0); Abs CD4 Helper 390 /uL (359-1519); Abs CD8 Suppres 397 /uL (109-897); CD4/CD8 Ratio 0.98 (0.92-3.72); Eosinophils 0 % (Not Estab.); HCT 40.7 % (34.0-46.6); HGB 13.3 g/dL (11.1-15.9); HIV-1 RNA PCR QUANT 2 LC550285 <20 copies/mL (.); Immature Grans 0 % (Not Estab.); Lymphocytes 13 % (Not Estab.); MCH 28.7 pg (26.6-33.0); MCHC 32.7 g/dL (31.5-35.7); MCV 88 fL (79-97); Monocytes 5 % (Not Estab.); Neutrophils 81 % (Not Estab.); Platelets 259 x10E3/uL (150-450); RBC 4.63 x10E6/uL (3.77-5.28); RDW 14.6 % (11.7-15.4); WBC 7.1 x10E3/uL (3.4-10.8)
== END ==
LOC: M SFHCPLAZ 10:21
PROVIDERS: ATTEND Internal Medicine Infectious Disease
DX: B20 Human immunodeficiency virus [HIV] disease (principal); E53.8 Deficiency of other specified B group vitamins; E11.9 Type 2 diabetes mellitus without complications; E78.5 Hyperlipidemia, unspecified; Z79.899 Other long term (current) drug therapy

== ENCOUNTER → 2020-04-24 | Outpatient (CLI) | payer MEDICARE, MEDICAID ==
[2020-04-24 13:56] LABS: HEMATOCRIT 41.2 % (36.0-47.0); HEMOGLOBIN 12.7 g/dl (12.0-15.5); MEAN CORPUSCULAR HEMOGLOBIN 27.3 pg (27.0-33.0); MEAN CORPUSCULAR HGB CONC 30.8 g/dl (32.0-36.5); MEAN CORPUSCULAR VOLUME 88.6 fl (80.0-96.0); PLATELET COUNT, AUTOMATED 252 10^3/uL (150-450); RED BLOOD COUNT 4.65 10^6/uL (4.00-5.40); WHITE BLOOD COUNT 6.8 10^3/uL (4.0-10.0)
[2020-04-24 13:58] LABS: APPEARANCE, URINE CLEAR (CLEAR); BACTERIA, URINE AUTO NEGATIVE (NEGATIVE); BILIRUBIN, URINE AUTO NEGATIVE (NEGATIVE); BLOOD, URINE BLOOD NEGATIVE (NEGATIVE); COLOR, URINE YELLOW (YELLOW); GLUCOSE, URINE (UA) AUTO NEGATIVE (NEGATIVE); KETONE, URINE AUTO NEGATIVE (NEGATIVE); LEUKOCYTE ESTERASE, URINE AUTO NEGATIVE (NEGATIVE); MUCUS, URINE SMALL (NEGATIVE); NITRITE, URINE AUTO NEGATIVE (NEGATIVE); PROTEIN, URINE AUTO NEGATIVE (NEGATIVE); RBC, URINE AUTO 1 /HPF (0-3); SPECIFIC GRAVITY URINE AUTO 1.023 (1.002-1.035); SQUAMOUS EPITHELIAL CELL UR AU 3 /HPF (0-6); WBC, URINE AUTO 0 /HPF (0-3)
[2020-04-24 14:24] LABS: ALBUMIN 3.4 GM/DL (3.2-5.2); ALT/SGPT 22 U/L (12-78); BILIRUBIN,TOTAL 0.4 MG/DL (0.2-1.0); BLOOD UREA NITROGEN 15 MG/DL (7-18); CALCIUM LEVEL 8.9 MG/DL (8.5-10.1); CARBON DIOXIDE LEVEL 29 MEQ/L (21-32); CHLORIDE LEVEL 106 MEQ/L (98-107); CHOLESTEROL LEVEL 217 MG/DL (<200); CHOLESTEROL RISK RATIO 2.358 (<5); CREATININE FOR GFR 0.64 MG/DL (0.55-1.30); GLOMERULAR FILTRATION RATE > 60.0 (>51); GLUCOSE, FASTING 107 MG/DL (70-100); HDL CHOLESTEROL 92 MG/DL (>40); LDL CHOLESTEROL 109 MG/DL (<100); NON-HDL-C 125 MG/DL; POTASSIUM SERUM 4.2 MEQ/L (3.5-5.1); SODIUM LEVEL 140 MEQ/L (136-145); TOTAL PROTEIN 6.2 GM/DL (6.4-8.2); TRIGLYCERIDES LEVEL 81 MG/DL (<150)
[2020-04-24 14:28] LABS: TOTAL 25(OH) VITAMIN D 28.7 NG/ML (30.0-100.0)
[2020-04-24 14:34] LABS: MALB URINE SIEMENS 8.5 MG/L; MAU/CREAT RATIO 6.9 MCG/MG (0.0-30.0)
[2020-04-24 14:36] LABS: HEMOGLOBIN A1c 6.1 %
== END ==
LOC: M PLALAB 10:23
PROVIDERS: ATTEND Internal Medicine
DX: E53.8 Deficiency of other specified B group vitamins (principal); E11.9 Type 2 diabetes mellitus without complications; E78.5 Hyperlipidemia, unspecified; Z79.899 Other long term (current) drug therapy

== ENCOUNTER → 2020-05-23 | Outpatient (CLI) | payer MEDICARE, MEDICAID ==
--- NOTE | 2020-05-24 23:37 | ECWPNPC ---
PATIENT NAME: DEVAN EDWARDS : 1965 GENDER: FEMALE VISIT DATE: 05/23/2020 DISCHARGE DATE: 05/23/20 1226 VISIT LOCKED DATE TIME: PHYSICIAN: UMESH LONGO RESOURCE: UMESH LONGO REASON FOR APPOINTMENT 1. MED MGMT HISTORY OF PRESENT ILLNESS GENERAL: HERE FOR FOLLOW-UP OF CHRONIC LOW BACK PAIN. LOW BACK PAIN HAS INCREASED OVER THE PAST MONTH. DID WELL AFTER HAVING TRIGGER POINT INJECTIONS IN DECEMBER UP UNTIL A MONTH AGO. REVIEWED MRI OF THE LUMBOSACRAL SPINE AND DISCUSSED TREATMENT OPTIONS. FINDS CURRENT CHRONIC PAIN MEDICATION SOMEWHAT HELPFUL AT REDUCING PAIN AND KEEPING HER FUNCTIONAL. DENIES ADVERSE SIDE EFFECTS OF MEDICATIONS. BRINGS IN HER MEDICATION WHICH IS APPROPRIATE FOR WHAT WAS DISPENSED. -. FALL RISK SCREENING: SCREENING :NO FALLS REPORTED IN THE LAST YEAR PAIN SCREENING: PATIENT HAS A COMPLAINT OF ACUTE OR CHRONIC PAIN :YES LOCATION OF PAIN:LOW BACK INTENSITY OF PAIN (SCALE OF 1 TO 10):8 WHAT DOES YOUR PAIN FEEL LIKE:ACHING, CONTINOUS, SORE DURATION:CONTINOUS PAIN IS INCREASED BY:ACTIVITIES PAIN IS DECREASED BY:USE OF PAIN MEDICATIONS, OTHERS CHANGING POSITION TREATMENT/MEDICATIONS USED TO MANAGE PAIN:OPIOIDS LEVEL OF RELIEF FROM PAIN TREATMENTS IN THE PAST:75% NURSING NOTE: -. PAIN CENTER INTAKE QUESTIONS: DO YOU HAVE A HISTORY OF MRSA? :NO DO YOU TAKE A BLOOD THINNERS? :YES WARFARIN DO YOU HAVE ANY BLEEDING DISORDERS? :NO ANY NEW NUMBNESS OR WEAKNESS IN YOUR LEGS OR ARMS? :NO ANY PACEMAKER,DEFIBRILLATOR, OR DORSAL COLUMN STIMULATOR? :NO DO YOU HAVE ANY RASHES OR OPEN SORES? :NO ARE YOU ALLERGIC TO IV DYE? :NO ARE YOU DIABETIC? :NO ANY NEW PROBLEMS WITH YOUR MEDICATIONS? :YES NAUSEA AT TIMES IF NOT TAKING FOOD HAVE YOU RECEIVED A VACCINE IN THE PAST 30 DAYS? :NO DO YOU PLAN TO RECEIVE A VACCINE IN THE NEXT 21 DAYS? :NO DO YOU NEED ANY PRESCRIPTION? :NO DO YOU TAKE ANY IMMUNOSUPPRESSIVE MEDICATIONS? :NO IS THERE A CHANCE YOU COULD BE ? :NO ARE YOU BREAST FEEDING? :NO CURRENT MEDICATIONS TAKING MONTELUKAST SODIUM 10 MG TABLET 1 TABLET IN THE EVENING ORALLY ONCE A DAY TAKING VITAMIN B-12 2500 MCG TABLET SUBLINGUAL 1 TABLET SUBLINGUAL ONCE A DAY TAKING DEXILANT 60 MG CAPSULE DELAYED RELEASE 1 CAPSULE ORALLY ONCE A DAY TAKING PREZISTA 800 MG TABLET TAKE ONE TABLET BY MOUTH EVERY DAY WITH FOOD ORALLY ONCE A DAY TAKING GENVOYA [phone] MG TABLET 1 TAB ORALLY DAILY TAKING CALCIUM 600 + D 600-400 MG-UNIT TABLET 1 TABLET ORALLY DAILY TAKING EPIPEN 0.3 MG/0.3ML DEVICE DIRECTED INJECTION ONCE DAILY NEEDED, NOTES: PRN TAKING MAY USE ALLERGY INJECTIONS EVERY 2 WEEKS TAKING TRAZODONE HCL 100 MG TABLET 2 TABLET ORALLY BEFORE BEDTIME TAKING VALACYCLOVIR HCL 1 GM TABLET 2 TABLET ORALLY BID PRN OUTBREAK FOR 2 DAYS TAKING VENTOLIN HFA 108 (90 BASE) MCG/ACT AEROSOL SOLUTION 2 PUFFS MARY ALICE INHALATION EVERY 4 HRS NEEDED TAKING CETIRIZINE HCL 5 MG TABLET 1 TABLET ORALLY ONCE A DAY TAKING 1ST CHOICE LANCETS THIN - MISCELLANEOUS DX E11.8 SUBCUTANEOUSLY 1-2 TIMES QD TAKING ONETOUCH VERIO - STRIP E11.8 --DX IN VITRO 1-2 TIMESDAILY TAKING OXYBUTYNIN CHLORIDE 5 MG TABLET 1 TABLET ORALLY BEFORE BEDTIME TAKING XYZAL 5 MG TABLET 1 TABLET IN THE EVENING ORALLY ONCE A DAY TAKING DILTIAZEM HCL ER 120 MG CAPSULE EXTENDED RELEASE 12 HOUR 1 CAPSULE ORALLY ONCE A DAY TAKING CHANTIX 1 MG TABLET DIRECTED ORALLY BID TAKING SPIRIVA RESPIMAT 2.5 MCG/ACT AEROSOL SOLUTION 2 PUFFS INHALATION ONCE A DAY TAKING PERCOCET 7.5-325 MG TABLET 1 TABLET NEEDED ORALLY EVERY 6 HRS MDD4 TAKING TRAMADOL HCL 50 MG TABLET 1 TABLET NEEDED ORALLY EVERY 8 HOURS NEEDED NOT-TAKING CHANTIX CONTINUING MONTH EMEKA 1 MG TABLET 1 TABLET ORALLY TWICE A DAY, NOTES: DOUBLE ENTRY NOT-TAKING HYDROCODONE-ACETAMINOPHEN 7.5-325 MG TABLET 1 TABLET NEEDED ORALLY EVERY 6 HRS/MMD4 NOT-TAKING CYMBALTA 30 MG CAPSULE DELAYED RELEASE PARTICLES 1 CAPSULE ORALLY DAILY MEDICATION LIST REVIEWED AND RECONCILED WITH THE PATIENT PAST MEDICAL HISTORY AIDS/HIV 1995 INFECTED BY MALE HETEROSEXUAL ON COMBIVIR/ VIRAMUNE FOR 12 YEARS 10/[id number]=45 VL 26K STARTED TRUVADA/ REYATAZ/ NORVIR 07/18/2008 [id number] K103 MUTATION CD4 87 FROM [id number] VL NOT DETECTED, 07/24/2011 VL 51, 370 GENOSURE K103/ Y181 RESISTANT TO VIRAMUNE/ EFAVIRENZ/ RILPIVIRINE SWITCHED TO PREZISTA / GENVOYA ASTHMA HYPERTENSION/ ECHOCARDIOGRAM SHOWED LVH TENDONITIS SANGITA WRIST ENVIRONMENTAL ALLERGIES HX OF GESTATIONAL DIABETES PURE HYPERCHOLESTEREMIA 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 TORRES 08/17 IRRITABLE BOWEL SYNDROME GENOTYPE 08/2011 K103 MUTATION TROFILE DUAL MIXED TROPISM POSTMENOPAUSE OSTEOPENIA BMD 2012 DR KHOURY SYMPTOMATIC STATES ASSOCIATED WITH ARTIFICIAL MENOPAUSE EXTERNAL HEMORRHOIDS GASTRIC BYPASS STATUS FOR OBESITY SEASONAL AND PERENNIAL ALLERGIC RHINITIS OSTEOPENIA SLEEP APNEA NOT USING CPAP COULD NOT TOLERATE DIABETES HISTORY OF TOBACCO ABUSE QUIT SMOKING 03/2018 DVT LEFT LEG POSTOPERATIVE BUNION SURGERY 03/2019 AND BILATERAL PULMONARY EMBOLISM ON COUMADIN CHRONIC BACK PAIN ARTHRITIS AND PAIN LEFT KNEE ALLERGIES BIAXIN: RASH - ALLERGY NORVASC: EDEMA - ALLERGY LISINOPRIL: FACIAL SWELLING - ALLERGY ESTRADIOL: REREDDNESS AT SITE OF PATCH - SIDE EFFECTS SURGICAL HISTORY PARTIAL HYSTERECTOMY 2004 TUBAL LIGATION 1989 GASTRIC BYPASS 1994 BENIGN POLYP REMOVAL FROM THROAT 2008 TENDONITIS SURGERY X2 (WRIST) RT 07/2008, LT 12/2008 BUNIONECTOMY 2ND TOE ON RIGHT FOOT STRAIGHTENED LAP CHOLECYSTECTOMY (ATWATER) 02/13/2012 LAP RELEASE OF BOWEL OBSTRUCTION (BOWEL SEWN INTO LUZ MARIA INCISION) ([facility]) 02/15/2012 ABDOMINAL SURGERY 06/23 BREAST REDUCTION COMPLICATED BY MSSA ABSCESS ON THE RIGHT SIDE REQUIRING INCISION AND DRAINAGE 01/2014 COLONOSCOPY 4 MM TUBULAR ADENOMA REPEAT IN [address] GAN 10/2015 BIOPSY THROAT 08-05-16 COLPOSCOPY 09/19/16 POLYPS REMOVED BY LASER FROM VOCAL CORDS 12/2016 LEFT FOOT BUNIONECTOMY 05/28/18 LEFT FOOT BUNIONECTOMY 02/15/19 LAPOROSCOPY REMOVAL OF TWO HERNIAS AND SCAR TISSUE WITH DR. POLK ([facility]) 05/01/2020 FAMILY HISTORY FATHER: ALIVE 72 YRS, TRIPLE BYPASS, HTN, OBESITY, DIAGNOSED WITH DIABETES MOTHER: ALIVE 69 YRS, DIABETES, HTN, OBESITY SIBLINGS: ALIVE 49 YRS, SISTER SON(S): ALIVE 28 YRS, NO KNOWN MEDICAL PROBLEMS DAUGHTER(S): 19 YRS, MVA (2006) SOCIAL HISTORY GENERAL: TOBACCO USE ARE YOU A:FORMER SMOKER HOW LONG HAS IT BEEN SINCE YOU LAST SMOKED?1-5 YEARS SMOKING CESSATION INFORMATION GIVEN02/10/201802/10 DECLINED LATEX QUESTIONNAIRE LATEX ALLERGY : HAVE YOU EVER DEVELOPED ANY TYPE OF REACTION AFTER HANDLING LATEX PRODUCTS SUCH RUBBER GLOVES, CONDOMS, DIAPHRAGMS, BALLOONS, SOCKS, OR UNDERWEAR?NO LATEX ALLERGY : HAVE YOU EVER DEVELOPED ANY TYPE OF REACTION DURING OR AFTER DENTAL APPOINTMENT, VAGINAL/RECTAL EXAMINATION, SURGICAL PROCEDURE, OR ANY OTHER EXPOSURE?NO DATE ASKED : 03/30/2020 LATEX RISK : HAVE YOU EVER HAD ANY DIFFICULTY BREATHING OR HIVES AFTER EATING OR HANDLING ANY FRUITS, OR VEGETABLES; SUCH KIWI, BANANAS, STONE FRUITS, OR CHESTNUTSYES - PLEASE INDICATE : KIWI, BANANAS, STONE FRUITS, CHESTNUTS LATEX RISK : DO YOU HAVE A PREVIOUS PERSONAL HISTORY OF MORE THAN NINE SURGERIES, SPINA BIFIDA, OR REPEATED CATHERIZATIONS? YES - PLEASE INDICATE : > 9 SURGERIES LATEX RISK : ARE YOU FREQUENTLY EXPOSED TO LATEX PRODUCTS IN YOUR OCCUPATION?NO BMI CARE GOAL FOLLOW-UP ABOVE NORMAL BMI FOLLOW-UPDIETARY MANAGEMENT EDUCATION, GUIDANCE, AND COUNSELING ALCOHOL SCREENING POINTS: 1, INTERPRETATION: NEGATIVE. RECREATIONAL DRUG USE DRUG USE?NO CAFFEINE 1 CUP COFFE DAILY. SEXUAL HX HAD SEX IN THE LAST 12 MONTHS (VAGINAL, ORAL, OR ANAL)?: NO, HAVE YOU EVER HAD AN STD?: NO, LMP:: HYSTER. HIV / HEP-C SCREENING HIV TEST OFFERED TO PATIENT:YES DATE OFFERED:03/10/2018 TEST ACCEPTED:NO PREV TESTED HEP-C TEST OFFERED TO PATIENT:YES DATE OFFERED:03/10/2018 REASON:OTHER (DOCUMENT IN NOTE) TEST ACCEPTED:NO PREV TESTED REASON:OTHER (DOCUMENT IN NOTE) BROCHURE PROVIDED TO PATIENTNO MU-ISM [id number] NONE LANGUAGE LANGUAGES SPOKEN:KINYARWANDA EDUCATION LEVEL OF EDUCATION:HIGH SCHOOL GRADUATE LEARNING BARRIERS / SPECIAL NEEDS CHANGE FROM LAST VISIT?NO BARRIERS TO LEARNING?NO HEARING IMPAIRED?NO VISION IMPAIRED?YES :CORRECTIVE LENSES COGNITIVELY IMPAIRED?NO READINESS TO LEARN?YES LEARNING PREFERENCES?YES :DEMONSTRATION/VERBAL INSTRUCTION LEARNING CAPABILITIES PRESENT?YES EMOTIONAL BARRIERS?NO SPECIAL DEVICES?NO BARK PEELER NEEDED?NO DOMESTIC VIOLENCE DO YOU FEEL SAFE IN YOUR ENVIRONMENT?YES OCCUPATION: DISABLED. DIET: NO HX EATING DISORDERS. EXERCISE: NO REGULAR EXERCISE. MARITAL STATUS: . OTHERS AT HOME: LIVES ALONE. FEMALE 6 MONTH RISK ASSESSMENT FOR STD DESCRIBE YOUR SEXUAL PARTNERS:MALE MONOGAMOUS?YES HIV POSITIVE?YES EVER INJECT DRUGS?NO VAGINAL SEX?NO ANAL SEX?NO ORAL SEX?NO ARE YOU TAKING ANY STEPS TO PREVENT ?YES METHODS (CHECK ALL THAT APPLY):MALE CONDOMS WHAT STEPS HAVE YOU TAKEN TO PROTECT YOURSELF FROM STDS, INCLUDING HIV? (CHECK ALL THAT APPLY):MUTUAL MONOGAMY, MALE CONDOMS HAVE YOU OR ANY OF YOUR SEXUAL PARTNERS EVER HAD AN STD? IF YES PLEASE LIST:NO IS THERE ANYTHING ELSE WE SHOULD TALK ABOUT CONCERNING YOUR SEXUAL HISTORY OR PRACTICE?NO TODAY'S VISIT NOTES 09/05/2019, PATIENT DESCRIBES PAIN : ACHING, HAVE IT ALL THE TIME, THROBBING, FROM 0-10, WHAT LEVEL IS YOUR PAIN TODAY? 7. PAIN CLINIC PFS, CLERGY, PUBLIC HEALTH REFERRALS PFS REFERRAL NEEDED?NO CLERGY REFERRAL NEEDED?NO PUBLIC HEALTH REFERRAL NEEDED?NO WAS THE PROVIDER NOTIFIED OF ANY PERTINENT INFO? N/A HAS THE PATIENT BEEN EDUCATED REGARDING HIS/HER PLAN OF CARE?YES HAS THE PATIENT BEEN EDUCATED REGARDING PAIN, THE RISK FOR PAIN, THE IMPORTANCE OF EFFECTIVE PAIN MANAGEMENT, AND THE PAIN ASSESSMENT PROCESS?YES ADVANCE DIRECTIVE ADVANCE DIRECTIVE DISCUSSED WITH PATIENT:YES HCP - RONALDO MURRAY (SON) & BOOKER EDWARDS (MOTHER) - WILL BRING IN COPY NEXT VISIT. HOSPITALIZATION/MAJOR DIAGNOSTIC PROCEDURE RELATED TO SURGERY CHILD ALLERGIC REACITON TO MEDS PNEUMONIA 06/2015 DVT & PE 03/21/19 REVIEW OF SYSTEMS CONSTITUTIONAL: ANY RECENT FEVER NO . CHILLS NO . WEIGHT CHANGE OF UNKNOWN REASONS NO . GASTROENTEROLOGY: NEW UNEXPLAINABLE CHANGES IN BOWEL CONTROL NO . CONSTIPATION NO . GENITOURINARY: ANY NEW CHANGE IN BLADDER CONTROL? NO . NEUROLOGY: NEW ONSET DIZZINESS OR NEUROLOGICAL CHANGES NOT MENTIONED NO . NEW NUMBNESS OR PAIN PATTERNS NOT MENTIONED AND PERTINENT TO TODAY'S VISIT NO . CARDIOLOGY: NEW CHEST PRESSURE NO . NEW CHEST PAIN NO . RESPIRATORY: UNEXPLAINABLE COUGH NO . NEW SHORTNESS OF BREATH NO . HERNIA REPAIR SURGERY IN APRIL 2020-ABDOMINAL. VITAL SIGNS WT 220.4 LBS, HT 61 IN, BMI 41.64 INDEX, BP 138/83 MM HG, HR 71 /MIN, RR 18 /MIN, TEMP 98.3 F, OXYGEN SAT % 95%, SAFE IN ENV? (Y/N) JALEESA BORGES MA. EXAMINATION GENERAL EXAMINATION: GENERALAWAKE,ALERT ,PLEAASANT . PSYCHAFFECT NORMAL . LUNGS:LUNG MCADAMS ARE CLEAR TO AUSCULTATION BILATERALLY. GOOD MOVEMENT OF AIR . HEART:S1, S2 IN A REGULAR RATE AND RHYTHM. NO SIGNIFICANT MURMURS, RUBS OR GALLOPS NOTED . MUSCULOSKELETAL:MUSCLE STRENGTH TESTING 4/5 BILATERAL LOWER EXTREMITIES. LUMBAR:TRIGGER POINTS:, ELICITED WITH PALPATION OVER LUMBAR PARAVERTEBRAL MUSCLES AND RESTRICTION OF ROM IN THIS AREA. ASSESSMENTS MYALGIA, OTHER SITE - M79.18 (PRIMARY) TREATMENT MYALGIA, OTHER SITE REFILL PERCOCET TABLET, 7.5-325 MG, 1 TABLET NEEDED, ORALLY, EVERY 6 HRS MDD4, 30 DAYS, 120, REFILLS 0 CONTINUE TRAMADOL HCL TABLET, 50 MG, 1 TABLET NEEDED, ORALLY, EVERY 8 HOURS NEEDED NOTES: TRIGGER POINT INJECTIONS BILATERAL LOW BACK , ISTOP REGISTRY REVIEWED AND DEMONSTRATES COMPLLIANCE. BRINGS IN MEDICATIONS WHICH IS APPROPRIATE FOR WHAT WAS DISPENSED. RECENT URINE TOXICOLOGY REVIEWED. NO UNAUTHORIZED MEDICATIONS. NO ILLICIT SUBSTANCES AND PRESCRIBED MEDICATIONS WERE PRESENT. , RISKS OF NARCOTIC/OPIOD MEDICATIONS INCLUDES BUT IS NOT LIMITED TO RISK OF DEPENDANCE/DEVELOPMENT OF ADDICTION, MOOD DISTURBANCE AND DEPRESSION, OSTEOPOROSIS, HORMONAL AND LABIDAL CHANGES, RESPIRATORY DEPRESSION AND . PATIENT IS ADVISED NOT TO DRIVE OR DRINK ALCOHOL WHILE ON THESE MEDICATIONS. CLINICAL NOTES: PRE-PROCEDURE INFORMATION PROVIDED TO PATIENT. PATIENT REFUSED INFORMATION ON PROCEDURE. BARNEY BORGES MA. PROCEDURE CODES [id number] ESTABILISHED PATIENT [facility] FACILITY CHARGE DISPOSITION & COMMUNICATION FOLLOW UP POST PROCEDURE (REASON: TRIGGER POINT INJECTIONS BILATERAL LOW BACK) ELECTRONICALLY SIGNED BY RAND HINOJOSA ON 05/24/2020 AT 11:06 AM EST DISCLAIMER : THIS IS A VISIT SUMMARY EXTRACTED FROM THE [employer] CHART. IT IS NOT A COPY OF THE [employer] PROGRESS NOTE. MELISSA
== END ==
LOC: M PAIN 11:00
PROVIDERS: ATTEND Nurse Practitioner Family
DX: M79.18 Myalgia, other site (principal); J45.909 Unspecified asthma, uncomplicated; G47.30 Sleep apnea, unspecified; Z86.59 Personal history of other mental and behavioral disorders; Z98.84 Bariatric surgery status; Z87.891 Personal history of nicotine dependence; Z88.8 Allergy status to other drugs, medicaments and biological substances; E66.01 Morbid (severe) obesity due to excess calories; Z68.41 Body mass index [BMI] 40.0-44.9, adult; Z79.899 Other long term (current) drug therapy

== ENCOUNTER → 2020-06-06 | Outpatient (CLI) | payer MEDICARE, MEDICAID ==
[~2020-06-06] MED LIST changes: +MONT10TA10 PO; -MONT5TAB2 PO
== END ==
LOC: M LABSMTC 09:54
PROVIDERS: ATTEND Anesthesiology
DX: Z20.822 Contact with and (suspected) exposure to COVID-19 (principal)

== ENCOUNTER → 2020-06-20 | Outpatient (CLI) | payer MEDICARE, MEDICAID | LOC: M LABSMTC 12:28 | PROVIDERS: ATTEND Anesthesiology | DX: Z01.812 Encounter for preprocedural laboratory examination (principal); Z20.822 Contact with and (suspected) exposure to COVID-19 ==

== ENCOUNTER → 2020-06-25 | Outpatient (CLI) | payer MEDICARE, MEDICAID ==
[~2020-06-25] MED LIST changes: +BUPIVACAINE HCL 0.25% 10ML VIAL As Ordered ONE; +BUPIVACAINE HCL 0.25% 30ML VIAL As Ordered ONE; +TRIAMCINOLONE ACETONIDE SUSP 40 MG/ML VIAL (J3301) As Ordered ONE; +diazePAM 5MG TABLET As Ordered ONE; +oxyCODONE 5MG TAB As Ordered ONE
--- NOTE | 2020-07-04 02:49 | ECWPNPC ---
PATIENT NAME: DEVAN EDWARDS : 1965 GENDER: FEMALE VISIT DATE: 06/25/2020 DISCHARGE DATE: 06/25/20 1010 VISIT LOCKED DATE TIME: PHYSICIAN: MARITA FOLEY MD RESOURCE: MARITA FOLEY MD REASON FOR APPOINTMENT 1. TRIGGER POINT INJECTIONS BILATERAL LOW BACK HISTORY OF PRESENT ILLNESS GENERAL: -. FALL RISK SCREENING: SCREENING :NO FALLS REPORTED IN THE LAST YEAR PAIN SCREENING: PATIENT HAS A COMPLAINT OF ACUTE OR CHRONIC PAIN :YES LOCATION OF PAIN:LOW BACK INTENSITY OF PAIN (SCALE OF 1 TO 10):7 WHAT DOES YOUR PAIN FEEL LIKE:ACHING, CONTINOUS, SHARP, TENDER, THROBBING, SORE, SHOOTING DURATION:CONTINOUS PAIN IS INCREASED BY:ACTIVITIES PAIN IS DECREASED BY:USE OF PAIN MEDICATIONS NURSING NOTE: -. PAIN CENTER INTAKE QUESTIONS: DO YOU HAVE A HISTORY OF MRSA? :NO DO YOU TAKE A BLOOD THINNERS? :YES COUMADIN DO YOU HAVE ANY BLEEDING DISORDERS? :NO ANY NEW NUMBNESS OR WEAKNESS IN YOUR LEGS OR ARMS? :NO ANY PACEMAKER,DEFIBRILLATOR, OR DORSAL COLUMN STIMULATOR? :NO DO YOU HAVE ANY RASHES OR OPEN SORES? :NO ARE YOU ALLERGIC TO IV DYE? :NO ARE YOU DIABETIC? :YES FSBS 101 ANY NEW PROBLEMS WITH YOUR MEDICATIONS? :NO HAVE YOU RECEIVED A VACCINE IN THE PAST 30 DAYS? :YES IF SO WHAT VACCINE AND WHEN? ALLERGY INJECTIONS-LAST RECEIVED 06/14/20 DO YOU PLAN TO RECEIVE A VACCINE IN THE NEXT 21 DAYS? :NO RECIEVES ALLERGY INJECTIONS Q2 WEEKS DO YOU TAKE ANY IMMUNOSUPPRESSIVE MEDICATIONS? :NO ANY HISTORY OF SEIZURES? :NO ANY HISTORY OF CARDIAC ISSUES OR EVENTS? :NO DO YOU HAVE SLEEP APNEA? :YES DO YOU WEAR A CPAP?NO ANY RECENT HEAD INJURY? :NO DO YOU HAVE ANY NEW INFECTIONS? :NO IS THERE A CHANCE YOU COULD BE ? :NO ARE YOU BREAST FEEDING? :NO WHEN DID YOU LAST EAT? : 1900 06/24/20 WHEN DID YOU LAST DRINK? : 0630 WHAT DID YOU LAST DRINK? : WATER NAME OF PERSON DRIVING YOU HOME? : -BOOKER DO YOU HAVE ANY OTHER QUESTIONS OR CONCERNS? : - CURRENT MEDICATIONS TAKING MONTELUKAST SODIUM 10 MG TABLET 1 TABLET IN THE EVENING ORALLY ONCE A DAY, NOTES: 2200 TAKING VITAMIN B-12 2500 MCG TABLET SUBLINGUAL 1 TABLET SUBLINGUAL ONCE A DAY TAKING DEXILANT 60 MG CAPSULE DELAYED RELEASE 1 CAPSULE ORALLY ONCE A DAY TAKING PREZISTA 800 MG TABLET TAKE ONE TABLET BY MOUTH EVERY DAY WITH FOOD ORALLY ONCE A DAY, NOTES: 2199 TAKING GENVOYA [phone] MG TABLET 1 TAB ORALLY DAILY, NOTES: 2199 TAKING CALCIUM 600 + D 600-400 MG-UNIT TABLET 1 TABLET ORALLY DAILY TAKING EPIPEN 0.3 MG/0.3ML DEVICE DIRECTED INJECTION ONCE DAILY NEEDED, NOTES: PRN TAKING MAY USE ALLERGY INJECTIONS EVERY 2 WEEKS TAKING TRAZODONE HCL 100 MG TABLET 2 TABLET ORALLY BEFORE BEDTIME, NOTES: 06/24/202199 TAKING VALACYCLOVIR HCL 1 GM TABLET 2 TABLET ORALLY BID PRN OUTBREAK FOR 2 DAYS TAKING VENTOLIN HFA 108 (90 BASE) MCG/ACT AEROSOL SOLUTION 2 PUFFS MARY ALICE INHALATION EVERY 4 HRS NEEDED TAKING 1ST CHOICE LANCETS THIN - MISCELLANEOUS DX E11.8 SUBCUTANEOUSLY 1-2 TIMES QD TAKING ONETOUCH VERIO - STRIP E11.8 --DX IN VITRO 1-2 TIMESDAILY TAKING OXYBUTYNIN CHLORIDE 5 MG TABLET 1 TABLET ORALLY BEFORE BEDTIME TAKING XYZAL 5 MG TABLET 1 TABLET IN THE EVENING ORALLY ONCE A DAY TAKING DILTIAZEM HCL ER 120 MG CAPSULE EXTENDED RELEASE 12 HOUR 1 CAPSULE ORALLY ONCE A DAY, NOTES: 399 TAKING CHANTIX 1 MG TABLET DIRECTED ORALLY BID TAKING SPIRIVA RESPIMAT 2.5 MCG/ACT AEROSOL SOLUTION 2 PUFFS INHALATION ONCE A DAY TAKING PERCOCET 7.5-325 MG TABLET 1 TABLET NEEDED ORALLY EVERY 6 HRS MDD4, NOTES: 399 TAKING TRAMADOL HCL 50 MG TABLET 1 TABLET NEEDED ORALLY EVERY 8 HOURS NEEDED, NOTES: 06/24/202199 TAKING SYMBICORT 160-4.5 MCG/ACT AEROSOL 2 PUFFS INHALATION TWICE A DAY TAKING CILOXAN 0.3 % OINTMENT 1 APPLICATION INTO THE LOWER EYELID OF AFFECTED EYE OPHTHALMIC TWICE A DAY TAKING COUMADIN 8.5 MG DAILY NOT-TAKING CETIRIZINE HCL 5 MG TABLET 1 TABLET ORALLY ONCE A DAY NOT-TAKING CHANTIX CONTINUING MONTH EMEKA 1 MG TABLET 1 TABLET ORALLY TWICE A DAY, NOTES: DOUBLE ENTRY NOT-TAKING HYDROCODONE-ACETAMINOPHEN 7.5-325 MG TABLET 1 TABLET NEEDED ORALLY EVERY 6 HRS/MMD4 NOT-TAKING CYMBALTA 30 MG CAPSULE DELAYED RELEASE PARTICLES 1 CAPSULE ORALLY DAILY MEDICATION LIST REVIEWED AND RECONCILED WITH THE PATIENT PAST MEDICAL HISTORY AIDS/HIV 1996 INFECTED BY MALE HETEROSEXUAL ON COMBIVIR/ VIRAMUNE FOR 12 YEARS 10/[id number] VL 26K STARTED TRUVADA/ REYATAZ/ NORVIR 07/18/2008 [id number] K103 MUTATION CD4 87 FROM [id number] VL NOT DETECTED, 07/24/2011 VL 51, 370 GENOSURE K103/ Y181 RESISTANT TO VIRAMUNE/ EFAVIRENZ/ RILPIVIRINE SWITCHED TO PREZISTA / GENVOYA ASTHMA HYPERTENSION/ ECHOCARDIOGRAM SHOWED LVH TENDONITIS SANGITA WRIST ENVIRONMENTAL ALLERGIES HX OF GESTATIONAL DIABETES PURE HYPERCHOLESTEREMIA 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 TORRES 08/17 IRRITABLE BOWEL SYNDROME GENOTYPE 08/2011 K103 MUTATION TROFILE DUAL MIXED TROPISM POSTMENOPAUSE OSTEOPENIA BMD 2012 DR KHOURY SYMPTOMATIC STATES ASSOCIATED WITH ARTIFICIAL MENOPAUSE EXTERNAL HEMORRHOIDS GASTRIC BYPASS STATUS FOR OBESITY SEASONAL AND PERENNIAL ALLERGIC RHINITIS OSTEOPENIA SLEEP APNEA NOT USING CPAP COULD NOT TOLERATE DIABETES HISTORY OF TOBACCO ABUSE QUIT SMOKING 03/2018 DVT LEFT LEG POSTOPERATIVE BUNION SURGERY 03/2019 AND BILATERAL PULMONARY EMBOLISM ON COUMADIN CHRONIC BACK PAIN ARTHRITIS AND PAIN LEFT KNEE ALLERGIES BIAXIN: RASH - ALLERGY NORVASC: EDEMA - ALLERGY LISINOPRIL: FACIAL SWELLING - ALLERGY ESTRADIOL: REREDDNESS AT SITE OF PATCH - SIDE EFFECTS SURGICAL HISTORY PARTIAL HYSTERECTOMY 2004 TUBAL LIGATION 1989 GASTRIC BYPASS 1994 BENIGN POLYP REMOVAL FROM THROAT 2009 TENDONITIS SURGERY X2 (WRIST) RT 07/2008, LT 12/2008 BUNIONECTOMY 2ND TOE ON RIGHT FOOT STRAIGHTENED LAP CHOLECYSTECTOMY (MONTICELLO) 02/13/2012 LAP RELEASE OF BOWEL OBSTRUCTION (BOWEL SEWN INTO LUZ MARIA INCISION) ([facility]) 02/15/2012 ABDOMINAL SURGERY 06/23 BREAST REDUCTION COMPLICATED BY MSSA ABSCESS ON THE RIGHT SIDE REQUIRING INCISION AND DRAINAGE 01/2014 COLONOSCOPY 4 MM TUBULAR ADENOMA REPEAT IN [address] GAN 10/2015 BIOPSY THROAT 08-05-16 COLPOSCOPY 09/19/16 POLYPS REMOVED BY LASER FROM VOCAL CORDS 12/2016 LEFT FOOT BUNIONECTOMY 05/28/18 LEFT FOOT BUNIONECTOMY 02/15/19 LAPOROSCOPY REMOVAL OF TWO HERNIAS AND SCAR TISSUE WITH DR. POLK ([facility]) 05/01/2020 FAMILY HISTORY FATHER: ALIVE 72 YRS, TRIPLE BYPASS, HTN, OBESITY, DIAGNOSED WITH DIABETES MOTHER: ALIVE 69 YRS, DIABETES, HTN, OBESITY SIBLINGS: ALIVE 49 YRS, SISTER SON(S): ALIVE 28 YRS, NO KNOWN MEDICAL PROBLEMS DAUGHTER(S): 19 YRS, MVA (2007) SOCIAL HISTORY GENERAL: TOBACCO USE ARE YOU A:FORMER SMOKER HOW LONG HAS IT BEEN SINCE YOU LAST SMOKED?1-5 YEARS SMOKING CESSATION INFORMATION GIVEN02/10/201802/10 DECLINED LATEX QUESTIONNAIRE LATEX ALLERGY : HAVE YOU EVER DEVELOPED ANY TYPE OF REACTION AFTER HANDLING LATEX PRODUCTS SUCH RUBBER GLOVES, CONDOMS, DIAPHRAGMS, BALLOONS, SOCKS, OR UNDERWEAR?NO LATEX ALLERGY : HAVE YOU EVER DEVELOPED ANY TYPE OF REACTION DURING OR AFTER DENTAL APPOINTMENT, VAGINAL/RECTAL EXAMINATION, SURGICAL PROCEDURE, OR ANY OTHER EXPOSURE?NO LATEX RISK : HAVE YOU EVER HAD ANY DIFFICULTY BREATHING OR HIVES AFTER EATING OR HANDLING ANY FRUITS, OR VEGETABLES; SUCH KIWI, BANANAS, STONE FRUITS, OR CHESTNUTSYES - PLEASE INDICATE : KIWI, BANANAS, STONE FRUITS, CHESTNUTS LATEX RISK : DO YOU HAVE A PREVIOUS PERSONAL HISTORY OF MORE THAN NINE SURGERIES, SPINA BIFIDA, OR REPEATED CATHERIZATIONS? YES - PLEASE INDICATE : > 9 SURGERIES LATEX RISK : ARE YOU FREQUENTLY EXPOSED TO LATEX PRODUCTS IN YOUR OCCUPATION?NO DATE ASKED : 06/22/2020 BMI CARE GOAL FOLLOW-UP ABOVE NORMAL BMI FOLLOW-UPDIETARY MANAGEMENT EDUCATION, GUIDANCE, AND COUNSELING ALCOHOL SCREENING POINTS: 1, INTERPRETATION: NEGATIVE. RECREATIONAL DRUG USE DRUG USE?NO CAFFEINE 1 CUP COFFE DAILY. SEXUAL HX HAD SEX IN THE LAST 12 MONTHS (VAGINAL, ORAL, OR ANAL)?: NO, HAVE YOU EVER HAD AN STD?: NO, LMP:: HYSTER. HIV / HEP-C SCREENING HIV TEST OFFERED TO PATIENT:YES DATE OFFERED:03/10/2018 TEST ACCEPTED:NO PREV TESTED HEP-C TEST OFFERED TO PATIENT:YES DATE OFFERED:03/10/2018 REASON:OTHER (DOCUMENT IN NOTE) TEST ACCEPTED:NO PREV TESTED REASON:OTHER (DOCUMENT IN NOTE) BROCHURE PROVIDED TO PATIENTNO SHINTO [id number] NONE LANGUAGE LANGUAGES SPOKEN:BANGLADESHI EDUCATION LEVEL OF EDUCATION:HIGH SCHOOL GRADUATE LEARNING BARRIERS / SPECIAL NEEDS CHANGE FROM LAST VISIT?NO BARRIERS TO LEARNING?NO HEARING IMPAIRED?NO VISION IMPAIRED?YES COGNITIVELY IMPAIRED?NO :CORRECTIVE LENSES READINESS TO LEARN?YES LEARNING PREFERENCES?YES :DEMONSTRATION/VERBAL INSTRUCTION LEARNING CAPABILITIES PRESENT?YES EMOTIONAL BARRIERS?NO SPECIAL DEVICES?NO CUSTOMER ADVISOR SPECIALIST NEEDED?NO DOMESTIC VIOLENCE DO YOU FEEL SAFE IN YOUR ENVIRONMENT?YES OCCUPATION: DISABLED. DIET: NO HX EATING DISORDERS. EXERCISE: NO REGULAR EXERCISE. MARITAL STATUS: . OTHERS AT HOME: LIVES ALONE. FEMALE 6 MONTH RISK ASSESSMENT FOR STD DESCRIBE YOUR SEXUAL PARTNERS:MALE MONOGAMOUS?YES HIV POSITIVE?YES EVER INJECT DRUGS?NO VAGINAL SEX?NO ANAL SEX?NO ORAL SEX?NO ARE YOU TAKING ANY STEPS TO PREVENT ?YES METHODS (CHECK ALL THAT APPLY):MALE CONDOMS WHAT STEPS HAVE YOU TAKEN TO PROTECT YOURSELF FROM STDS, INCLUDING HIV? (CHECK ALL THAT APPLY):MUTUAL MONOGAMY, MALE CONDOMS HAVE YOU OR ANY OF YOUR SEXUAL PARTNERS EVER HAD AN STD? IF YES PLEASE LIST:NO IS THERE ANYTHING ELSE WE SHOULD TALK ABOUT CONCERNING YOUR SEXUAL HISTORY OR PRACTICE?NO TODAY'S VISIT NOTES 09/05/2019, PATIENT DESCRIBES PAIN : ACHING, HAVE IT ALL THE TIME, THROBBING, FROM 0-10, WHAT LEVEL IS YOUR PAIN TODAY? 7. - PFS REFERRAL NEEDED?NO CLERGY REFERRAL NEEDED?NO PUBLIC HEALTH REFERRAL NEEDED?NO WAS THE PROVIDER NOTIFIED OF ANY PERTINENT INFO? N/A HAS THE PATIENT BEEN EDUCATED REGARDING HIS/HER PLAN OF CARE?YES HAS THE PATIENT BEEN EDUCATED REGARDING PAIN, THE RISK FOR PAIN, THE IMPORTANCE OF EFFECTIVE PAIN MANAGEMENT, AND THE PAIN ASSESSMENT PROCESS?YES ADVANCE DIRECTIVE ADVANCE DIRECTIVE DISCUSSED WITH PATIENT:YES HCP - RONALDO DUMONTAS (SON) & BOOKER EDWARDS (MOTHER) - WILL BRING IN COPY NEXT VISIT. HOSPITALIZATION/MAJOR DIAGNOSTIC PROCEDURE RELATED TO SURGERY CHILD ALLERGIC REACITON TO MEDS PNEUMONIA 06/2015 DVT & PE 03/21/19 VITAL SIGNS WT 219.2 LBS, HT 61 IN, BMI 41.41 INDEX, BP 143/66 MM HG, HR 74 /MIN, RR 18 /MIN, TEMP 98 F, OXYGEN SAT % 100, BLOOD GLUCOSE LEVEL 101, SAFE IN ENV? (Y/N) YES, NA INITIALS APA. SYED RN. EXAMINATION GENERAL EXAMINATION: THE PATIENT IS ALERT, ORIENTED TIMES THREE AND COOPERATIVE. LUNGS ARE CLEAR TO AUSCULTATION. HEART SHOWS REGULAR RHYTHM, NO MURMURS AND NO GALLOPS. ASSESSMENTS MYALGIA, OTHER SITE - M79.18 (PRIMARY) TREATMENT MYALGIA, OTHER SITE MEDICATION: VALIUM TAB 10MG ORALLY (DIAZEPAM)YANETH HINOJOSATH 06/25/2020 9:13:06 AM > VERIFIED SANTHOSH LYNCH R 06/25/2020 9:16:56 AM > ADMINISTERED MEDICATION: OXYCODONE HCL TAB 10MG ORALLYYANETH HINOJOSATH 06/25/2020 9:13:33 AM > VERIFIED SANTHOSH LYNCH R 06/25/2020 9:17:12 AM > ADMINISTERED COMPLETION OF PROCEDURAL VISIT WHEN MEETS CRITERIAPESANTHOSH MARTINEZ R 06/25/2020 10:09:19 AM > CRITERIA MET OTHERS NOTES: PAT COMPLETED 06/22/20 M LEA PEREZ. PROCEDURES PAIN NURSING RECORD PROCEDURE IN ROOM 0845, PHYSICIAN IN ROOM 0952, START 0956, FINISH 0959, PHYSICIAN OUT OF ROOM 1001, OUT OF ROOM 1010, ECG N/A, PATIENT SHIELDED N/A, SAFETY STRAP N/A, PREP ALCOHOL DR. FOLEY, DRESSING TEGADERM Leandro LYNCH RN LOC: SANTHOSH LYNCH R 06/25/2020 9:57:54 AM > 1. ALERT, ORIENTED RESP: JEN LYNCHIL R 06/25/2020 9:57:57 AM > 1. REGULAR, NO DYSPNEA COLOR: SANTHOSH LYNCH R 06/25/2020 9:57:59 AM > 1. PINK SKIN: SANTHOSH LYNCH R 06/25/2020 9:58:03 AM > 1. WARM, DRY POSITION: SANTHOSH LYNCH R 06/25/2020 9:58:06 AM > 5. SITTING VITALS: SANTHOSH LYNCH R 06/25/2020 10:07:59 AM > 141/73, 85, 20, 95% COMPLETION OF PROCEDURE APPOINTMENT: POST PAIN 0, DRESSING SITE DRY AND INTACT, IV N/A, GAIT STEADY, TEACHING COMPLETED, PATIENT ACKNOWLEDGES UNDERSTANDING YES, PROCEDURE APPOINTMENT COMPLETED AT 1009 BY: Leandro LYNCH RN PN TRIGGER POINT INJECTION WITH STEROIDS PRE PROCEDURE DIAGNOSIS 1. MYALGIA 2. PAIN AT BILATERAL LOW BACK AREA POST PROCEDURE DIAGNOSIS 1. MYALGIA 2. PAIN AT BILATERAL LOW BACK AREA PROCEDURE TRIGGER POINT INJECTION AT BILATERAL LOW BACK AREA SURGEON DR. MARITA FOLEY CELLARS SUPERVISOR NONE ANESTHESIA LOCAL PRE PROCEDURE NOTE THE PATIENT HAS A HISTORY OF CHRONIC PAIN AT THE RIGHT AND LEFT LOW BACK AREA. I EVALUATED THE PATIENT AND REVIEWED THE CHART. THERE IS EVIDENCE OF BANDS OF TISSUE WITH RESTRICTION OF MOVEMENT AND PRESENCE OF TRIGGER POINT AT THE RIGHT AND LEFT LOW BACK AREA. I WENT OVER THE RISKS, ALTERNATIVES, AND BENEFITS ASSOCIATED WITH THIS PROCEDURE. THE PATIENT WOULD LIKE TO PROCEED AND GIVE CONSENT TO PERFORMED THE PROCEDURE. THE PATIENT DENIES UNEXPLAINABLE WEIGHT LOSS, FEVER, CHILLS, OR NEW CHANGES IN URINARY OR BOWEL CONTROL. THE PATIENT IS COVID-19 NEGATIVE DESCRIPTION OF PROCEDURE THE PATIENT WAS BROUGHT TO THE PROCEDURE ROOM AND PLACED IN THE SITTING POSITION. THE AREA WAS CLEANED WITH ALCOHOL. THE PROCEDURE WAS DONE USING ASEPTIC STERILE TECHNIQUE. A TIMEOUT WAS PERFORMED WHERE THE CONSENTED SITE WAS VERIFIED WITH EVERYONE IN THE ROOM. USING A 25-GAUGE NEEDLE, TRIGGER POINTS WERE INJECTED AT THE RIGHT AND LEFT LOW BACK AREA WITH A TOTAL OF 40 ML OF BUPIVACAINE 0.25% AND KENALOG 40 MG. THE MEDICATIONS WERE VERIFIED WITH THE NURSE. THERE WAS NO EVIDENCE OF BLOOD OR PARESTHESIA DURING THE PROCEDURE. THE PATIENT WAS SENT TO THE RECOVERY ROOM. THE PATIENT WAS MOVING THE EXTREMITIES AND DOING WELL. THERE WERE NO COMPLICATIONS DURING THE PROCEDURE. ESTIMATED BLOOD LOSS WAS LESS THAN 5 ML POST PROCEDURE NOTE THE PROCEDURE DONE WAS DISCUSSED WITH THE PATIENT. THE PATIENT WILL BE SEEN IN A FOLLOW UP IN THE NEXT FEW WEEKS. I AM LOOKING FOR LONG LASTING PAIN RELIEF FOR THE PATIENT WITH THIS INTERVENTION. INSTRUCTIONS WERE GIVEN, QUESTIONS WERE ANSWERED, AND THE PATIENT EXPRESSED UNDERSTANDING AND AGREES WITH THE PLAN. I, DEEPIKA HOFFMAN, DOCUMENTED THE ABOVE INFORMATION ACTING A SCRIBE FOR DR. FOLEY. I HAVE REVIEWED THE ABOVE DOCUMENT, WRITTEN BY DEEPIKA HOFFMAN, EXECUTIVE PASTRY CHEF, AND I VERIFY THAT IT IS ACCURATE PROCEDURE CODES 06831 INJ TRIGGER POINT 05/12 MUSCL DISPOSITION & COMMUNICATION FOLLOW UP FOLLOW UP WITH DATA WAREHOUSING ARCHITECT (REASON: POST TRIGGER POINT INJECTIONS BILATERAL LOW BACK) ELECTRONICALLY SIGNED BY MARITA FOLEY MD, MD ON 07/03/2020 AT 12:41 PM EST DISCLAIMER : THIS IS A VISIT SUMMARY EXTRACTED FROM THE [employer] CHART. IT IS NOT A COPY OF THE [employer] PROGRESS NOTE. [email or web address]
== END ==
LOC: M PAIN 08:30
PROVIDERS: ATTEND Anesthesiology
DX: M79.18 Myalgia, other site (principal); E11.9 Type 2 diabetes mellitus without complications; G47.30 Sleep apnea, unspecified; J45.909 Unspecified asthma, uncomplicated; Z86.718 Personal history of other venous thrombosis and embolism; Z98.84 Bariatric surgery status; Z86.59 Personal history of other mental and behavioral disorders; Z87.891 Personal history of nicotine dependence; Z88.8 Allergy status to other drugs, medicaments and biological substances; E66.01 Morbid (severe) obesity due to excess calories; Z68.41 Body mass index [BMI] 40.0-44.9, adult; Z79.01 Long term (current) use of anticoagulants; Z79.899 Other long term (current) drug therapy
CPT/HCPCS: 20552; J3301

== ENCOUNTER → 2020-07-10 | Outpatient (CLI) | payer MEDICARE, MEDICAID ==
[~2020-07-10] MED LIST changes: -BUPIVACAINE HCL 0.25% 10ML VIAL As Ordered ONE; -BUPIVACAINE HCL 0.25% 30ML VIAL As Ordered ONE; -TRIAMCINOLONE ACETONIDE SUSP 40 MG/ML VIAL (J3301) As Ordered ONE; -diazePAM 5MG TABLET As Ordered ONE; -oxyCODONE 5MG TAB As Ordered ONE
--- NOTE | 2020-07-17 03:35 | ECWPNPC ---
PATIENT NAME: DEVAN EDWARDS : 1965 GENDER: FEMALE VISIT DATE: 07/10/2020 DISCHARGE DATE: 07/10/20 1209 VISIT LOCKED DATE TIME: PHYSICIAN: UMESH LONGO RESOURCE: UMESH LONGO REASON FOR APPOINTMENT 1. POST TRIGGER POINT INJECTIONS BILATERAL LOW BACK HISTORY OF PRESENT ILLNESS GENERAL: HERE FOR POST PROCEDURE FOLLOW-UP. HEAD TRIGGER POINT INJECTIONS BILATERAL LOW BACK AT LAST CLINIC VISIT. REPORTING IMPROVEMENT IN PAIN CONTROL POST PROCEDURE. PAIN HAS GRADUALLY RETURNED TO BASELINE. FINDS CURRENT MEDICATIONS HELPFUL AT REDUCING PAIN AND KEEPING HER COMFORTABLE. DENIES ADVERSE SIDE EFFECTS WITH MEDICATIONS. -. FALL RISK SCREENING: SCREENING : NO FALLS REPORTED IN THE LAST YEAR. PAIN SCREENING: PATIENT HAS A COMPLAINT OF ACUTE OR CHRONIC PAIN :YES LOCATION OF PAIN:LOW BACK INTENSITY OF PAIN (SCALE OF 1 TO 10):7 WHAT DOES YOUR PAIN FEEL LIKE:ACHING, THROBBING DURATION:CONTINOUS, CONSTANT, ALL DAY PAIN IS INCREASED BY:ACTIVITIES PAIN IS DECREASED BY:USE OF PAIN MEDICATIONS NURSING NOTE: -. PAIN CENTER INTAKE QUESTIONS: DO YOU HAVE A HISTORY OF MRSA? :NO DO YOU TAKE A BLOOD THINNERS? :YES WARFARIN DO YOU HAVE ANY BLEEDING DISORDERS? :NO ANY NEW NUMBNESS OR WEAKNESS IN YOUR LEGS OR ARMS? :NO ANY PACEMAKER,DEFIBRILLATOR, OR DORSAL COLUMN STIMULATOR? :NO DO YOU HAVE ANY RASHES OR OPEN SORES? :NO ARE YOU ALLERGIC TO IV DYE? :NO ARE YOU DIABETIC? :NO ANY NEW PROBLEMS WITH YOUR MEDICATIONS? :YES NAUSEA AT TIMES IF NOT TAKING FOOD HAVE YOU RECEIVED A VACCINE IN THE PAST 30 DAYS? :NO DO YOU PLAN TO RECEIVE A VACCINE IN THE NEXT 21 DAYS? :NO DO YOU NEED ANY PRESCRIPTION? :YES TRAMADOL AND PERCOCET DO YOU TAKE ANY IMMUNOSUPPRESSIVE MEDICATIONS? :NO IS THERE A CHANCE YOU COULD BE ? :NO ARE YOU BREAST FEEDING? :NO CURRENT MEDICATIONS TAKING MONTELUKAST SODIUM 10 MG TABLET 1 TABLET IN THE EVENING ORALLY ONCE A DAY, NOTES: 2200 TAKING VITAMIN B-12 2500 MCG TABLET SUBLINGUAL 1 TABLET SUBLINGUAL ONCE A DAY TAKING DEXILANT 60 MG CAPSULE DELAYED RELEASE 1 CAPSULE ORALLY ONCE A DAY TAKING PREZISTA 800 MG TABLET TAKE ONE TABLET BY MOUTH EVERY DAY WITH FOOD ORALLY ONCE A DAY, NOTES: 2200 TAKING GENVOYA [id number] MG TABLET 1 TAB ORALLY DAILY, NOTES: 2199 TAKING CALCIUM 600 + D 600-400 MG-UNIT TABLET 1 TABLET ORALLY DAILY TAKING EPIPEN 0.3 MG/0.3ML DEVICE DIRECTED INJECTION ONCE DAILY NEEDED, NOTES: PRN TAKING MAY USE ALLERGY INJECTIONS EVERY 2 WEEKS TAKING TRAZODONE HCL 100 MG TABLET 2 TABLET ORALLY BEFORE BEDTIME, NOTES: 06/24/202199 TAKING VALACYCLOVIR HCL 1 GM TABLET 2 TABLET ORALLY BID PRN OUTBREAK FOR 2 DAYS TAKING VENTOLIN HFA 108 (90 BASE) MCG/ACT AEROSOL SOLUTION 2 PUFFS MARY ALICE INHALATION EVERY 4 HRS NEEDED TAKING 1ST CHOICE LANCETS THIN - MISCELLANEOUS DX E11.8 SUBCUTANEOUSLY 1-2 TIMES QD TAKING ONETOUCH VERIO - STRIP E11.8 --DX IN VITRO 1-2 TIMESDAILY TAKING OXYBUTYNIN CHLORIDE 5 MG TABLET 1 TABLET ORALLY BEFORE BEDTIME TAKING XYZAL 5 MG TABLET 1 TABLET IN THE EVENING ORALLY ONCE A DAY TAKING DILTIAZEM HCL ER 120 MG CAPSULE EXTENDED RELEASE 12 HOUR 1 CAPSULE ORALLY ONCE A DAY, NOTES: 040 TAKING CHANTIX 1 MG TABLET DIRECTED ORALLY BID TAKING SPIRIVA RESPIMAT 2.5 MCG/ACT AEROSOL SOLUTION 2 PUFFS INHALATION ONCE A DAY TAKING PERCOCET 7.5-325 MG TABLET 1 TABLET NEEDED ORALLY EVERY 6 HRS MDD4, NOTES: 399 TAKING TRAMADOL HCL 50 MG TABLET 1 TABLET NEEDED ORALLY EVERY 8 HOURS NEEDED, NOTES: 06/24/202199 TAKING SYMBICORT 160-4.5 MCG/ACT AEROSOL 2 PUFFS INHALATION TWICE A DAY TAKING CILOXAN 0.3 % OINTMENT 1 APPLICATION INTO THE LOWER EYELID OF AFFECTED EYE OPHTHALMIC TWICE A DAY TAKING COUMADIN 8.5 MG DAILY NOT-TAKING CETIRIZINE HCL 5 MG TABLET 1 TABLET ORALLY ONCE A DAY NOT-TAKING CHANTIX CONTINUING MONTH EMEKA 1 MG TABLET 1 TABLET ORALLY TWICE A DAY, NOTES: DOUBLE ENTRY NOT-TAKING HYDROCODONE-ACETAMINOPHEN 7.5-325 MG TABLET 1 TABLET NEEDED ORALLY EVERY 6 HRS/MMD4 NOT-TAKING CYMBALTA 30 MG CAPSULE DELAYED RELEASE PARTICLES 1 CAPSULE ORALLY DAILY MEDICATION LIST REVIEWED AND RECONCILED WITH THE PATIENT PAST MEDICAL HISTORY AIDS/HIV 1995 INFECTED BY MALE HETEROSEXUAL ON COMBIVIR/ VIRAMUNE FOR 12 YEARS 10/[id number]=83 VL 26K STARTED TRUVADA/ REYATAZ/ NORVIR 07/18/2008 [id number] K103 MUTATION CD4 87 FROM [id number] VL NOT DETECTED, 07/24/2011 VL 51, 370 GENOSURE K103/ Y181 RESISTANT TO VIRAMUNE/ EFAVIRENZ/ RILPIVIRINE SWITCHED TO PREZISTA / GENVOYA ASTHMA HYPERTENSION/ ECHOCARDIOGRAM SHOWED LVH TENDONITIS SANGITA WRIST ENVIRONMENTAL ALLERGIES HX OF GESTATIONAL DIABETES PURE HYPERCHOLESTEREMIA 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 TORRES 08/17 IRRITABLE BOWEL SYNDROME GENOTYPE 08/2011 K103 MUTATION TROFILE DUAL MIXED TROPISM POSTMENOPAUSE OSTEOPENIA BMD 2012 DR KHOURY SYMPTOMATIC STATES ASSOCIATED WITH ARTIFICIAL MENOPAUSE EXTERNAL HEMORRHOIDS GASTRIC BYPASS STATUS FOR OBESITY SEASONAL AND PERENNIAL ALLERGIC RHINITIS OSTEOPENIA SLEEP APNEA NOT USING CPAP COULD NOT TOLERATE DIABETES HISTORY OF TOBACCO ABUSE QUIT SMOKING 03/2018 DVT LEFT LEG POSTOPERATIVE BUNION SURGERY 03/2019 AND BILATERAL PULMONARY EMBOLISM ON COUMADIN CHRONIC BACK PAIN ARTHRITIS AND PAIN LEFT KNEE ALLERGIES BIAXIN: RASH - ALLERGY NORVASC: EDEMA - ALLERGY LISINOPRIL: FACIAL SWELLING - ALLERGY ESTRADIOL: REREDDNESS AT SITE OF PATCH - SIDE EFFECTS SOCIAL HISTORY GENERAL: TOBACCO USE ARE YOU A:FORMER SMOKER HOW LONG HAS IT BEEN SINCE YOU LAST SMOKED?1-5 YEARS SMOKING CESSATION INFORMATION GIVEN02/10/201802/10 DECLINED LATEX QUESTIONNAIRE LATEX ALLERGY : HAVE YOU EVER DEVELOPED ANY TYPE OF REACTION AFTER HANDLING LATEX PRODUCTS SUCH RUBBER GLOVES, CONDOMS, DIAPHRAGMS, BALLOONS, SOCKS, OR UNDERWEAR?NO LATEX ALLERGY : HAVE YOU EVER DEVELOPED ANY TYPE OF REACTION DURING OR AFTER DENTAL APPOINTMENT, VAGINAL/RECTAL EXAMINATION, SURGICAL PROCEDURE, OR ANY OTHER EXPOSURE?NO LATEX RISK : HAVE YOU EVER HAD ANY DIFFICULTY BREATHING OR HIVES AFTER EATING OR HANDLING ANY FRUITS, OR VEGETABLES; SUCH KIWI, BANANAS, STONE FRUITS, OR CHESTNUTSYES - PLEASE INDICATE : KIWI, BANANAS, STONE FRUITS, CHESTNUTS LATEX RISK : DO YOU HAVE A PREVIOUS PERSONAL HISTORY OF MORE THAN NINE SURGERIES, SPINA BIFIDA, OR REPEATED CATHERIZATIONS? YES - PLEASE INDICATE : > 9 SURGERIES LATEX RISK : ARE YOU FREQUENTLY EXPOSED TO LATEX PRODUCTS IN YOUR OCCUPATION?NO DATE ASKED : 07/10/2020 ALCOHOL USE: YES. BMI CARE GOAL FOLLOW-UP ABOVE NORMAL BMI FOLLOW-UPDIETARY MANAGEMENT EDUCATION, GUIDANCE, AND COUNSELING ALCOHOL SCREENING POINTS: 1, INTERPRETATION: NEGATIVE. RECREATIONAL DRUG USE DRUG USE?NO CAFFEINE 1 CUP COFFE DAILY. SEXUAL HX HAD SEX IN THE LAST 12 MONTHS (VAGINAL, ORAL, OR ANAL)?: NO, HAVE YOU EVER HAD AN STD?: NO, LMP:: HYSTER. HIV / HEP-C SCREENING HIV TEST OFFERED TO PATIENT:YES DATE OFFERED:03/10/2018 TEST ACCEPTED:NO PREV TESTED HEP-C TEST OFFERED TO PATIENT:YES DATE OFFERED:03/10/2018 REASON:OTHER (DOCUMENT IN NOTE) TEST ACCEPTED:NO PREV TESTED REASON:OTHER (DOCUMENT IN NOTE) BROCHURE PROVIDED TO PATIENTNO RASTAFARI [id number] NONE LANGUAGE LANGUAGES SPOKEN:CYMRO EDUCATION LEVEL OF EDUCATION:HIGH SCHOOL GRADUATE LEARNING BARRIERS / SPECIAL NEEDS CHANGE FROM LAST VISIT?NO BARRIERS TO LEARNING?NO HEARING IMPAIRED?NO VISION IMPAIRED?YES :CORRECTIVE LENSES COGNITIVELY IMPAIRED?NO READINESS TO LEARN?YES LEARNING PREFERENCES?YES :DEMONSTRATION/VERBAL INSTRUCTION LEARNING CAPABILITIES PRESENT?YES EMOTIONAL BARRIERS?NO SPECIAL DEVICES?NO SUPERVISOR BILLPOSTING NEEDED?NO DOMESTIC VIOLENCE DO YOU FEEL SAFE IN YOUR ENVIRONMENT?YES OCCUPATION: DISABLED. DIET: NO HX EATING DISORDERS. EXERCISE: NO REGULAR EXERCISE. MARITAL STATUS: . OTHERS AT HOME: LIVES ALONE. FEMALE 6 MONTH RISK ASSESSMENT FOR STD DESCRIBE YOUR SEXUAL PARTNERS:MALE MONOGAMOUS?YES HIV POSITIVE?YES EVER INJECT DRUGS?NO VAGINAL SEX?NO ANAL SEX?NO ORAL SEX?NO ARE YOU TAKING ANY STEPS TO PREVENT ?YES METHODS (CHECK ALL THAT APPLY):MALE CONDOMS WHAT STEPS HAVE YOU TAKEN TO PROTECT YOURSELF FROM STDS, INCLUDING HIV? (CHECK ALL THAT APPLY):MUTUAL MONOGAMY, MALE CONDOMS HAVE YOU OR ANY OF YOUR SEXUAL PARTNERS EVER HAD AN STD? IF YES PLEASE LIST:NO IS THERE ANYTHING ELSE WE SHOULD TALK ABOUT CONCERNING YOUR SEXUAL HISTORY OR PRACTICE?NO TODAY'S VISIT NOTES 09/05/2019, PATIENT DESCRIBES PAIN : ACHING, HAVE IT ALL THE TIME, THROBBING, FROM 0-10, WHAT LEVEL IS YOUR PAIN TODAY? 7. - PFS REFERRAL NEEDED?NO CLERGY REFERRAL NEEDED?NO PUBLIC HEALTH REFERRAL NEEDED?NO WAS THE PROVIDER NOTIFIED OF ANY PERTINENT INFO? N/A HAS THE PATIENT BEEN EDUCATED REGARDING HIS/HER PLAN OF CARE?YES HAS THE PATIENT BEEN EDUCATED REGARDING PAIN, THE RISK FOR PAIN, THE IMPORTANCE OF EFFECTIVE PAIN MANAGEMENT, AND THE PAIN ASSESSMENT PROCESS?YES ADVANCE DIRECTIVE ADVANCE DIRECTIVE DISCUSSED WITH PATIENT:YES HCP - RONALDO MURRAY (SON) & BOOKER EDWARDS (MOTHER) - WILL BRING IN COPY NEXT VISIT. REVIEW OF SYSTEMS CONSTITUTIONAL: ANY RECENT FEVER NO . CHILLS NO . WEIGHT CHANGE OF UNKNOWN REASONS NO . GASTROENTEROLOGY: NEW UNEXPLAINABLE CHANGES IN BOWEL CONTROL NO . CONSTIPATION NO . GENITOURINARY: ANY NEW CHANGE IN BLADDER CONTROL? NO . NEUROLOGY: NEW ONSET DIZZINESS OR NEUROLOGICAL CHANGES NOT MENTIONED NO . NEW NUMBNESS OR PAIN PATTERNS NOT MENTIONED AND PERTINENT TO TODAY'S VISIT NO . CARDIOLOGY: NEW CHEST PRESSURE NO . PATIENT DENIES NO . RESPIRATORY: UNEXPLAINABLE COUGH NO . NEW SHORTNESS OF BREATH NO . VITAL SIGNS WT 220 LBS, HT 61 IN, BMI 41.56 INDEX, BP 145/91 MM HG, HR 94 /MIN, RR 18 /MIN, TEMP 95.3 F, OXYGEN SAT % 94%, SAFE IN ENV? (Y/N) YEST.LAWSON WELLER. EXAMINATION GENERAL EXAMINATION: GENERALAWAKE,ALERT ,PLEASANT . PSYCHAFFECT NORMAL . LUNGS:LUNG MCADAMS ARE CLEAR TO AUSCULTATION BILATERALLY. GOOD MOVEMENT OF AIR . HEART:S1, S2 IN A REGULAR RATE AND RHYTHM. NO SIGNIFICANT MURMURS, RUBS OR GALLOPS NOTED . ASSESSMENTS CHRONIC PRESCRIPTION OPIATE USE - Z79.891 (PRIMARY) OTHER CHRONIC PAIN - G89.29 TREATMENT CHRONIC PRESCRIPTION OPIATE USE LAB: URINE TEST GROUP OTHER CHRONIC PAIN PAIN PROCEDURE LOGDATE OF PROCEDURE1PROCEDURE:TRIGGER POINT INJECTIONS BILATERAL LOW BACKAMOUNT OF PRE SEDATEVALIUM 10 MG & OXYCODONE 10 MGRESULT:IMPROVEMENT IN PAIN PROCEDURE CODES FA211 ESTABILISHED PATIENT [facility] CHARGE DISPOSITION & COMMUNICATION FOLLOW UP 3 MONTHS (REASON: MED MGMNT/REVIEW URINE TOXICOLOGY/ASSESS FOR TRIGGER POINT INJECTIONS LOW BACK) ELECTRONICALLY SIGNED BY RAND HINOJOSA ON 07/16/2020 AT 04:49 PM EST DISCLAIMER : THIS IS A VISIT SUMMARY EXTRACTED FROM THE [employer] CHART. IT IS NOT A COPY OF THE [employer] PROGRESS NOTE. MELISSA
== END ==
LOC: M PAIN 11:00
PROVIDERS: ATTEND Nurse Practitioner Family
DX: G89.29 Other chronic pain (principal); J45.909 Unspecified asthma, uncomplicated; I10 Essential (primary) hypertension; E78.00 Pure hypercholesterolemia, unspecified; K58.9 Irritable bowel syndrome, unspecified; M16.12 Unilateral primary osteoarthritis, left hip; Z98.84 Bariatric surgery status; G47.30 Sleep apnea, unspecified; E11.9 Type 2 diabetes mellitus without complications; Z86.718 Personal history of other venous thrombosis and embolism; Z79.891 Long term (current) use of opiate analgesic; Z79.01 Long term (current) use of anticoagulants; Z79.899 Other long term (current) drug therapy; Z88.8 Allergy status to other drugs, medicaments and biological substances

== ENCOUNTER → 2020-09-12 | Outpatient (CLI) | payer MEDICARE, MEDICAID ==
--- NOTE | 2020-09-17 11:01 | REP ---
INDICATION: DIARRHEA, UNSPECIFIED. COMPARISON: Abdominal series 02/03/2020 TECHNIQUE: Single KUB FINDINGS: Once again, there are surgical clips in the right upper quadrant from previous cholecystectomy. Once again, there is a surgical staple line in place left upper quadrant status quo. The intestinal gas pattern is nonspecific. The organ silhouettes insofar as delineated are within normal limits. There are no Sitz markers visualized. There is no change in the osseous structures. IMPRESSION: As above <Electronically signed by Fadi Rogers > 09/17/20 [id number]
== END ==
LOC: M RAD 08:54
PROVIDERS: ATTEND Physician Assistant Medical
DX: Z53.9 Procedure and treatment not carried out, unspecified reason (principal); R19.7 Diarrhea, unspecified

== ENCOUNTER → 2020-09-17 | Outpatient (REF) | payer MEDICARE, MEDICAID | LOC: M LAB REF 10:29 | PROVIDERS: ATTEND Physician Assistant Medical | DX: R19.7 Diarrhea, unspecified (principal) ==

== ENCOUNTER → 2020-10-11 | Outpatient (CLI) | payer MEDICARE, MEDICAID ==
--- NOTE | 2020-10-13 00:21 | ECWPNPC ---
PATIENT NAME: DEVAN EDWARDS : 1965 GENDER: FEMALE VISIT DATE: 10/11/2020 DISCHARGE DATE: 10/11/20 1518 VISIT LOCKED DATE TIME: PHYSICIAN: UMESH LONGO RESOURCE: UMESH LONGO REASON FOR APPOINTMENT 1. MED MGMNT/REVIEW URINE TOXICOLOGY/ASSESS FOR TRIGGER POINT INJECTIONS LOW BACK HISTORY OF PRESENT ILLNESS DEPRESSION SCREENING: PHQ-2 (2015 EDITION) LITTLE INTEREST OR PLEASURE IN DOING THINGS?NOT AT ALL FEELING DOWN, DEPRESSED, OR HOPELESS?NOT AT ALL TOTAL SCORE0 GENERAL: HERE FOR F/U OF CHRONIC LOW BACK PAIN.CONTINUES TO BENEFIT FROM CURRENT CHRONIC PAIN MEDICINE AND DENIES ADVERSE EFFECTS.BROKE HER LEFT ANKLE A FEW WEEKS AGO AND HAS IMMOBILIZER ON. -. FALL RISK SCREENING: SCREENING : NO FALLS REPORTED IN THE LAST YEAR. PAIN SCREENING: PATIENT HAS A COMPLAINT OF ACUTE OR CHRONIC PAIN :YES LOCATION OF PAIN:LOW BACK INTENSITY OF PAIN (SCALE OF 1 TO 10):8 WHAT DOES YOUR PAIN FEEL LIKE:ACHING, CONTINOUS DURATION:CONTINOUS, CONSTANT, ALL DAY PAIN IS INCREASED BY:ACTIVITIES PAIN IS DECREASED BY:USE OF PAIN MEDICATIONS NURSING NOTE: -. PAIN CENTER INTAKE QUESTIONS: DO YOU HAVE A HISTORY OF MRSA? :NO DO YOU TAKE A BLOOD THINNERS? :YES WARFARIN DO YOU HAVE ANY BLEEDING DISORDERS? :NO ANY NEW NUMBNESS OR WEAKNESS IN YOUR LEGS OR ARMS? :NO ANY PACEMAKER,DEFIBRILLATOR, OR DORSAL COLUMN STIMULATOR? :NO DO YOU HAVE ANY RASHES OR OPEN SORES? :NO ARE YOU ALLERGIC TO IV DYE? :NO ARE YOU DIABETIC? :NO ANY NEW PROBLEMS WITH YOUR MEDICATIONS? :YES NAUSEA AT TIMES IF NOT TAKING FOOD HAVE YOU RECEIVED A VACCINE IN THE PAST 30 DAYS? :NO DO YOU PLAN TO RECEIVE A VACCINE IN THE NEXT 21 DAYS? :NO DO YOU NEED ANY PRESCRIPTION? :NO DO YOU TAKE ANY IMMUNOSUPPRESSIVE MEDICATIONS? :NO IS THERE A CHANCE YOU COULD BE ? :NO ARE YOU BREAST FEEDING? :NO CURRENT MEDICATIONS TAKING EPIPEN 0.3 MG/0.3ML DEVICE DIRECTED INJECTION ONCE DAILY NEEDED, NOTES: PRN TAKING MAY USE ALLERGY INJECTIONS EVERY 2 WEEKS TAKING 1ST CHOICE LANCETS THIN - MISCELLANEOUS DX E11.8 SUBCUTANEOUSLY 1-2 TIMES QD TAKING ONETOUCH VERIO - STRIP E11.8 --DX IN VITRO 1-2 TIMESDAILY TAKING XYZAL 5 MG TABLET 1 TABLET IN THE EVENING ORALLY ONCE A DAY TAKING DILTIAZEM HCL ER 120 MG CAPSULE EXTENDED RELEASE 12 HOUR 1 CAPSULE ORALLY ONCE A DAY, NOTES: 0400 TAKING WARFARIN SODIUM _ TABLET 12.5MG 1 TABLET ORALLY ONCE A DAY TAKING SPIRIVA RESPIMAT 2.5 MCG/ACT AEROSOL SOLUTION 2 PUFFS INHALATION ONCE A DAY TAKING SYMBICORT 160-4.5 MCG/ACT AEROSOL 2 PUFFS INHALATION TWICE A DAY TAKING PREZISTA 800 MG TABLET TAKE ONE TABLET BY MOUTH EVERY DAY WITH FOOD ORALLY ONCE A DAY TAKING TRAZODONE HCL 100 MG TABLET 2 TABLET ORALLY BEFORE BEDTIME TAKING CALCIUM 600 + D 600-400 MG-UNIT TABLET 1 TABLET ORALLY DAILY TAKING MONTELUKAST SODIUM 10 MG TABLET 1 TABLET IN THE EVENING ORALLY ONCE A DAY TAKING GENVOYA [id number] MG TABLET 1 TAB ORALLY DAILY TAKING OXYBUTYNIN CHLORIDE 5 MG TABLET 1 TABLET ORALLY BEFORE BEDTIME TAKING VENTOLIN HFA 108 (90 BASE) MCG/ACT AEROSOL SOLUTION 2 PUFFS MARY ALICE INHALATION EVERY 4 HRS NEEDED TAKING VITAMIN B-12 2500 MCG TABLET SUBLINGUAL 1 TABLET SUBLINGUAL ONCE A DAY TAKING CETIRIZINE HCL 5 MG TABLET 1 TABLET ORALLY ONCE A DAY TAKING WELLBUTRIN XL 300 MG TABLET EXTENDED RELEASE 24 HOUR 1 TABLET IN THE MORNING ORALLY ONCE A DAY TAKING VALACYCLOVIR HCL 1 GM TABLET 2 TABLET ORALLY BID PRN OUTBREAK FOR 2 DAYS TAKING DEXILANT 60 MG CAPSULE DELAYED RELEASE 1 CAPSULE ORALLY ONCE A DAY TAKING TRAMADOL HCL 50 MG TABLET 1 TABLET NEEDED ORALLY Q8H PRN PAIN MDD3 TAKING PERCOCET 7.5-325 MG TABLET 1 TABLET NEEDED ORALLY EVERY 6 HRS MDD4 NOT-TAKING COUMADIN 8.5 MG 12.5 DAILY NOT-TAKING CHANTIX 1 MG TABLET DIRECTED ORALLY BID NOT-TAKING CHANTIX CONTINUING MONTH EMEKA 1 MG TABLET 1 TABLET ORALLY TWICE A DAY, NOTES: DOUBLE ENTRY NOT-TAKING HYDROCODONE-ACETAMINOPHEN 7.5-325 MG TABLET 1 TABLET NEEDED ORALLY EVERY 6 HRS/MMD4 NOT-TAKING CYMBALTA 30 MG CAPSULE DELAYED RELEASE PARTICLES 1 CAPSULE ORALLY DAILY MEDICATION LIST REVIEWED AND RECONCILED WITH THE PATIENT PAST MEDICAL HISTORY AIDS/HIV 1995 INFECTED BY MALE HETEROSEXUAL ON COMBIVIR/ VIRAMUNE FOR 12 YEARS 10/[id number]=69 VL 26K STARTED TRUVADA/ REYATAZ/ NORVIR 07/18/2008 [id number] K103 MUTATION CD4 87 FROM [id number] VL NOT DETECTED, 07/24/2011 VL 51, 370 GENOSURE K103/ Y181 RESISTANT TO VIRAMUNE/ EFAVIRENZ/ RILPIVIRINE SWITCHED TO PREZISTA / GENVOYA ASTHMA HYPERTENSION/ ECHOCARDIOGRAM SHOWED LVH TENDONITIS SANGITA WRIST ENVIRONMENTAL ALLERGIES HX OF GESTATIONAL DIABETES PURE HYPERCHOLESTEREMIA 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 TORRES 08/17 IRRITABLE BOWEL SYNDROME GENOTYPE 08/2011 K103 MUTATION TROFILE DUAL MIXED TROPISM POSTMENOPAUSE OSTEOPENIA BMD 2012 DR KHOURY SYMPTOMATIC STATES ASSOCIATED WITH ARTIFICIAL MENOPAUSE EXTERNAL HEMORRHOIDS GASTRIC BYPASS STATUS FOR OBESITY SEASONAL AND PERENNIAL ALLERGIC RHINITIS OSTEOPENIA SLEEP APNEA NOT USING CPAP COULD NOT TOLERATE DIABETES HISTORY OF TOBACCO ABUSE QUIT SMOKING 03/2018 DVT LEFT LEG POSTOPERATIVE BUNION SURGERY 03/2019 AND BILATERAL PULMONARY EMBOLISM ON COUMADIN CHRONIC BACK PAIN ARTHRITIS AND PAIN LEFT KNEE ALLERGIES BIAXIN: RASH - ALLERGY NORVASC: EDEMA - ALLERGY LISINOPRIL: FACIAL SWELLING - ALLERGY ESTRADIOL: REREDDNESS AT SITE OF PATCH - SIDE EFFECTS SURGICAL HISTORY PARTIAL HYSTERECTOMY 2004 TUBAL LIGATION 1989 GASTRIC BYPASS 1994 BENIGN POLYP REMOVAL FROM THROAT 2009 TENDONITIS SURGERY X2 (WRIST) RT 07/2008, LT 12/2008 BUNIONECTOMY 2ND TOE ON RIGHT FOOT STRAIGHTENED LAP CHOLECYSTECTOMY ([place]) 02/13/2012 LAP RELEASE OF BOWEL OBSTRUCTION (BOWEL SEWN INTO LUZ MARIA INCISION) ([facility]) 02/15/2012 ABDOMINAL SURGERY 06/23 BREAST REDUCTION COMPLICATED BY MSSA ABSCESS ON THE RIGHT SIDE REQUIRING INCISION AND DRAINAGE 01/2014 COLONOSCOPY 4 MM TUBULAR ADENOMA REPEAT IN [address] GAN 10/2015 BIOPSY THROAT 08-05-16 COLPOSCOPY 09/19/16 POLYPS REMOVED BY LASER FROM VOCAL CORDS 12/2016 LEFT FOOT BUNIONECTOMY 05/28/18 LEFT FOOT BUNIONECTOMY 02/15/19 LAPOROSCOPY REMOVAL OF TWO HERNIAS AND SCAR TISSUE WITH DR. POLK ([facility]) 05/01/2020 BROKE HER LEFT FOOT 09/30/2020 SOCIAL HISTORY GENERAL: TOBACCO USE ARE YOU A:CURRENT SMOKER ARE YOU INTERESTED IN QUITTING?NOT READY TO QUIT COUNSELED THE PATIENT ON SMOKING EFFECTS, EDUCATION FCMDSAPC80/03/2021 HOW MANY CIGARETTES A DAY DO YOU SMOKE?11-20 HOW SOON AFTER YOU WAKE UP DO YOU SMOKE YOUR FIRST CIGARETTE?AFTER 60 MIN 2 HOURS AFTER SMOKING CESSATION INFORMATION GIVEN02/10/201802/10 DECLINED LATEX QUESTIONNAIRE LATEX ALLERGY : HAVE YOU EVER DEVELOPED ANY TYPE OF REACTION AFTER HANDLING LATEX PRODUCTS SUCH RUBBER GLOVES, CONDOMS, DIAPHRAGMS, BALLOONS, SOCKS, OR UNDERWEAR?NO LATEX ALLERGY : HAVE YOU EVER DEVELOPED ANY TYPE OF REACTION DURING OR AFTER DENTAL APPOINTMENT, VAGINAL/RECTAL EXAMINATION, SURGICAL PROCEDURE, OR ANY OTHER EXPOSURE?NO LATEX RISK : HAVE YOU EVER HAD ANY DIFFICULTY BREATHING OR HIVES AFTER EATING OR HANDLING ANY FRUITS, OR VEGETABLES; SUCH KIWI, BANANAS, STONE FRUITS, OR CHESTNUTSYES - PLEASE INDICATE : KIWI, STONE FRUITS, CHESTNUTS LATEX RISK : DO YOU HAVE A PREVIOUS PERSONAL HISTORY OF MORE THAN NINE SURGERIES, SPINA BIFIDA, OR REPEATED CATHERIZATIONS? YES - PLEASE INDICATE : > 9 SURGERIES LATEX RISK : ARE YOU FREQUENTLY EXPOSED TO LATEX PRODUCTS IN YOUR OCCUPATION?NO DATE ASKED : 10/11/2020 ALCOHOL USE: YES. BMI CARE GOAL FOLLOW-UP ABOVE NORMAL BMI FOLLOW-UPDIETARY MANAGEMENT EDUCATION, GUIDANCE, AND COUNSELING ALCOHOL SCREENING POINTS: 1, INTERPRETATION: NEGATIVE. RECREATIONAL DRUG USE DRUG USE?NO CAFFEINE 1 CUP COFFE DAILY. SEXUAL HX HAD SEX IN THE LAST 12 MONTHS (VAGINAL, ORAL, OR ANAL)?: NO, HAVE YOU EVER HAD AN STD?: NO, LMP:: HYSTER. HIV / HEP-C SCREENING HIV TEST OFFERED TO PATIENT:YES DATE OFFERED:03/10/2018 TEST ACCEPTED:NO PREV TESTED HEP-C TEST OFFERED TO PATIENT:YES DATE OFFERED:03/10/2018 REASON:OTHER (DOCUMENT IN NOTE) TEST ACCEPTED:NO PREV TESTED REASON:OTHER (DOCUMENT IN NOTE) BROCHURE PROVIDED TO PATIENTNO CHRISTIAN [id number] NONE LANGUAGE LANGUAGES SPOKEN:LAO EDUCATION LEVEL OF EDUCATION:HIGH SCHOOL GRADUATE LEARNING BARRIERS / SPECIAL NEEDS CHANGE FROM LAST VISIT?NO BARRIERS TO LEARNING?NO HEARING IMPAIRED?NO VISION IMPAIRED?YES :CORRECTIVE LENSES COGNITIVELY IMPAIRED?NO READINESS TO LEARN?YES LEARNING PREFERENCES?YES :DEMONSTRATION/VERBAL INSTRUCTION LEARNING CAPABILITIES PRESENT?YES EMOTIONAL BARRIERS?NO SPECIAL DEVICES?YES :WHEELCHAIR, OTHER FOOT BRACE CRIME SPECIALIST NEEDED?NO DOMESTIC VIOLENCE DO YOU FEEL SAFE IN YOUR ENVIRONMENT?YES OCCUPATION: DISABLED. DIET: NO HX EATING DISORDERS. EXERCISE: NO REGULAR EXERCISE. MARITAL STATUS: . OTHERS AT HOME: LIVES ALONE. FEMALE 6 MONTH RISK ASSESSMENT FOR STD DESCRIBE YOUR SEXUAL PARTNERS:MALE MONOGAMOUS?YES HIV POSITIVE?YES EVER INJECT DRUGS?NO VAGINAL SEX?NO ANAL SEX?NO ORAL SEX?NO ARE YOU TAKING ANY STEPS TO PREVENT ?YES METHODS (CHECK ALL THAT APPLY):MALE CONDOMS WHAT STEPS HAVE YOU TAKEN TO PROTECT YOURSELF FROM STDS, INCLUDING HIV? (CHECK ALL THAT APPLY):MUTUAL MONOGAMY, MALE CONDOMS HAVE YOU OR ANY OF YOUR SEXUAL PARTNERS EVER HAD AN STD? IF YES PLEASE LIST:NO IS THERE ANYTHING ELSE WE SHOULD TALK ABOUT CONCERNING YOUR SEXUAL HISTORY OR PRACTICE?NO TODAY'S VISIT NOTES 09/05/2019, PATIENT DESCRIBES PAIN : ACHING, HAVE IT ALL THE TIME, THROBBING, FROM 0-10, WHAT LEVEL IS YOUR PAIN TODAY? 7. - PFS REFERRAL NEEDED?NO CLERGY REFERRAL NEEDED?NO PUBLIC HEALTH REFERRAL NEEDED?NO WAS THE PROVIDER NOTIFIED OF ANY PERTINENT INFO? N/A HAS THE PATIENT BEEN EDUCATED REGARDING HIS/HER PLAN OF CARE?YES HAS THE PATIENT BEEN EDUCATED REGARDING PAIN, THE RISK FOR PAIN, THE IMPORTANCE OF EFFECTIVE PAIN MANAGEMENT, AND THE PAIN ASSESSMENT PROCESS?YES ADVANCE DIRECTIVE ADVANCE DIRECTIVE DISCUSSED WITH PATIENT:YES HCP - RONALDO MURRAY ([facility]) & BOOKER EDWARDS (MOTHER) - WILL BRING IN COPY NEXT VISIT. HOSPITALIZATION/MAJOR DIAGNOSTIC PROCEDURE RELATED TO SURGERY CHILD ALLERGIC REACITON TO MEDS PNEUMONIA 06/2015 DVT & PE 03/21/19 REVIEW OF SYSTEMS CONSTITUTIONAL: ANY RECENT FEVER NO . CHILLS NO . WEIGHT CHANGE OF UNKNOWN REASONS NO . GASTROENTEROLOGY: NEW UNEXPLAINABLE CHANGES IN BOWEL CONTROL NO . CONSTIPATION NO . GENITOURINARY: ANY NEW CHANGE IN BLADDER CONTROL? NO . NEUROLOGY: NEW ONSET DIZZINESS OR NEUROLOGICAL CHANGES NOT MENTIONED NO . NEW NUMBNESS OR PAIN PATTERNS NOT MENTIONED AND PERTINENT TO TODAY'S VISIT NO . CARDIOLOGY: NEW CHEST PRESSURE NO . PATIENT DENIES NO . RESPIRATORY: UNEXPLAINABLE COUGH NO . NEW SHORTNESS OF BREATH NO . VITAL SIGNS WT 218 LBS, HT 61 IN, BMI 41.19 INDEX, BP 139/73 MM HG, HR 74 /MIN, RR 18 /MIN, TEMP 98.0 F, OXYGEN SAT % 94%, SAFE IN ENV? (Y/N) YES, NA INITIALS CT 14:41T.LAWSON WELLER. EXAMINATION GENERAL EXAMINATION: GENERALAWAKE,ALERT ,PLEASANT . PSYCHAFFECT NORMAL . LUNGS:LUNG MCADAMS ARE CLEAR TO AUSCULTATION BILATERALLY. GOOD MOVEMENT OF AIR . HEART:S1, S2 IN A REGULAR RATE AND RHYTHM. NO SIGNIFICANT MURMURS, RUBS OR GALLOPS NOTED . ASSESSMENTS MYALGIA, OTHER SITE - M79.18 (PRIMARY) TREATMENT MYALGIA, OTHER SITE CONTINUE TRAMADOL HCL TABLET, 50 MG, 1 TABLET NEEDED, ORALLY, Q8H PRN PAIN MDD3 CONTINUE PERCOCET TABLET, 7.5-325 MG, 1 TABLET NEEDED, ORALLY, EVERY 6 HRS MDD4 NOTES: ISTOP REGISTRY REVIEWED AND DEMONSTRATES COMPLLIANCE. BRINGS IN MEDICATIONS WHICH IS APPROPRIATE FOR WHAT WAS DISPENSED. RECENT URINE TOXICOLOGY REVIEWED. NO UNAUTHORIZED MEDICATIONS. NO ILLICIT SUBSTANCES AND PRESCRIBED MEDICATIONS WERE PRESENT. , RISKS OF NARCOTIC/OPIOD MEDICATIONS INCLUDES BUT IS NOT LIMITED TO RISK OF DEPENDANCE/DEVELOPMENT OF ADDICTION, MOOD DISTURBANCE AND DEPRESSION, OSTEOPOROSIS, HORMONAL AND LABIDAL CHANGES, RESPIRATORY DEPRESSION AND . PATIENT IS ADVISED NOT TO DRIVE OR DRINK ALCOHOL WHILE ON THESE MEDICATIONS. PROCEDURE CODES [id number] ESTABILISHED PATIENT [facility] CHARGE DISPOSITION & COMMUNICATION FOLLOW UP 3 MONTHS (REASON: MED MGMNT) ELECTRONICALLY SIGNED BY RAND HINOJOSA ON 10/12/2020 AT 01:22 PM EDT DISCLAIMER : THIS IS A VISIT SUMMARY EXTRACTED FROM THE [employer] CHART. IT IS NOT A COPY OF THE [employer] PROGRESS NOTE. MELISSA
== END ==
LOC: M PAIN 14:15
PROVIDERS: ATTEND Nurse Practitioner Family
DX: M79.18 Myalgia, other site (principal); J45.909 Unspecified asthma, uncomplicated; G47.30 Sleep apnea, unspecified; F17.210 Nicotine dependence, cigarettes, uncomplicated; Z86.59 Personal history of other mental and behavioral disorders; Z86.718 Personal history of other venous thrombosis and embolism; Z98.84 Bariatric surgery status; Z88.8 Allergy status to other drugs, medicaments and biological substances; E66.01 Morbid (severe) obesity due to excess calories; Z68.41 Body mass index [BMI] 40.0-44.9, adult; Z79.01 Long term (current) use of anticoagulants; Z79.899 Other long term (current) drug therapy

== ENCOUNTER → 2020-10-30 | Outpatient (REF) | payer MEDICARE, MEDICAID ==
[2020-10-30 14:13] LABS: ALBUMIN 3.8 GM/DL (3.2-5.2); ALT/SGPT 24 U/L (12-78); BILIRUBIN,TOTAL 0.3 MG/DL (0.2-1.0); BLOOD UREA NITROGEN 13 MG/DL (7-18); CALCIUM LEVEL 8.8 MG/DL (8.5-10.1); CARBON DIOXIDE LEVEL 27 MEQ/L (21-32); CHLORIDE LEVEL 106 MEQ/L (98-107); CREATININE FOR GFR 0.71 MG/DL (0.55-1.30); GLOMERULAR FILTRATION RATE > 60.0 (>51); GLUCOSE, FASTING 123 MG/DL (70-100); POTASSIUM SERUM 4.1 MEQ/L (3.5-5.1); SODIUM LEVEL 139 MEQ/L (136-145); TOTAL PROTEIN 6.9 GM/DL (6.4-8.2)
[2020-10-31 18:12] LABS: % CD8 Pos Lymph 38.3 % (12.0-35.5); %CD4 Pos Lymphs 45.7 % (30.8-58.5); ABS Lymphs 0.8 x10E3/uL (0.7-3.1); ABS Monocytes 0.3 x10E3/uL (0.1-0.9); ABS Neutophils 4.9 x10E3/uL (1.4-7.0); Abs CD4 Helper 366 /uL (359-1519); Abs CD8 Suppres 306 /uL (109-897); CD4/CD8 Ratio 1.19 (0.92-3.72); Eosinophils 1 % (Not Estab.); HCT 40.4 % (34.0-46.6); HGB 13.4 g/dL (11.1-15.9); HIV-1 RNA PCR QUANT 2 LC550285 <20 copies/mL (.); Immature Grans 0 % (Not Estab.); Lymphocytes 14 % (Not Estab.); MCH 28.2 pg (26.6-33.0); MCHC 33.2 g/dL (31.5-35.7); MCV 85 fL (79-97); Monocytes 4 % (Not Estab.); Neutrophils 80 % (Not Estab.); Platelets 259 x10E3/uL (150-450); RBC 4.75 x10E6/uL (3.77-5.28); RDW 14.4 % (11.7-15.4)
== END ==
LOC: M SFHCPLAZ 10:38
PROVIDERS: ATTEND Internal Medicine Infectious Disease
DX: B20 Human immunodeficiency virus [HIV] disease (principal); E74.39 Other disorders of intestinal carbohydrate absorption; Z79.899 Other long term (current) drug therapy

== ENCOUNTER → 2020-12-06 | Outpatient (CLI) | payer MEDICARE, MEDICAID ==
[~2020-12-06] MED LIST changes: +CETI5SOL3 PO; +OXYC7.5T3 PO; +SPIR12.9 INH; +SYMB16INH INH; +TRAM50TA2 PO; +TRAZ-257 PO; +VENTAER INH; +WARF-18 PO
== END ==
LOC: M LABSMTC 09:55
PROVIDERS: ATTEND Anesthesiology
DX: Z20.828 Contact with and (suspected) exposure to other viral communicable diseases (principal); Z11.59 Encounter for screening for other viral diseases

== ENCOUNTER 2020-12-11 08:07 | Day surgery (SDC) | payer MEDICARE, MEDICAID ==
[~2020-12-11] VITALS: Ht 152.4 cm; Wt 96.3 kg
[~2020-12-11 08:07] MED LIST changes: +NS 1,000 ML IV SCH
[2020-12-11] MEDS ORDERED: propofoL 200 MG/20 ML VIAL As Ordered ONE (09:15)
[2020-12-11] MEDS ORDERED: LIDOCAINE 2% 100MG/5ML SDV (FOR ANES.) As Ordered ONE (09:15)
--- NOTE | 2020-12-11 10:08 | ROOR ---
Patient Name: Cinda Turner Procedure Date: 12/11/2020 9:25 AM Date of : 1965 Age: 55 Room: [facility] Gender: Female Note Status: Finalized Procedure: Colonoscopy Indications: Generalized abdominal pain, Diarrhea Providers: Christiano Cooper MD Referring MD: Bria Santacruz MD Requesting Provider: Medicines: Monitored Anesthesia Care Complications: No immediate complications. Procedure: Pre-Anesthesia Assessment: - The heart rate, respiratory rate, oxygen saturations, blood pressure, adequacy of pulmonary ventilation, and response to care were monitored throughout the procedure. The Colonoscope was introduced through the anus and advanced to 15 cm into the ileum. The colonoscopy was performed without difficulty. The patient tolerated the procedure well. The quality of the bowel preparation was adequate and fair. Findings: The perianal and digital rectal examinations were normal. Three semi-sessile polyps were found in the sigmoid colon and splenic flexure. The polyps were diminutive in size. These polyps were removed with a jumbo cold forceps. Resection and retrieval were complete. The ileocecal valve was moderately lipomatous. This was biopsied with a cold forceps for histology. Mild sigmoid diverticulosis and moderate internal hemorrhoids. Biopsies for histology were taken with a cold forceps for evaluation of microscopic colitis. The terminal ileum appeared normal. Impression: - Preparation of the colon was adequate/fair. - Three diminutive polyps in the sigmoid colon and at the splenic flexure, removed with a jumbo cold forceps. Resected and retrieved. - Lipomatous ileocecal valve. Biopsied. - Mild sigmoid diverticulosis and moderate internal hemorrhoids. - The examined portion of the ileum was normal. - Biopsies were taken with a cold forceps for evaluation of microscopic colitis. Recommendation: - Repeat colonoscopy in 5 years for surveillance. - Telephone endoscopist for pathology results in 2 weeks. Procedure Code(s): --- Professional --- 50948, Colonoscopy, flexible; with biopsy, single or multiple Diagnosis Code(s): --- Professional --- R19.7, Diarrhea, unspecified R10.84, Generalized abdominal pain K63.89, Other specified diseases of intestine K63.5, Polyp of colon CPT copyright 2019 [employer]. All rights reserved. The codes documented in this report are preliminary and upon fun house attendant review may be revised to meet current compliance requirements. Christiano Cooper MD Christiano Cooper MD 12/11/2020 10:07:40 AM Electronically signed by Christiano Cooper MD Number of Addenda: 0 Note Initiated On: 12/11/2020 9:25 AM Estimated Blood Loss: Estimated blood loss: none.
[2020-12-11 10:32] VITALS: BP 175/90
== END 2020-12-11 10:34 | disposition home or self-care (01) ==
LOC: M OPP 08:07
PROVIDERS: ATTEND Internal Medicine Gastroenterology
DX: D12.3 Benign neoplasm of transverse colon (principal); K63.89 Other specified diseases of intestine; K57.30 Diverticulosis of large intestine without perforation or abscess without bleeding; K64.8 Other hemorrhoids; R10.84 Generalized abdominal pain; R19.7 Diarrhea, unspecified; F17.210 Nicotine dependence, cigarettes, uncomplicated; Z79.891 Long term (current) use of opiate analgesic; Z79.899 Other long term (current) drug therapy; Z91.018 Allergy to other foods; Z88.1 Allergy status to other antibiotic agents; Z88.8 Allergy status to other drugs, medicaments and biological substances

== ENCOUNTER → 2021-01-17 | Outpatient (CLI) | payer MEDICARE, MEDICAID ==
[~2021-01-17] MED LIST changes: -NS 1,000 ML IV SCH
== END ==
LOC: M PAIN 09:30
PROVIDERS: ATTEND Anesthesiology
DX: M51.16 Intervertebral disc disorders with radiculopathy, lumbar region (principal); G89.29 Other chronic pain; J45.909 Unspecified asthma, uncomplicated; G47.30 Sleep apnea, unspecified; F17.210 Nicotine dependence, cigarettes, uncomplicated; Z98.84 Bariatric surgery status; Z86.711 Personal history of pulmonary embolism; Z86.718 Personal history of other venous thrombosis and embolism; Z88.8 Allergy status to other drugs, medicaments and biological substances; E66.01 Morbid (severe) obesity due to excess calories; Z68.41 Body mass index [BMI] 40.0-44.9, adult; Z79.899 Other long term (current) drug therapy

== ENCOUNTER → 2021-05-09 | Outpatient (CLI) | payer MEDICARE, MEDICAID ==
--- NOTE | 2021-05-09 23:01 | REPVR ---
PROCEDURE INFORMATION: Exam: MR Lumbar Spine Without Contrast Exam date and time: 05/09/2021 9:06 AM Age: 55 years old Clinical indication: Low back pain; Additional info: Intervertebral disc disorder w/ radiculopathy TECHNIQUE: Imaging protocol: Multiplanar magnetic resonance images of the lumbar spine without intravenous contrast. COMPARISON: XA FLUORO GUIDE SPINE INJECTION 05/12/2017 11:19 AM FINDINGS: Vertebrae: Bilateral pars defects and 1 anterolisthesis at L5-S1. Normal vertebral body alignment in the remainder of the lumbar spine. Multilevel endplate and facet degenerative changes with mild reactive marrow edema. Incidental intraosseous hemangioma at T12. Mild epidural lipomatosis from L4 extending into the sacral spinal canal. Spinal cord: Conus medullaris terminates in normal position at L1. No conus compression. L1-L2: Degenerative disc space narrowing with reactive endplate degenerative changes. No disc herniation or spinal stenosis. No significant foraminal stenosis. L2-L3: Small eccentric right foraminal disc bulge. No disc herniation or spinal stenosis. No significant foraminal stenosis. L3-L4: No disc herniation or spinal stenosis. No significant foraminal stenosis. L4-L5: Possible 3 mm disc herniation in the right neural foramen (image 10, series 401). No significant foraminal stenosis. No spinal stenosis. L5-S1: Bilateral pars defects with grade 1 anterolisthesis. Advanced disc degeneration with broad-based posterior disc bulge. Severe right foraminal stenosis with mass effect on the L5 nerve root. Soft tissues: Unremarkable. IMPRESSION: 1. Bilateral L5-S1 pars defects with advanced degenerative spondylosis and grade 1 anterolisthesis. Severe right L5-S1 foraminal stenosis. 2. Possible 3 mm disc herniation in the right L4-L5 neural foramen. No significant foraminal stenosis or central spinal stenosis. Mild epidural lipomatosis. Electronically signed by: Donald Tejada On 05/09/2021 23:00:52 PM
== END ==
LOC: M PLAIMG 02-28 10:36
PROVIDERS: ATTEND Anesthesiology
DX: M51.16 Intervertebral disc disorders with radiculopathy, lumbar region (principal); B20 Human immunodeficiency virus [HIV] disease

== ENCOUNTER → 2021-05-09 | Outpatient (CLI) | payer MEDICARE, MEDICAID ==
[2021-05-09 10:52] LABS: ALBUMIN 3.6 GM/DL (3.2-5.2); ALT/SGPT 24 U/L (12-78); BILIRUBIN,TOTAL 0.3 MG/DL (0.2-1.0); BLOOD UREA NITROGEN 12 MG/DL (7-18); CALCIUM LEVEL 9.3 MG/DL (8.5-10.1); CARBON DIOXIDE LEVEL 27 MEQ/L (21-32); CHLORIDE LEVEL 106 MEQ/L (98-107); CREATININE FOR GFR 0.64 MG/DL (0.55-1.30); GLOMERULAR FILTRATION RATE > 60.0 (>51); GLUCOSE, FASTING 103 MG/DL (70-100); POTASSIUM SERUM 4.4 MEQ/L (3.5-5.1); SODIUM LEVEL 138 MEQ/L (136-145); TOTAL PROTEIN 6.8 GM/DL (6.4-8.2)
== END ==
LOC: M PLALAB 08:08
PROVIDERS: ATTEND Internal Medicine Infectious Disease
DX: B20 Human immunodeficiency virus [HIV] disease (principal)

== ENCOUNTER → 2021-06-18 | Outpatient (CLI) | payer MEDICARE, MEDICAID ==
[~2021-06-18] MED LIST changes: -CALC1TAB8 PO; +CALC600T67 PO; -MONT10TA10 PO; +MONT10TA97 PO; -PHEN30CA2 PO; +PHEN30CA21 PO
== END ==
LOC: M PAIN 10:45
PROVIDERS: ATTEND Nurse Practitioner Family
DX: M51.16 Intervertebral disc disorders with radiculopathy, lumbar region (principal); G89.29 Other chronic pain; J45.909 Unspecified asthma, uncomplicated; G47.30 Sleep apnea, unspecified; F17.210 Nicotine dependence, cigarettes, uncomplicated; Z86.59 Personal history of other mental and behavioral disorders; Z98.84 Bariatric surgery status; Z86.718 Personal history of other venous thrombosis and embolism; Z88.8 Allergy status to other drugs, medicaments and biological substances; E66.01 Morbid (severe) obesity due to excess calories; Z68.41 Body mass index [BMI] 40.0-44.9, adult; Z79.899 Other long term (current) drug therapy

== ENCOUNTER → 2021-09-12 | Outpatient (CLI) | payer MEDICARE, MEDICAID | LOC: M LABSMTC 10:36 | PROVIDERS: ATTEND Anesthesiology | DX: Z01.812 Encounter for preprocedural laboratory examination (principal); Z20.822 Contact with and (suspected) exposure to COVID-19 ==

== ENCOUNTER 2021-09-17 11:50 | Day surgery (SDC) | payer MEDICARE, MEDICAID ==
[~2021-09-17] VITALS: Ht 154.9 cm; Wt 93.9 kg
[~2021-09-17 11:50] MED LIST changes: +NS 1,000 ML IV ONE
[2021-09-17] MEDS ORDERED: LIDOCAINE 2% 100MG/5ML SDV (FOR ANES.) As Ordered ONE (13:29)
[2021-09-17] MEDS ORDERED: propofoL 200 MG/20 ML VIAL As Ordered ONE (13:29)
[2021-09-17] MEDS ORDERED: fentaNYL 100 MCG/2 ML INJECTION As Ordered ONE (13:29)
[2021-09-17 14:26] VITALS: BP 136/96
== END 2021-09-17 14:38 | disposition home or self-care (01) ==
LOC: M OPP 11:50
PROVIDERS: ATTEND Internal Medicine Gastroenterology
DX: R10.13 Epigastric pain (principal); Z98.0 Intestinal bypass and anastomosis status; Z79.1 Long term (current) use of non-steroidal anti-inflammatories (NSAID); Z79.891 Long term (current) use of opiate analgesic; Z79.899 Other long term (current) drug therapy; Z88.1 Allergy status to other antibiotic agents; Z88.8 Allergy status to other drugs, medicaments and biological substances; Z91.018 Allergy to other foods; Z86.711 Personal history of pulmonary embolism; Z86.718 Personal history of other venous thrombosis and embolism
CPT/HCPCS: 43235; J3010

== ENCOUNTER → 2021-10-20 | Outpatient (CLI) | payer MEDICARE, MEDICAID ==
[~2021-10-20] MED LIST changes: +FAMO20TA PO; -NS 1,000 ML IV ONE
== END ==
LOC: M LABSMTC 09:29
PROVIDERS: ATTEND Anesthesiology
DX: Z01.818 Encounter for other preprocedural examination (principal); Z11.52 Encounter for screening for COVID-19

== ENCOUNTER → 2021-10-22 | Outpatient (CLI) | payer MEDICARE, MEDICAID ==
[2021-10-22 12:10] LABS: ALBUMIN 3.6 GM/DL (3.2-5.2); ALT/SGPT 22 U/L (12-78); BILIRUBIN,TOTAL 0.4 MG/DL (0.2-1.0); BLOOD UREA NITROGEN 8 MG/DL (7-18); CALCIUM LEVEL 9.4 MG/DL (8.5-10.1); CARBON DIOXIDE LEVEL 26 MEQ/L (21-32); CHLORIDE LEVEL 106 MEQ/L (98-107); CREATININE FOR GFR 0.57 MG/DL (0.55-1.30); GLOMERULAR FILTRATION RATE > 60.0 (>51); GLUCOSE, FASTING 92 MG/DL (70-100); MAGNESIUM LEVEL 2.3 MG/DL (1.8-2.4); POTASSIUM SERUM 4.2 MEQ/L (3.5-5.1); SODIUM LEVEL 139 MEQ/L (136-145); TOTAL PROTEIN 6.8 GM/DL (6.4-8.2)
[2021-10-24 03:07] LABS: % CD8 Pos Lymph 41.1 % (12.0-35.5); %CD4 Pos Lymphs 45.2 % (30.8-58.5); ABS Eosinophils 0.1 x10E3/uL (0.0-0.4); ABS Monocytes 0.4 x10E3/uL (0.1-0.9); ABS Neutophils 4.9 x10E3/uL (1.4-7.0); Abs CD4 Helper 452 /uL (359-1519); Abs CD8 Suppres 411 /uL (109-897); Eosinophils 1 % (Not Estab.); HCT 43.9 % (34.0-46.6); HGB 14.7 g/dL (11.1-15.9); HIV-1 RNA PCR QUANT 2 LC550285 <20 copies/mL (.); Immature Grans 1 % (Not Estab.); Lymphocytes 16 % (Not Estab.); MCH 29.8 pg (26.6-33.0); MCHC 33.5 g/dL (31.5-35.7); MCV 89 fL (79-97); Monocytes 7 % (Not Estab.); Neutrophils 74 % (Not Estab.); Platelets 219 x10E3/uL (150-450); RBC 4.94 x10E6/uL (3.77-5.28); RDW 15.7 % (11.7-15.4); WBC 6.5 x10E3/uL (3.4-10.8)
== END ==
LOC: M LAB 10:15
PROVIDERS: ATTEND Internal Medicine Infectious Disease
DX: B20 Human immunodeficiency virus [HIV] disease (principal); R25.2 Cramp and spasm

== ENCOUNTER → 2021-10-22 | Outpatient (CLI) | payer MEDICARE, MEDICAID ==
[~2021-10-22] MED LIST changes: +ISOVUE-M 300 61% 15ML VIAL As Ordered ONE; +LIDOCAINE 1% SDV 30ML VIAL As Ordered ONE; +diazePAM 5MG TABLET As Ordered ONE; +methylPREDNISolone SUSP 40MG/ML 1ML VIAL (DEPO MEDROL) As Ordered ONE; +oxyCODONE 5MG TAB As Ordered ONE
[2021-10-22 12:10] VITALS: BP 155/86
== END ==
LOC: M IRPRO 10:00
PROVIDERS: ATTEND Anesthesiology
DX: M51.16 Intervertebral disc disorders with radiculopathy, lumbar region (principal); G89.29 Other chronic pain; J45.909 Unspecified asthma, uncomplicated; G47.30 Sleep apnea, unspecified; M19.90 Unspecified osteoarthritis, unspecified site; B20 Human immunodeficiency virus [HIV] disease; R25.2 Cramp and spasm; Z88.1 Allergy status to other antibiotic agents; Z88.8 Allergy status to other drugs, medicaments and biological substances; Z91.018 Allergy to other foods; Z98.84 Bariatric surgery status
CPT/HCPCS: 36415; 62323; 80053; 83735; 86360; 87536; G0463; J1030; Q9967

== ENCOUNTER → 2021-10-22 | Outpatient (CLI) | payer MEDICARE, MEDICAID ==
[~2021-10-22] MED LIST changes: -ISOVUE-M 300 61% 15ML VIAL As Ordered ONE; -LIDOCAINE 1% SDV 30ML VIAL As Ordered ONE; -diazePAM 5MG TABLET As Ordered ONE; -methylPREDNISolone SUSP 40MG/ML 1ML VIAL (DEPO MEDROL) As Ordered ONE; -oxyCODONE 5MG TAB As Ordered ONE
[2021-10-22 12:25] LABS: CHOLESTEROL LEVEL 214 MG/DL (<200); CHOLESTEROL RISK RATIO 2.038 (<5); HDL CHOLESTEROL 105 MG/DL (>40); LDL CHOLESTEROL 95 MG/DL (<100); NON-HDL-C 109 MG/DL; THYROID STIMULATING HORMONE 0.797 uIU/ML (0.358-3.740); TRIGLYCERIDES LEVEL 70 MG/DL (<150); VITAMIN B12 LEVEL > 2000 PG/ML (247-911)
== END ==
LOC: M LAB 10:08
PROVIDERS: ATTEND Internal Medicine
DX: E78.5 Hyperlipidemia, unspecified (principal); E53.8 Deficiency of other specified B group vitamins

== ENCOUNTER → 2021-11-14 | Outpatient (CLI) | payer MEDICARE, MEDICAID | LOC: M PAIN 10:00 | PROVIDERS: ATTEND Nurse Practitioner Family | DX: M51.16 Intervertebral disc disorders with radiculopathy, lumbar region (principal); G89.29 Other chronic pain; J45.909 Unspecified asthma, uncomplicated; G47.30 Sleep apnea, unspecified; F17.210 Nicotine dependence, cigarettes, uncomplicated; Z86.59 Personal history of other mental and behavioral disorders; Z98.84 Bariatric surgery status; Z86.718 Personal history of other venous thrombosis and embolism; Z88.8 Allergy status to other drugs, medicaments and biological substances; Z79.899 Other long term (current) drug therapy ==

== ENCOUNTER → 2022-02-14 | Outpatient (CLI) | payer MEDICARE, MEDICAID | LOC: M PAIN 09:30 | PROVIDERS: ATTEND Nurse Practitioner Family | DX: M51.37 Other intervertebral disc degeneration, lumbosacral region (principal); M51.16 Intervertebral disc disorders with radiculopathy, lumbar region; G89.29 Other chronic pain; J45.909 Unspecified asthma, uncomplicated; I10 Essential (primary) hypertension; G47.30 Sleep apnea, unspecified; F17.210 Nicotine dependence, cigarettes, uncomplicated; Z86.14 Personal history of Methicillin resistant Staphylococcus aureus infection; Z86.59 Personal history of other mental and behavioral disorders; Z98.84 Bariatric surgery status; Z86.711 Personal history of pulmonary embolism; Z86.718 Personal history of other venous thrombosis and embolism; Z88.8 Allergy status to other drugs, medicaments and biological substances; Z79.899 Other long term (current) drug therapy ==

== ENCOUNTER → 2022-05-20 | Outpatient (CLI) | payer MEDICARE, MEDICAID | LOC: M PAIN 10:15 | PROVIDERS: ATTEND Nurse Practitioner Family | DX: M51.16 Intervertebral disc disorders with radiculopathy, lumbar region (principal); G89.29 Other chronic pain; J45.909 Unspecified asthma, uncomplicated; I10 Essential (primary) hypertension; F17.210 Nicotine dependence, cigarettes, uncomplicated; Z86.14 Personal history of Methicillin resistant Staphylococcus aureus infection; Z86.59 Personal history of other mental and behavioral disorders; Z98.84 Bariatric surgery status; Z86.718 Personal history of other venous thrombosis and embolism; Z88.8 Allergy status to other drugs, medicaments and biological substances; Z79.899 Other long term (current) drug therapy ==

== ENCOUNTER → 2022-06-06 | Outpatient (REF) | payer MEDICARE, MEDICAID | LOC: M SFHCWAGY 17:06 | PROVIDERS: ATTEND Nurse Practitioner Family | DX: Z12.4 Encounter for screening for malignant neoplasm of cervix (principal) ==

== ENCOUNTER → 2022-06-06 | Outpatient (CLI) | payer MEDICARE, MEDICAID | LOC: M WHC 10:40 | PROVIDERS: ATTEND Obstetrics & Gynecology | DX: Z12.31 Encounter for screening mammogram for malignant neoplasm of breast (principal) ==

== ENCOUNTER → 2022-06-20 | Outpatient (CLI) | payer MEDICARE, MEDICAID ==
[~2022-06-20] MED LIST changes: +ISOVUE-M 300 61% 15ML VIAL As Ordered ONE; +LIDOCAINE 1% SDV 30ML VIAL As Ordered ONE; +diazePAM 5MG TABLET As Ordered ONE; +methylPREDNISolone SUSP 40MG/ML 1ML VIAL (DEPO MEDROL) As Ordered ONE; +oxyCODONE 5MG TAB As Ordered ONE
== END ==
LOC: M PAIN 08:00
PROVIDERS: ATTEND Anesthesiology
DX: M51.16 Intervertebral disc disorders with radiculopathy, lumbar region (principal); G89.29 Other chronic pain; G47.30 Sleep apnea, unspecified; J45.909 Unspecified asthma, uncomplicated; I10 Essential (primary) hypertension; F17.210 Nicotine dependence, cigarettes, uncomplicated; Z86.14 Personal history of Methicillin resistant Staphylococcus aureus infection; Z86.59 Personal history of other mental and behavioral disorders; Z98.84 Bariatric surgery status; Z86.718 Personal history of other venous thrombosis and embolism; Z88.8 Allergy status to other drugs, medicaments and biological substances; Z79.899 Other long term (current) drug therapy
CPT/HCPCS: 62323; J1030; Q9967

== ENCOUNTER → 2022-07-21 | Outpatient (CLI) | payer MEDICARE, MEDICAID ==
[~2022-07-21] MED LIST changes: -ISOVUE-M 300 61% 15ML VIAL As Ordered ONE; -LIDOCAINE 1% SDV 30ML VIAL As Ordered ONE; +TOPI-254 PO; -TOPI50TA9 PO; -diazePAM 5MG TABLET As Ordered ONE; -methylPREDNISolone SUSP 40MG/ML 1ML VIAL (DEPO MEDROL) As Ordered ONE; -oxyCODONE 5MG TAB As Ordered ONE
== END ==
LOC: M PAIN 10:30
PROVIDERS: ATTEND Nurse Practitioner Family
DX: M51.16 Intervertebral disc disorders with radiculopathy, lumbar region (principal); G89.29 Other chronic pain; J45.909 Unspecified asthma, uncomplicated; I10 Essential (primary) hypertension; G47.30 Sleep apnea, unspecified; F17.210 Nicotine dependence, cigarettes, uncomplicated; Z86.14 Personal history of Methicillin resistant Staphylococcus aureus infection; Z86.59 Personal history of other mental and behavioral disorders; Z98.84 Bariatric surgery status; Z86.718 Personal history of other venous thrombosis and embolism; Z88.8 Allergy status to other drugs, medicaments and biological substances; Z79.899 Other long term (current) drug therapy

== ENCOUNTER → 2022-07-29 | Outpatient (CLI) | payer MEDICARE, MEDICAID ==
[2022-07-29 16:19] LABS: ALKALINE PHOSPHATASE 140 U/L (46-116); ALT/SGPT 28 U/L (7.0-40); AST/SGOT 18 U/L (<34); BILIRUBIN,TOTAL 0.4 MG/DL (0.3-1.2); BLOOD UREA NITROGEN 15 MG/DL (9-23); CALCIUM LEVEL 9.6 MG/DL (8.5-10.1); CARBON DIOXIDE LEVEL 30 MMOL/L (20-31); CHLORIDE LEVEL 106 MMOL/L (98-107); CREATININE FOR GFR 0.59 MG/DL (0.55-1.30); GLOMERULAR FILTRATION RATE > 60.0 (>51); GLUCOSE, FASTING 81 MG/DL (60-100); POTASSIUM SERUM 5.1 MMOL/L (3.5-5.1); SODIUM LEVEL 141 MMOL/L (136-145); TOTAL PROTEIN 6.9 G/DL (5.7-8.2)
[2022-08-01 02:07] LABS: % CD8 Pos Lymph 39.1 % (12.0-35.5); %CD4 Pos Lymphs 45.8 % (30.8-58.5); ABS Eosinophils 0.1 x10E3/uL (0.0-0.4); ABS Lymphs 1.3 x10E3/uL (0.7-3.1); ABS Monocytes 0.3 x10E3/uL (0.1-0.9); ABS Neutophils 3.6 x10E3/uL (1.4-7.0); Abs CD4 Helper 595 /uL (359-1519); Abs CD8 Suppres 508 /uL (109-897); CD4/CD8 Ratio 1.17 (0.92-3.72); Eosinophils 1 % (Not Estab.); HCT 46.7 % (34.0-46.6); HIV-1 RNA PCR QUANT 2 LC550285 <20 copies/mL (.); Immature Grans 0 % (Not Estab.); Lymphocytes 25 % (Not Estab.); MCH 28.9 pg (26.6-33.0); MCHC 32.1 g/dL (31.5-35.7); MCV 90 fL (79-97); Monocytes 6 % (Not Estab.); Neutrophils 67 % (Not Estab.); Platelets 293 x10E3/uL (150-450); RBC 5.19 x10E6/uL (3.77-5.28); RDW 13.5 % (11.7-15.4); WBC 5.4 x10E3/uL (3.4-10.8)
== END ==
LOC: M PLALAB 12:22
PROVIDERS: ATTEND Internal Medicine Infectious Disease
DX: B20 Human immunodeficiency virus [HIV] disease (principal)

== ENCOUNTER → 2022-09-26 | Outpatient (CLI) | payer MEDICARE, MEDICAID ==
[~2022-09-26] MED LIST changes: -DILT1CAP6 PO; +DILT240C42 PO
== END ==
LOC: M PAIN 10:00
PROVIDERS: ATTEND Nurse Practitioner Family
DX: M51.16 Intervertebral disc disorders with radiculopathy, lumbar region (principal); G89.29 Other chronic pain; J45.909 Unspecified asthma, uncomplicated; I10 Essential (primary) hypertension; Z86.59 Personal history of other mental and behavioral disorders; Z98.84 Bariatric surgery status; Z86.718 Personal history of other venous thrombosis and embolism; Z87.891 Personal history of nicotine dependence; Z88.8 Allergy status to other drugs, medicaments and biological substances; Z79.899 Other long term (current) drug therapy

== ENCOUNTER → 2022-11-25 | Outpatient (CLI) | payer MEDICARE, MEDICAID | LOC: M PAIN 09:00 | PROVIDERS: ATTEND Nurse Practitioner Family | DX: M51.16 Intervertebral disc disorders with radiculopathy, lumbar region (principal); G89.29 Other chronic pain; J45.909 Unspecified asthma, uncomplicated; B20 Human immunodeficiency virus [HIV] disease; I10 Essential (primary) hypertension; E78.00 Pure hypercholesterolemia, unspecified; K58.9 Irritable bowel syndrome, unspecified; Z98.84 Bariatric surgery status; M85.80 Other specified disorders of bone density and structure, unspecified site; Z87.891 Personal history of nicotine dependence; Z79.899 Other long term (current) drug therapy; Z88.8 Allergy status to other drugs, medicaments and biological substances ==

== ENCOUNTER → 2022-12-18 | Outpatient (CLI) | payer MEDICARE, MEDICAID | LOC: M PAIN 11:45 | PROVIDERS: ATTEND Nurse Practitioner Family | DX: M51.16 Intervertebral disc disorders with radiculopathy, lumbar region (principal); G89.29 Other chronic pain; J45.909 Unspecified asthma, uncomplicated; I10 Essential (primary) hypertension; Z86.14 Personal history of Methicillin resistant Staphylococcus aureus infection; Z86.59 Personal history of other mental and behavioral disorders; Z98.84 Bariatric surgery status; Z86.718 Personal history of other venous thrombosis and embolism; Z87.891 Personal history of nicotine dependence; Z88.8 Allergy status to other drugs, medicaments and biological substances; Z79.899 Other long term (current) drug therapy ==

== ENCOUNTER → 2023-01-08 | Outpatient (CLI) | payer MEDICARE, MEDICAID | LOC: M PAIN 10:00 | PROVIDERS: ATTEND Nurse Practitioner Family | DX: M51.16 Intervertebral disc disorders with radiculopathy, lumbar region (principal); G89.29 Other chronic pain; G47.30 Sleep apnea, unspecified; J45.909 Unspecified asthma, uncomplicated; I10 Essential (primary) hypertension; B20 Human immunodeficiency virus [HIV] disease; Z86.14 Personal history of Methicillin resistant Staphylococcus aureus infection; Z86.59 Personal history of other mental and behavioral disorders; Z98.84 Bariatric surgery status; Z86.711 Personal history of pulmonary embolism; Z86.718 Personal history of other venous thrombosis and embolism; Z87.891 Personal history of nicotine dependence; Z88.8 Allergy status to other drugs, medicaments and biological substances ==

== ENCOUNTER → 2023-05-08 | Outpatient (CLI) | payer MEDICARE, MEDICAID ==
[~2023-05-08] MED LIST changes: -OXYB5TAB10 PO; +OXYB5TAB11 PO; +TOPI-21 PO; -TOPI-254 PO
== END ==
LOC: M PAIN 11:45
PROVIDERS: ATTEND Nurse Practitioner Family
DX: M51.16 Intervertebral disc disorders with radiculopathy, lumbar region (principal); G89.29 Other chronic pain; F17.210 Nicotine dependence, cigarettes, uncomplicated; Z86.14 Personal history of Methicillin resistant Staphylococcus aureus infection; Z98.84 Bariatric surgery status; Z86.711 Personal history of pulmonary embolism; Z86.718 Personal history of other venous thrombosis and embolism; Z88.8 Allergy status to other drugs, medicaments and biological substances; Z79.899 Other long term (current) drug therapy

== ENCOUNTER → 2023-07-21 | Outpatient (CLI) | payer OTHER, MEDICAID ==
[~2023-07-21] MED LIST changes: -OXYB5TAB11 PO; +OXYB5TAB14 PO
[2023-07-21 16:03] LABS: ALBUMIN 3.5 G/DL (3.2-5.2); ALKALINE PHOSPHATASE 126 U/L (46-116); ALT/SGPT 13 U/L (7.0-40); AST/SGOT < 8 U/L (<34); BILIRUBIN,TOTAL 0.4 MG/DL (0.3-1.2); BLOOD UREA NITROGEN 10 MG/DL (9-23); CALCIUM LEVEL 8.5 MG/DL (8.5-10.1); CARBON DIOXIDE LEVEL 27 MMOL/L (20-31); CHLORIDE LEVEL 106 MMOL/L (98-107); CREATININE FOR GFR 0.56 MG/DL (0.55-1.30); GLOMERULAR FILTRATION RATE > 60.0 (>51); GLUCOSE, FASTING 129 MG/DL (60-100); POTASSIUM SERUM 4.2 MMOL/L (3.5-5.1); SODIUM LEVEL 137 MMOL/L (136-145); TOTAL PROTEIN 6.1 G/DL (5.7-8.2)
== END ==
LOC: M PLALAB 12:07
PROVIDERS: ATTEND Internal Medicine Infectious Disease
DX: B20 Human immunodeficiency virus [HIV] disease (principal)

== ENCOUNTER → 2023-08-07 | Outpatient (CLI) | payer OTHER, MEDICAID | LOC: M PAIN 11:15 | PROVIDERS: ATTEND Nurse Practitioner Family | DX: M51.16 Intervertebral disc disorders with radiculopathy, lumbar region (principal); I10 Essential (primary) hypertension; J45.909 Unspecified asthma, uncomplicated; F17.200 Nicotine dependence, unspecified, uncomplicated; Z79.51 Long term (current) use of inhaled steroids; Z79.84 Long term (current) use of oral hypoglycemic drugs; Z79.810 Long term (current) use of selective estrogen receptor modulators (SERMs); Z79.891 Long term (current) use of opiate analgesic; Z79.899 Other long term (current) drug therapy; Z88.1 Allergy status to other antibiotic agents; Z88.8 Allergy status to other drugs, medicaments and biological substances; Z91.018 Allergy to other foods | CPT/HCPCS: G0463 ×2 ==

== ENCOUNTER → 2023-08-07 | Outpatient (CLI) | payer MEDICAID, OTHER ==
[2023-08-07 15:55] LABS: LIPASE 29 U/L (12-53)
[2023-08-07 15:56] LABS: AMYLASE 29 U/L (30-118)
[2023-08-07 15:57] LABS: ALBUMIN 3.5 G/DL (3.2-5.2); ALKALINE PHOSPHATASE 152 U/L (46-116); ALT/SGPT 117 U/L (7.0-40); AST/SGOT 255 U/L (<34); BILIRUBIN,TOTAL 0.6 MG/DL (0.3-1.2); BLOOD UREA NITROGEN 11 MG/DL (9-23); CALCIUM LEVEL 9.1 MG/DL (8.5-10.1); CARBON DIOXIDE LEVEL 30 MMOL/L (20-31); CHLORIDE LEVEL 102 MMOL/L (98-107); CREATININE FOR GFR 0.52 MG/DL (0.55-1.30); GLOMERULAR FILTRATION RATE > 60.0 (>51); GLUCOSE, FASTING 103 MG/DL (60-100); POTASSIUM SERUM 4.4 MMOL/L (3.5-5.1); SODIUM LEVEL 135 MMOL/L (136-145); TOTAL PROTEIN 6.1 G/DL (5.7-8.2)
[2023-08-07 15:59] LABS: BASO % 0.3 % (0.0-1.0); EOS # 0.1 10^3/uL (0.0-0.5); EOS % 0.9 % (0.0-3.0); HEMATOCRIT 43.5 % (36.0-47.0); HEMOGLOBIN 13.9 g/dl (12.0-15.5); LYMPH # 0.9 10^3/uL (1.5-5.0); LYMPH % 12.9 % (24.0-44.0); MEAN CORPUSCULAR HEMOGLOBIN 29.7 pg (27.0-33.0); MEAN CORPUSCULAR VOLUME 92.9 fl (80.0-96.0); MONO # 0.4 10^3/uL (0.0-0.8); MONO % 5.7 % (2.0-8.0); NEUTROPHILS # 5.4 10^3/uL (1.5-8.5); NEUTROPHILS % 79.9 % (36.0-66.0); PLATELET COUNT, AUTOMATED 267 10^3/uL (150-450); RED BLOOD COUNT 4.68 10^6/uL (4.00-5.40); WHITE BLOOD COUNT 6.8 10^3/uL (4.0-10.0)
== END ==
LOC: M PLALAB 12:13
PROVIDERS: ATTEND Physician Assistant Medical
DX: R10.10 Upper abdominal pain, unspecified (principal)

== ENCOUNTER → 2023-10-02 | Outpatient (CLI) | payer OTHER, MEDICAID | LOC: M PAIN 11:45 | PROVIDERS: ATTEND Nurse Practitioner Family | DX: M51.16 Intervertebral disc disorders with radiculopathy, lumbar region (principal); Z79.891 Long term (current) use of opiate analgesic; J44.9 Chronic obstructive pulmonary disease, unspecified; F17.200 Nicotine dependence, unspecified, uncomplicated; Z79.810 Long term (current) use of selective estrogen receptor modulators (SERMs); Z79.811 Long term (current) use of aromatase inhibitors; Z79.52 Long term (current) use of systemic steroids; Z79.899 Other long term (current) drug therapy; Z88.1 Allergy status to other antibiotic agents; Z88.8 Allergy status to other drugs, medicaments and biological substances ==

== ENCOUNTER → 2023-10-22 | Outpatient (CLI) | payer OTHER, MEDICAID ==
[~2023-10-22] MED LIST changes: +ALBU8.5H INH; +CETI5TAB2 PO; +DILT120C89 PO; +GABA-282 PO; +HYDR-3719 PO; +MAGN400C PO; +OMEP40CA5 PO; +SEMA2PEN SC; +VARE1TAB2 PO; +VITA100093 PO
[2023-10-22 15:28] LABS: ALBUMIN 3.6 G/DL (3.2-5.2); ALKALINE PHOSPHATASE 112 U/L (46-116); ALT/SGPT 17 U/L (7.0-40); AST/SGOT < 8 U/L (<34); BILIRUBIN,TOTAL 0.4 MG/DL (0.3-1.2); BLOOD UREA NITROGEN 14 MG/DL (9-23); CALCIUM LEVEL 9.3 MG/DL (8.5-10.1); CARBON DIOXIDE LEVEL 31 MMOL/L (20-31); CHLORIDE LEVEL 104 MMOL/L (98-107); CREATININE FOR GFR 0.73 MG/DL (0.55-1.30); GLOMERULAR FILTRATION RATE > 60.0 (>51); GLUCOSE, FASTING 76 MG/DL (60-100); SODIUM LEVEL 139 MMOL/L (136-145); TOTAL PROTEIN 6.2 G/DL (5.7-8.2)
[2023-10-23 13:07] LABS: % CD4+ LYMPHS 50.3 % (30.8-58.5); ABSOLUTE CD4 HELPER 553 /uL (359-1519); BASOPHILS 1 % (Not Estab.); EOSINOPHILS 2 % (Not Estab.); EOSINOPHILS ABSOLUTE 0.1 x10E3/uL (0.0-0.4); HCT 43.5 % (34.0-46.6); HGB 14.1 g/dL (11.1-15.9); LYMPHOCYTES 26 % (Not Estab.); LYMPHOCYTES ABSOLUTE 1.1 x10E3/uL (0.7-3.1); MCH 30.3 pg (26.6-33.0); MCHC 32.4 g/dL (31.5-35.7); MCV 94 fL (79-97); MONOCYTES 7 % (Not Estab.); MONOCYTES ABSOLUTE 0.3 x10E3/uL (0.1-0.9); NEUTROPHILS 64 % (Not Estab.); NEUTROPHILS ABSOLUTE 2.7 x10E3/uL (1.4-7.0); PLT 239 x10E3/uL (150-450); RBC 4.65 x10E6/uL (3.77-5.28); RDW 13.5 % (11.7-15.4); WBC 4.1 x10E3/uL (3.4-10.8)
[2023-10-23 14:52] LABS: HIV-1 RNA PCR QUANT 2 NOT DETECTED copies/mL (NOT DETECTED); HIV-1 RNA PCR QUANT 3 NOT DETECTED (NOT DETECTED)
== END ==
LOC: M PLALAB 10:43
PROVIDERS: ATTEND Nurse Practitioner Adult Health
DX: B20 Human immunodeficiency virus [HIV] disease (principal)

== ENCOUNTER 2023-11-09 12:57 | Day surgery (SDC) | payer OTHER, MEDICAID ==
[~2023-11-09] VITALS: Ht 154.9 cm; Wt 73.7 kg
[2023-11-09] MEDS: NS 1,000 ML IV ONE (13:16)
[2023-11-09] MEDS: ALBUTEROL SULFATE 2.5MG/0.5ML INH NEB SOLN NEB ONE (13:16)
[2023-11-09] MEDS ORDERED: propofoL 200 MG/20 ML VIAL As Ordered ONE (13:58)
[2023-11-09 14:24] VITALS: TEMP 98
[2023-11-09 14:35] VITALS: BP 129/74; O2SAT 96
== END 2023-11-09 14:48 | disposition home or self-care (01) ==
LOC: M OPP 12:57
PROVIDERS: ATTEND Internal Medicine Gastroenterology
DX: Z98.0 Intestinal bypass and anastomosis status (principal); R10.13 Epigastric pain; J45.909 Unspecified asthma, uncomplicated; Z98.84 Bariatric surgery status; Z79.899 Other long term (current) drug therapy; Z88.1 Allergy status to other antibiotic agents; Z88.8 Allergy status to other drugs, medicaments and biological substances; Z91.018 Allergy to other foods

== ENCOUNTER → 2023-12-24 | Outpatient (CLI) | payer OTHER, MEDICAID ==
[~2023-12-24] MED LIST changes: +ISOVUE-M 300 61% 15ML VIAL As Ordered ONE; +LIDOCAINE 1% SDV 30ML VIAL As Ordered ONE; +dexAMETHasone 10MG/1ML VIAL PRES.FREE As Ordered ONE; +diazePAM 5MG TABLET As Ordered ONE; +oxyCODONE 5MG TAB As Ordered ONE
== END ==
LOC: M PAIN 08:15
PROVIDERS: ATTEND Anesthesiology
DX: M51.16 Intervertebral disc disorders with radiculopathy, lumbar region (principal); G89.29 Other chronic pain; J45.909 Unspecified asthma, uncomplicated; B20 Human immunodeficiency virus [HIV] disease; I10 Essential (primary) hypertension; E78.00 Pure hypercholesterolemia, unspecified; K58.9 Irritable bowel syndrome, unspecified; M85.80 Other specified disorders of bone density and structure, unspecified site; Z87.891 Personal history of nicotine dependence; Z79.891 Long term (current) use of opiate analgesic; Z79.899 Other long term (current) drug therapy; Z88.8 Allergy status to other drugs, medicaments and biological substances
CPT/HCPCS: 62323; J1100; Q9967

== ENCOUNTER → 2024-02-11 | Outpatient (CLI) | payer OTHER, MEDICAID ==
[~2024-02-11] MED LIST changes: +GABA-1172 PO; -GABA-282 PO; -ISOVUE-M 300 61% 15ML VIAL As Ordered ONE; -LIDOCAINE 1% SDV 30ML VIAL As Ordered ONE; -dexAMETHasone 10MG/1ML VIAL PRES.FREE As Ordered ONE; -diazePAM 5MG TABLET As Ordered ONE; -oxyCODONE 5MG TAB As Ordered ONE
== END ==
LOC: M PAIN 11:00
PROVIDERS: ATTEND Nurse Practitioner Family
DX: G89.29 Other chronic pain (principal); Z79.891 Long term (current) use of opiate analgesic; M51.16 Intervertebral disc disorders with radiculopathy, lumbar region; B20 Human immunodeficiency virus [HIV] disease; J45.909 Unspecified asthma, uncomplicated; I10 Essential (primary) hypertension; E78.00 Pure hypercholesterolemia, unspecified; Z98.84 Bariatric surgery status; M85.80 Other specified disorders of bone density and structure, unspecified site; G47.30 Sleep apnea, unspecified; Z87.891 Personal history of nicotine dependence; Z79.899 Other long term (current) drug therapy; Z88.8 Allergy status to other drugs, medicaments and biological substances

== ENCOUNTER → 2024-03-10 | Outpatient (CLI) | payer OTHER, MEDICAID ==
[2024-03-10 13:23] LABS: ALBUMIN 3.6 G/DL (3.2-5.2); ALKALINE PHOSPHATASE 118 U/L (35-104); ALT/SGPT 18 U/L (7.0-40); AST/SGOT 10 U/L (<34); BILIRUBIN,TOTAL 0.4 MG/DL (0.3-1.2); BLOOD UREA NITROGEN 14 MG/DL (9-23); CALCIUM LEVEL 9.4 MG/DL (8.5-10.1); CARBON DIOXIDE LEVEL 30 MMOL/L (20-31); CHLORIDE LEVEL 106 MMOL/L (98-107); CREATININE FOR GFR 0.58 MG/DL (0.55-1.30); GLOMERULAR FILTRATION RATE > 60.0 (>51); GLUCOSE, FASTING 76 MG/DL (60-100); POTASSIUM SERUM 4.1 MMOL/L (3.5-5.1); SODIUM LEVEL 139 MMOL/L (136-145); TOTAL PROTEIN 6.6 G/DL (5.7-8.2)
[2024-03-11 14:09] LABS: % CD4+ LYMPHS 48.1 % (30.8-58.5); ABSOLUTE CD4 HELPER 577 /uL (359-1519); BASOPHILS 1 % (Not Estab.); EOSINOPHILS 2 % (Not Estab.); EOSINOPHILS ABSOLUTE 0.1 x10E3/uL (0.0-0.4); HCT 44.3 % (34.0-46.6); HGB 14.4 g/dL (11.1-15.9); LYMPHOCYTES 28 % (Not Estab.); LYMPHOCYTES ABSOLUTE 1.2 x10E3/uL (0.7-3.1); MCH 30.8 pg (26.6-33.0); MCHC 32.5 g/dL (31.5-35.7); MCV 95 fL (79-97); MONOCYTES 10 % (Not Estab.); MONOCYTES ABSOLUTE 0.4 x10E3/uL (0.1-0.9); NEUTROPHILS 58 % (Not Estab.); NEUTROPHILS ABSOLUTE 2.6 x10E3/uL (1.4-7.0); PLT 261 x10E3/uL (150-450); RBC 4.67 x10E6/uL (3.77-5.28); RDW 13.1 % (11.7-15.4); WBC 4.3 x10E3/uL (3.4-10.8)
[2024-03-14 13:17] LABS: HIV-1 RNA PCR QUANT 2 <20 DETECTED copies/mL (NOT DETECTED); HIV-1 RNA PCR QUANT 3 <1.30 DETECTED (NOT DETECTED)
[2024-03-15 22:32] LABS: CYCLIC CITRULLINATED PEPTIDE < 16 UNITS (<20)
[2024-03-16 07:47] LABS: ANA SCREEN, IFA NEGATIVE (NEGATIVE)
[2024-03-16 15:50] LABS: SSA SJOGRENS A <1.0 NEG AI (<1.0 NEG); SSB SJOGRENS B <1.0 NEG AI (<1.0 NEG)
== END ==
LOC: M PLALAB 10:43
PROVIDERS: ATTEND Internal Medicine Infectious Disease
DX: B20 Human immunodeficiency virus [HIV] disease (principal); R21 Rash and other nonspecific skin eruption

== ENCOUNTER → 2024-06-02 | Outpatient (CLI) | payer MEDICARE, MEDICAID | LOC: M PAIN 11:30 | PROVIDERS: ATTEND Nurse Practitioner Family | DX: M51.16 Intervertebral disc disorders with radiculopathy, lumbar region (principal); G89.29 Other chronic pain; Z79.891 Long term (current) use of opiate analgesic; Z79.899 Other long term (current) drug therapy; Z79.52 Long term (current) use of systemic steroids; I10 Essential (primary) hypertension; Z87.891 Personal history of nicotine dependence; Z88.8 Allergy status to other drugs, medicaments and biological substances ==

== ENCOUNTER → 2024-07-28 | Outpatient (CLI) | payer MEDICARE, MEDICAID ==
[2024-07-30 17:07] LABS: % CD4 49 % (30-61); %CD8 37 % (12-42); ABSOLUTE CD4 CELLS 531 cells/uL (490-1740); ABSOLUTE CD8 CELLS 402 cells/uL (180-1170); ABSOLUTE LYMPHOCYTES 1084 cells/uL (850-3900); CD4 CD8 RATIO 1.32 (0.86-5.00)
== END ==
LOC: M PLALAB 12:13
PROVIDERS: ATTEND Internal Medicine Infectious Disease
DX: B20 Human immunodeficiency virus [HIV] disease (principal)

== ENCOUNTER → 2024-08-03 | Outpatient (CLI) | payer MEDICARE, MEDICAID | LOC: M WHC 07:59 | PROVIDERS: ATTEND Internal Medicine | DX: Z12.31 Encounter for screening mammogram for malignant neoplasm of breast (principal); R92.313 Mammographic fatty tissue density, bilateral breasts ==

== ENCOUNTER → 2024-12-16 | Outpatient (CLI) | payer MEDICARE | LOC: M WHC 12:01 | PROVIDERS: ATTEND Internal Medicine Infectious Disease | DX: Z13.820 Encounter for screening for osteoporosis (principal); Z78.0 Asymptomatic menopausal state; M81.0 Age-related osteoporosis without current pathological fracture ==

== ENCOUNTER → 2025-03-24 | Outpatient (CLI) | payer MEDICARE, MEDICAID ==
[2025-03-24 11:10] LABS: BASO # 0.1 10^3/uL (0.0-0.2); BASO % 0.8 % (0.0-1.0); EOS # 0.0 10^3/uL (0.0-0.5); EOS % 0.5 % (0.0-3.0); LYMPH # 0.6 10^3/uL (1.5-5.0); LYMPH % 8.9 % (24.0-44.0); MONO # 0.3 10^3/uL (0.0-0.8); MONO % 4.2 % (2.0-8.0); NEUTROPHILS # 5.5 10^3/uL (1.5-8.5); NEUTROPHILS % 85.1 % (36.0-66.0); PLATELET COUNT, AUTOMATED 288 10^3/uL (150-450)
[2025-03-24 11:15] LABS: ALT/SGPT 19 U/L (7.0-40); AST/SGOT 17 U/L (<34); CALCIUM LEVEL 8.8 MG/DL (8.5-10.1); CARBON DIOXIDE LEVEL 28 MMOL/L (20-31); CHLORIDE LEVEL 106 MMOL/L (98-107); CHOLESTEROL LEVEL 207 MG/DL (<200); CHOLESTEROL RISK RATIO 2.11 (<5); CREATININE FOR GFR 0.53 MG/DL (0.55-1.30); GLOMERULAR FILTRATION RATE > 90.0 (>51); LDL CHOLESTEROL 98.0 MG/DL (<100); NON-HDL-C 109.2 MG/DL; POTASSIUM SERUM 4.5 MMOL/L (3.5-5.1); SODIUM LEVEL 141 MMOL/L (136-145); TOTAL 25(OH) VITAMIN D 27.1 NG/ML (20.0-100.0); TRIGLYCERIDES LEVEL 56 MG/DL (<150)
[2025-03-24 11:27] LABS: ESTIMATED AVERAGE GLUCOSE 108.0 MG/DL (60-110)
== END ==
LOC: M PLALAB 08:04
PROVIDERS: ATTEND Internal Medicine
DX: E11.9 Type 2 diabetes mellitus without complications (principal); E78.5 Hyperlipidemia, unspecified; R94.5 Abnormal results of liver function studies; E55.9 Vitamin D deficiency, unspecified; K21.9 Gastro-esophageal reflux disease without esophagitis

== ENCOUNTER → 2025-03-24 | Outpatient (CLI) | payer MEDICARE, MEDICAID ==
[2025-03-24 11:03] LABS: APPEARANCE, URINE CLEAR (CLEAR); BACTERIA, URINE AUTO NEGATIVE (NEGATIVE); BILIRUBIN, URINE AUTO NEGATIVE (NEGATIVE); BLOOD, URINE BLOOD NEGATIVE (NEGATIVE); GLUCOSE, URINE (UA) AUTO NEGATIVE (NEGATIVE); KETONE, URINE AUTO TRACE mg/dL (NEGATIVE); LEUKOCYTE ESTERASE, URINE AUTO NEGATIVE (NEGATIVE); MUCUS, URINE SMALL (NEGATIVE); NITRITE, URINE AUTO NEGATIVE (NEGATIVE); PROTEIN, URINE AUTO NEGATIVE (NEGATIVE); RBC, URINE AUTO 0 /HPF (0-3); SPECIFIC GRAVITY URINE AUTO 1.025 (1.002-1.035); SQUAMOUS EPITHELIAL CELL UR AU 0 /HPF (0-6); UROBILINOGEN, URINE AUTO 0.2 mg/dL (0.0-2.0); WBC, URINE AUTO 1 /HPF (0-3)
[2025-03-24 11:16] LABS: ALT/SGPT 20 U/L (7.0-40); AST/SGOT 16 U/L (<34); CALCIUM LEVEL 8.8 MG/DL (8.5-10.1); CARBON DIOXIDE LEVEL 28 MMOL/L (20-31); CHLORIDE LEVEL 107 MMOL/L (98-107); CREATININE FOR GFR 0.53 MG/DL (0.55-1.30); GLOMERULAR FILTRATION RATE > 90.0 (>51); POTASSIUM SERUM 4.5 MMOL/L (3.5-5.1); SODIUM LEVEL 141 MMOL/L (136-145)
[2025-03-24 11:18] LABS: VITAMIN B12 LEVEL > 2000 PG/ML (211-911)
[2025-03-26 17:17] LABS: % CD4 46 % (30-61); %CD8 35 % (12-42); ABSOLUTE CD4 CELLS 255 cells/uL (490-1740); ABSOLUTE CD8 CELLS 192 cells/uL (180-1170); ABSOLUTE LYMPHOCYTES 552 cells/uL (850-3900); CD4 CD8 RATIO 1.33 (0.86-5.00)
[2025-03-26 21:44] LABS: HIV-1 RNA PCR QUANT 2 NOT DETECTED copies/mL (NOT DETECTED); HIV-1 RNA PCR QUANT 3 NOT DETECTED (NOT DETECTED)
== END ==
LOC: M PLALAB 08:01
PROVIDERS: ATTEND Internal Medicine Infectious Disease
DX: B20 Human immunodeficiency virus [HIV] disease (principal); E11.9 Type 2 diabetes mellitus without complications; E78.5 Hyperlipidemia, unspecified; R94.5 Abnormal results of liver function studies; E55.9 Vitamin D deficiency, unspecified; K21.9 Gastro-esophageal reflux disease without esophagitis